=== PATIENT | female | born 1950 | race Two or more races ===

== ENCOUNTER → 2019-12-21 13:40 | Outpatient (CLI) | payer MEDICARE, SELFPAY ==
[2019-11-12 15:22] VITALS: BMI 37.0
--- NOTE | 2019-12-21 13:43 | ECHOCS_ITS ---
Reason For Study: Murmur Procedure This was a 2D Doppler, Color Flow transthoracic echocardiogram. Contrast injection was performed. Exam performed in department. Left Ventricle Normal size and thickness. The estimated ejection fraction is 75 %. No evidence for diastolic dysfunction. No regional wall motion abnormalities noted. Right Ventricle Normal RV size. Normal systolic function. Atria Normal left atrium. Normal right atrium. No doppler evidence for ASD. Mitral Valve There is no mitral valve stenosis. No mitral valve insufficiency. Tricuspid Valve There is no tricuspid stenosis. Trivial tricuspid valve insufficiency. Unable to estimate RV systolic pressure due to insufficient tricuspid regurgitant envelope. Aortic Valve Aortic sclerosis, no stenosis. There is no aortic stenosis. No aortic valve insufficiency. Pulmonic Valve There is no pulmonic valvular stenosis. Trivial pulmonic valve insufficiency identified. Great Vessels Normal aortic root. Pericardium/Pleural No pericardial effusion. Medication Diluted definity 2ml given slow IV push to enhance endocardial definition. MMode/2D Measurements & Calculations LVIDd: 4.5 cm IVSd: 0.91 cm LVOT diam: 1.8 cm LVIDs: 2.0 cm LVPWd: 1.1 cm RVDd: 3.3 cm FS: 54.8 % LVOT area: 2.6 cm2 Ao root diam: 3.0 cm LAV(MOD-bp): 47.9 ml LA A4 area: 18.2 cm2 LAV(MOD-bp) Indexed: 25.9 ml/m2 LAV(MOD-sp2): 40.3 ml LAV(MOD-sp4): 47.8 ml LA dimension(2D): 4.3 cm RA A4 area: 10.4 cm2 Doppler Measurements & Calculations MV E max ritesh: 81.8 cm/sec Lat Peak E' Ritesh: 6.6 cm/sec Med Peak E' Ritesh: 5.6 cm/sec MV A max ritesh: 111.3 cm/sec E/E' lat: 12.3 E/E' med: 14.7 MV E/A: 0.73 Ao V2 max: 205.1 cm/sec LV V1 max: 154.0 cm/sec SV(LVOT): 89.7 ml Ao max P.8 mmHg LV V1 max P.5 mmHg Ao V2 mean: 137.8 cm/sec LV V1 mean P.1 mmHg Ao mean P.5 mmHg LV V1 mean: 106.3 cm/sec Ao V2 VTI: 41.4 cm LV V1 VTI: 34.3 cm MAURA(I,D): 2.2 cm2 MAURA(V,D): 2.0 cm2 PA V2 max: 120.4 cm/sec Interpretation Summary The study was technically difficult. Diluted definity 2ml given slow IV push to enhance endocardial definition. The estimated ejection fraction is 75 %. No evidence for diastolic dysfunction. Trivial tricuspid valve insufficiency. Trivial pulmonic valve insufficiency identified. The study was technically difficult. Ordering Physician: Anmol Mac Referring Physician: Luan Miller Performed By: Whit Ansari, EDDIE, RVT
== END ==
PROVIDERS: Family Provider Family Medicine; PCP Family Medicine; Referring Provider Specialist; Visit Provider Specialist
DX: R07.9 Chest pain, unspecified (principal); R01.1 Cardiac murmur, unspecified; I10 Essential (primary) hypertension
CPT/HCPCS: 93306; Q9957; A4216; C8929

== ENCOUNTER 2021-03-22 16:48 | Emergency (ER) | payer MEDICARE, SELFPAY ==
[2019-11-12 15:22] VITALS: BMI 37.0
[2021-03-22 16:48] VITALS: BP 161/61; PULSE 76; PULSE 79; RESP 18; TEMP 36.9; O2SAT 94; BMI 35.2
--- NOTE | 2021-03-22 17:30 | RAD_ITS ---
STUDY: X-RAY - LEFT SHOULDER REASON FOR EXAM: Female, 71 years old. Injury/Pain TECHNIQUE: 4 view(s) of the shoulder. COMPARISON: None. FINDINGS: There is mild degenerative arthrosis of the glenohumeral articulation. There is hypertrophic osteoarthrosis of the acromioclavicular joint with inferior osseous spur formation. Normal acromion. Normal humeral head and visualized proximal humerus. The soft tissue structures are unremarkable. Normal visualized pulmonary apex. RAD/Shoulder min 2 Views IMPRESSION: No acute abnormalities. 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 Electronically Signed: Waqar Joshua MD at 18:04 EDT Tel , Service support ,
[2021-03-22] MEDS: Morphine 4 MG/ML Syringe IM (17:42)
--- NOTE | 2021-03-22 17:45 | RAD_ITS ---
INDICATION: Injury/Pain EXAMINATION/TECHNIQUE: X-RAY - RIGHT XR Hip Unilateral with Pelvis when performed; 2-3 Views COMPARISON: None. FINDINGS: No acute fracture or malalignment. No blastic or lytic lesions. Mild to moderate degenerative changes of the bilateral hips. The soft tissues are unremarkable. RAD/HIP, UNI W/ Pelvis 2-3 Views IMPRESSION: No acute radiographic abnormalities. 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 Electronically Signed: Waqar Joshua MD at 18:05 EDT Tel , Service support ,
--- NOTE | 2021-03-22 18:45 | EDS_ITS ---
HPI History of Present Illness Chief Complaint: Lower Extremity Injury [facility] Medical History (Updated 03/22/21 @ 18:[address] Ry Thompson, DO) Essential hypertension GERD (gastroesophageal reflux disease) History of stroke Hyperlipidemia Sarcoidosis Type 2 diabetes mellitus without complication Home Medications atorvastatin 40 mg PO DAILY 09/21/17 [History Last Taken Unknown] hydrochlorothiazide 25 mg PO DAILY 09/21/17 [History Last Taken Unknown] lisinopril 10 mg PO DAILY 09/21/17 [History Last Taken Unknown] aspirin 81 mg tablet,delayed release 81 mg PO DAILY 11/01/19 [History Last Taken Unknown] fluticasone propionate 220 mcg/actuation HFA aerosol inhaler 2 puff INHALATION DAILY g 11/01/19 [History Last Taken Unknown] guaifenesin 600 mg tablet, extended release 12 hr 1,200 mg PO BID PRN tab 11/12/19 [History Last Taken Unknown] pantoprazole 20 mg tablet,delayed release 20 mg PO DAILY 11/12/19 [History Last Taken Unknown] hydrocodone-acetaminophen 1 tab PO Q6H PRN PRN 3 Days #10 tablet 03/22/21 [Rx Last Taken Unknown] metformin 500 mg PO DAILY 03/22/21 [History Last Taken Unknown] prednisolone acetate 1 drp OPHTHALMIC (EYE) Q6H 03/22/21 [History Last Taken Unknown] Allergy/AdvReac Type Severity Reaction Status Date / Time pravastatin AdvReac Intermediate joint pain Verified 11/12/19 15:22 simvastatin AdvReac Intermediate joint pain Verified 11/12/19 15:22 Family History Mother CAD (coronary artery disease) CABG X 3 Breast cancer Brother Cancer prostate Myocardial infarction Pacemaker Grandfather Diabetes Surgical History History of foot surgery History of hysterectomy Social History (Updated 11/12/19 @ 16:[address] Anmol Mac MD) Smoking Status: Never smoker alcohol intake: never substance use type: does not use caffeine: Yes Type: tea Number of servings: 2 EXAM Physical Exam Const Vital Signs: 03/22/21 16:48 Temperature 98.5 F Temperature Source Temporal Pulse Rate 79 Respiratory Rate 18 Blood Pressure 161/61 H Blood Pressure Mean 94 Pulse Ox 94 Oxygen Delivery Method Room Air MDM MDM MDM Narrative Medical decision making narrative: Patient was given a dose of morphine here. Patient is feeling better on reevaluation. Patient was given a prescription for a short course of [place]. Patient was advised of her x-ray findings. Patient was instructed to follow-up with her primary care physician in 5 to 7 days. Patient understood and was agreeable with the plan. All questions were answered. Radiography X-Ray: Right Hip, Read by ED Physician, Read by Radiologist and Normal Diagnostic Testing: Radiology Impression Shoulder X-Ray 03/22/21 17:30 IMPRESSION: No acute abnormalities. 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 Electronically Signed: Waqar Joshua MD at 18:04 EDT Tel , Service support , Hip/Pelvis X-Ray 03/22/21 17:45 IMPRESSION: No acute radiographic abnormalities. 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 Electronically Signed: Waqar Joshua MD at 18:05 EDT Tel , Service support , Discharge Plan Triage Chief Complaint: Lower Extremity Injury ED Provider: Ry Thompson Dx/Rx/DC Orders Clinical Impression: Sacroiliitis, Muscle strain of left shoulder region Instructions: ED Sacroiliitis, ED Muscle Strain, Extremity Prescriptions: New hydrocodone-acetaminophen [hydrocodone-acetaminophen] 1 TABLET tablet 1 tab PO Q6H PRN PRN (Reason: Pain) 3 Days Qty: 10 RF: 0 No Action pantoprazole 20 mg tablet,delayed release (DR/EC) 20 mg PO DAILY RF: 0 Flovent HFA 220 mcg/actuation HFA aerosol inhaler 2 puff INHALATION DAILY RF: 0 aspirin [Adult Low Dose Aspirin] 81 mg tablet,delayed release (DR/EC) 81 mg PO DAILY RF: 0 guaifenesin 600 mg tablet extended release 12hr 1,200 mg PO BID PRN (Reason: Congestion) RF: 0 atorvastatin 40 MG tablet 40 mg PO DAILY RF: 0 lisinopril 10 MG tablet 10 mg PO DAILY RF: 0 hydrochlorothiazide 25 MG tablet 25 mg PO DAILY RF: 0 metformin 500 mg Tablet 500 mg PO DAILY RF: 0 prednisolone acetate 1 % Drops,Suspension 1 drp ophthalmic (eye) Q6H RF: 0 Primary Care Provider: Ry Stoddard Referrals: Ry Stoddard MD [Primary Care Provider] - 3-5 Days Disposition Disposition: Home, self care
[2021-03-22 18:53] VITALS: BP 114/55; PULSE 54; RESP 15
== END 2021-03-22 18:58 | disposition home or self-care (01) ==
PROVIDERS: Emergency Provider Emergency Medicine; PCP Family Medicine
DX: M46.1 Sacroiliitis, not elsewhere classified (principal); S46.912A Strain of unspecified muscle, fascia and tendon at shoulder and upper arm level, left arm, initial encounter; X58.XXXA Exposure to other specified factors, initial encounter; Y93.9 Activity, unspecified; Y92.9 Unspecified place or not applicable; I10 Essential (primary) hypertension; E11.9 Type 2 diabetes mellitus without complications; E78.5 Hyperlipidemia, unspecified; D86.9 Sarcoidosis, unspecified; K21.9 Gastro-esophageal reflux disease without esophagitis; Z86.73 Personal history of transient ischemic attack (TIA), and cerebral infarction without residual deficits; Z79.82 Long term (current) use of aspirin; Z79.84 Long term (current) use of oral hypoglycemic drugs; Z79.899 Other long term (current) drug therapy
CPT/HCPCS: 73030; 73502; 96372; 99283

== ENCOUNTER → 2021-04-21 11:43 | Outpatient (CLI) | payer MEDICARE, SELFPAY ==
[2021-03-22 16:48] VITALS: BMI 35.2
[2021-04-21 15:35] LABS: Vitamin B12 499 pg/mL (211-911)
[2021-04-21 15:39] LABS: Hemoglobin A1c 6.4 % (3.8-5.6)
[2021-04-21 15:48] LABS: ALB/GLOB Ratio 0.7 RATIO (0.9-2.4); AST(SGOT) 34 U/L (15-37); Alanine Aminotransfer ALT/SGPT 55 U/L (13-56); Albumin, Serum 3.3 g/dL (3.2-5.0); Alkaline Phosphatase 124 U/L (45-117); Anion Gap 4 (5-15); BUN 20 mg/dL (7-18); BUN/Creat Ratio 24.4 RATIO (10-20); CRP 5.59 mg/L (0.0-3.0); Calcium,Total 9.6 mg/dL (8.5-10.1); Chloride 106 mmol/L (98-107); Creatinine, Serum 0.82 mg/dL (0.55-1.02); EST Glomerular Filtration Rate 73 mL/min (>60); Est Glom Filt Rate - Afr Amer 89 mL/min (>60); Glucose 101 mg/dL (74-106); Lipase 214 U/L (73-393); Potassium 3.9 mmol/L (3.5-5.1); Protein, Total 8.3 g/dL (6.4-8.2); Sodium Level 141 mmol/L (136-145)
[2021-04-21 15:52] LABS: Absolute Lymphocyte Count 1.91 X10^3/uL (0.83-4.51); Basophil# 0.02 X10^3/uL; Basophil% 0.3 % (0-1); Hematocrit 45.9 % (37-47); Hemoglobin 14.6 g/dL (12.0-15.0); Lymphocyte # 1.91 X10^3/ul (0.83-4.51); Lymphocyte % 28.9 % (19-41); Mean Corp Hgb Conc 31.8 g/dL (32-36); Mean Corpuscular Hgb 30.5 pg (27.0-32.0); Mean Corpuscular Volume 95.8 fL (81-99); Monocyte# 0.45 X10^3/uL; Monocyte% 6.8 % (0-10); NRBC Flagged by Analyzer 0 % (0-5); Neutrophil # 4.02 X10^3/uL (2.7-7.7); Neutrophil % 60.8 % (47-70); Platelet Count 171 K/mm3 (150-450); RBC Distribution Width CV 13.7 % (11.6-14.6); RBC Distribution Width SD 48.8 fl (35.1-43.9); Red Blood Count 4.79 M/mm3 (4.2-5.4); White Blood Count 6.6 K/mm3 (4.4-11.0)
[2021-04-21 15:53] LABS: Erythrocyte Sedimentation Rate 24 mm/hr (0-30)
== END ==
PROVIDERS: PCP Family Medicine; Referring Provider Family Medicine; Visit Provider Family Medicine
DX: E11.9 Type 2 diabetes mellitus without complications (principal); R10.13 Epigastric pain; K21.9 Gastro-esophageal reflux disease without esophagitis
CPT/HCPCS: 36415; 80053; 82607; 82746; 83036; 83690; 85025; 85652; 86140

== ENCOUNTER 2021-06-03 16:36 | Outpatient (RCR) | payer MEDICARE, SELFPAY ==
--- NOTE | 2021-06-05 10:20 | HP.PTEVAL_ITS ---
Patient's Visit Information MAREN MANRIQUE is a 71 year old F referred to Physical Therapy by Dr. Ry Stoddard MD with a diagnosis of L shoulder pain. Date of Evaluation: 06/03/21 Physical Therapist: Burak Lambert DPT - Visit Plan Frequency: 2x /Week Duration: 4 Weeks Plan: Start with chetna into flexion and scaption. Add in mid row, shoulder IR and extension strenthening with light resistance. Work on pain free ranges. Progress stability exercises and ROM as tolerated. Pt. has a large copay and desires to work on HEP given today for a week or 2 then follow back up. She is to call me with any questions if symptoms worse prior to coming back. - Subjective Pt. is here today for her initial evaluation with diagnosis of L shoulder pain. Pt. reports having pain for ~2-3 weeks. No mech of injury noted. No N/T in either UE. 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 Pt. has not had any imaging at this point in time. She did receive topical analgesic cream which has helped. She reports using it 2-3 times per day with good results. She reports having having increased pain with lifting her arm, any reaching. Pt. has relief with rest and OTC meds and the analgesic cream. Pt. reports she has been doing better and can now therapist speech her arm a bit better. She still complaints of increased pain with sleeping and lying on her L side. Pt. is hopeful to reduce symptoms in order to get back to all recreational and work activities without limitations. - Pain L shoulder Pain Intensity (Out of 10): 2 Pain Intensity Range: 1, 7 - Objective POSTURE: Pt. has general flexed posture. Pt. has rounded B shoulders and tends to keep her L shoulder in a guarded posture. PALPATION: Pt. has increased tenderness at anterior subacromial space and insertion supraspinatus and along bicipital groove along long head of biceps. NEURO: Pt. has normal sensation of BUEs, normal DTR of bilateral UEs. ROM: L shoulder: AROM: flexion 65deg, abd 55deg, functional ER external auditory meatus with aberrant motions, functional IR L2 no issue. Pt. reports being limited with all overhead motions secondary to pain. PROM: L shoulder: flexion 165deg (increased pain with return), abd 130deg increase NW, ER at 30deg of abd 30deg increased NE, IR 30deg increase NW. MMT: LUE: wrist 5/5 throughout; elbow 4+/5 throughout; shoulder- flexion 3-/5, abd 3- /5, ER 4/5 increase NW, IR 5-/5 NE, ext 5/5 NE. - Goals Goal 1:: LTG: Pt. to be I with HEP. Goal Time Frame: 2-4 Weeks Goal 2:: STG: Pt. to sleep throughout the night with 0-2/10 pain in L shoulder. Goal Time Frame: 2 Weeks Goal 3:: STG: Pt. to have increased AROM of L shoulder into flexion and abduction to at least 90deg allowing for increased tolerance to ADLs and job duties. Goal Time Frame: 2-4 Weeks Goal 4:: LTG: Pt. to have at least 130deg of active shoulder flexion and abduction. Goal Time Frame: 4-6 Weeks Goal 5:: LTG: Pt. to have increased RTC strength and deltoid strength to 4/5 throughout. Goal Time Frame: 4-6 Weeks Goal 6:: LTG: Pt. to complete all work duties and ADLs with 0-2/10 pain in L shoulder. Goal Time Frame: 4-6 Weeks - Rehabilitation Potential Physical Therapy Diagnosis: Pt. has signs and symptoms consistent with L shoulder pain. She has marked active ROM loss, but able to tolerate progressive passive motion. She did have pain with any attempted movement overhead. She has increased symptoms with active shoulder ER as well. She has + speeds, empty can and HK testing. I do think she has a marked RTC/biceps tendonopathy. She has increased pain with any eccentric lowering and marked loss of active mobility above ~65deg of motion. Due to this I do think she most likely has a tear (supraspinatus, biceps possiblyt as well). I suggest she work on ROM and strengthening around the RTC in order to reduce stress in injury site in attempt to stabilize around. Rehabilitation Potential: Fair - Anticipated Interventions Patient/Client Instruction: Educate patient on: Condition, Plan of Care, Risk Factors, Benefits of Fitness Program For the Purpose of:: To improve safety, To improve health and function, To foster healthy habits, To improve decision making, To improve self management, To prevent re-injury, To improve ability to perform tasks related to life management Therapeutic Exercise to Include: Strength training, Power training, Body mechanics, Postural training, Passive ROM, Active ROM, Scapular Strength/Stabilization For the Purpose of:: To decrease pain, To increase ROM, To improve nutrient delivery to tissue, To increase oxygenation perfusion, To improve muscle performance and motor function, To improve health of tissue, To decrease soft tissue restriction, To increase flexibility/ROM Manual Therapy Techniques to Include: Mobilization, Passive ROM For the Purpose of:: To decrease pain, To decrease swelling/inflammation, To increase ROM Ultrasound (thermal/non thermal): Yes For the Purpose of:: To decrease pain, To decrease swelling/inflammation, To increase ROM Thank you for the opportunity to evaluate your patient. For Medicare and Medicare HMO plans, please review the plan of care and approve it. It will need to be FAXED BACK to us at [phone] for Medicare purposes. For Medicare only, by signing this I certify the plan of care. Please let me know if there are questions or concerns regarding this plan of care. Physician Signature: Date:
== END 2021-06-03 19:00 | disposition home or self-care (01) ==
LOC: PT 16:36
PROVIDERS: PCP Family Medicine; Referring Provider Family Medicine; Visit Provider Family Medicine
DX: M75.22 Bicipital tendinitis, left shoulder (principal)
CPT/HCPCS: 97161

== ENCOUNTER → 2021-06-04 09:10 | Outpatient (CLI) | payer MEDICARE, SELFPAY ==
--- NOTE | 2021-06-04 09:11 | US_ITS ---
STUDY: ABDOMINAL ULTRASOUND - RIGHT UPPER QUADRANT REASON FOR VISIT: Female, 71 years old RUQ and epigastric pain TECHNIQUE: Ultrasound evaluation of the right upper quadrant was performed with real-time and static overton-scale imaging. TECHNICAL QUALITY: Adequate. COMPARISON: None. FINDINGS: Liver: The liver measures 15.7 cm. There is normal echogenicity of the liver. The bile ducts are within normal limits. There is hepatic color flow. The direction of portal flow is hepatopetal. There is no demonstrated mass lesion. There is a 3 mm x 3 mm x 3 mm granuloma in the left lobe of the liver. Gallbladder: Normal distended gallbladder. The gallbladder wall measures mm. There is a negative sonographic Boyd''s sign. There is no pericholecystic fluid. There are multiple echogenic structures within the gallbladder, consistent with multiple gallstones. Common Bile Duct (C.B.D.): The common bile duct measures 2.4 mm. Pancreas: Normal size of the head, body and tail of the pancreas. There is increased echogenicity of the pancreas. There is no demonstrated pancreatic mass or cyst. Right Kidney: Normal size of the right kidney. The right kidney measures 10.5 cm x 4.9 cm x 5.9 cm. Normal renal cortex. The right cortex measures 1.8 cm. 2 renal cysts are seen. The larger measures 2.2 cm x 1.9 cm x 2 cm. There is no right hydronephrosis. US/Abdomen Limited IMPRESSION: Multiple gallstones. Right renal cysts. Electronically Signed: Ricardo Rosen MD at 14:21 EDT , Service support ,
== END ==
PROVIDERS: PCP Family Medicine; Referring Provider Family Medicine; Visit Provider Family Medicine
DX: R10.11 Right upper quadrant pain (principal)
CPT/HCPCS: 76705

== ENCOUNTER → 2021-06-16 11:20 | Outpatient (CLI) | payer MEDICARE, SELFPAY ==
--- NOTE | 2021-06-16 11:25 | RAD_ITS ---
STUDY: X-RAY CHEST REASON FOR EXAM: Female, 71 years old. SARCOIDOSIS TECHNIQUE: PA and lateral views of the chest. COMPARISON: Comparison is made with prior study dated 09/16/2015. FINDINGS: The lungs are clear and expanded. Scattered calcified granulomas. There is no demonstrated pleural abnormality. Normal size heart. Normal mediastinum and alecia. Normal visualized pulmonary arteries. Normal visualized aortic arch and descending thoracic aorta. There are diffuse degenerative changes of the visualized thoracic spine. Normal visualized ribs, clavicles, and shoulders. There is no demonstrated abnormality of the visualized soft tissue structures of the upper abdomen. RAD/Chest PA and Lateral IMPRESSION: Scattered calcified granulomas. Electronically Signed: Ricardo Rosen MD at 21:46 EDT , Service support ,
[2021-06-16 15:30] LABS: CRP 5.92 mg/L (0.0-3.0)
[2021-06-16 15:33] LABS: Erythrocyte Sedimentation Rate 13 mm/hr (0-30)
[2021-06-18 16:42] LABS: Angiotensin Convert Enzyme 15 U/L (14-82)
== END ==
PROVIDERS: PCP Family Medicine; Referring Provider Internal Medicine Pulmonary Disease; Visit Provider Internal Medicine Pulmonary Disease
DX: D86.9 Sarcoidosis, unspecified (principal); K57.32 Diverticulitis of large intestine without perforation or abscess without bleeding
CPT/HCPCS: 36415; 71046; 82164; 85652; 86140

== ENCOUNTER → 2021-07-01 16:32 | Outpatient (CLI) | payer MEDICARE, SELFPAY ==
[2021-06-23 13:15] VITALS: BMI 36.5
--- NOTE | 2021-07-01 16:35 | CT_ITS ---
STUDY: CT ABDOMEN AND PELVIS WITH CONTRAST REASON FOR EXAM: Female, 71 years old. Abdominal pain RADIATION DOSAGE (If Supplied By Facility): CTDIvol = ( 14.12 ) mGy, DLP = ( 770.51 ) mGycm TECHNIQUE: Transaxial images were obtained from the dome of the diaphragm to the symphysis pubis with oral contrast. Oral and amp; IV REDICAT and amp; 100ML ISOVUE 300 was administered. Sagittal and coronal images were reconstructed. Individualized dose optimization techniques were used for this CT. COMPARISON: 09/21/2017 FINDINGS: The visualized lung bases are unremarkable. The visualized portions of the heart are within normal limits. Normal liver. Normal gallbladder and extrahepatic biliary system. Normal spleen. Normal pancreas. Normal bilateral adrenal glands. Normal right kidney. 4 cm cyst in the upper pole the left kidney. Normal visualized stomach. Normal small intestine. Normal colon. The appendix is visualized and appears normal. Normal abdominal aorta. Normal inferior vena cava. Normal retroperitoneum. Normal urinary bladder. Normal abdominal wall. Normal osseous structures. CT/Abdomen/Pelvis WITH Contrast IMPRESSION: Normal enhanced CT of the abdomen and pelvis. Electronically Signed: Alton Plaza MD at 17:08 EDT Tel , Service support ,
[2021-07-01 17:01] LABS: CREATININE FINGERSTICK 0.8 mg/dL (0.55-1.02); EGFR FINGERSTICK > 60.0000 mL/min (>60)
== END ==
PROVIDERS: PCP Family Medicine; Referring Provider Surgery; Visit Provider Surgery
DX: R10.9 Unspecified abdominal pain (principal)
CPT/HCPCS: 74177; Q9967

== ENCOUNTER → 2021-07-14 09:36 | Outpatient (CLI) | payer MEDICARE, SELFPAY ==
--- NOTE | 2021-07-14 09:38 | NM_ITS ---
CLINICAL: 71-year-old female with history of right upper quadrant abdominal pain. RADIONUCLIDE HEPATOBILIARY SCINTIGRAPHY COMPARISON: Abdominal ultrasound report 06/04/2021, CT of the abdomen-pelvis report 07/01/2021 FINDINGS: Following the intravenous administration of 5.0 mCi of 99m Tc Mebrofenin, hepatobiliary images reveal:. 1. Relatively prompt and homogeneous radiopharmaceutical concentration is noted by the liver parenchyma. No parenchymal defects are identified. 2. Gallbladder activity is identified at 15-30 minutes post radiopharmaceutical administration. 3. Small intestinal tract is observed at 45 minutes following tracer injection. 4. Washout of the radiopharmaceutical by the hepatic parenchyma appears qualitatively normal. The patient was administered a fatty meal (8 ounces Boost). The post fatty meal ingestion gallbladder ejection fraction calculated at 59 minutes was noted to be 3.0 % (normal greater than 30%). NM/Hepatobilliary Img w/Pharm Int IMPRESSION: 1. ABNORMAL 99m Tc Mebrofenin hepatobiliary imaging examination with fatty meal ingestion. A. A gallbladder ejection fraction calculated to be less than 30% following the administration of an ingested fatty meal is consistent with the presence of functional hepatobiliary disease (gallbladder and/or sphincter of Oddi dyskinesia) and/or organic hepatobiliary disease (chronic acalculous cholecystitis and/or cystic duct syndrome) in patients with intermediate to high pretest probabilities of hepatobiliary illness. (Gloria and Darrin, J Nucl Med 43: 1603, 2002). Electronically Signed: Alton Seaman DO at 22:08 EDT Tel , Service support ,
== END ==
LOC: NM 09:36
PROVIDERS: PCP Family Medicine; Referring Provider Family Medicine; Visit Provider Family Medicine
DX: R10.11 Right upper quadrant pain (principal)
CPT/HCPCS: 78227; A9537

== ENCOUNTER 2021-08-06 20:11 | Emergency (ER) | payer MEDICARE, SELFPAY ==
[2021-08-06 20:12] VITALS: BP 160/75; PULSE 79; RESP 15; TEMP 36.6; O2SAT 97; BMI 36.5
== END 2021-08-06 20:41 | disposition left against medical advice (07) ==
LOC: ED 21:07
PROVIDERS: PCP Family Medicine
DX: J02.9 Acute pharyngitis, unspecified (principal)

== ENCOUNTER → 2021-08-07 | Outpatient (CLI) | payer MEDICARE, SELFPAY | END | disposition home or self-care (01) | LOC: LABSPEC 16:45 | PROVIDERS: PCP Family Medicine; Referring Provider Family Medicine; Visit Provider Family Medicine | DX: Z20.822 Contact with and (suspected) exposure to COVID-19 (principal) | CPT/HCPCS: 87633 ==

== ENCOUNTER → 2021-10-30 12:48 | Outpatient (CLI) | payer MEDICARE, SELFPAY ==
--- NOTE | 2021-10-30 12:56 | CT_ITS ---
STUDY: CT CHEST WITHOUT CONTRAST REASON FOR EXAM: Female, 71 years old. SARCOIDOSIS OF LUNG. Covid. RADIATION DOSAGE (If Supplied By Facility): CTDIvol = ( 16.94 ) mGy, DLP = ( 466.46 ) mGycm TECHNIQUE: Transaxial imaging was performed without the administration of intravenous contrast material. Multiplanar coronal and sagittal images were reformatted. Individualized dose optimization techniques were used for this CT. COMPARISON: None. FINDINGS: There is a 1 cm hypodensity in the right lobe of the thyroid. Small benign-appearing bilateral axillary lymph notes. There is a 6.3 mm partially calcified nodule in the posterior medial aspect of the right upper lobe. There is also evidence of a calcified granuloma in the anterior aspect of the right upper lobe as seen on axial image #52. 5 mm granuloma in the right lower lobe adjacent to the right hemidiaphragm. There is evidence of a 1.2 cm noncalcified nodule in the peripheral lateral aspect of the left lower lobe. There is no demonstrated pleural abnormality. There are calcifications of the coronary arteries. Calcified right paratracheal adenopathy. Calcified right hilar lymph nodes. Normal unenhanced pulmonary arteries. Normal aorta arch and descending thoracic aorta. There are multi-level degenerative changes of the thoracic spine. Multiple calcified splenic granulomas. CT/Chest without Contrast IMPRESSION: Scattered calcified granulomas as well as calcified right hilar lymph nodes. 1.2 cm noncalcified nodule in the peripheral lateral aspect of the left lower lobe. A six-month follow-up examination is suggested. Electronically Signed: Ricardo Rosen MD at 14:15 EST , Service support ,
== END ==
PROVIDERS: PCP Family Medicine; Referring Provider Internal Medicine Pulmonary Disease; Visit Provider Internal Medicine Pulmonary Disease
DX: D86.0 Sarcoidosis of lung (principal)
CPT/HCPCS: 71250

== ENCOUNTER 2021-12-01 12:31 | Outpatient (CLI) | payer MEDICARE, SELFPAY | END 2021-12-01 23:59 | disposition short-term general hospital (02) | LOC: MTLAB 12:33 | PROVIDERS: PCP Family Medicine; Referring Provider Internal Medicine Pulmonary Disease; Visit Provider Internal Medicine Pulmonary Disease | DX: D86.0 Sarcoidosis of lung (principal) | CPT/HCPCS: 36415; 86140 ==

== ENCOUNTER 2021-12-02 11:11 | Outpatient (CLI) | payer MEDICARE, SELFPAY | END 2021-12-02 23:59 | disposition short-term general hospital (02) | LOC: LABSPEC 11:12 | PROVIDERS: PCP Family Medicine; Referring Provider Physician Assistant; Visit Provider Physician Assistant | DX: Z11.52 Encounter for screening for COVID-19 (principal) | CPT/HCPCS: 87635; U0003; U0005 ==

== ENCOUNTER 2021-12-23 08:58 | Outpatient (CLI) | payer MEDICARE, SELFPAY ==
[2021-12-23 10:31] LABS: Hematocrit 48.3 % (37-47); Hemoglobin 15.5 g/dL (12.0-15.0); Mean Corp Hgb Conc 32.1 g/dL (32-36); Mean Corpuscular Hgb 31.1 pg (27.0-32.0); Mean Corpuscular Volume 96.8 fL (81-99); Mean Platelet Vol. 11.8 fl (6.2-12.0); Platelet Count 161 K/mm3 (150-450); RBC Distribution Width SD 50.4 fl (35.1-43.9); Red Blood Count 4.99 M/mm3 (4.2-5.4); White Blood Count 14.4 K/mm3 (4.4-11.0)
[2021-12-23 11:02] LABS: ALB/GLOB Ratio 0.8 RATIO (0.9-2.4); AST(SGOT) 8 U/L (15-37); Alanine Aminotransfer ALT/SGPT 30 U/L (13-56); Albumin, Serum 3.2 g/dL (3.2-5.0); Alkaline Phosphatase 99 U/L (45-117); Anion Gap 5 (5-15); BUN 19 mg/dL (7-18); BUN/Creat Ratio 22.3 RATIO (10-20); Calcium,Total 9.7 mg/dL (8.5-10.1); Chloride 100 mmol/L (98-107); Creatinine, Serum 0.85 mg/dL (0.55-1.02); EST Glomerular Filtration Rate 70 mL/min (>60); Est Glom Filt Rate - Afr Amer 85 mL/min (>60); Globulin 4.1 g/dL (2.2-4.2); Glucose 196 mg/dL (74-106); Potassium 3.5 mmol/L (3.5-5.1); Protein, Total 7.3 g/dL (6.4-8.2); Sodium Level 136 mmol/L (136-145)
== END 2021-12-23 23:59 | disposition short-term general hospital (02) ==
LOC: MTLAB 09:01
PROVIDERS: PCP Family Medicine; Referring Provider Family Medicine; Visit Provider Family Medicine
DX: D86.9 Sarcoidosis, unspecified (principal); E11.65 Type 2 diabetes mellitus with hyperglycemia; Z79.52 Long term (current) use of systemic steroids
CPT/HCPCS: 36415; 80053; 85027

== ENCOUNTER 2022-02-02 12:12 | Outpatient (CLI) | payer MEDICARE, SELFPAY ==
--- NOTE | 2022-02-02 12:20 | RAD_ITS ---
1. INDICATION: SINUSITIS EXAMINATION/TECHNIQUE: X-RAY - XR Sinuses Paranasal Min 3 Views COMPARISON: CT the head dated 04/27/2016 FINDINGS: There is no significant mucosal thickening. There are no air-fluid levels. The regional bones are grossly intact. Current examination is remarkable for a lobulated peripherally calcified abnormality involving the RIGHT frontal cranial vault. This does correspond to coarsely calcified meningiomata which are seen on the previous CT. Size and configuration are consistent with previous CT. RAD/Sinuses min 3 Views IMPRESSION: 1. No evidence of air-fluid levels or claudette sinus opacification involving the visualized paranasal sinuses. 2. Lobulated peripherally calcified structures associated with the RIGHT frontal cranial vault consistent with calcified meningiomata. Electronically Signed: Alton Nieto MD at 17:44 EDT ,
[2022-02-02 15:14] LABS: Hematocrit 46.1 % (37-47); Hemoglobin 14.6 g/dL (12.0-15.0); Mean Corp Hgb Conc 31.7 g/dL (32-36); Mean Corpuscular Hgb 30.8 pg (27.0-32.0); Mean Corpuscular Volume 97.3 fL (81-99); Mean Platelet Vol. 11.1 fl (6.2-12.0); Platelet Count 176 K/mm3 (150-450); RBC Distribution Width CV 13.1 % (11.6-14.6); RBC Distribution Width SD 46.6 fl (35.1-43.9); Red Blood Count 4.74 M/mm3 (4.2-5.4); White Blood Count 6.7 K/mm3 (4.4-11.0)
[2022-02-02 15:35] LABS: AST(SGOT) 17 U/L (15-37); Alanine Aminotransfer ALT/SGPT 40 U/L (13-56); Albumin, Serum 3.5 g/dL (3.2-5.0); Alkaline Phosphatase 117 U/L (45-117); Anion Gap 1 (5-15); BUN 12 mg/dL (7-18); Bilirubin, Direct 0.09 mg/dL (0.00-0.30); Calcium,Total 9.5 mg/dL (8.5-10.1); Chloride 104 mmol/L (98-107); Creatinine, Serum 0.79 mg/dL (0.55-1.02); EST Glomerular Filtration Rate 77 mL/min (>60); Est Glom Filt Rate - Afr Amer 93 mL/min (>60); Globulin 4.5 g/dL (2.2-4.2); Potassium 3.5 mmol/L (3.5-5.1); Sodium Level 137 mmol/L (136-145)
[2022-02-02 16:05] LABS: Hepatitis B Surface Antigen Non-Reactive (Nonreactive); Hepatitis C Antibody Non-Reactive (Nonreactive)
[2022-02-04 08:34] LABS: Hepatitis B Core Ab Total Negative (Negative)
== END 2022-02-02 23:59 | disposition home or self-care (01) ==
LOC: MTLAB 12:12
PROVIDERS: PCP Family Medicine; Referring Provider Internal Medicine Pulmonary Disease; Visit Provider Internal Medicine Pulmonary Disease
DX: J01.00 Acute maxillary sinusitis, unspecified (principal); D86.0 Sarcoidosis of lung
CPT/HCPCS: 36415; 70220; 80051; 80076; 82310; 82565; 84520; 85027; 86704; 86803; 87340

== ENCOUNTER 2022-03-10 08:53 | Outpatient (RCR) | payer MEDICARE, SELFPAY ==
[2022-03-10 10:50] LABS: AST(SGOT) 33 U/L (15-37); Alanine Aminotransfer ALT/SGPT 76 U/L (13-56); Anion Gap 2 (5-15); BUN 12 mg/dL (7-18); Chloride 101 mmol/L (98-107); Creatinine, Serum 0.74 mg/dL (0.55-1.02); EST Glomerular Filtration Rate 83 mL/min (>60); Est Glom Filt Rate - Afr Amer 100 mL/min (>60); Potassium 3.7 mmol/L (3.5-5.1); Sodium Level 137 mmol/L (136-145)
== END 2022-03-10 18:00 | disposition home or self-care (01) ==
LOC: MTLAB 08:53
PROVIDERS: PCP Family Medicine; Referring Provider Internal Medicine Pulmonary Disease; Visit Provider Internal Medicine Pulmonary Disease
DX: D86.0 Sarcoidosis of lung (principal)
CPT/HCPCS: 36415; 80051; 82565; 84450; 84460; 84520

== ENCOUNTER → 2022-03-23 | Outpatient (CLI) | payer MEDICARE, SELFPAY | END | disposition home or self-care (01) | LOC: LABSPEC 12:52 | PROVIDERS: PCP Family Medicine; Visit Provider Family Medicine | DX: J39.9 Disease of upper respiratory tract, unspecified (principal) | CPT/HCPCS: 87635; 87804; U0003; U0005 ==

== ENCOUNTER 2022-04-06 09:23 | Outpatient (RCR) | payer MEDICARE, SELFPAY ==
[2022-04-06 12:25] LABS: AST(SGOT) 13 U/L (15-37); Alanine Aminotransfer ALT/SGPT 41 U/L (13-56); Anion Gap 4 (5-15); BUN 15 mg/dL (7-18); Chloride 105 mmol/L (98-107); Creatinine, Serum 0.89 mg/dL (0.55-1.02); EST Glomerular Filtration Rate 67 mL/min (>60); Est Glom Filt Rate - Afr Amer 81 mL/min (>60); Potassium 3.5 mmol/L (3.5-5.1); Sodium Level 140 mmol/L (136-145)
== END 2022-04-06 18:00 | disposition home or self-care (01) ==
LOC: MTLAB 09:23
PROVIDERS: PCP Family Medicine; Referring Provider Internal Medicine Pulmonary Disease; Visit Provider Internal Medicine Pulmonary Disease
DX: D86.0 Sarcoidosis of lung (principal)
CPT/HCPCS: 36415; 80051; 82565; 84450; 84460; 84520

== ENCOUNTER 2022-05-13 15:11 | Outpatient (RCR) | payer MEDICARE, SELFPAY ==
[2022-05-13 10:14] LABS: Hematocrit 45.4 % (37-47); Hemoglobin 14.9 g/dL (12.0-15.0); Mean Corp Hgb Conc 32.8 g/dL (32-36); Mean Corpuscular Volume 97.6 fL (81-99); Mean Platelet Vol. 11.2 fl (6.2-12.0); Platelet Count 192 K/mm3 (150-450); RBC Distribution Width CV 13.3 % (11.6-14.6); RBC Distribution Width SD 47.8 fl (35.1-43.9); Red Blood Count 4.65 M/mm3 (4.2-5.4); White Blood Count 8.7 K/mm3 (4.4-11.0)
[2022-05-13 10:40] LABS: ALB/GLOB Ratio 0.9 RATIO (0.9-2.4); AST(SGOT) 12 U/L (15-37); Alanine Aminotransfer ALT/SGPT 33 U/L (13-56); Albumin, Serum 3.4 g/dL (3.2-5.0); Alkaline Phosphatase 103 U/L (45-117); Anion Gap 5 (5-15); BUN 19 mg/dL (7-18); BUN/Creat Ratio 19.8 RATIO (10-20); Bilirubin, Direct 0.16 mg/dL (0.00-0.30); Calcium,Total 10.1 mg/dL (8.5-10.1); Chloride 103 mmol/L (98-107); Creatinine, Serum 0.96 mg/dL (0.55-1.02); EST Glomerular Filtration Rate 61 mL/min (>60); Est Glom Filt Rate - Afr Amer 74 mL/min (>60); Globulin 3.8 g/dL (2.2-4.2); Glucose 307 mg/dL (74-106); Potassium 3.9 mmol/L (3.5-5.1); Protein, Total 7.2 g/dL (6.4-8.2); Sodium Level 139 mmol/L (136-145)
== END 2022-05-20 16:00 | disposition home or self-care (01) ==
LOC: MTLAB 15:11
PROVIDERS: PCP Family Medicine; Referring Provider Internal Medicine Pulmonary Disease; Visit Provider Internal Medicine Pulmonary Disease
DX: D86.0 Sarcoidosis of lung (principal); Z79.899 Other long term (current) drug therapy
CPT/HCPCS: 36415; 80053; 82248; 85027

== ENCOUNTER 2022-06-14 11:52 | Emergency (ER) | payer MEDICARE, SELFPAY ==
[2022-06-14 11:53] VITALS: BP 150/103; PULSE 66; RESP 16; TEMP 5391.1; TEMP 9736; O2SAT 97; BMI 34.5
--- NOTE | 2022-06-14 12:30 | RAD_ITS ---
STUDY: X-RAY - RIGHT SHOULDER REASON FOR EXAM: Female, 72 years old. Pain, NO INJURY TECHNIQUE: 4 view(s) of the shoulder. COMPARISON: None. FINDINGS: Normal glenohumeral articulation. Normal acromioclavicular joint. Normal acromion. Normal humeral head and visualized proximal humerus. The soft tissue structures are unremarkable. Normal visualized pulmonary apex. RAD/Shoulder min 2 Views IMPRESSION: Normal x-ray examination of the shoulder. Electronically Signed: Ricardo Rosen MD at 12:58 EDT ,
--- NOTE | 2022-06-14 12:41 | EDS_ITS ---
HPI History of Present Illness Chief Complaint: Upper Extremity Injury Informant: patient Narrative Narrative: [id number] female increasing right shoulder pain since yesterday. Mild symptoms yesterday however this morning pushed her self off a chair having increasing pain in her shoulder. Denies any direct falls. No history of similar she took Tylenol which is helping. Pain is worse with movement. Patient states her glucose is high at 290 she is a diabetic on metformin and glipizide. Edition she is on chronic steroids currently which weaned down to 10 mg daily. She reports had COVID and is placed on this medicine by pulmonology she is also on methotrexate weekly for treatment of this per patient. Denies nausea or vomiting. Denies polyuria polydipsia. Denies fevers. Denies any respiratory symptoms. Prior similar symptoms: No PFSH PFSH Medical History Constipation COPD (chronic obstructive pulmonary disease) Essential hypertension Fatigue GERD (gastroesophageal reflux disease) History of stroke Hyperlipidemia LLQ discomfort Sarcoidosis Sleep apnea SOB (shortness of breath) on exertion Type 2 diabetes mellitus without complication Home Medications atorvastatin 40 mg tablet 40 mg PO DAILY 09/21/17 [History Last Taken Unknown] lisinopril 10 mg tablet 10 mg PO DAILY 09/21/17 [History Last Taken Unknown] aspirin 81 mg tablet,delayed release (Adult Low Dose Aspirin) 81 mg PO DAILY 11/01/19 [History Last Taken Unknown] fluticasone propionate 220 mcg/actuation HFA aerosol inhaler (Flovent HFA) 2 puff inhalation DAILY 11/01/19 [History Last Taken Unknown] pantoprazole 20 mg tablet,delayed release 20 mg PO DAILY 11/12/19 [History Last Taken Unknown] metformin 500 mg tablet 500 mg PO DAILY 03/22/21 [History Last Taken Unknown] hydrochlorothiazide 25 mg tablet 12.5 mg PO DAILY 06/23/21 [History Last Taken Unknown] folic acid 1 tablet DAILY 06/14/22 [History Last Taken Unknown] glipizide 1 tablet DAILY 06/14/22 [History Last Taken Unknown] prednisone 1 tablet DAILY 06/14/22 [History Last Taken Unknown] sulfamethoxazole-trimethoprim 1 tablet QMWF 06/14/22 [History Last Taken Unknown] Allergy/AdvReac Type Severity Reaction Status Date / Time pravastatin AdvReac Intermediate joint pain Verified 06/14/22 13:11 simvastatin AdvReac Intermediate joint pain Verified 06/14/22 13:11 Family History Mother CAD (coronary artery disease) CABG X 3 Breast cancer Heart disease Hypertension CVA (cerebral vascular accident) Brother Cancer prostate Myocardial infarction Pacemaker Grandfather Diabetes Surgical History History of colonoscopy History of foot surgery History of hysterectomy Social History Smoking Status: Never smoker second hand exposure: No alcohol intake: never substance use type: does not use caffeine: Yes Type: tea Number of servings: 2 what type of physical activity do you participate in: none frequency: does not exercise ROS ROS ED Constitutional Constitutional ED: Denies chills, fever(s) or sweats Eyes Eyes: Denies change in vision ENT ENT ED: Denies dysphagia or sore throat Cardiovascular Cardiovascular: Denies chest pain, leg edema, palpitations or racing heartbeat Respiratory/Chest Respiratory/Chest: Denies cough, dyspnea or dyspnea on exertion Gastrointestinal Gastrointestinal: Denies abdominal pain, diarrhea, nausea or vomiting Genitourinary Genitourinary ED: Denies dysuria, hematuria or urinary frequency Musculoskeletal Musculoskeletal: Reports extremity pain and other Details: Right shoulder pain ; Denies back pain or neck pain Integumentary Denies rash or wounds Neurologic Neurologic: Denies headache(s), paresthesias or weakness EXAM Physical Exam Const Vital Signs: 06/14/22 11:53 Temperature 9736 F H Temperature Source Temporal Pulse Rate 66 Respiratory Rate 16 Blood Pressure 150/103 H Blood Pressure Mean 118 Pulse Ox 97 Oxygen Delivery Method Room Air Positive well nourished and well developed General Appearance ED: well developed and NAD HEENT Reports moist mucous membranes normocephalic and atraumatic Eyes PERRL, EOMs intact bilaterally and conjunctivae normal General Eye ED: Yes normal appearance of both eyes Neck no lymphadenopathy and supple General: Negative for tenderness Chest Wall Chest: Negative for tenderness Resp normal respiratory effort and normal air movement Effort and Inspection: symmetric chest movement; Negative for respiratory distress Cardio regular rate, regular rhythm and no murmurs Peripheral Pulses: pulses 2+ throughout GI normal to inspection, nondistended, normoactive bowel sounds and non-tender Palpation: Negative for guarding or rebound tenderness present Back/Spine no CVA tenderness and no thoracic nor lumbar tenderness Extremity Extremity Narrative: Right upper extremity: Passive full range of motion. There is active pain in the shoulder with movement. No deformities. No elbow tenderness. Skin intact. Neuro vas intact distally. General Extremety ED: Yes tenderness; Negative for edema General Extremity: Negative for edema Neuro oriented x3 and no sensory deficits noted Sensorium / Orientation: awake and alert Skin no rashes or lesions noted and no wounds MDM MDM MDM Narrative Medical decision making narrative: Patient has a full range of motion to the right shoulder reviewed by myself and read by radiology shows no acute process. She declined any further medications. She will continue Tylenol. With her reported elevated glucose at home she is a diabetic she is on medicines she is on chronic prednisone. Discussed diet control she has no clinical concerns for DKA. She will follow-up with her PCP for likely physical therapy for her shoulder. She is also given orthopedics if she desires to see them. All questions were answered. Discharge Plan Triage Chief Complaint: Upper Extremity Injury ED Provider: Darrell Díaz Dx/Rx/DC Orders Clinical Impression: Sprain of right shoulder, COPD (chronic obstructive pulmonary disease), History of diabetes mellitus Instructions: ED Shoulder Sprain Prescriptions: No Action pantoprazole 20 mg tablet,delayed release (DR/EC) 20 mg PO DAILY Flovent HFA 220 mcg/actuation HFA aerosol inhaler 2 puff INHALATION DAILY aspirin [Adult Low Dose Aspirin] 81 mg tablet,delayed release (DR/EC) 81 mg PO DAILY atorvastatin 40 MG tablet 40 mg PO DAILY lisinopril 10 MG tablet 10 mg PO DAILY hydrochlorothiazide 25 mg tablet 12.5 mg PO DAILY metformin 500 mg Tablet 500 mg PO DAILY sulfamethoxazole-trimethoprim 1 tablet QMWF prednisone 10 mg 1 tablet DAILY folic acid 1 mg 1 tablet DAILY glipizide 5 mg 1 tablet DAILY Primary Care Provider: Ry Stoddard Referrals: Ry Stoddard MD [Primary Care Provider] - 1 Week Benny Valero MD [STAFF PHYSICIAN] - 1 Week Activity Restrictions/Additional Instructions: Right shoulder x-ray negative. Continue 1 g of Tylenol every 6 hours. Follow- up with your doctor for likely physical therapy. May follow-up with orthopedics. Your elevated glucose you are on chronic steroids. Monitor your diet. Continue your metformin and your glipizide. Disposition Disposition: Home, Self Care Discharge Date/Time: 06/14/22 13:32
== END 2022-06-14 13:32 | disposition home or self-care (01) ==
PROVIDERS: Emergency Provider Emergency Medicine; PCP Family Medicine; Visit Provider Emergency Medicine
DX: S43.401A Unspecified sprain of right shoulder joint, initial encounter (principal); J44.9 Chronic obstructive pulmonary disease, unspecified; E11.9 Type 2 diabetes mellitus without complications; X50.9XXA Other and unspecified overexertion or strenuous movements or postures, initial encounter; Z79.52 Long term (current) use of systemic steroids; I10 Essential (primary) hypertension; K21.9 Gastro-esophageal reflux disease without esophagitis; E78.5 Hyperlipidemia, unspecified; Z86.73 Personal history of transient ischemic attack (TIA), and cerebral infarction without residual deficits; D86.9 Sarcoidosis, unspecified; G47.30 Sleep apnea, unspecified; Z79.82 Long term (current) use of aspirin; Z79.899 Other long term (current) drug therapy; Z79.84 Long term (current) use of oral hypoglycemic drugs
CPT/HCPCS: 73030; 99282

== ENCOUNTER 2022-07-07 08:48 | Outpatient (RCR) | payer MEDICARE, SELFPAY ==
[2022-07-07 10:18] LABS: Hematocrit 44.5 % (37-47); Hemoglobin 14.2 g/dL (12.0-15.0); Mean Corp Hgb Conc 31.9 g/dL (32-36); Mean Corpuscular Hgb 31.8 pg (27.0-32.0); Mean Corpuscular Volume 99.6 fL (81-99); Mean Platelet Vol. 10.7 fl (6.2-12.0); Platelet Count 168 K/mm3 (150-450); RBC Distribution Width CV 12.9 % (11.6-14.6); RBC Distribution Width SD 47.2 fl (35.1-43.9); Red Blood Count 4.47 M/mm3 (4.2-5.4); White Blood Count 6.6 K/mm3 (4.4-11.0)
[2022-07-07 10:46] LABS: ALB/GLOB Ratio 0.9 RATIO (0.9-2.4); AST(SGOT) 46 U/L (15-37); Alanine Aminotransfer ALT/SGPT 85 U/L (13-56); Albumin, Serum 3.2 g/dL (3.2-5.0); Alkaline Phosphatase 119 U/L (45-117); Anion Gap 3 (5-15); BUN 11 mg/dL (7-18); BUN/Creat Ratio 14.5 RATIO (10-20); Bilirubin, Direct 0.19 mg/dL (0.00-0.30); Calcium,Total 9.3 mg/dL (8.5-10.1); Chloride 105 mmol/L (98-107); Creatinine, Serum 0.76 mg/dL (0.55-1.02); EST Glomerular Filtration Rate 80 mL/min (>60); Est Glom Filt Rate - Afr Amer 97 mL/min (>60); Globulin 3.6 g/dL (2.2-4.2); Glucose 201 mg/dL (74-106); Potassium 3.6 mmol/L (3.5-5.1); Protein, Total 6.8 g/dL (6.4-8.2); Sodium Level 139 mmol/L (136-145)
== END 2022-07-07 18:00 | disposition home or self-care (01) ==
LOC: MTLAB 08:48
PROVIDERS: PCP Family Medicine; Referring Provider Internal Medicine Pulmonary Disease; Visit Provider Internal Medicine Pulmonary Disease
DX: D86.0 Sarcoidosis of lung (principal); Z79.899 Other long term (current) drug therapy
CPT/HCPCS: 36415; 80053; 82248; 85027

== ENCOUNTER → 2022-08-17 | Outpatient (CLI) | payer MEDICARE, SELFPAY ==
--- NOTE | 2022-08-17 12:36 | RAD_ITS ---
STUDY: X-RAY CHEST REASON FOR EXAM: Female, 72 years old. Dyspnea. TECHNIQUE: Frontal and lateral views of the chest. COMPARISON: Chest CT dated 10/30/2021. FINDINGS: The lungs are clear and expanded. Scattered healed parenchymal granulomatous calcifications. There is no demonstrated pleural abnormality. Borderline cardiomegaly. Calcified mediastinal and hilar lymph nodes Normal visualized pulmonary arteries. Aortic tortuosity with calcification. Diffuse mild thoracic spondylosis. Normal visualized ribs, clavicles, and shoulders. There is no demonstrated abnormality of the visualized soft tissue structures of the upper abdomen. RAD/Chest PA and Lateral IMPRESSION: Cardiomegaly with no acute or active cardiopulmonary disease. Electronically Signed: Simon Mina, at 9:31 EDT ,
[2022-08-17 15:20] LABS: Hematocrit 46.4 % (37-47); Hemoglobin 15.1 g/dL (12.0-15.0); Mean Corp Hgb Conc 32.5 g/dL (32-36); Mean Corpuscular Hgb 32.5 pg (27.0-32.0); Mean Platelet Vol. 10.9 fl (6.2-12.0); Platelet Count 211 K/mm3 (150-450); RBC Distribution Width CV 12.4 % (11.6-14.6); RBC Distribution Width SD 45.3 fl (35.1-43.9); Red Blood Count 4.64 M/mm3 (4.2-5.4); White Blood Count 8.7 K/mm3 (4.4-11.0)
[2022-08-17 16:11] LABS: AST(SGOT) 40 U/L (15-37); Alanine Aminotransfer ALT/SGPT 74 U/L (13-56); Albumin, Serum 3.4 g/dL (3.2-5.0); Alkaline Phosphatase 184 U/L (45-117); BUN 12 mg/dL (7-18); Bilirubin, Direct 0.11 mg/dL (0.00-0.30); Globulin 4.7 g/dL (2.2-4.2); Protein, Total 8.1 g/dL (6.4-8.2)
== END | disposition home or self-care (01) ==
PROVIDERS: PCP Family Medicine; Referring Provider Internal Medicine Pulmonary Disease; Visit Provider Internal Medicine Pulmonary Disease
DX: D86.0 Sarcoidosis of lung (principal); R06.00 Dyspnea, unspecified
CPT/HCPCS: 36415; 71046; 80076; 84520; 85027

== ENCOUNTER 2022-09-12 10:35 | Emergency (ER) | payer MEDICARE, SELFPAY ==
[2022-09-12 10:36] VITALS: BP 102/70; PULSE 67; RESP 18; TEMP 36.8; O2SAT 95; BMI 33.6
--- NOTE | 2022-09-12 11:01 | EX.ED.VIS.UR ---
HPI HPI - URI History of Present Illness Chief Complaint: Sore Throat Informant: patient Onset/Context/Timing Onset: Days (3) Context: Gradual Onset Timing: Continuous Quality: Burning Location: Mouth, throat Worsened by: Swallowing Relieved by: - (Nothing) Associated Symptoms Associated Symptoms: Negative for Nasal Congestion, Headache, Sinus Pressure, Myalgias, Nausea, Vomiting, Diarrhea, Shortness of Breath, Chest Pain, Nonproductive cough, Hemoptysis or Productive Cough Narrative Narrative: Patient presents with sore throat and mild pain that has been getting worse over the last 3 days. Patient states she went to an urgent care 2 days ago and was diagnosed with thrush. Patient was given prescription for nystatin swish and swallow. Patient states she has been taking this with no improvement. Patient describes her pain as burning. Patient states it is in her mouth and throat. Patient states it is worse with swallowing. Patient states nothing seems to be helping with that. ROS ROS ED Constitutional Constitutional ED: Denies chills or fever(s) Eyes Eyes: Denies blurry vision or change in vision ENT ENT ED: Reports sore throat; Denies rhinorrhea Cardiovascular Cardiovascular: Denies chest pain or palpitations Respiratory/Chest Respiratory/Chest: Denies cough or dyspnea Gastrointestinal Gastrointestinal: Denies nausea or vomiting Genitourinary Genitourinary ED: Reports hematuria; Denies dysuria Musculoskeletal Musculoskeletal: Denies back pain or neck pain Integumentary Denies Abrasions or rash Neurologic Neurologic: Denies headache(s) or weakness Allergic/Immunologic Allergic/Immunologic ED: Denies mouth swelling or urticaria [facility] Medical History Constipation COPD (chronic obstructive pulmonary disease) Essential hypertension Fatigue GERD (gastroesophageal reflux disease) History of stroke Hyperlipidemia LLQ discomfort Sarcoidosis Sleep apnea SOB (shortness of breath) on exertion Type 2 diabetes mellitus without complication Home Medications atorvastatin 40 mg tablet 40 mg PO DAILY 09/21/17 [History Last Taken Unknown] lisinopril 10 mg tablet 10 mg PO DAILY 09/21/17 [History Last Taken Unknown] aspirin 81 mg tablet,delayed release (Adult Low Dose Aspirin) 81 mg PO DAILY 11/01/19 [History Last Taken Unknown] fluticasone propionate 220 mcg/actuation HFA aerosol inhaler (Flovent HFA) 2 puff inhalation DAILY 11/01/19 [History Last Taken Unknown] pantoprazole 20 mg tablet,delayed release 20 mg PO DAILY 11/12/19 [History Last Taken Unknown] metformin 500 mg tablet 500 mg PO DAILY 03/22/21 [History Last Taken Unknown] hydrochlorothiazide 25 mg tablet 12.5 mg PO DAILY 06/23/21 [History Last Taken Unknown] folic acid 1 tablet DAILY 06/14/22 [History Last Taken Unknown] glipizide 1 tablet DAILY 06/14/22 [History Last Taken Unknown] prednisone 1 tablet DAILY 06/14/22 [History Last Taken Unknown] sulfamethoxazole-trimethoprim 1 tablet QMWF 06/14/22 [History Last Taken Unknown] Allergy/AdvReac Type Severity Reaction Status Date / Time pravastatin AdvReac joint pain Verified 09/12/22 10:36 simvastatin AdvReac joint pain Verified 09/12/22 10:36 Family History Mother CAD (coronary artery disease) CABG X 3 Breast cancer Heart disease Hypertension CVA (cerebral vascular accident) Brother Cancer prostate Myocardial infarction Pacemaker Grandfather Diabetes Surgical History History of colonoscopy History of foot surgery History of hysterectomy Social History Smoking Status: Never smoker second hand exposure: No alcohol intake: never substance use type: does not use caffeine: Yes Type: tea Number of servings: 2 what type of physical activity do you participate in: none frequency: does not exercise EXAM Physical Exam Const Vital Signs: 09/12/22 10:36 Temperature 98.2 F Temperature Source Temporal Pulse Rate 67 Respiratory Rate 18 Blood Pressure 102/70 Blood Pressure Mean 80 Pulse Ox 95 Oxygen Delivery Method Room Air Positive well nourished and well developed General Appearance ED: well developed and NAD HEENT Reports moist mucous membranes HEENT Narrative: There is some erythema of the oropharynx. There are no exudates visualized. Neck is supple. Trachea is midline. There is no JVD. There is no lymphadenopathy palpated. normocephalic Throat: posterior oropharynx abnormal Positive for erythema Eyes PERRL and EOMs intact bilaterally Neck no lymphadenopathy, supple, no meningeal signs and no JVD Resp normal respiratory effort and clear to auscultation bilaterally Cardio Rate: regular rate Rhythm: regular rhythm GI non-tender and non-distended Auscultation: normoactive bowel sounds Palpation: soft Extremity normal to inspection and full ROM Neuro oriented x3, CN's II-XII intact bilaterally and no sensory deficits noted Sensorium / Orientation: alert Motor Exam: strength 5/5 throughout Psych mental status grossly normal MDM MDM MDM Narrative Medical decision making narrative: Rapid strep was obtained and was negative. COVID-19 rapid antigen was obtained and was negative. Influenza A and influenza B antigens were obtained and were negative. Urinalysis shows leukocyte esterase of 500 with positive nitrites. There is 1+ bacteria. There are 0-5 white blood cells noted. Occult blood was 25. There are 0 red blood cells seen. Urine culture was ordered. Patient was advised of her findings. The patient was instructed to continue using the nystatin mouthwash. Patient was instructed to take Tylenol or ibuprofen as needed for any fevers or pain. Patient was instructed to drink plenty of fluids. Patient was instructed to follow-up with her primary care physician in 5 to 7 days. Patient understood and was agreeable with the plan. All questions were answered. Lab Data Attestation: I reviewed the patient's lab results. Labs: Laboratory Results - last 24 hr 09/12/22 11:12 Urine Color Yellow Urine Clarity Clear Urine pH 8.0 Ur Specific [place] 1.010 Urine Protein 30 H Urine Glucose (UA) 1000 H Urine Ketones 50 H Urine Occult Blood 25 H Urine Nitrite Positive H Urine Bilirubin Negative Urine Urobilinogen 1 H Ur Leukocyte Esterase 500 H Urine RBC 0 SEEN Urine WBC 0-5 SEEN Ur Squamous Epith Cells 0-5 SEEN Urine Bacteria 1+ Urine Mucus 0 SEEN Discharge Plan Triage Chief Complaint: Sore Throat ED Provider: Ry Thompson Dx/Rx/DC Orders Clinical Impression: Viral pharyngitis Instructions: ED Pharyngitis, Viral Prescriptions: No Action pantoprazole 20 mg tablet,delayed release (DR/EC) 20 mg PO DAILY Flovent HFA 220 mcg/actuation HFA aerosol inhaler 2 puff INHALATION DAILY aspirin [Adult Low Dose Aspirin] 81 mg tablet,delayed release (DR/EC) 81 mg PO DAILY atorvastatin 40 MG tablet 40 mg PO DAILY lisinopril 10 MG tablet 10 mg PO DAILY hydrochlorothiazide 25 mg tablet 12.5 mg PO DAILY metformin 500 mg Tablet 500 mg PO DAILY sulfamethoxazole-trimethoprim 1 tablet QMWF prednisone 10 mg 1 tablet DAILY folic acid 1 mg 1 tablet DAILY glipizide 5 mg 1 tablet DAILY Primary Care Provider: Ry Stoddard Referrals: Ry Stoddard MD [Primary Care Provider] - 3-5 Days Disposition Disposition: Home, Self Care
[2022-09-12 11:20] LABS: Mucous, Urine 0 SEEN /hpf (<or=2+); Red Blood Cells-Urine 0 SEEN /hpf (0-5)
[2022-09-12 11:57] LABS: Color, Urine Yellow (Yellow); Glucose, Dipstick 1000 mg/dl (Normal); Ketone-Dipstick 50 mg/dl (Negative); Leukocyte Esterase-Dipstick 500 /ul (Negative); Nitrite-Dipstick Positive (Negative); Occult Blood-Urine 25 /ul (Negative); Protein-Dipstick 30 mg/dl (Negative); Urine Bilirubin Dipstick Negative (Negative); Urine Clarity Clear (Clear); Urine Urobilinogen 1 mg/dl (Normal)
[2022-09-12 12:09] LABS: Bacteria 1+ /hpf (None Seen); Squamous Epithelial Cells - UA 0-5 SEEN /hpf (5-10); White Blood Cells 0-5 SEEN /hpf (0-5)
== END 2022-09-12 12:57 | disposition home or self-care (01) ==
PROVIDERS: Emergency Provider Emergency Medicine; PCP Family Medicine; Visit Provider Emergency Medicine
DX: J02.9 Acute pharyngitis, unspecified (principal); J44.9 Chronic obstructive pulmonary disease, unspecified; E11.9 Type 2 diabetes mellitus without complications; E78.5 Hyperlipidemia, unspecified; I10 Essential (primary) hypertension; B97.89 Other viral agents as the cause of diseases classified elsewhere; B37.0 Candidal stomatitis; R31.9 Hematuria, unspecified; Z20.822 Contact with and (suspected) exposure to COVID-19
CPT/HCPCS: 99282; 81001; 87086; 87088; 87428; 87880

== ENCOUNTER 2022-09-14 12:36 | Observation (INO) | payer MEDICARE, SELFPAY ==
[2022-09-14 12:37] VITALS: BP 148/51; PULSE 96; RESP 18; TEMP 36.5; O2SAT 100; BMI 33.3
--- OUTSIDE RECORDS SUMMARY | 2022-09-14 12:40 | XMS RPT_ITS ---
:1950 Author Organization [facility] Care Team Providers Name Role Phone DAYANA MARMOLEJO Attending Unavailable TIFFANI CELIS Referring Unavailable TIFFANI CELIS Primary Care Unavailable PROBLEMS PROBLEMS No Problem Records FoundPROCEDURES PROCEDURES No Procedure Records FoundRESULTS RESULTS PROGRESS Observed: 09/09/2022 3:16 PM Status: COMPLETED S ource: [facility] REPO JOSEBIGG HNO ID: [id number] Author: Layo Abernathy PA-C Service: ? Author Type: Physician Parts And Service Manager Type: Progress Notes Filed: 09/09/2022 3:20 PM Note Text: This note was created using [email or web address]. Subjective Holley Malik is a 72 year old female . HPI Patient presents with a chief complaint of sore throat over the past 2 3 days. She states is very painful to tr y to swallow anything. No nasal congestion. No cough. She is on chronic prednisone and uses an inhaled steroid. She has a history of sarcoidos is. Denies any recent antibiotics. No fever. No vomiting or d iarrhea. Denies history of thrush. She states her whole mouth hurt s. Review of Systems Constitutional: Negative. HENT: Positive for mouth sores and sore throat. Negative for congestion, ear pain and rhinorrhea. Respiratory: Negative. Cardiovascular: Negative. Gastrointestinal: Negative. Genitourinary: Negative. Musculoskeletal: Negative. All other systems reviewed and are neg ative. PAST MEDICAL HISTORY Diagnosis Date Abdominal pain, acute, left lower quad rant Cataracts, bilateral possible surgery Gastritis 10/28/2014 GERD (gastroesophageal reflux disease) Kidney stones Mini stroke PMH - PAST MEDICAL HISTORY OF sarcodosis Snoring Stroke (HCC) Unspecified essential hypertension Essential hypertension Current Outpatient Medications Medication Sig Dispense Refill FARXIGA 10 mg tablet glipiZIDE XL (GLUCOTROL XL) 5 mg 24 hr tablet Take 5 mg by mouth once daily. pantoprazole DR (PROTONIX) 20 mg table t Take 1 tablet by mouth once daily. 90 tablet 0 lancets (TRUEPLUS LANCETS) 28 gauge 1 Lancet once daily. Use as instructed to check blood sugars 1 x da kal. DX: E11.9 Insulin: No 100 Each 3 blood sugar diagnostic (TRUE METRIX GL UCOSE TEST STRIP) test strip Use as instructed to check blood sugars 1 x da kal. DX: E11.9 Insulin: No 100 Strip 3 Blood-Glucose Meter (TRUE METRIX AIR GLUCOSE METER) 1 Device once daily. Use as directed to check blood sugars o nce daily 1 Each 0 metFORMIN ER (GLUCOPHAGE XR) 500 mg 24 hr tablet Take 1 tablet by mouth daily with breakfast. 90 tablet 3 Blood Glucose Control High and Low (AC CU-CHEK [place] CONTROL SOLN) soln Test controls as needed. Dx: Type 2 DM - Controlled E11.9 1 Each 3 Lancets (ACCU-CHEK SOFTCLIX LANCETS) l ancets Test blood sugar(s) 1 times daily. Dx: Type 2 DM - Controlled E11.9 Insulin: No 100 Each 3 atorvastatin (LIPITOR) 40 mg tablet Ta ke 1 tablet by mouth once daily. 90 tablet 3 hydroCHLOROthiazide (HYDRODIURIL, ESID ROGE) 25 mg tablet Take 1 tablet by mouth once daily. 90 tablet 3 lisinopril (ZESTRIL, PRINIVIL) 10 mg t ablet Take 1 tablet by mouth once daily. 90 tablet 3 fluticasone (FLOVENT) 220 mcg/actuatio n inhaler Inhale 2 Puffs as instructed twice daily. aspirin, enteric coated (ASPIRIN, ENTE LEIGH ANN COATED) 81 mg EC tablet Take 1 tablet by mouth once daily. 0 acetaminophen (TYLENOL EX STR ARTHRITI S PAIN) 500 mg tablet Take 1 tablet by mouth every 6 hours as needed. FOR P AIN. 0 nystatin (MYCOSTATIN) 100,000 unit/mL suspension Take 5 mL by mouth four times daily for 10 days. 1tsp swish in mouth for several minutes, then swallow 4 times daily until gone. 200 m L 0 guaiFENesin (MUCINEX) 600 mg 12 hr tab let Take 2 tablets by mouth twice daily. (Patient not taking: Reported on 09/09/2022) 28 tablet 0 No current facility-administered medica tions for this visit. PAST SURGICAL HISTORY Procedure Laterality Date COLONOSCOPY FLX DX W/COLLJ SPEC WHEN P FRMD 05/20/03 [facility] Dr. Sosa - normal COLONOSCOPY FLX DX W/COLLJ SPEC WHEN PFRMD 06/01/2013 Colonoscopy COLONOSCOPY FLX DX W/COLLJ SPEC WHEN PFRMD 12/11/2018 Colonoscopy ESOPHAGOGASTRODUODENOSCOPY TRANSORAL D IAGNOSTIC 06/01/2013 EGD ESOPHAGOGASTRODUODENOSCOPY TRANSORAL D IAGNOSTIC 12/11/2018 EGD PAST SURGICAL HISTORY OF scrape calcium off right big toe PAST SURGICAL HISTORY OF right foot calcium build up Dr [address] TOTAL ABDOMINAL HYSTERECT W/WO RMVL TU BE OVARY 1991 Hysterectomy, PETER FAMILY HISTORY Problem Relation Age of Onset Heart Mother triple bypass Breast Cancer Mother Diabetes Maternal Grandfather Diabetes Other dad's family Prostate Cancer Brother Social History Tobacco Use Smoking status: Never Smokeless tobacco: Never Vaping Use Vaping Use: Never used Substance Use Topics Alcohol use: No Drug use: No Objective BP 144/88 Pulse 94 Temp 36.8 ?C (9 8.3 ?F) (Tympanic) Resp 16 Wt 83.6 kg (184 lb 6.4 oz) SpO2 98% BMI 33.63 kg/m? Physical Exam Vitals reviewed. Constitutional: Appearance: Normal appearance. HENT: Head: Normocephalic and atraumatic. Right Ear: Tympanic membrane, ear tu l and external ear normal. Left Ear: Tympanic membrane, ear canal and external ear normal. Nose: Nose normal. Mouth/Throat: Pharynx: Pharyngeal swelling and poste rior oropharyngeal erythema present. No oropharyngeal exudate. Tonsils: No tonsillar exudate or tonsi llar abscesses. Cardiovascular: Rate and Rhythm: Normal rate and regul ar rhythm. Heart sounds: Normal heart sounds. Pulmonary: Effort: Pulmonary effort is normal. Breath sounds: Normal breath sounds. Musculoskeletal: Cervical back: Neck supple. Lymphadenopathy: Cervical: No cervical adenopathy. Skin: General: Skin is warm and dry. Neurological: Mental Status: She is alert. Assessment and Plan ASSESSMENT/PLAN: 1. Sore throat - ICD9: 462, ICD10: J02. 9 (primary diagnosis) - Alere Strep Test strep, no culture pe nding - STREP A MOLECULAR (POC) 2. Thrush - ICD9: 112.0, ICD10: B37.0 Nystatin sent. If not better in one doni k be seen again. Layo Abernathy PA-C CNOV Observed: 09/09/2022 12:30 PM Status: COMPLETED Source: [facility] REPOSITOR Y Office Visit (UCWSTR) HOLLEY AMLIK ([id number]) 1950 F Date Time Provider Department 09/09/22 12:30 PM LAYO ABERNATHY UCWSTR During your visit today, we recorded t he following information about you: Temperature Pulse Respiration Blood pr essure 98.3 degrees 94/minute 16/minute 144/8 8 Weight 83.6 kg Layo Abernathy PA-C 09/09/2022 3:20 PM Si gned This note was created using Prism Microwaveriter. Subjective Holley Malik is a 72 year old female . HPI Patient presents with a chief complaint of sore throat over the past 2 3 days. She states is very painful to try to s wallow anything. No nasal congestion. No cough. She is on chronic prednisone and uses an inhaled steroid. She has a history of sarcoidosis. Denies any rece nt antibiotics. No fever. No vomiting or diarrhea. Denies history of thrush. She states her whole mouth hurts. Review of Systems Constitutional: Negative. HENT: Positive for mouth sores and sore throat. Negative for congestion, ear pain and rhinorrhea. Respiratory: Negative. Cardiovascular: Negative. Gastrointestinal: Negative. Genitourinary: Negative. Musculoskeletal: Negative. All other systems reviewed and are nega tive. PAST MEDICAL HISTORY Diagnosis Date Abdominal pain, acute, left lower yimi drant Cataracts, bilateral possible surgery Gastritis 10/28/2014 GERD (gastroesophageal reflux disease ) Kidney stones Mini stroke PMH - PAST MEDICAL HISTORY OF sarcodosis Snoring Stroke (HCC) Unspecified essential hypertension Essential hypertension Current Outpatient Medications Medication Sig Dispense Refill FARXIGA 10 mg tablet glipiZIDE XL (GLUCOTROL XL) 5 mg 24 hr tablet Take 5 mg by mouth once daily. pantoprazole DR (PROTONIX) 20 mg table t Take 1 tablet by mouth once daily. 90 tablet 0 lancets (TRUEPLUS LANCETS) 28 gauge 1 Lancet once daily. Use as instructed to check blood sugars 1 x daily. DX: E11.9 Insulin: No 100 Each 3 blood sugar diagnostic (TRUE METRIX GL UCOSE TEST STRIP) test strip Use as instructed to check blood sugars 1 x da kal. DX: E11.9 Insulin: No 100 Strip 3 Blood-Glucose Meter (TRUE METRIX AIR G LUCOSE METER) 1 Device once daily. Use as directed to check blood sugars once daily 1 Each 0 metFORMIN ER (GLUCOPHAGE XR) 500 mg 24 hr tablet Take 1 tablet by mouth daily with breakfast. 90 tablet 3 Blood Glucose Control High and Low (AC CU-CHEK [place] CONTROL SOLN) soln Test controls as needed. Dx: Type 2 DM - Con trolled E11.9 1 Each 3 Lancets (ACCU-CHEK SOFTCLIX LANCETS) l ancets Test blood sugar(s) 1 times daily. Dx: Type 2 DM - Controlled E11.9 Insulin: No 100 Each 3 atorvastatin (LIPITOR) 40 mg tablet T patrick 1 tablet by mouth once daily. 90 tablet 3 hydroCHLOROthiazide (HYDRODIURIL, ESID ROGE) 25 mg tablet Take 1 tablet by mouth once daily. 90 tablet 3 lisinopril (ZESTRIL, PRINIVIL) 10 mg t ablet Take 1 tablet by mouth once daily. 90 tablet 3 fluticasone (FLOVENT) 220 mcg/actuatio n inhaler Inhale 2 Puffs as instructed twice daily. aspirin, enteric coated (ASPIRIN, ENTE LEIGH ANN COATED) 81 mg EC tablet Take 1 tablet by mouth once daily. 0 acetaminophen (TYLENOL EX STR ARTHRIT IS PAIN) 500 mg tablet Take 1 tablet by mouth every 6 hours as needed. FOR PAIN . 0 nystatin (MYCOSTATIN) 100,000 unit/mL suspension Take 5 mL by mouth four times daily for 10 days. 1tsp swish in mouth for several minutes, then swallow 4 times daily until gone. 200 mL 0 guaiFENesin (MUCINEX) 600 mg 12 hr tab let Take 2 tablets by mouth twice daily. (Patient not taking: Reported on 2021) 28 tablet 0 No current facility-administered medica tions for this visit. PAST SURGICAL HISTORY Procedure Laterality Date COLONOSCOPY FLX DX W/COLLJ SPEC WHEN P FRMD 05/20/03 [facility] Dr. Sosa - normal COLONOSCOPY FLX DX W/COLLJ SPEC WHEN P FRMD 06/01/2013 Colonoscopy COLONOSCOPY FLX DX W/COLLJ SPEC WHEN P [facility] 12/11/2018 Colonoscopy ESOPHAGOGASTRODUODENOSCOPY TRANSORAL D IAGNOSTIC 06/01/2013 EGD ESOPHAGOGASTRODUODENOSCOPY TRANSORAL D IAGNOSTIC 12/11/2018 EGD PAST SURGICAL HISTORY OF scrape calcium off right big toe PAST SURGICAL HISTORY OF right foot calcium build up Dr [address] TOTAL ABDOMINAL HYSTERECT W/WO RMVL TU BE OVARY 1991 Hysterectomy, PETER FAMILY HISTORY Problem Relation Age of Onset Heart Mother triple bypass Breast Cancer Mother Diabetes Maternal Grandfather Diabetes Other dad's family Prostate Cancer Brother Social History Tobacco Use Smoking status: Never Smokeless tobacco: Never Vaping Use Vaping Use: Never used Substance Use Topics Alcohol use: No Drug use: No Objective BP 144/88 Pulse 94 Temp 36.8 ?C (98 .3 ?F) (Tympanic) Resp 16 Wt 83.6 kg (184 lb 6.4 oz) SpO2 98% BM I 33.63 kg/m? Physical Exam Vitals reviewed. Constitutional: Appearance: Normal appearance. HENT: Head: Normocephalic and atraumatic. Right Ear: Tympanic membrane, ear tu l and external ear normal. Left Ear: Tympanic membrane, ear canal and external ear normal. Nose: Nose normal. Mouth/Throat: Pharynx: Pharyngeal swelling and post erior oropharyngeal erythema present. No oropharyngeal exudate. Tonsils: No tonsillar exudate or tonsi llar abscesses. Cardiovascular: Rate and Rhythm: Normal rate and regul ar rhythm. Heart sounds: Normal heart sounds. Pulmonary: Effort: Pulmonary effort is normal. Breath sounds: Normal breath sounds. Musculoskeletal: Cervical back: Neck supple. Lymphadenopathy: Cervical: No cervical adenopathy. Skin: General: Skin is warm and dry. Neurological: Mental Status: She is alert. Assessment and Plan ASSESSMENT/PLAN: 1. Sore throat - ICD9: 462, ICD10: J02. 9 (primary diagnosis) - Alere Strep Test strep, no culture pe nding - STREP A MOLECULAR (POC) 2. Thrush - ICD9: 112.0, ICD10: B37.0 Nystatin sent. If not better in one doni k be seen again. Layo Abernathy PA-C Allergies As of Date: 09/09/2022 Noted Allergy Reaction PRAVASTATIN 01/23/2010 5 - Intolerance Comments: joint pain ZOCOR (SIMVASTATIN) 10/06/2009 Date Reviewed: 09/09/2022 Reviewed by: Giovana Canela LPN - Full y Assessed Reason for Visit: Sore Throat [200] Cmt: St x 2 days Primary Visit Diagnosis:Sore throat [J0 2.9] Other Visit Diagnosis:Thrush [B37.0] Order(s):STREP A MOLECULAR (POC) [36489 88] Order #: [id number]. #:[id number] nystatin (MYCOSTATIN) 100,000 unit/mL suspensionTake 5 mL by mouth four times daily for 10 days. 1tsp swi sh in mouth for several minutes, then swallow 4 times daily until gone. Disp: 200 mLRfl: 0 Prescriptions as of 09/09/2022 - FARXIGA 10 mg tablet - nystatin (MYCOSTATIN) 100,000 unit/mL suspension Take 5 mL by mouth four times daily fo r 10 days. 1tsp swish in mouth for several minutes, then swallow 4 times daily until gone. - glipiZIDE XL (GLUCOTROL XL) 5 mg 24 h r tablet Take 5 mg by mouth once daily. - pantoprazole DR (PROTONIX) 20 mg tabl et Take 1 tablet by mouth once daily. - lancets (TRUEPLUS LANCETS) 28 gauge 1 Lancet once daily. Use as instructed to check blood sugars 1 x daily. DX: E11.9 Insulin: No - blood sugar diagnostic (TRUE METRIX G LUCOSE TEST STRIP) test strip Use as instructed to check blood suga rs 1 x daily. DX: E11.9 Insulin: No - Blood-Glucose Meter (TRUE METRIX AIR GLUCOSE METER) 1 Device once daily. Use as directed t o check blood sugars once daily - metFORMIN ER (GLUCOPHAGE XR) 500 mg 2 4 hr tablet Take 1 tablet by mouth daily with kaila sears. - Blood Glucose Control High and Low (A CCU-CHEK [place] CONTROL SOLN) soln Test controls as needed. Dx: Type 2 D M - Controlled E11.9 - Lancets (ACCU-CHEK SOFTCLIX LANCETS) lancets Test blood sugar(s) 1 times daily. Dx: Type 2 DM - Controlled E11.9 Insulin: No - atorvastatin (LIPITOR) 40 mg tablet Take 1 tablet by mouth once daily. - hydroCHLOROthiazide (HYDRODIURIL, DENIS DRIX) 25 mg tablet Take 1 tablet by mouth once daily. - lisinopril (ZESTRIL, PRINIVIL) 10 mg tablet Take 1 tablet by mouth once daily. - guaiFENesin (MUCINEX) 600 mg 12 hr ta blet Take 2 tablets by mouth twice daily. - fluticasone (FLOVENT) 220 mcg/actuat ion inhaler Inhale 2 Puffs as instructed twice shania ly. - aspirin, enteric coated (ASPIRIN, ENT STEFAN COATED) 81 mg EC tablet Take 1 tablet by mouth once daily. - acetaminophen (TYLENOL EX STR ARTHRIT IS PAIN) 500 mg tablet Take 1 tablet by mouth every 6 hours a s needed. FOR PAIN. 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 1tsp swish in mouth for several minutes, then swallow 4 times daily until gone. Encounter Status:Closed by LAYO ABERNATHY on 09/09/22 CNPN Observed: 02/22/2022 12:00 AM Status: COMPLETED Source: [facility] REPOSITOR Y Telephone (FAMPWS) HOLLEY MALIK ([id number]) 1950 F Date Time Provider Department 02/22/22 TIFFANI CELIS During your visit today, we recorded t he following information about you: Tiffani Celis MD 02/22/2022 2:03 PM Signed Please do Pt Outreach; overdue for lab s and office visit MD Cata Campuzano LPN 02/22/2022 3:00 PM Signed TC to pt. Updated her on needing labs a nd OV. Pt stated she has changed doctors. She now goes to [facility]. ROSENDA Alejandro MD 02/22/2022 3:52 PM Signed Noted; PCP changed Tiffani Celis MD Allergies As of Date: 02/22/2022 Noted Allergy Reaction PRAVASTATIN 01/23/2010 5 - Intolerance Comments: joint pain ZOCOR (SIMVASTATIN) 10/06/2009 Date Reviewed: 12/28/2021 Reviewed by: ALEX Slade Assessed Reason for Visit: Patient Update [1234] Primary Visit Diagnosis:Essential hyper tension, benign [I10] Other Visit Diagnoses:Mixed hyperlipid emia [E78.2] Impaired fasting blood sugar [R73.01] Order(s):COMP METABOLIC PANEL [SQCMP] O rder #: [id number] FUTURE LIPID PANEL BASIC [SQLIPB] Order #: [id number] FUTURE HGB A1C [WRCYT6A] Order #: [id number] FUTURE ALBUMIN/CREAT RATIO RND UR [SQUACR] Or martina #: [id number] FUTURE CBC [SQCBC] Order #: [id number] FUTURE Prescriptions as of 02/22/2022 - glipiZIDE (GLUCOTROL XL) 5 mg 24 hr t ablet Take 5 mg by mouth once daily. - pantoprazole DR (PROTONIX) 20 mg tabl et Take 1 tablet by mouth once daily. - lancets (TRUEPLUS LANCETS) 28 gauge 1 Lancet once daily. Use as instructed to check blood sugars 1 x daily. DX: E11.9 Insulin: No - blood sugar diagnostic (TRUE METRIX G LUCOSE TEST STRIP) test strip Use as instructed to check blood suga rs 1 x daily. DX: E11.9 Insulin: No - Blood-Glucose Meter (TRUE METRIX AIR GLUCOSE METER) 1 Device once daily. Use as directed t o check blood sugars once daily - metFORMIN ER (GLUCOPHAGE XR) 500 mg 2 4 hr tablet Take 1 tablet by mouth daily with kaila sears. - Blood Glucose Control High and Low (A CCU-CHEK [place] CONTROL SOLN) soln Test controls as needed. Dx: Type 2 DM - Controlled E11.9 - Lancets (ACCU-CHEK SOFTCLIX LANCETS) lancets Test blood sugar(s) 1 times daily. Dx: Type 2 DM - Controlled E11.9 Insulin: No - atorvastatin (LIPITOR) 40 mg tablet Take 1 tablet by mouth once daily. - hydroCHLOROthiazide (HYDRODIURIL, DENIS DRIX) 25 mg tablet Take 1 tablet by mouth once daily. - lisinopril (ZESTRIL, PRINIVIL) 10 mg tablet Take 1 tablet by mouth once daily. - guaiFENesin (MUCINEX) 600 mg 12 hr ta blet Take 2 tablets by mouth twice daily. - fluticasone (FLOVENT HFA) 220 mcg/ac tuation inhaler Inhale 2 Puffs as instructed twice shania ly. - aspirin, enteric coated (ASPIRIN, ENT STEFAN COATED) 81 mg EC tablet Take 1 tablet by mouth once daily. - acetaminophen (TYLENOL EX STR ARTHRIT IS PAIN) 500 mg tablet Take 1 tablet by mouth every 6 hours a s needed. FOR PAIN. 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 REPO JOSEORY HNO ID: [id number] Author: Dayana Marmolejo Service: ? Author Type: Physician Type: Progress Notes Filed: 12/28/2021 9:36 PM Note Text: Last saw PCP: 10/13/[address] Zofia jasso for an opinion regarding dystrophic toenails. My final recommend ations will be communicated back to the requesting physician by way of s [facility] Medical record or letter to requesting physician via US mail. Initial Office Visit Subjective: This 71 year old female pr esents to clinic for diabetic foot check. Patient has the following compla ints: dystrophic toenails. Patient states her nails are thick and hard to cut. In addition, the nails tend to grow long and rub in her shoes causing discomfort. Patient states recently, she noticed some blood under neath the right great toe. She denies any drainage. Patient admits to being diabetic for 1 years now. Patient -B/T/N in feet at this time. Patient -pain in legs whe n walking. No other pedal complaints at this time. No change in medications or medical hi story since last visit. PAIN EVALUATION No data found in the last 1 encounters. Hemoglobin A1C (%) Date Value 09/29/2020 6.6 03/19/2020 7.0 07/14/2019 6.5 02/27/2019 6.6 06/01/2018 6.3 PCP: Tifafni Celis MD PAST MEDICAL HISTORY Diagnosis Date - Abdominal pain, acute, left lower yimi drant - Cataracts, bilateral possible surgery - Gastritis 10/28/2014 - GERD (gastroesophageal reflux disease ) - Kidney stones - Mini stroke - PMH - PAST MEDICAL HISTORY OF sarcodosis - Snoring - Stroke (HCC) - Unspecified essential hypertension Essential hypertension Current Outpatient Medications Medication Sig - glipiZIDE (GLUCOTROL XL) 5 mg 24 hr t ablet Take 5 mg by mouth once daily. - pantoprazole DR (PROTONIX) 20 mg tabl et Take 1 tablet by mouth once daily. - lancets (TRUEPLUS LANCETS) 28 gauge 1 Lancet once daily. Use as instructed to check blood sugars 1 x da kal. DX: E11.9 Insulin: No - blood sugar diagnostic (TRUE METRIX G LUCOSE TEST STRIP) test strip Use as instructed to check blood sugars 1 x daily. DX: E11.9 Insulin: No - Blood-Glucose Meter (TRUE METRIX AIR GLUCOSE METER) 1 Device once daily. Use as directed to check blood sugars o nce daily - metFORMIN ER (GLUCOPHAGE XR) 500 mg 2 4 hr tablet Take 1 tablet by mouth daily with breakfast. - Blood Glucose Control High and Low (A CCU-CHEK [place] CONTROL SOLN) soln Test controls as needed. Dx: Type 2 DM - Controlled E11.9 - Lancets (ACCU-CHEK SOFTCLIX LANCETS) lancets Test blood sugar(s) 1 times daily. Dx: Type 2 DM - Controlled E11. 9 Insulin: No - atorvastatin (LIPITOR) 40 mg tablet T patrick 1 tablet by mouth once daily. - hydroCHLOROthiazide (HYDRODIURIL, DENIS DRIX) 25 mg tablet Take 1 tablet by mouth once daily. - lisinopril (ZESTRIL, PRINIVIL) 10 mg tablet Take 1 tablet by mouth once daily. - guaiFENesin (MUCINEX) 600 mg 12 hr ta blet Take 2 tablets by mouth twice daily. - fluticasone (FLOVENT HFA) 220 mcg/act uation inhaler Inhale 2 Puffs as instructed twice daily. - aspirin, enteric coated (ASPIRIN, EN TERIC COATED) 81 mg EC tablet Take 1 tablet by mouth once daily. - acetaminophen (TYLENOL EX STR ARTHRIT IS PAIN) 500 mg tablet Take 1 tablet by mouth every 6 hours as needed . FOR PAIN. No current facility-administered medica tions for this visit. ALLERGIES Allergen Reactions - Pravastatin Intolerance joint pain - Zocor [Simvastatin] PAST SURGICAL HISTORY Procedure Laterality Date - COLONOSCOPY FLX DX W/COLLJ SPEC WHEN PFRMD 05/20/03 [facility] Dr. Sosa - normal - COLONOSCOPY FLX DX W/COLLJ SPEC WHEN PFRMD 06/01/2013 Colonoscopy - COLONOSCOPY FLX DX W/COLLJ SPEC WHEN PFRMD 12/11/2018 Colonoscopy - ESOPHAGOGASTRODUODENOSCOPY TRANSORAL DIAGNOSTIC 06/01/2013 EGD - ESOPHAGOGASTRODUODENOSCOPY TRANSORAL DIAGNOSTIC 12/11/2018 EGD - PAST SURGICAL HISTORY OF scrape calcium off right big toe - PAST SURGICAL HISTORY OF right foot calcium build up Dr [address] - TOTAL ABDOMINAL HYSTERECT W/WO RMVL T UBE OVARY 1990 Hysterectomy, PETER FAMILY HISTORY Problem Relation Age of Onset - Heart Mother triple bypass - Breast Cancer Mother - Diabetes Maternal Grandfather - Diabetes Other dad's family - Prostate Cancer Brother Social History Tobacco Use - Smoking status: Never Smoker - Smokeless tobacco: Never Used Vaping Use - Vaping Use: Never used Substance Use Topics - Alcohol use: No - Drug use: No REVIEW OF SYSTEMS GENERAL: Negative for Malaise, signific ant weight loss, fever RESPIRATORY: Negative for cough, wheezi ng and shortness of breath CARDIOVASCULAR: Negative for chest pain , leg swelling and palpitations GI: Negative for abdominal discomfort, blood in stools or black stools and change in bowel habits : Negative for dysuria, frequency and incontinence MUSCULOSKELETAL: Negative for joint azam n or swelling, back pain, and muscle pain. SKIN: Negative for lesions, rash, and i tching. HEMATOLOGY/LYMPHOLOGY Negative for prol onged bleeding, bruising easily, and swollen nodes. ENDOCRINE: Negative for cold or heat in tolerance, polyuria, polydipsia and goiter. NEURO: negative The remainder of the review of systems is noncontributory. Objective: Patient presents to clinic a [facility] ([facility] and [facility]) Constitutional: Pt is a well developed 71 year old female who is alert, oriented, cooperative and in no apparen t distress. Eyes: Following during examination. No redness or drainage. Respiratory: RR normal and nonlabored. Even breathing. No evidence of distress. Psychology: Patient is engaged during c onversation. Normal affect and mood. Does not appear depressed or anxi ous. Vasc: DP and PT pulses are palpable levi ateral. CFT is less than 5 seconds bilateral. Skin temperature is warm to warm proximal to distal bilateral. There is no edema or varicosities noted . Hair growth present. Neuro: Protective sensation is intact t o the foot and toes when tested with the 5.07 SWM bilateral. Vibratory sensation is decreased at the hallux bilateral. + Significant neurological defecits. Derm: Inspection and palpation performe d. Nails 1-5 b/l are painful, discolored-yellow, thick, crumbly, dyst rophic and with subungal debris. Skin is dry and scaly b/l. Hyperkeratos is noted to right midfoot and b/l hallux. NO ulcerations, scars, verruca or other lesions noted. Ortho: Ankle joint DF is full with the knee extended and full with knee flexed. No pain or crepitus noted. STJ, MTJ ROM are full and free of pain or crepitus. Muscle strength is 5/ 5 for dorsiflexors, plantarflexors, inverters, everters. Di gital deformities include hallux rigidus b/l. 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 Patient was seen and evaluated. 2. Patient was instructed on the contin ued importance of diabetic foot care along with proper diet and keepin g their blood sugar under control to prevent complications. Instructions given both oral and writte n. 3. We discussed the possible etiologies of discolored, dystrophic, and thickened nails including fungus, yeast , mold as well as in some instances, prior trauma, or mechanical causes such as repetitive microtrauma in shoe gear. We discussed topical medication for discolored toenails which has very low success but no major side effects. We discussed oral medication. Patient will need hepatic testing prior to use. Patient informed of risks associa sophie with Lamisil. We discussed removal of toenails. Patient would like to proceed debridement. Debridement 1-5 b/l performed. 4. Discussed callus of b/l hallux and m idfoot. Light debridement was necessary to relieve callus. Will order diabetic shoesl 5. F/u in 6 months or sooner if problem s arise. Dayana Marmolejo DPM PROGRESS Observed: 12/28/2021 1:06 PM Status: COMPLETED S ource: [facility] ALYCIA CRANE ID: [id number] Author: Amy Rogers MA Service: ? Author Type: Property Condition Assessor Type: Progress Notes Filed: 12/28/2021 9:36 PM Note Text: Patient presents with: Left Foot - Established Patient, diabet ic nail care Right Foot - Established Patient, diabe tic nail care Patient is here for a diabetic nail car e. She states both feet nails are giving her a hard time and her PCP sa id she needed to be seen. CNOV Observed: 12/28/2021 1:00 PM Status: COMPLETED S ource: [facility] REPOSITOR Y Office Visit (PODIWS) HOLLEY MALIK ([id number]) 1950 F Date Time Provider Department 12/28/21 1:00 PM DAYANA MARMOLEJO During your visit today, we recorded t he following information about you: Amy Rogers MA 12/28/2021 9:36 PM Signed Patient presents with: Left Foot - Established Patient, diabet ic nail care Right Foot - Established Patient, diab etic nail care Patient is here for a diabetic nail car e. She states both feet nails are giving her a hard time and her PCP sa id she needed to be seen. Dayana Marmolejo DPM 12/28/2021 9:36 PM Signed Last saw PCP: 10/13/[address] Zofia jasso for an opinion regarding dystrophic toenails. My final recommendations will be communicated back to the requesting physician by way of [facility] [address] or letter to requesting physician via US mail. Initial Office Visit Subjective: This 71 year old female pre sents to clinic for diabetic foot check. Patient has the following complaints: dystrophic toenails. Patient states her nails are thick and hard to cut. In add ition, the nails tend to grow long and rub in her shoes causing discomfort. Matthew francis states recently, she noticed some blood under neath the right great toe. She denies any drainage. Patient admits to being diabetic for 1 years now. Patient -B/T/N in feet at this time. Patient -pain in legs when w alking. No other pedal complaints at this time. No change in medications or medical his tory since last visit. PAIN EVALUATION No data found in the last 1 encounters . Hemoglobin A1C (%) Date Value 09/29/2020 6.6 03/19/2020 7.0 07/14/2019 6.5 02/27/2019 6.6 06/01/2018 6.3 PCP: Tiffani Celis MD PAST MEDICAL HISTORY Diagnosis Date - Abdominal pain, acute, left lower qu adrant - Cataracts, bilateral possible surgery - Gastritis 10/28/2014 - GERD (gastroesophageal reflux diseas e) - Kidney stones - Mini stroke - PMH - PAST MEDICAL HISTORY OF sarcodosis - Snoring - Stroke (HCC) - Unspecified essential hypertension Essential hypertension Current Outpatient Medications Medication Sig - glipiZIDE (GLUCOTROL XL) 5 mg 24 hr t ablet Take 5 mg by mouth once daily. - pantoprazole DR (PROTONIX) 20 mg tabl et Take 1 tablet by mouth once daily. - lancets (TRUEPLUS LANCETS) 28 gauge 1 Lancet once daily. Use as instructed to check blood sugars 1 x daily. DX: E11.9 Insulin: No - blood sugar diagnostic (TRUE METRIX G LUCOSE TEST STRIP) test strip Use as instructed to check blood sugars 1 x da kal. DX: E11.9 Insulin: No - Blood-Glucose Meter (TRUE METRIX AIR GLUCOSE METER) 1 Device once daily. Use as directed to check blood sugars once daily - metFORMIN ER (GLUCOPHAGE XR) 500 mg 2 4 hr tablet Take 1 tablet by mouth daily with breakfast. - Blood Glucose Control High and Low (A CCU-CHEK CHEYENNE CONTROL SOLN) soln Test controls as needed. Dx: Type 2 DM - Con trolled E11.9 - Lancets (ACCU-CHEK SOFTCLIX LANCETS) lancets Test blood sugar(s) 1 times daily. Dx: Type 2 DM - Controlled E11.9 Insulin: No - atorvastatin (LIPITOR) 40 mg tablet T patrick 1 tablet by mouth once daily. - hydroCHLOROthiazide (HYDRODIURIL, DENIS DRIX) 25 mg tablet Take 1 tablet by mouth once daily. - lisinopril (ZESTRIL, PRINIVIL) 10 mg tablet Take 1 tablet by mouth once daily. - guaiFENesin (MUCINEX) 600 mg 12 hr ta blet Take 2 tablets by mouth twice daily. - fluticasone (FLOVENT HFA) 220 mcg/ac tuation inhaler Inhale 2 Puffs as instructed twice daily. - aspirin, enteric coated (ASPIRIN, ENT STEFAN COATED) 81 mg EC tablet Take 1 tablet by mouth once daily. - acetaminophen (TYLENOL EX STR ARTHRIT IS PAIN) 500 mg tablet Take 1 tablet by mouth every 6 hours as needed. FOR PAIN . No current facility-administered medica tions for this visit. ALLERGIES Allergen Reactions - Pravastatin Intolerance joint pain - Zocor [Simvastatin] PAST SURGICAL HISTORY Procedure Laterality Date - COLONOSCOPY FLX DX W/COLLJ SPEC WHEN PFRMD 05/20/03 [facility] Dr. Sosa - normal - COLONOSCOPY FLX DX W/COLLJ SPEC WHEN PFRMD 06/01/2013 Colonoscopy - COLONOSCOPY FLX DX W/COLLJ SPEC WHEN PFRMD 12/11/2018 Colonoscopy - ESOPHAGOGASTRODUODENOSCOPY TRANSORAL DIAGNOSTIC 06/01/2013 EGD - ESOPHAGOGASTRODUODENOSCOPY TRANSORAL DIAGNOSTIC 12/11/2018 EGD - PAST SURGICAL HISTORY OF scrape calcium off right big toe - PAST SURGICAL HISTORY OF right foot calcium build up Dr [address] - TOTAL ABDOMINAL HYSTERECT W/WO RMVL T UBE OVARY 1991 Hysterectomy, PETER FAMILY HISTORY Problem Relation Age of Onset - Heart Mother triple bypass - Breast Cancer Mother - Diabetes Maternal Grandfather - Diabetes Other dad's family - Prostate Cancer Brother Social History Tobacco Use - Smoking status: Never Smoker - Smokeless tobacco: Never Used Vaping Use - Vaping Use: Never used Substance Use Topics - Alcohol use: No - Drug use: No REVIEW OF SYSTEMS GENERAL: Negative for Malaise, signifi cant weight loss, fever RESPIRATORY: Negative for cough, wheezi ng and shortness of breath CARDIOVASCULAR: Negative for chest pain , leg swelling and palpitations GI: Negative for abdominal discomfort, blood in stools or black stools and change in bowel habits : Negative for dysuria, frequency and incontinence MUSCULOSKELETAL: Negative for joint azam n or swelling, back pain, and muscle pain. SKIN: Negative for lesions, rash, and itching. HEMATOLOGY/LYMPHOLOGY Negative for prol onged bleeding, bruising easily, and swollen nodes. ENDOCRINE: Negative for cold or heat in tolerance, polyuria, polydipsia and goiter. NEURO: negative The remainder of the review of systems is noncontributory. Objective: Patient presents to clinic amb[facility] in [facility] Constitutional: Pt is a well developed 71 year old female who is alert, oriented, cooperative and in no apparen t distress. Eyes: Following during examination. No redness or drainage. Respiratory: RR normal and nonlabored. Even breathing. No evidence of distress. Psychology: Patient is engaged during c onversation. Normal affect and mood. Does not appear depressed or anxious. Vasc: DP and PT pulses are palpable levi ateral. CFT is less than 5 seconds bilateral. Skin temperature is warm to warm proximal to distal bilateral. There is no edema or varicosities noted . Hair growth present. Neuro: Protective sensation is intact t o the foot and toes when tested with the 5.07 SWM bilateral. Vibratory sensation is decreased at the hallux bilateral. + Significant neurological defecits. Derm: Inspection and palpation perform ed. Nails 1-5 b/l are painful, discolored-yellow, thick, crumbly, dyst rophic and with subungal debris. Skin is dry and scaly b/l. Hyperkeratosis no sophie to right midfoot and b/l hallux. NO ulcerations, scars, verruca or other lesions noted. Ortho: Ankle joint DF is full with the knee extended and full with knee flexed. No pain or crepitus noted. STJ, MTJ ROM are full and free of pain or crepitus. Muscle strength is 5/5 for do rsiflexors, plantarflexors, inverters, everters. Digital deformities include hallux rigidus b/l. 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 Patient was seen and evaluated. 2. Patient was instructed on the glenis nued importance of diabetic foot care along with proper diet and keeping thei r blood sugar under control to prevent complications. Instructions given both oral and writte n. 3. We discussed the possible etiologies of discolored, dystrophic, and thickened nails including fungus, yeast , mold as well as in some instances, prior trauma, or mechanical causes suc h as repetitive microtrauma in shoe gear. We discussed topical medication for di scolored toenails which has very low success but no major side effects. We d iscussed oral medication. Patient will need hepatic testing prior to use. Stephanie ent informed of risks associated with Lamisil. We discussed removal of toena ils. Patient would like to proceed debridement. Debridement 1-5 b/l perfor med. 4. Discussed callus of b/l hallux and m idfoot. Light debridement was necessary to relieve callus. Will orde r diabetic shoesl 5. F/u in 6 months or sooner if problem s arise. Dayana Frandy, EUGENIALawrence Marmolejo EUGENIALawrence 12/28/2021 1:31 PM Signed Diabetes Foot Care Instructions When you have diabetes, proper foot car e is very important. Poor foot care may lead to amputation of a foot or leg. As a person with diabetes, you are more vulnerable to foot problems, because diabetes can damage your nerves and red uce blood flow to your feet. Here are some diabetes foot care tips t o follow: Wash and Dry Your Feet Daily Use mild soaps Use warm water Pat your skin dry; do not rub. Thorough ly dry your feet. After washing, use lotion on your feet to prevent cracking. Do not put lotion between your toes. - Examine Your Feet Each Day Check the tops and bottoms of your feet . Have someone else look at your feet if you cannot see them. Check for dry, cr acked skin. Look for blisters, cuts, scratches, or other sores. Check for redness, increased warmth, or tenderness when touching any area of your feet. Check for ingrown toenails, corns, and calluses. If you get a blister or sore from your shoes, do not pop it. Apply a bandage and wear a different pair of shoes. Take Care of Your Toenails Cut toenails after bathing, when they a re soft. Cut toenails straight across and smooth with a nail file. Avoid cutting into the corners of toes. Do not cut cuticles. If you have neuropathy (or decreased se nsation in your feet) a technicians and trades workers should always cut your toenails. - Be Careful When Exercising Walk and exercise in comfortable shoes. Do not exercise when you have open sore s on your feet. Protect Your Feet With Shoes and Socks Never go barefoot. Always protect your feet by wearing shoes or hard-soled slippers or footwear. Avoid shoes with high heels and pointed toes. Avoid shoes that expose your toes or h eels (such as open-toed shoes or sandals). These types of shoes increase your risk for injury and potential infections. Try on new footwear with the type of so cks you usually wear. Do not wear new shoes for more than an hour at a time. Change your socks daily. Look and feel inside your shoes before putting them on to make sure there are no foreign objects or rough areas. Avoid tight socks. Wear natural-fiber socks (cotton, wool, or a cotton-wool blend). Wear special shoes if your health care provider recommends them. Wear shoes/boots that will protect your feet from various weather conditions (cold, moisture, etc.). Make sure your shoes fit properly. If you have neuropathy (nerve damage), you may not notice that your shoes are too tight. Perform the footwear test described below. Footwear Test Use this simple test to see if your sh oes fit correctly: Stand on a piece of paper. (Make sure y ou are standing and not sitting, because your foot changes shape when you stand. ) Trace the outline of your foot. Trace the outline of your shoe. Compare the t racings: Is the shoe too narrow? Is your foot crammed into the shoe? The shoe s hould be at least 1/2 inch longer than your longest toe and as wide as your fo ot. Proper Shoe Choices The following types of shoes are best f or people with diabetes Closed toes and heels Leather uppers without a seam inside At least 1/2 inch extra space at the en d of your longest toe Inside of shoe should be soft with no r ough areas Outer sole should be made of stiff mate rial Shoes should be at least as wide as you r feet Tips for Foot Care in Diabetes Don't wait to treat a minor foot proble m if you have diabetes. Follow your health care provider's guidelines and f irst aid guidelines. Report foot injuries and infections to your health care provider immediately. Check water temperature with your elbow , not your foot. Do not use a heating pad on your feet. Do not cross your legs. Do not self-treat your corns, calluses, or other foot problems. Go to your health care provider or technicians and trades workers to t reat these conditions. If you decide on removal of toenail, pl ease let Us know Referring Provider: TIFFANI CELIS [[id number]] Allergies As of Date: 12/28/2021 Noted Allergy Reaction PRAVASTATIN 01/23/2010 5 - Intolerance Comments: joint pain ZOCOR (SIMVASTATIN) 10/06/2009 Date Reviewed: 12/28/2021 Reviewed by: ALEX Slade Fu lly Assessed Reason for Visit: Established Patient [175] diabetic nail care [Other] Established Patient [175] diabetic nail care [Other] Primary Visit Diagnosis:Onychomycosis [ B35.1] Other Visit Diagnoses:Pain in toe of l eft foot [M79.675] Pain in toe of right foot [M79.674] Other diabetic neurological complicati on associated with type 2 diabetes mellitus (HCC) [E 11.49] Hallux rigidus of both feet [M20.21, M 20.22] Callus of foot [L84] Prescriptions as of 12/28/2021 - glipiZIDE (GLUCOTROL XL) 5 mg 24 hr tablet Take 5 mg by mouth once daily. - pantoprazole DR (PROTONIX) 20 mg tabl et Take 1 tablet by mouth once daily. - lancets (TRUEPLUS LANCETS) 28 gauge 1 Lancet once daily. Use as instructed to check blood sugars 1 x daily. DX: E11.9 Insulin: No - blood sugar diagnostic (TRUE METRIX GLUCOSE TEST STRIP) test strip Use as instructed to check blood sugar s 1 x daily. DX: E11.9 Insulin: No - Blood-Glucose Meter (TRUE METRIX AIR GLUCOSE METER) 1 Device once daily. Use as directed t o check blood sugars once daily - metFORMIN ER (GLUCOPHAGE XR) 500 mg 2 4 hr tablet Take 1 tablet by mouth daily with kaila kfast. - Blood Glucose Control High and Low ( ACCU-CHEK [place]YENNE CONTROL SOLN) soln Test controls as needed. Dx: Type 2 DM - Controlled E11.9 - Lancets (ACCU-CHEK SOFTCLIX LANCETS) lancets Test blood sugar(s) 1 times daily. Dx : Type 2 DM - Controlled E11.9 Insulin: No - atorvastatin (LIPITOR) 40 mg tablet Take 1 tablet by mouth once daily. - hydroCHLOROthiazide (HYDRODIURIL, DENIS DRIX) 25 mg tablet Take 1 tablet by mouth once daily. - lisinopril (ZESTRIL, PRINIVIL) 10 mg tablet Take 1 tablet by mouth once daily. - guaiFENesin (MUCINEX) 600 mg 12 hr ta blet Take 2 tablets by mouth twice daily. - fluticasone (FLOVENT HFA) 220 mcg/act uation inhaler Inhale 2 Puffs as instructed twice shania ly. - aspirin, enteric coated (ASPIRIN, ENT STEFAN COATED) 81 mg EC tablet Take 1 tablet by mouth once daily. - acetaminophen (TYLENOL EX STR ARTHRIT IS PAIN) 500 mg tablet Take 1 tablet by mouth every 6 hours a s needed. FOR PAIN. Problem List As Of Date 12/28/2021 Note d Resolved Unspecified Backache [M54.9] 8 10/06/2009 Neck Sprain and Strain [S13.9XXA] 01/2010/06/2009 Sarcoidosis [D86.9] 08/13/2008 BENIGN HYPERTENSION [I10] 08/13/2008 Mixed Hyperlipidemia [E78.2] 06/17/20 09 Impaired Fasting Blood Sugar [R73.01] 10/06/2009 Obesity [E66.9] 10/06/2009 Kidney stone [N20.0] 12/01/2010 Abdominal pain, acute, left lower quad rant [R10* Gastritis [K29.70] 10/28/2014 Uninodular goiter (nontoxic) [E04.1] 0 06/10/2016 Altered bowel habits [R19.4] 8 Upper abdominal pain [R10.10] 11/09/20 18 Chronic superficial gastritis without bleeding *11/09/2018 Gastroesophageal reflux disease [K21.9 ] 11/09/2018 CRICKET (obstructive sleep apnea) [G47.33] 03/05/2020 Other instructions from your clinician : Diabetes Foot Care Instructions When you have diabetes, proper foot c are is very important. Poor foot care may lead to amputation of a foot or le g. As a person with diabetes, you are mor e vulnerable to foot problems, because diabetes can damage your nerve s and reduce blood flow to your feet. Here are some diabetes foot care tips to follow: Wash and Dry Your Feet Daily Use mild soaps Use warm water Pat your skin dry; do not rub. Thoroug hly dry your feet. After washing, use lotion on your fee t to prevent cracking. Do not put lotion between your toes. - Examine Your Feet Each Day Check the tops and bottoms of your fee t. Have someone else look at your feet if you cannot see them. Check for dry, cracked skin. Look for blisters, cuts, scratches, or other sores. Check for redness, increased warmth, o r tenderness when touching any area of your feet. Check for ingrown toenai ls, corns, and calluses. If you get a blister or sore from your shoes, do not pop it. Apply a bandage and wear a different pair of s hoes. Take Care of Your Toenails Cut toenails after bathing, when they are soft. Cut toenails straight across and kobe h with a nail file. Avoid cutting into the corners of toes . Do not cut cuticles. If you have neuropathy (or decreased s ensation in your feet) a technicians and trades workers should always cut your toenails. - Be Careful When Exercising Walk and exercise in comfortable shoe s. Do not exercise when you have open sor es on your feet. Protect Your Feet With Shoes and Socks Never go barefoot. Always protect your feet by wearing shoes or hard-soled slippers or footwear. Avoid shoes with high heels and pointed toes. Avoid shoes that expose your toes or h eels (such as open-toed shoes or sandals). These types of shoes increa se your risk for injury and potential infections. Try on new footwear with the type of s ocks you usually wear. Do not wear new shoes for more than an hour at a time. Change your socks daily. Look and feel inside your shoes before putting them on to make sure there are no foreign objects or rough areas. Avoid tight socks. Wear natural-fiber socks (cotton, wool , or a cotton-wool blend). Wear special shoes if your health care provider recommends them. Wear shoes/boots that will protect you r feet from various weather conditions (cold, moisture, etc.). Ma ke sure your shoes fit properly. If you have neuropathy (nerve damage), yo u may not notice that your shoes are too tight. Perform the footwear test described below. Footwear Test Use this simple test to see if your sh oes fit correctly: Stand on a piece of paper. (Make sure you are standing and not sitting, because your foot changes shape when you stand.) Trace the outline of your foot. Trace the outline of your shoe. Compare the tracings: Is the shoe too narrow? Is your foot crammed into the shoe? The shoe should be at least 1/2 inch longer than your longes t toe and as wide as your foot. Proper Shoe Choices The following types of shoes are best for people with diabetes Closed toes and heels Leather uppers without a seam inside At least 1/2 inch extra space at the e nd of your longest toe Inside of shoe should be soft with no rough areas Outer sole should be made of stiff mat erial Shoes should be at least as wide as yo ur feet Tips for Foot Care in Diabetes Don't wait to treat a minor foot probl em if you have diabetes. Follow your health care provider's guidelines and first aid guidelines. Report foot injuries and infections to your health care provider immediately. Check water temperature with your elbo w, not your foot. Do not use a heating pad on your feet. Do not cross your legs. Do not self-treat your corns, calluses , or other foot problems. Go to your health care provider or technicians and trades workers to treat these conditions. If you decide on removal of toenail, please let Us know Encounter Status:Closed by ALEX MARMOLEJO TTBENW DPLawrence on 12/28/21 ALLERGIES ALLERGIES DATE TYPE / CODE NAME / CODE REACTION SEVERITY SOURCE 01/23/2010 DRUG PRAVASTATIN INTOLERANCE [facility][id number] [place] 03(SNOMED CT) 10/06/2009 DRUG SIMVASTATIN [facility][id number] [place] 03(SNOMED CT) ENCOUNTERS ENCOUNTERS ADMIT/DISCHARGE ACCOUNT NUMBER ADMITTING ENCOUNTER LOCATION [facility] E CLASS 09/09/2022/ [id number] Ambulatory [address] ing:[facility] 12/28/2021/ [id number] Ambulatory [address] ing:[facility] ENCOUNTER [employer]AR[employer] PAYER SUBSCRIBER SOURCE 09/09/2022 Primary [facility] Insurance:[employer] [id number] [facility] [place] Number: [id number] e Date:[id number] Name:Gerardo 12/28/2021 Primary [facility]: [facility] Insurance:[facility] [id number] [facility]se [facility] MEDICARE [place] Number: [id number] e Date:[id number] Name:Gerardo
--- NOTE | 2022-09-14 13:41 | EKG12_ITS ---
Test Reason : Blood Pressure : / mmHG Vent. Rate : 087 BPM Atrial Rate : 087 BPM P-R Int : 122 ms QRS Dur : 090 ms QT Int : 338 ms P-R-T Axes : 035 -24 020 degrees QTc Int : 406 ms Normal sinus rhythm Minimal voltage criteria for LVH, may be normal variant ( R in aVL ) Poor R wave progression Borderline ECG Confirmed by DENAE WOO, NAI ([id number]), supervising editor news reel JAMARCUS ESPARZA ([id number]) on 09/16/2022 10:37:32 AM Referred By: Confirmed By:NAI PHILIPPE MD
--- NOTE | 2022-09-14 13:44 | EDS_ITS ---
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 Patient has been on methotrexate proximately 4 weeks and patient believes she was taking it wrong and was taken to daily when she was not supposed to be. Patient developed sores in her mouth 5 days ago. Patient was seen in the emergency department 3 days ago for same. Patient has had decreased p.o. intake. She is complaining of some right upper quadrant abdominal pain. She said no fever. She denies urinary symptoms. She denies chest pain or shortness of breath. Prior similar symptoms: No PFSH PFSH Medical History Constipation COPD (chronic obstructive pulmonary disease) Essential hypertension Fatigue GERD (gastroesophageal reflux disease) History of stroke Hyperlipidemia LLQ discomfort Sarcoidosis Sleep apnea SOB (shortness of breath) on exertion Type 2 diabetes mellitus without complication Home Medications atorvastatin 40 mg tablet 40 mg PO DAILY 09/21/17 [History Last Taken Unknown] lisinopril 10 mg tablet 10 mg PO DAILY 09/21/17 [History Last Taken Unknown] aspirin 81 mg tablet,delayed release (Adult Low Dose Aspirin) 81 mg PO DAILY 11/01/19 [History Last Taken Unknown] fluticasone propionate 220 mcg/actuation HFA aerosol inhaler (Flovent HFA) 2 puff inhalation DAILY 11/01/19 [History Last Taken Unknown] pantoprazole 20 mg tablet,delayed release 20 mg PO DAILY 11/12/19 [History Last Taken Unknown] metformin 500 mg tablet 500 mg PO DAILY 03/22/21 [History Last Taken Unknown] hydrochlorothiazide 25 mg tablet 12.5 mg PO DAILY 06/23/21 [History Last Taken Unknown] folic acid 1 tablet DAILY 06/14/22 [History Last Taken Unknown] glipizide 1 tablet DAILY 06/14/22 [History Last Taken Unknown] prednisone 1 tablet DAILY 06/14/22 [History Last Taken Unknown] sulfamethoxazole-trimethoprim 1 tablet QMWF 06/14/22 [History Last Taken Unknown] Allergy/AdvReac Type Severity Reaction Status Date / Time pravastatin AdvReac joint pain Verified 09/14/22 12:40 simvastatin AdvReac joint pain Verified 09/14/22 12:40 Family History Mother CAD (coronary artery disease) CABG X 3 Breast cancer Heart disease Hypertension CVA (cerebral vascular accident) Brother Cancer prostate Myocardial infarction Pacemaker Grandfather Diabetes Surgical History History of colonoscopy History of foot surgery History of hysterectomy Social History Smoking Status: Never smoker second hand exposure: No alcohol intake: never substance use type: does not use caffeine: Yes Type: tea Number of servings: 2 what type of physical activity do you participate in: none frequency: does not exercise ROS ROS ED ROS Narrative Decreased p.o. intake Review of Systems ROS Unobtainable: other Constitutional Constitutional ED: Reports lethargy; Denies chills, fever(s), sweats or weight loss Eyes Eyes: Denies blurry vision, change in vision or diplopia ENT ENT ED: Reports other Details: Sores in mouth ; Denies rhinorrhea or sore throat Cardiovascular Cardiovascular: Reports chest pain and racing heartbeat; Denies orthopnea Respiratory/Chest Respiratory/Chest: Reports dyspnea and dyspnea on exertion; Denies cough, orthopnea or sputum Gastrointestinal Gastrointestinal: Denies abdominal pain, diarrhea, nausea or vomiting Genitourinary Genitourinary ED: Denies dysuria, hematuria or urinary frequency Musculoskeletal Musculoskeletal: Denies arthralgias, back pain, myalgias or neck pain Integumentary Denies abscess, Abrasions or rash Neurologic Neurologic: Denies headache(s) or weakness Psychiatric Psychiatric: Denies anxiety, depression or suicidal thoughts Endocrine Endocrinology: Denies polydipsia, polyphagia or polyuria Hematologic/Lymphatic Hematologic/Lymphatic: Denies easy bleeding, easy bruising or lymphadenopathy Allergic/Immunologic Allergic/Immunologic ED: Denies mouth swelling, tongue swelling or urticaria EXAM Physical Exam Const Vital Signs: 09/14/22 12:37 09/14/22 14:04 09/14/22 14:04 Temperature 97.7 F L Temperature Source Temporal Pulse Rate 96 92 Respiratory Rate 18 16 Respiratory Effort Normal Respiratory Pattern Normal Blood Pressure 148/51 H 105/54 L Blood Pressure Mean 83 71 Pulse Ox 100 94 Oxygen Delivery Method Room Air Room Air Positive well nourished and well developed General Appearance ED: well developed and NAD HEENT Reports TM's clear and moist mucous membranes HEENT Narrative: Shallow ulcerations of the lips and oral mucosa normocephalic and atraumatic; Negative for trauma or tenderness Tympanic Membrane ED: Yes TM's clear Eyes PERRL and EOMs intact bilaterally General Eye ED: Negative for pale conjunctiva or scleral icterus Neck no lymphadenopathy, supple and no JVD General: Negative for tenderness Chest Wall inspection of chest normal and palpation of chest normal Chest: Negative for tenderness Resp normal respiratory effort and clear to auscultation bilaterally Effort and Inspection: Negative for respiratory distress or pain with movement Auscultation: Negative for rhonchi, wheezes or diminished lung sounds Cardio regular rate, regular rhythm, S1 normal heart sound, S2 normal heart sound and no murmurs Peripheral Pulses: pulses 2+ throughout GI normal to inspection, nondistended, normoactive bowel sounds, soft to palpation, non-tender, non-distended and no masses Back/Spine no CVA tenderness and no thoracic nor lumbar tenderness Extremity normal to inspection General Extremety ED: Negative for edema General Extremity: Negative for edema Neuro oriented x3, CN's II-XII intact bilaterally, no sensory deficits noted and gait normal Sensorium / Orientation: awake, alert, oriented to person, oriented to place and oriented to time Motor Exam: strength 5/5 throughout and strength abnormal Psych mental status grossly normal Skin no rashes or lesions noted and no wounds MDM MDM MDM Narrative Medical decision making narrative: IV established and patient given normal saline. Patient had a methotrexate level sent which is a send out. Lab work-up shows a thrombocytopenia. Patient has leukopenia. Case discussed with hospitalist will evaluate patient for admission. Lab Data Attestation: I reviewed the patient's lab results. Labs: Laboratory Results - last 24 hr 09/14/22 09/14/22 09/14/22 13:59 13:59 13:59 WBC 3.6 L RBC 4.46 Hgb 14.1 Hct 42.0 MCV 94.2 MCH 31.6 MCHC 33.6 RDW Std Deviation 42.5 RDW Coeff of Christy 12.9 Plt Count 63 L MPV 10.6 Immature Gran % (Auto) 0.300 Neut % (Auto) 70.8 H Lymph % (Auto) 25.3 [place] % (Auto) 1.1 Eos % (Auto) 2.2 Baso % (Auto) 0.3 Absolute Neuts (auto) 2.6 Absolute Lymphs (auto) 0.91 Nucleated RBC % 0 Platelet Estimate MOD DEC RBC Morphology NORM C+C Sodium Cancelled Potassium Cancelled Chloride Cancelled Carbon Dioxide Cancelled Anion Gap Cancelled BUN Cancelled Creatinine Cancelled Estim Creat Clear Calc Cancelled Est GFR (MDRD) Af Amer Cancelled Est GFR (MDRD) Non-Af Cancelled BUN/Creatinine Ratio Cancelled Glucose Cancelled Calcium Cancelled Total Bilirubin Cancelled AST Cancelled ALT Cancelled Alkaline Phosphatase Cancelled Total Protein Cancelled Albumin Cancelled Globulin Cancelled Albumin/Globulin Ratio Cancelled Lipase Cancelled Urine Color Urine Clarity Urine pH Ur Specific [place] Urine Protein Urine Glucose (UA) Urine Ketones Urine Occult Blood Urine Nitrite Urine Bilirubin Urine Urobilinogen Ur Leukocyte Esterase Urine RBC Urine WBC Ur Squamous Epith Cells Urine Bacteria Urine Mucus Miscellaneous Test Cancelled 09/14/22 09/14/22 14:12 14:48 WBC RBC Hgb Hct MCV MCH MCHC RDW Std Deviation RDW Coeff of Christy Plt Count MPV Immature Gran % (Auto) Neut % (Auto) Lymph % (Auto) [place] % (Auto) Eos % (Auto) Baso % (Auto) Absolute Neuts (auto) Absolute Lymphs (auto) Nucleated RBC % Platelet Estimate RBC Morphology Sodium 136 Potassium 3.4 L Chloride 101 Carbon Dioxide 33.0 H Anion Gap 2 L BUN 17 Creatinine 0.67 Estim Creat Clear Calc 38.94 Est GFR (MDRD) Af Amer 111 Est GFR (MDRD) Non-Af 92 BUN/Creatinine Ratio 25.3 H Glucose 140 H Calcium 8.8 Total Bilirubin 0.80 AST 55 H ALT 142 H Alkaline Phosphatase 65 Total Protein 6.2 L Albumin 2.7 L Globulin 3.5 Albumin/Globulin Ratio 0.8 L Lipase 126 Urine Color Yellow Urine Clarity Sl. Cloudy Urine pH 5.0 Ur Specific [place] 1.020 Urine Protein 15 H Urine Glucose (UA) 1000 H Urine Ketones 15 H Urine Occult Blood 25 H Urine Nitrite Negative Urine Bilirubin Negative Urine Urobilinogen Normal Ur Leukocyte Esterase 100 H Urine RBC 0-5 SEEN Urine WBC 10-25 SEEN Ur Squamous Epith Cells 0-5 SEEN Urine Bacteria 0 SEEN Urine Mucus 0 SEEN Miscellaneous Test EKG Initial EKG: Attestation: I personally reviewed and interpreted this EKG as follows: Comments: sinus with rate of 87bpm Discharge Plan Dx/Rx/DC Orders Clinical Impression: Methotrexate toxicity, Leukopenia, Thrombocytopenia, History of diabetes mellitus Disposition Disposition: Acute Care Hospital [facility]
--- OUTSIDE RECORDS SUMMARY | 2022-09-14 13:54 | XMS RPT_ITS ---
:1950 Author Organization [facility] Care Team Providers Name Role Phone DAYANA MARMOLEJO Attending Unavailable TIFFANI CELIS Referring Unavailable TIFFANI CELIS Primary Care Unavailable PROBLEMS PROBLEMS No Problem Records FoundPROCEDURES PROCEDURES No Procedure Records FoundRESULTS RESULTS PROGRESS Observed: 09/09/2022 3:16 PM Status: COMPLETED S ource: [facility] REPO JOSEBIGG HNO ID: [id number] Author: Layo Abernathy PA-C Service: ? Author Type: Physician Poultry Scalder Type: Progress Notes Filed: 09/09/2022 3:20 PM Note Text: This note was created using [employer]. Subjective Holley Malik is a 72 year [...] DX W/COLLJ SPEC WHEN P FRMD 05/20/[address] [facility] [address] Sosa - normal COLONOSCOPY FLX [...] Observed: 09/09/2022 12:30 PM Status: COMPLETED Source: [facility] REPOSITOR Y Office Visit (UCWSTR) HOLLEY MALIK ([id number]) 1950 F Date Time Provider Department 09/09/22 12:30 PM LAYO ABERNATHY UCWSTR During your visit today, we recorded t he following information about you: Temperature Pulse Respiration Blood pr essure 98.3 degrees 94/minute 16/minute 144/8 8 Weight 83.6 kg Layo Abernathy PA-C 09/09/2022 3:20 PM Si gned This note was created using [employer]. Subjective Holley Malik is a 72 year [...] DX W/COLLJ SPEC WHEN P FRMD 05/20/[address] [facility] [address] Sosa - normal COLONOSCOPY FLX DX W/COLLJ SPEC WHEN P FRMD 06/01/2013 Colonoscopy COLONOSCOPY FLX DX W/COLLJ SPEC WHEN P [facility] 12/11/2018 Colonoscopy ESOPHAGOGASTRODUODENOSCOPY TRANSORAL D IAGNOSTIC 06/01/2013 [...] Visit Diagnosis:Thrush [B37.0] Order(s):STREP A MOLECULAR (POC) [05953 88] Order #: [id number]. #:[id number] [id number] (MYCOSTATIN) 100,000 unit/mL suspensionTake 5 mL [...] Observed: 02/22/2022 12:00 AM Status: COMPLETED Source: [facility] REPOSITOR Y Telephone (FAMPWS) HOLLEY MALIK ([id number]) 1950 F Date Time Provider Department 02/22/22 [...] Order(s):COMP METABOLIC PANEL [SQCMP] O rder #: [id number] FUTURE LIPID PANEL BASIC [SQLIPB] Order #: [id number] FUTURE HGB A1C [[id number]] Order #: [id number] FUTURE ALBUMIN/CREAT RATIO RND UR [SQUACR] Or martina #: [id number] FUTURE CBC [SQCBC] Order #: [id number] FUTURE Prescriptions as of 02/22/2022 - glipiZIDE [...] 12/28/2021 1:18 PM Status: COMPLETED S ource: [facility] REPO JOSEORY HNO ID: [id number] Author: Dayana Marmolejo Service: ? Author Type: [...] FLX DX W/COLLJ SPEC WHEN PFRMD 05/20/[address] [facility] [address] Sosa - normal - COLONOSCOPY [...] noncontributory. Objective: Patient presents to clinic [facility] Constitutional: Pt is a well developed 71 [...] 12/28/2021 1:06 PM Status: COMPLETED S ource: [facility] ALYCIA CRANE ID: [id number] Author: Amy Rogers MA Service: ? Author Type: Data Compiler Type: Progress Notes Filed: 12/28/2021 9:36 PM [...] 12/28/2021 1:00 PM Status: COMPLETED S ource: [facility] REPOSITOR Y Office Visit (PODIWS) HOLLEY MALIK ([id number]) 1950 F Date Time Provider Department 12/28/21 [...] FLX DX W/COLLJ SPEC WHEN PFRMD 05/20/[address] [facility] [address] Sosa - normal - COLONOSCOPY [...] Objective: [facility] Constitutional: Pt is a well developed 71 [...] decreased se nsation in your feet) a stores despatch hand should always cut your toenails. - Be [...] Go to your health care provider or stores despatch hand to t reat these conditions. If you decide on removal of toenail, pl ease let Us know Referring Provider: TIFFANI CELIS [[id number]] Allergies As of Date: 12/28/2021 Noted Allergy [...] decreased s ensation in your feet) a stores despatch hand should always cut your toenails. - Be [...] Go to your health care provider or stores despatch hand to treat these conditions. If you decide on removal of toenail, please let Us know Encounter Status:Closed by ALEX MARMOLEJO TTBENW DPM on 12/28/21 ALLERGIES ALLERGIES DATE TYPE / CODE NAME / CODE REACTION SEVERITY SOURCE 01/23/2010 DRUG PRAVASTATIN INTOLERANCE [facility] INGREDI/10202830 [place] d 3(SNOMED CT) 10/06/2009 DRUG SIMVASTATIN [facility] INGREDI/29936044 [place] d 3(SNOMED CT) ENCOUNTERS ENCOUNTERS ADMIT/DISCHARGE ACCOUNT NUMBER ADMITTING ENCOUNTER LOCATION [facility] E CLASS 09/09/2022/ [id number] Ambulatory [address] ing:[facility] 12/28/2021/ [id number] Ambulatory [address] ing:[facility] PAYERS PAYERS ENCOUNTER GUARANTOR PAYER SUBSCRIBER SOURCE 09/09/2022 Primary HOLLEY SALCEDOOB: Ese farrar Clinic Insurance:DUR[place]IMAN [id number] Ese farrar MEDICARE [place] Number: [address] [id number] e Date:[id number] Name:Gerardo 12/28/2021 Primary HOLLEY LOMBARDI: Ese farrar [facility] [id number] Ese farrar MEDICARE [place] Number: [id number] e Date:8381-17-00Uamb Name:Gerardo
[2022-09-14] MEDS: 0.9% Normal Saline 1,000 ML 150 ML IV (14:03)
[2022-09-14 14:04] VITALS: BP 105/54; PULSE 92; RESP 16; O2SAT 94
[2022-09-14 14:20] LABS: Bacteria 0 SEEN /hpf (None Seen); Mucous, Urine 0 SEEN /hpf (<or=2+)
[2022-09-14 14:21] LABS: Color, Urine Yellow (Yellow); Glucose, Dipstick 1000 mg/dl (Normal); Ketone-Dipstick 15 mg/dl (Negative); Leukocyte Esterase-Dipstick 100 /ul (Negative); Nitrite-Dipstick Negative (Negative); Occult Blood-Urine 25 /ul (Negative); Protein-Dipstick 15 mg/dl (Negative); Urine Bilirubin Dipstick Negative (Negative); Urine Clarity Sl. Cloudy (Clear); Urine Urobilinogen Normal (Normal)
[2022-09-14 14:29] LABS: Red Blood Cells-Urine 0-5 SEEN /hpf (0-5); Squamous Epithelial Cells - UA 0-5 SEEN /hpf (5-10); White Blood Cells 10-25 SEEN /hpf (0-5)
[2022-09-14 14:43] LABS: Absolute Lymphocyte Count 0.91 X10^3/uL (0.83-4.51); Absolute Neutrophil Count 2.6 X10^3/uL (2.0-7.7); Basophil# 0.01 X10^3/uL; Basophil% 0.3 % (0-1); Eosinophil# 0.08 X10^3/uL; Eosinophils% 2.2 % (0-5); Hemoglobin 14.1 g/dL (12.0-15.0); Lymphocyte # 0.91 X10^3/ul (0.83-4.51); Lymphocyte % 25.3 % (19-41); Mean Corp Hgb Conc 33.6 g/dL (32-36); Mean Corpuscular Hgb 31.6 pg (27.0-32.0); Mean Corpuscular Volume 94.2 fL (81-99); Mean Platelet Vol. 10.6 fl (6.2-12.0); Monocyte# 0.04 X10^3/uL; Monocyte% 1.1 % (0-10); NRBC Flagged by Analyzer 0 % (0-5); Neutrophil # 2.55 X10^3/uL (2.7-7.7); Neutrophil % 70.8 % (47-70); POSITIVE COUNT YES; Platelet Count 63 K/mm3 (150-450); RBC Distribution Width CV 12.9 % (11.6-14.6); RBC Distribution Width SD 42.5 fl (35.1-43.9); Red Blood Count 4.46 M/mm3 (4.2-5.4); White Blood Count 3.6 K/mm3 (4.4-11.0)
[2022-09-14 14:44] LABS: Differential Indicated SCAN CRITERIA MET; Platelet Estimate MOD DEC (ADEQ); Red Cell Morphology NORM C+C NORMAL (NORM C&C)
[2022-09-14 15:10] LABS: ALB/GLOB Ratio 0.8 RATIO (0.9-2.4); AST(SGOT) 55 U/L (15-37); Alanine Aminotransfer ALT/SGPT 142 U/L (13-56); Albumin, Serum 2.7 g/dL (3.2-5.0); Alkaline Phosphatase 65 U/L (45-117); Anion Gap 2 (5-15); BUN 17 mg/dL (7-18); BUN/Creat Ratio 25.3 RATIO (10-20); Calcium,Total 8.8 mg/dL (8.5-10.1); Chloride 101 mmol/L (98-107); Creatinine, Serum 0.67 mg/dL (0.55-1.02); EST Glomerular Filtration Rate 92 mL/min (>60); Est Glom Filt Rate - Afr Amer 111 mL/min (>60); Estimated Creatinine Clearance 38.94 ml/min; Globulin 3.5 g/dL (2.2-4.2); Glucose 140 mg/dL (74-106); Lipase 126 U/L (73-393); Potassium 3.4 mmol/L (3.5-5.1); Protein, Total 6.2 g/dL (6.4-8.2); Sodium Level 136 mmol/L (136-145)
[2022-09-14 16:19] VITALS: BP 134/45; PULSE 96; RESP 15; TEMP 36.8; O2SAT 98
--- OUTSIDE RECORDS SUMMARY | 2022-09-14 16:19 | XMS RPT_ITS ---
:1950 Author Organization [facility] Care Team Providers Name Role Phone DAYANA MARMOLEJO Attending Unavailable TIFFANI CELIS Referring Unavailable TIFFANI CELIS Primary Care Unavailable PROBLEMS PROBLEMS No Problem Records FoundPROCEDURES PROCEDURES No Procedure Records FoundRESULTS RESULTS PROGRESS Observed: 09/09/2022 3:16 PM Status: COMPLETED S ource: [facility] REPO JOSEBIGG HNO ID: [id number] Author: Layo Abernathy PA-C Service: ? Author Type: Physician Eastern Philosophy Professor Type: Progress Notes Filed: 09/09/2022 3:20 PM Note Text: This note was created using [employer]. Subjective Holley Malik is a 72 year [...] DX W/COLLJ SPEC WHEN P FRMD 05/20/03 [facility] [address]. Sosa - normal COLONOSCOPY FLX [...] Observed: 09/09/2022 12:30 PM Status: COMPLETED Source: [facility] REPOSITOR Y Office Visit (UCWSTR) HOLLEY MALIK ([id number]) 1950 F Date Time Provider Department 09/09/22 12:30 PM LAYO ABERNATHY UCWSTR During your visit today, we recorded t he following information about you: Temperature Pulse Respiration Blood pr essure 98.3 degrees 94/minute 16/minute 144/8 8 Weight 83.6 kg Layo Abernathy PA-C 09/09/2022 3:20 PM Si gned This note was created using [employer]. Subjective Holley Malik is a 72 year [...] DX W/COLLJ SPEC WHEN P FRMD 05/20/03 [facility] [address]. Sosa - normal COLONOSCOPY FLX DX W/COLLJ SPEC WHEN P FRMD 06/01/2013 Colonoscopy COLONOSCOPY FLX DX W/COLLJ SPEC WHEN P [facility] 12/11/2018 Colonoscopy ESOPHAGOGASTRODUODENOSCOPY TRANSORAL D IAGNOSTIC [...] Visit Diagnosis:Thrush [B37.0] Order(s):STREP A MOLECULAR (POC) [88307 88] Order #: [id number]. #:[id number] nystatin (MYCOSTATIN) 100,000 unit/mL suspensionTake 5 mL [...] Observed: 02/22/2022 12:00 AM Status: COMPLETED Source: [facility] REPOSITOR Y Telephone (FAMPWS) HOLLEY MALIK ([id number]) 1950 F Date Time Provider Department 02/22/22 [...] Order(s):COMP METABOLIC PANEL [SQCMP] O rder #: [id number] FUTURE LIPID PANEL BASIC [SQLIPB] Order #: [id number] FUTURE HGB A1C [[id number]] Order #: [id number] FUTURE ALBUMIN/CREAT RATIO RND UR [SQUACR] Or martina #: [id number] FUTURE CBC [SQCBC] Order #: [id number] FUTURE Prescriptions as of 02/22/2022 - glipiZIDE [...] 12/28/2021 1:18 PM Status: COMPLETED S ource: [facility] REPO JOSEORY HNO ID: [id number] Author: Dayana Marmolejo Service: ? Author Type: [...] FLX DX W/COLLJ SPEC WHEN PFRMD 05/20/03 [facility] [address]. Sosa - normal - COLONOSCOPY [...] noncontributory. Objective: Patient presents to clinic [facility] Constitutional: Pt is a well developed 71 [...] 12/28/2021 1:06 PM Status: COMPLETED S ource: [facility] ALYCIA CRANE ID: [id number] Author: Amy Rogers MA Service: ? Author Type: Suit Maker Type: Progress Notes Filed: 12/28/2021 9:36 PM [...] 12/28/2021 1:00 PM Status: COMPLETED S ource: [facility] REPOSITOR Y Office Visit (PODIWS) HOLLEY MALIK ([id number]) 1950 F Date Time Provider Department 12/28/21 [...] FLX DX W/COLLJ SPEC WHEN PFRMD 05/20/03 [facility] [address] Sosa - normal - COLONOSCOPY [...] Objective: Patient presents to clinic ambulating in [facility] Constitutional: Pt is a well developed 71 [...] decreased se nsation in your feet) a speech therapy teacher should always cut your toenails. - Be [...] Go to your health care provider or speech therapy teacher to t reat these conditions. If you decide on removal of toenail, pl ease let Us know Referring Provider: TIFFANI CELIS [[id number]] Allergies As of Date: 12/28/2021 Noted Allergy [...] decreased s ensation in your feet) a speech therapy teacher should always cut your toenails. - Be [...] Go to your health care provider or speech therapy teacher to treat these conditions. If you decide on removal of toenail, please let Us know Encounter Status:Closed by ALEX MARMOLEJO TTBENW DPM on 12/28/21 ALLERGIES ALLERGIES DATE TYPE / CODE NAME / CODE REACTION SEVERITY SOURCE 01/23/2010 DRUG PRAVASTATIN INTOLERANCE [facility] INGREDI/99887756 [place] 3(SNOMED CT) 10/06/2009 DRUG SIMVASTATIN [facility] INGREDI/07140296 [place] d 3(SNOMED CT) ENCOUNTERS ENCOUNTERS ADMIT/DISCHARGE ACCOUNT NUMBER ADMITTING ENCOUNTER LOCATION [facility] E CLASS 09/09/2022/ [id number] Ambulatory [address] ing:[facility] 12/28/2021/ [id number] Ambulatory [address] ing:[place] PAYERS PAYERS ENCOUNTER GUARANTOR PAYER SUBSCRIBER SOURCE 09/09/2022 Primary HOLLEY SALCEDOOB: Ese farrar Clinic Insurance:[employer]IMAN [id number] Ese farrar MEDICARE [place] Number: [id number] e Date:6586-59-71Idok Name:Gerardo 12/28/2021 Primary HOLLEY LOMBARDI: Ese farrar [facility] [id number] Ese farrar MEDICARE [place] Number: [id number] e Date:0083-90-95Osew Name:Gerardo
[2022-09-14 16:57] VITALS: BMI 33.4
--- NOTE | 2022-09-14 17:00 | HP.PCM.HOS_ITS ---
HPI - General General Date of Admission: 09/14/22 HPI Narrative MAREN MANRIQUE, is a 72 F who presents to the hospital with mucositis secondary to an accidental methotrexate overdose. She has multiple oral ulcers and this is because she was recently started on methotrexate 3 weeks ago for her sarcoidosis and started taking it every day instead of once a week. The ER sent off her methotrexate level, however this is a send out so I do not anticipate a rapid result. She is having some oral pain but otherwise denies any shortness of breath or increased work of breathing. [facility] Medical History Constipation COPD (chronic obstructive pulmonary disease) Essential hypertension Fatigue GERD (gastroesophageal reflux disease) History of stroke Hyperlipidemia LLQ discomfort Sarcoidosis Sleep apnea SOB (shortness of breath) on exertion Type 2 diabetes mellitus without complication Home Medications atorvastatin 40 mg tablet 40 mg PO DAILY 09/21/17 [History Last Taken Unknown] lisinopril 10 mg tablet 10 mg PO DAILY 09/21/17 [History Last Taken Unknown] aspirin 81 mg tablet,delayed release (Adult Low Dose Aspirin) 81 mg PO DAILY 11/01/19 [History Last Taken Unknown] fluticasone propionate 220 mcg/actuation HFA aerosol inhaler (Flovent HFA) 2 puff inhalation DAILY 11/01/19 [History Last Taken Unknown] pantoprazole 20 mg tablet,delayed release 20 mg PO DAILY 11/12/19 [History Last Taken Unknown] metformin 500 mg tablet 500 mg PO DAILY 03/22/21 [History Last Taken Unknown] hydrochlorothiazide 25 mg tablet 12.5 mg PO DAILY 06/23/21 [History Last Taken Unknown] folic acid 1 tablet DAILY 06/14/22 [History Last Taken Unknown] glipizide 1 tablet DAILY 06/14/22 [History Last Taken Unknown] prednisone 1 tablet DAILY 06/14/22 [History Last Taken Unknown] sulfamethoxazole-trimethoprim 1 tablet QMWF 06/14/22 [History Last Taken Unknown] Allergy/AdvReac Type Severity Reaction Status Date / Time pravastatin AdvReac joint pain Verified 09/14/22 12:40 simvastatin AdvReac joint pain Verified 09/14/22 12:40 Family History Mother CAD (coronary artery disease) CABG X 3 Breast cancer Heart disease Hypertension CVA (cerebral vascular accident) Brother Cancer prostate Myocardial infarction Pacemaker Grandfather Diabetes Surgical History History of colonoscopy History of foot surgery History of hysterectomy Social History Smoking Status: Never smoker second hand exposure: No alcohol intake: never substance use type: does not use caffeine: Yes Type: tea Number of servings: 2 what type of physical activity do you participate in: none frequency: does not exercise ROS Constitutional Constitutional: Denies chills, fatigue, fever(s) or malaise Eyes Eyes: Denies blurry vision ENT HEENT: Reports mouth pain and mucositis; Denies headache(s) or nasal discharge Cardiovascular Cardiovascular: Denies chest pain, dyspnea on exertion or syncope Respiratory/Chest Respiratory/Chest: Denies cough, shortness of breath at rest or shortness of breath with exertion Gastrointestinal Gastrointestinal: Denies constipation, diarrhea, nausea or vomiting Genitourinary Genitourinary: Denies dysuria Neurologic Neurologic: Denies focal weakness, numbness or tremor(s) Psychiatric Psychiatric: Denies anxiety or depression Vital Signs Vital Signs Vital Signs: 09/14/22 12:37 09/14/22 14:04 09/14/22 14:04 Temperature 97.7 F L Temperature Source Temporal Pulse Rate 96 92 Respiratory Rate 18 16 Respiratory Effort Normal Respiratory Pattern Normal Blood Pressure 148/51 H 105/54 L Blood Pressure Mean 83 71 Pulse Ox 100 94 Oxygen Delivery Method Room Air Room Air 09/14/22 16:19 Temperature 98.3 F Temperature Source Temporal Pulse Rate 96 Respiratory Rate 15 Respiratory Effort Respiratory Pattern Blood Pressure 134/45 H Blood Pressure Mean 74 Pulse Ox 98 Oxygen Delivery Method Room Air Weight Weight: 177 lb 0.499 oz Body Mass Index (BMI) 33.4 Physical Exam Narrative General: Alert, Oriented x3, Cooperative, No apparent distress HEENT: Atraumatic, PERRLA, EOMI, Normocephalic Oral: Moist Mucosa, multiple oral lesions consistent with mucositis, no signs of infection Neck: Supple, No JVD Lungs: Clear to auscultation, Normal air movement, No rhonchi, No wheeze, No rales Cardiovascular: Regular rate, Regular Rhythm, Normal S1, Normal S2, No murmurs Abdomen: Soft, Non Tender, Non-Distended, No Hepato-splenomegaly Extremities: No edema, Capillary Refill Less than 3 Seconds Skin: No rashes, No breakdown Musculoskeletal: No Tenderness to Palpation of Joints or Extremities Neurological: Cranial nerves II-XII grossly intact, Motor Exam 5/5 strength throughout, Sensory exam intact to light touch and pain Psych/Mental Status: Normal Affect, Appropriate Results Lab / Micro Data Result Diagrams: 09/14/22 13:59 09/14/22 14:48 Labs: Laboratory Results - last 24 hr 09/14/22 13:59: WBC 3.6 L, RBC 4.46, Hgb 14.1, Hct 42.0, MCV 94.2, MCH 31.6, MCHC 33.6, RDW Std Deviation 42.5, RDW Coeff of Christy 12.9, Plt Count 63 L, MPV 10.6, Immature Gran % (Auto) 0.300, Neut % (Auto) 70.8 H, Lymph % (Auto) 25.3, [place] % (Auto) 1.1, Eos % (Auto) 2.2, Baso % (Auto) 0.3, Absolute Neuts (auto) 2.6, Absolute Lymphs (auto) 0.91, Nucleated RBC % 0, Platelet Estimate MOD DEC, RBC Morphology NORM C+C 09/14/22 13:59: Sodium Cancelled, Potassium Cancelled, Chloride Cancelled, Carbon Dioxide Cancelled, Anion Gap Cancelled, BUN Cancelled, Creatinine Cancelled, Estim Creat Clear Calc Cancelled, Est GFR (MDRD) Af Amer Cancelled, Est GFR (MDRD) Non-Af Cancelled, BUN/Creatinine Ratio Cancelled, Glucose Cancelled, Calcium Cancelled, Total Bilirubin Cancelled, AST Cancelled, ALT Cancelled, Alkaline Phosphatase Cancelled, Total Protein Cancelled, Albumin Cancelled, Globulin Cancelled, Albumin/Globulin Ratio Cancelled, Lipase Cancelled 09/14/22 13:59: Miscellaneous Test Cancelled 09/14/22 14:12: Urine Color Yellow, Urine Clarity Sl. Cloudy, Urine pH 5.0, Ur Specific [place] 1.020, Urine Protein 15 H, Urine Glucose (UA) 1000 H, Urine Ketones 15 H, Urine Occult Blood 25 H, Urine Nitrite Negative, Urine Bilirubin Negative, Urine Urobilinogen Normal, Ur Leukocyte Esterase 100 H, Urine RBC 0-5 SEEN, Urine WBC 10-25 SEEN, Ur Squamous Epith Cells 0-5 SEEN, Urine Bacteria 0 SEEN, Urine Mucus 0 SEEN 09/14/22 14:48: Sodium 136, Potassium 3.4 L, Chloride 101, Carbon Dioxide 33.0 H , Anion Gap 2 L, BUN 17, Creatinine 0.67, Estim Creat Clear Calc 38.94, Est GFR (MDRD) Af Amer 111, Est GFR (MDRD) Non-Af 92, BUN/Creatinine Ratio 25.3 H, Glucose 140 H, Calcium 8.8, Total Bilirubin 0.80, AST 55 H, ALT 142 H, Alkaline Phosphatase 65, Total Protein 6.2 L, Albumin 2.7 L, Globulin 3.5, Albumin/Globulin Ratio 0.8 L, Lipase 126 Assessment & Plan Assessment/Plan (1) Methotrexate toxicity: (2) Thrombocytopenia: PLAN: Plan 1. Oral mucositis secondary to methotrexate toxicity/sarcoidosis ? This is due to to taking her methotrexate every day instead of once a week ? We will place her on leucovorin IV every 6 hours and then would recommend discharge on oral leucovorin every 6 for about a week and outpatient follow-up with her county records management officer ? Thrombocytopenia is consistent with her methotrexate overdose ? Methotrexate level is pending but it is a send out ? Would recommend continued monitoring for any respiratory distress ? Continue with viscous lidocaine for pain control ? Can continue with her home prednisone for her sarcoid 2. HTN/HLD ? Blood pressures are stable ? Continue with her home blood pressure medications ? Continue with aspirin and Lipitor 3. DM2 ? We will hold her home metformin and glipizide ? Continue with sliding scale insulin Accu-Cheks AC at bedtime ? We will make adjustments as necessary 4. GERD ? Stable ? Continue with PPI DVT: Lovenox Charges/Coding Visit Charges Inpatient E&M: 57409 Init Hosp L2
[2022-09-14 17:09] VITALS: BP 130/44; PULSE 88; RESP 18; TEMP 36.6; O2SAT 94
[2022-09-14] MEDS: 0.9% Normal Saline 1,000 ML 100 ML IV (17:27)
--- OUTSIDE RECORDS SUMMARY | 2022-09-14 17:30 | XMS RPT_ITS ---
:1950 Author Organization [facility] Care Team Providers Name Role Phone DAYANA MARMOLEJO Attending Unavailable TIFFANI CELIS Referring Unavailable TIFFANI CELIS Primary Care Unavailable PROBLEMS PROBLEMS No Problem Records FoundPROCEDURES PROCEDURES No Procedure Records FoundRESULTS RESULTS PROGRESS Observed: 09/09/2022 3:16 PM Status: COMPLETED S ource: [facility] REPO JOSEBIGG HNO ID: [id number] Author: Layo Abernathy PA-C Service: ? Author Type: Physician Crimper Assembler Type: Progress Notes Filed: 09/09/2022 3:20 PM Note Text: This note was created using InstraGrok. Subjective Holley Malik is a 72 year [...] DX W/COLLJ SPEC WHEN P FRMD 05/20/[address] [facility] [address] Sosa - normal COLONOSCOPY FLX [...] Observed: 09/09/2022 12:30 PM Status: COMPLETED Source: [facility] REPOSITOR Y Office Visit (UCWSTR) HOLLEY MALIK ([id number]) 1950 F Date Time Provider Department 09/09/22 12:30 PM LAYO ABERNATHY UCWSTR During your visit today, we recorded t he following information about you: Temperature Pulse Respiration Blood pr essure 98.3 degrees 94/minute 16/minute 144/8 8 Weight 83.6 kg Layo Abernathy PA-C 09/09/2022 3:20 PM Si gned This note was created using Quincusriter. Subjective Holley Malik is a 72 year [...] DX W/COLLJ SPEC WHEN P FRMD 05/20/[address] [facility] [address] Sosa - normal COLONOSCOPY FLX DX W/COLLJ SPEC WHEN P FRMD 06/01/2013 Colonoscopy COLONOSCOPY FLX DX W/COLLJ SPEC WHEN P [facility] 12/11/2018 Colonoscopy ESOPHAGOGASTRODUODENOSCOPY TRANSORAL D IAGNOSTIC 06/01/2013 [...] Visit Diagnosis:Thrush [B37.0] Order(s):STREP A MOLECULAR (POC) [[id number]] Order #: [id number]. #:[id number] nystatin (MYCOSTATIN) 100,000 unit/mL suspensionTake 5 mL [...] Observed: 02/22/2022 12:00 AM Status: COMPLETED Source: [facility] REPOSITOR Y Telephone (FAMPWS) HOLLEY MALIK ([id number]) 1950 F Date Time Provider Department 02/22/22 [...] Order(s):COMP METABOLIC PANEL [SQCMP] O rder #: [id number] FUTURE LIPID PANEL BASIC [SQLIPB] Order #: [id number] FUTURE HGB A1C [YCSYH5B] Order #: [id number] FUTURE ALBUMIN/CREAT RATIO RND UR [SQUACR] Or martina #: [id number] FUTURE CBC [SQCBC] Order #: [id number] FUTURE Prescriptions as of 02/22/2022 - glipiZIDE [...] 12/28/2021 1:18 PM Status: COMPLETED S ource: [facility] REPO JOSEORY HNO ID: [id number] Author: Dayana Marmolejo Service: ? Author Type: [...] FLX DX W/COLLJ SPEC WHEN PFRMD 05/20/[address] [facility] [address] Sosa - normal - COLONOSCOPY [...] noncontributory. Objective: Patient presents to clinic [facility] in [facility] Constitutional: Pt is a well developed [...] 12/28/2021 1:06 PM Status: COMPLETED S ource: [facility] ALYCIA CRANE ID: [id number] Author: Amy Rogers MA Service: ? Author Type: Head Machinist Type: Progress Notes Filed: 12/28/2021 9:36 PM [...] 12/28/2021 1:00 PM Status: COMPLETED S ource: [facility] REPOSITOR Y Office Visit (PODIWS) HOLLEY MALIK ([id number]) 1950 F Date Time Provider Department 12/28/21 [...] FLX DX W/COLLJ SPEC WHEN PFRMD 05/20/[address] [facility] [address] Sosa - normal - COLONOSCOPY [...] Objective: Patient presents to clinic amb[facility] in [facility] Constitutional: Pt is a well developed [...] decreased se nsation in your feet) a sand plant attendant should always cut your toenails. - Be [...] Go to your health care provider or sand plant attendant to t reat these conditions. If you decide on removal of toenail, pl ease let Us know Referring Provider: TIFFANI CELIS [[id number]] Allergies As of Date: 12/28/2021 Noted Allergy [...] decreased s ensation in your feet) a sand plant attendant should always cut your toenails. - Be [...] Go to your health care provider or sand plant attendant to treat these conditions. If you decide on removal of toenail, please let Us know Encounter Status:Closed by ALEX MARMOLEJO TTBENW DPLawrence on 12/28/21 ALLERGIES ALLERGIES DATE TYPE / CODE NAME / CODE REACTION SEVERITY SOURCE 01/23/2010 DRUG PRAVASTATIN INTOLERANCE [facility] INGREDI/[id number] [place] 03(SNOMED CT) 10/06/2009 DRUG SIMVASTATIN [place] [facility] INGREDI/[id number] [place] 03(SNOMED CT) ENCOUNTERS ENCOUNTERS ADMIT/DISCHARGE ACCOUNT NUMBER ADMITTING ENCOUNTER LOCATION [facility] E CLASS 09/09/2022/ [id number] Ambulatory [address] ing:[facility] 12/28/2021/ [id number] Ambulatory [address] ing:[employer] PAYERS ENCOUNTER GUARANTOR PAYER SUBSCRIBER SOURCE 09/09/2022 Primary HOLLEY SALCEDOOB: [facility] Clinic Insurance:[employer] [id number] Ese farrar MEDICARE [place], [place] Number: [id number] e Date:[id number] Name:Gerardo 12/28/2021 Primary HOLLEY SALCEDOOB: Ese farrar [facility] Insurance:FORMERLY [facility] [id number] Ese farrar MEDICARE [place], [place] Number: [id number] e Date:[id number] Name:Gerardo
[2022-09-14 18:15] LABS: Bedside Glucose 117 mg/dL (74-106)
[2022-09-14] MEDS: Atorvastatin Calcium 40 MG Tablet PO (21:20)
[2022-09-14] MEDS: Acetaminophen 325 MG Tablet 650 MG PO (21:22)
[2022-09-14] MEDS: Insulin Lispro 100 UNIT/ML INSULN.PEN SC (21:25)
[2022-09-14 21:48] VITALS: BP 138/45; PULSE 94; RESP 17; TEMP 36.6; O2SAT 97
[2022-09-14 21:55] VITALS: PULSE 68; RESP 20; O2SAT 94
[2022-09-14 21:55] LABS: Bedside Glucose 197 mg/dL (74-106)
[2022-09-15] VITALS (9 sets, daily range): BP systolic 125–145; BP diastolic 49–66; PULSE 70–78; RESP 16–27; TEMP 36.6–37.1; O2SAT 95–98
[2022-09-15] MEDS: 0.9% Normal Saline 1,000 ML 100 ML IV (01:42)
[2022-09-15 06:43] LABS: Absolute Lymphocyte Count 1.01 X10^3/uL (0.83-4.51); Absolute Neutrophil Count 1.8 X10^3/uL (2.0-7.7); Basophil# 0.01 X10^3/uL; Basophil% 0.3 % (0-1); Differential Indicated SCAN CRITERIA MET; Eosinophils% 6.6 % (0-5); Hematocrit 35.1 % (37-47); Hemoglobin 11.7 g/dL (12.0-15.0); Lymphocyte # 1.01 X10^3/ul (0.83-4.51); Lymphocyte % 33.2 % (19-41); Mean Corp Hgb Conc 33.3 g/dL (32-36); Mean Corpuscular Hgb 31.7 pg (27.0-32.0); Mean Corpuscular Volume 95.1 fL (81-99); Mean Platelet Vol. 10.2 fl (6.2-12.0); Monocyte# 0.06 X10^3/uL; NRBC Flagged by Analyzer 0.7 % (0-5); Neutrophil # 1.75 X10^3/uL (2.7-7.7); Neutrophil % 57.6 % (47-70); POSITIVE COUNT YES; RBC Distribution Width CV 12.7 % (11.6-14.6); RBC Distribution Width SD 42.7 fl (35.1-43.9); Red Blood Count 3.69 M/mm3 (4.2-5.4)
[2022-09-15 06:49] LABS: Platelet Count 43 K/mm3 (150-450)
--- NOTE | 2022-09-15 06:52 | NURSING ---
Pts primary rn aware of plt lab level of 43 at this time.
[2022-09-15 06:55] LABS: Bedside Glucose 102 mg/dL (74-106)
[2022-09-15 07:12] LABS: Anion Gap 3 (5-15); BUN 9 mg/dL (7-18); BUN/Creat Ratio 15.5 RATIO (10-20); Calcium,Total 8.6 mg/dL (8.5-10.1); Chloride 103 mmol/L (98-107); Creatinine, Serum 0.58 mg/dL (0.55-1.02); EST Glomerular Filtration Rate 109 mL/min (>60); Est Glom Filt Rate - Afr Amer 132 mL/min (>60); Estimated Creatinine Clearance 38.94 ml/min; Glucose 113 mg/dL (74-106); Potassium 3.5 mmol/L (3.5-5.1); Sodium Level 134 mmol/L (136-145)
[2022-09-15 07:17] LABS: Differential Comment SCANNED; Platelet Estimate MKD DEC (ADEQ)
[2022-09-15] MEDS: predniSONE 10 MG Tablet PO (09:44)
[2022-09-15] MEDS: Aspirin E.C. 81 MG Tablet PO (09:44)
[2022-09-15] MEDS: Pantoprazole Sodium 20 MG Tablet PO (09:45)
[2022-09-15] MEDS: Lisinopril 10 MG Tablet PO (09:45)
[2022-09-15] MEDS: Folic Acid 1 MG Tablet PO (09:45)
[2022-09-15] MEDS: hydroCHLOROthiazide 12.5mg 12.5 MG PO (09:46)
[2022-09-15] MEDS: Smz/Tmp Ds Tablet 1 TABLET PO (09:46)
[2022-09-15] MEDS: FLU VACC QS2022-23(6MOS UP)/PF 60 MCG/0.5 ML SYRINGE IM (09:48)
[2022-09-15] MEDS: Acetaminophen 325 MG Tablet 650 MG PO (11:13)
[2022-09-15 11:30] LABS: Bedside Glucose 106 mg/dL (74-106)
--- NOTE | 2022-09-15 11:50 | CASEMGMT ---
JANA PATRICIO TRANSFER CAR OPERATOR DRIER CM to room to meet with patient for initial transition planning/care coordination assessment. JANA PATRICIO introduced self and role at [facility]. Pt voices understanding and consents to assessment at this time. Pt resting in bed in no distress at this time. Pt is A/O at this time and answers all questions appropriately. Care providers, pharmacy, and demographics verified/updated at this time. PCP: Dr Stoddard Specialists: Dr Watters-pulmonology Preferred Pharmacy: [facility] Insurance: [employer] [facility] Prescription Benefit: Yes Living Will/HPOA: Has LW and HCPOA, who is her niece, Vannessa LNOK: Niece/POA, Vannessa Living Arrangements: Lives alone in one-story home w/3 steps to enter. Independent. Works part-time. Transportation: Pt states drives self and states no transportation concerns at this time. Friends will take her home @ d/c. DME: CPAP. Functioning glucometer w/supplies. Pt states no need for further DME at this time. HHC/SNF: No hx of either. No needs identified. Pt states, I got my meds messed up. I take so many of them and states she could use some assistance w/med administration/set -up @ home. Discussed CCN. Pt states she is interested and agreeable to refer. [address] RN, CM, notified. Pt wishes to return home and states has no other concerns with going home at time of discharge. CM to follow for any further discharge planning/needs. Pt voices no further concerns/needs at this time. Advised pt to ask for CM if any further questions/concerns/needs arise. Voices understanding. PLAN: Home w/CCN referral Nadine DESHPANDE RN, CM
[2022-09-15 12:50] LABS: Pathologist Review Reviewed
[2022-09-15] MEDS: 0.9% Normal Saline 1,000 ML 50 ML IV (14:36)
--- NOTE | 2022-09-15 15:15 | PCM.PN.HOSP ---
Subjective Subjective Patient indicates her mouth is better a bit. The viscous lidocaine does help however p.o. intake has been poor overall. Remains on IV fluids. States her mouth is still fairly sore. Objective Data Objective Data Vital Signs: Vital Signs Temp Pulse Resp BP Pulse Ox O2 Del Method FiO2 98.8 F 78 16 125/60 H 95 Room Air 21 09/15/22 14:30 09/15/22 14:30 09/15/22 14:30 09/15/22 14:30 09/15/22 14:30 09/15/22 14:30 09/15/22 00:23 Oxygen Delivery Method Room Air Weight: 80.3 kg Body Mass Index (BMI) 33.4 Intake & Output: Intake and Output for Last 24 Hours 09/13/22 09/14/22 09/15/22 23:59 23:59 23:59 Intake Total 1371.8 / 1371.8 2725.40 / 2725.40 Balance 1371.8 / 1371.8 2725.40 / 2725.40 Lab / Micro Data Result Diagrams: 09/15/22 06:29 09/15/22 06:29 Labs: Laboratory Results - last 24 hr 09/14/22 17:54: POC Glucose 117 H 09/14/22 21:25: POC Glucose 197 H 09/15/22 06:29: WBC 3.0 L, RBC 3.69 L, Hgb 11.7 L, Hct 35.1 L, MCV 95.1, MCH 31.7, MCHC 33.3, RDW Std Deviation 42.7, RDW Coeff of Christy 12.7, Plt Count 43 L*, MPV 10.2, Immature Gran % (Auto) 0.300, Neut % (Auto) 57.6, Lymph % (Auto) 33.2, [place] % (Auto) 2.0, Eos % (Auto) 6.6 H, Baso % (Auto) 0.3, Absolute Neuts (auto) 1.8 L, Absolute Lymphs (auto) 1.01, Nucleated RBC % 0.7, Differential Comment SCANNED, Diff Path Review Reviewed, Platelet Estimate MKD 09/15/22 06:29: Sodium 134 L, Potassium 3.5, Chloride 103, Carbon Dioxide 28.0, Anion Gap 3 L, BUN 9, Creatinine 0.58, Estim Creat Clear Calc 38.94, Est GFR (MDRD) Af Amer 132, Est GFR (MDRD) Non-Af 109, BUN/Creatinine Ratio 15.5, Glucose 113 H, Calcium 8.6 09/15/22 06:37: POC Glucose 102 09/15/22 11:02: POC Glucose 106 Physical Exam Const alert, oriented x3 and no apparent distress Constitutional Narrative: Obese, -Gambian female, sitting up in bed, affect is flat the patient appears comfortable and nontoxic HEENT head/scalp atraumatic and moist oral mucous membranes; Negative for oropharynx normal HEENT Narrative: Multiple oral ulcerations noted throughout her mouth and on her lips, tongue is clear, Mallampati is 3, no thrush, lips are dry but other mucous membranes appear moist Resp normal respiratory effort, no retractions, no use of accessory muscles and clear to auscultation bilaterally Resp Narrative: Diminished but clear Auscultation: Negative for crackles, rales, rhonchi or wheezes Cardio regular rate, regular rhythm, S1 normal heart sound, S2 normal heart sound, no murmurs, no rub, no gallops, no clicks and no JVD GI normal to inspection, nondistended, normoactive bowel sounds, soft to palpation and non-tender Neuro oriented x3, moves all extremities and no focal motor deficits Speech: speech normal Assessment & Plan Assessment/Plan (1) Methotrexate toxicity: (2) Pancytopenia: (3) Eosinophilia: PLAN: Plan Methotrexate toxicity -Patient was placed on oral methotrexate for her sarcoidosis and unfortunately she took the medication incorrectly and now has symptoms consistent with toxicity -Methotrexate level sent out on admission 09/14/2022--> discussed with lab and it this is a send out that usually takes 2 to 4 days to result--> currently still pending -Case was discussed with hematology by admitting physician and they recommended IV leucovorin every 6 hours with current dose of leucovorin (which is based per body surface area) for 7 days after discharge with outpatient follow-up at her elevating grader operator office -Per this discussion the patient would be okay to discharge once she is able to eat and drink and her mucocutaneous lesions have improved, also lab stability needs to be noted -Remains stable from a respiratory standpoint -Continue viscous lidocaine -Continue to monitor liver functions, creatinine, and CBC -We will continue IV hydration until p.o. intake is adequate to support needs Pancytopenia due to methotrexate toxicity -Continue to monitor counts -Continue leucovorin -Discontinue Lovenox with current platelet count being less than 50,000 -Hold home aspirin until platelet counts improve Eosinophilia -Likely related to history of sarcoidosis and methotrexate toxicity -Continue to monitor Sarcoidosis -Continue home prednisone -Recommend outpatient follow-up with pulmonary medicine--> Dr. Watters after discharge -Dr. Watters would like update with regards to plan at discharge from hospitalist at that time -Continue home Bactrim Tuesday -Continue Alejandre catheter replacement Hypertension -Continue home blood pressure medication Hyperlipidemia -Continue home Lipitor DM-2 -Hold home oral agents -SSI -Accu-Cheks as ordered CRICKET -Continue nocturnal CPAP DVT prophylaxis -SCDs -Lovenox on hold secondary to low platelet count Obesity -Complicates treatment, prognosis, outcomes CODE STATUS -Full code Charges/Coding Visit Charges Inpatient E&M: 52289 Subs Hosp L2
--- NOTE | 2022-09-15 16:09 | CASEMGMT ---
Per Jessica RN CM, pt would benefit from CCN referral and order placed. Cindy RN CM
[2022-09-15 16:15] LABS: Bedside Glucose 153 mg/dL (74-106)
[2022-09-15] MEDS: Glucerna Shake 120 ML LIQUID PO (19:48)
[2022-09-15] MEDS: Atorvastatin Calcium 40 MG Tablet PO (20:52)
[2022-09-15 20:56] LABS: Bedside Glucose 161 mg/dL (74-106)
[2022-09-16] VITALS (9 sets, daily range): BP systolic 105–135; BP diastolic 41–65; PULSE 66–82; RESP 16–19; TEMP 36.2–37; O2SAT 94–100
[2022-09-16 05:35] LABS: Absolute Lymphocyte Count 0.88 X10^3/uL (0.83-4.51); Absolute Neutrophil Count 1.3 X10^3/uL (2.0-7.7); Eosinophil# 0.13 X10^3/uL; Eosinophils% 5.4 % (0-5); Hematocrit 36.1 % (37-47); Hemoglobin 11.8 g/dL (12.0-15.0); Lymphocyte # 0.88 X10^3/ul (0.83-4.51); Lymphocyte % 36.4 % (19-41); Mean Corp Hgb Conc 32.7 g/dL (32-36); Mean Corpuscular Hgb 31.5 pg (27.0-32.0); Mean Corpuscular Volume 96.3 fL (81-99); Monocyte# 0.08 X10^3/uL; Monocyte% 3.3 % (0-10); NRBC Flagged by Analyzer 0 % (0-5); Neutrophil # 1.33 X10^3/uL (2.7-7.7); Neutrophil % 54.9 % (47-70); POSITIVE COUNT YES; RBC Distribution Width CV 12.5 % (11.6-14.6); RBC Distribution Width SD 42.4 fl (35.1-43.9); Red Blood Count 3.75 M/mm3 (4.2-5.4); White Blood Count 2.4 K/mm3 (4.4-11.0)
[2022-09-16 05:42] LABS: Differential Indicated SCAN CRITERIA MET; Platelet Count 40 K/mm3 (150-450)
[2022-09-16 05:52] LABS: ALB/GLOB Ratio 0.7 RATIO (0.9-2.4); AST(SGOT) 28 U/L (15-37); Alanine Aminotransfer ALT/SGPT 112 U/L (13-56); Albumin, Serum 2.3 g/dL (3.2-5.0); Alkaline Phosphatase 61 U/L (45-117); Anion Gap 5 (5-15); BUN 7 mg/dL (7-18); BUN/Creat Ratio 11.8 RATIO (10-20); Calcium,Total 9.1 mg/dL (8.5-10.1); Chloride 103 mmol/L (98-107); Creatinine, Serum 0.59 mg/dL (0.55-1.02); EST Glomerular Filtration Rate 106 mL/min (>60); Est Glom Filt Rate - Afr Amer 129 mL/min (>60); Estimated Creatinine Clearance 38.94 ml/min; Globulin 3.2 g/dL (2.2-4.2); Glucose 102 mg/dL (74-106); Magnesium 1.8 mg/dL (1.6-2.6); Phosphorus 1.7 mg/dL (2.5-4.9); Potassium 4.3 mmol/L (3.5-5.1); Protein, Total 5.5 g/dL (6.4-8.2); Sodium Level 134 mmol/L (136-145)
[2022-09-16 06:19] LABS: Differential Comment SCANNED; Platelet Estimate MKD DEC (ADEQ)
[2022-09-16] MEDS: Acetaminophen 325 MG Tablet 650 MG PO ×2 (06:39→18:06)
[2022-09-16 07:07] LABS: Bedside Glucose 117 mg/dL (74-106)
[2022-09-16] MEDS: predniSONE 10 MG Tablet PO (08:21)
[2022-09-16] MEDS: Pantoprazole Sodium 20 MG Tablet PO (08:21)
[2022-09-16] MEDS: Folic Acid 1 MG Tablet PO (08:21)
[2022-09-16] MEDS: 0.9% Normal Saline 1,000 ML 50 ML IV (10:49)
[2022-09-16 11:10] LABS: Bedside Glucose 175 mg/dL (74-106)
--- NOTE | 2022-09-16 14:06 | PCM.PN.HOSP ---
Subjective Subjective Oral intake is somewhat better. She is tolerating some soft foods. Still with severe mucocutaneous lesions. Platelet count seems to be stabilizing. ALT is improving, AST is normal. Renal function remains normal. No respiratory issues. Objective Data Objective Data Vital Signs: Vital Signs Temp Pulse Resp BP Pulse Ox O2 Del Method O2 Flow Rate 97.1 F L 66 16 114/47 L 95 Room Air 2 09/16/22 14:01 09/16/22 14:01 09/16/22 14:01 09/16/22 14:01 09/16/22 14:01 09/16/22 14:01 09/16/22 14:01 FiO2 21 09/16/22 14:01 Oxygen Flow Rate (L/min) 2 Oxygen Delivery Method Room Air Weight: 80.3 kg Body Mass Index (BMI) 33.4 Intake & Output: Intake and Output for Last 24 Hours 09/14/22 09/15/22 09/16/22 23:59 23:59 23:59 Intake Total 1371.8 / 1371.8 3628.03 / 3628.03 1997.6 Balance 1371.8 / 1371.8 3627. / 3628.1997.6 Medical Nutrition Assessment Dietitian: Malnutrition Criteria Met Start: 09/15/22 15:39 Freq: Status: Active Protocol: Document 09/15/22 15:39 (Rec: 09/15/22 15:39 [id number]) Nutrition Malnutrition Evidence of Malnutrition Exists Yes Malnutrition (severe): Acute Illness/Injury Evidenced By Suboptimal Energy Intake ( Severe),Weight Loss (Severe) Clinical Problem Acute Disease or Injury Related Malnutrition Etiology severe, acute malnutrition r/t inadequate oral intake d/t mouth ulcers Signs/Symptoms as evidenced by estimated PO intake meeting <50% of estimated energy needs >5 days ; 12#/6% wt loss < 1 month Status Active Problem Recommendation Dietitian Recommendations/Changes regular diet (soft foods) given acute malnutrition; glucerna w/ medpass, milkshake /smoothies at meals if pt requests Lab / Micro Data Result Diagrams: 09/16/22 04:37 09/16/22 04:37 Labs: Laboratory Results - last 24 hr 09/15/22 15:51: POC Glucose 153 H 09/15/22 20:31: POC Glucose 161 H 09/16/22 04:37: WBC 2.4 L, RBC 3.75 L, Hgb 11.8 L, Hct 36.1 L, MCV 96.3, MCH 31.5, MCHC 32.7, RDW Std Deviation 42.4, RDW Coeff of Christy 12.5, Plt Count 40 L*, MPV 11.0, Immature Gran % (Auto) 0.000, Neut % (Auto) 54.9, Lymph % (Auto) 36.4, [place]cher % (Auto) 3.3, Eos % (Auto) 5.4 H, Baso % (Auto) 0.0, Absolute Neuts (auto) 1.3 L, Absolute Lymphs (auto) 0.88, Nucleated RBC % 0, Differential Comment SCANNED, Diff Path Review March anette, Platelet Estimate MKD 09/16/22 04:37: Sodium 134 L, Potassium 4.3, Chloride 103, Carbon Dioxide 26.0, Anion Gap 5, BUN 7, Creatinine 0.59, Estim Creat Clear Calc 38.94, Est GFR (MDRD) Af Amer 129, Est GFR (MDRD) Non-Af 106, BUN/Creatinine Ratio 11.8, Glucose 102, Calcium 9.1, Phosphorus 1.7 L, Magnesium 1.8, Total Bilirubin 0.60, AST 28, ALT 112 H, Alkaline Phosphatase 61, Total Protein 5.5 L, Albumin 2.3 L, Globulin 3.2, Albumin/Globulin Ratio 0.7 L 09/16/22 06:36: POC Glucose 117 H 09/16/22 10:51: POC Glucose 175 H Physical Exam Const alert, oriented x3 and no apparent distress Constitutional Narrative: Obese, -[place] female, sitting up in bed, affect is flat the patient appears comfortable and nontoxic HEENT head/scalp atraumatic and moist oral mucous membranes; Negative for oropharynx normal HEENT Narrative: Numerous bilateral buccal and oral mucocutaneous lesions with some signs of oozing but no ongoing noticeable bleeding, mouth remains quite tender, Mallampati is 2 Resp normal respiratory effort, no retractions, no use of accessory muscles and clear to auscultation bilaterally Resp Narrative: Diminished but clear Auscultation: Negative for crackles, rales, rhonchi or wheezes Cardio regular rate, regular rhythm, S1 normal heart sound, S2 normal heart sound, no murmurs, no rub, no gallops, no clicks and no JVD GI normal to inspection, nondistended, normoactive bowel sounds, soft to palpation and non-tender Neuro oriented x3, moves all extremities and no focal motor deficits Speech: speech normal Assessment & Plan Assessment/Plan (1) Methotrexate toxicity: (2) Pancytopenia: (3) Eosinophilia: PLAN: Plan Methotrexate toxicity -Patient was placed on oral methotrexate for her sarcoidosis and unfortunately she took the medication incorrectly and now has symptoms consistent with toxicity -Methotrexate level sent out on admission 09/14/2022--> discussed with lab and it this is a send out that usually takes 2 to 4 days to result--> currently still pending -Case was discussed with hematology by admitting physician and they recommended IV leucovorin every 6 hours with current dose of leucovorin (which is based per body surface area) for 7 days after discharge with 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 intake and stability with follow-up labs -Remains stable from a respiratory standpoint -Continue viscous lidocaine -Continue to monitor liver functions, creatinine, and CBC -We will continue IV hydration until p.o. intake is adequate to support needs Pancytopenia due to methotrexate toxicity -Continue to monitor counts -Continue leucovorin -Discontinue Lovenox with current platelet count being less than 50,000 -Hold home aspirin until platelet counts improve Eosinophilia -Likely related to history of sarcoidosis and methotrexate toxicity--> trending down -Continue to monitor Sarcoidosis -Continue home prednisone -Recommend outpatient follow-up with pulmonary medicine--> Dr. Watters after discharge -I did update Dr. Watters with regards to plans for leucovorin upon discharge he would like to be notified once patient is stable to go home -Continue home Bactrim Tuesday -Continue Alejandre catheter replacement Hypertension -Continue home blood pressure medication Hyperlipidemia -Continue home Lipitor DM-2 -Hold home oral agents -SSI -Accu-Cheks as ordered CRICKET -Continue nocturnal CPAP DVT prophylaxis -SCDs -Lovenox on hold secondary to low platelet count Obesity -Complicates treatment, prognosis, outcomes CODE STATUS -Full code Charges/Coding Visit Charges Inpatient E&M: 44346 Subs Hosp L2
[2022-09-16] MEDS: Insulin Lispro 100 UNIT/ML INSULN.PEN SC ×2 (16:06→21:22)
[2022-09-16 16:26] LABS: Bedside Glucose 214 mg/dL (74-106)
[2022-09-16] MEDS: Glucerna Shake 120 ML LIQUID PO (21:22)
[2022-09-16] MEDS: Atorvastatin Calcium 40 MG Tablet PO (21:22)
[2022-09-16 23:20] LABS: Bedside Glucose 187 mg/dL (74-106)
[2022-09-17 03:15] VITALS: BP 128/63; PULSE 71; PULSE 76; RESP 18; TEMP 36.9; O2SAT 95
[2022-09-17] MEDS: Acetaminophen 325 MG Tablet 650 MG PO (03:16)
[2022-09-17 06:18] LABS: Basophil# 0.01 X10^3/uL; Basophil% 0.4 % (0-1); Eosinophil# 0.16 X10^3/uL; Eosinophils% 7.2 % (0-5); Hematocrit 33.2 % (37-47); Hemoglobin 11.4 g/dL (12.0-15.0); Lymphocyte % 40.4 % (19-41); Mean Corp Hgb Conc 34.3 g/dL (32-36); Mean Corpuscular Hgb 32.7 pg (27.0-32.0); Mean Corpuscular Volume 95.1 fL (81-99); Mean Platelet Vol. 10.5 fl (6.2-12.0); Monocyte# 0.12 X10^3/uL; Monocyte% 5.4 % (0-10); NRBC Flagged by Analyzer 0 % (0-5); Neutrophil # 1.04 X10^3/uL (2.7-7.7); Neutrophil % 46.6 % (47-70); POSITIVE COUNT YES; RBC Distribution Width CV 12.8 % (11.6-14.6); RBC Distribution Width SD 41.8 fl (35.1-43.9); Red Blood Count 3.49 M/mm3 (4.2-5.4); White Blood Count 2.2 K/mm3 (4.4-11.0)
[2022-09-17] MEDS: 0.9% Normal Saline 1,000 ML 50 ML IV (06:20)
[2022-09-17 06:29] LABS: Differential Indicated SCAN CRITERIA MET; Platelet Count 49 K/mm3 (150-450)
[2022-09-17 06:37] LABS: ALB/GLOB Ratio 0.7 RATIO (0.9-2.4); AST(SGOT) 12 U/L (15-37); Alanine Aminotransfer ALT/SGPT 77 U/L (13-56); Albumin, Serum 2.2 g/dL (3.2-5.0); Alkaline Phosphatase 61 U/L (45-117); Anion Gap 2 (5-15); BUN 10 mg/dL (7-18); BUN/Creat Ratio 18.2 RATIO (10-20); Calcium,Total 9.2 mg/dL (8.5-10.1); Chloride 105 mmol/L (98-107); Creatinine, Serum 0.55 mg/dL (0.55-1.02); EST Glomerular Filtration Rate 116 mL/min (>60); Est Glom Filt Rate - Afr Amer 141 mL/min (>60); Estimated Creatinine Clearance 38.94 ml/min; Glucose 107 mg/dL (74-106); Potassium 3.5 mmol/L (3.5-5.1); Protein, Total 5.2 g/dL (6.4-8.2); Sodium Level 137 mmol/L (136-145)
[2022-09-17 07:06] LABS: Bedside Glucose 97 mg/dL (74-106)
[2022-09-17 07:09] LABS: Anisocytosis 1+; Platelet Estimate MKD DEC (ADEQ)
[2022-09-17] MEDS: predniSONE 10 MG Tablet PO (07:48)
[2022-09-17] MEDS: Folic Acid 1 MG Tablet PO (07:48)
[2022-09-17] MEDS: Smz/Tmp Ds Tablet 1 TABLET PO (07:48)
--- NOTE | 2022-09-17 08:37 | DCINST_ITS ---
Discharge Instructions Diet Discharge Diet: Soft diet Activity Discharge Activity: May Not Drive Dressing / Incision Call your doctor if you observe: Fever of 101 or Higher, Coldness, Increased Pain, Numbness or Tingling, Change in Color, Inability to urinate, Inability to have a bowel movement, Shortness of breath, Dizziness, Fainting spells, Swelling in the ankles, Chest pain, Prolonged hiccupping, Increased palpitations ( irregular heartbeat), Calf discomfort and Uncontrolled pain Follow Up Care Test Results: Test results from this visit will be discussed in further detail at your follow- up appointment, if applicable. Discharge Plan Admission Admit Date/Time: 09/14/22 16:55 Primary Reason for Your Visit: Methotrexate toxicity Attending Provider: Bob Hoffman Primary Care Provider: Ry Stoddard Consulting Providers: Mauricio Muro ; Regina Stein Discharge Orders/Prescriptions Prescriptions: New lidocaine HCl [Lidocaine Viscous] 2 % Solution 5 ml PO Q3H PRN (Reason: mucositis) Qty: 100 0RF leucovorin calcium 25 mg tablet 25 mg PO DAILY 7 Days Qty: 21 0RF Continued pantoprazole 20 mg tablet,delayed release (DR/EC) 20 mg PO DAILY Flovent HFA 220 mcg/actuation HFA aerosol inhaler 2 puff INHALATION DAILY aspirin [Adult Low Dose Aspirin] 81 mg tablet,delayed release (DR/EC) 81 mg PO DAILY lisinopril 10 MG tablet 10 mg PO DAILY hydrochlorothiazide 25 mg tablet 12.5 mg PO DAILY sulfamethoxazole-trimethoprim 1 tablet QMWF prednisone 10 mg 1 tablet DAILY folic acid 1 mg 1 tablet DAILY glipizide 5 mg 1 tablet DAILY Held atorvastatin 40 MG tablet 40 mg PO DAILY Hold Instructions: Hold for 5 days metformin 500 mg Tablet 500 mg PO DAILY Hold Instructions: Hold for 5 days Referrals / Follow Up: Ry Stoddard MD [Primary Care Provider] - Gurjit Watters MD [Med Staff - Active Staff] - Within 2 Weeks Vinicius Petersen MD [Med Staff - Active Staff] - Within 2 Weeks (for pancytopenia) Disposition Disposition (needs filled in before D/C Order can be placed): Home, Self Care
[2022-09-17] MEDS: Pantoprazole Sodium 20 MG Tablet PO (08:43)
[2022-09-17] MEDS: hydroCHLOROthiazide 12.5mg 12.5 MG PO (08:43)
[2022-09-17] MEDS: Lisinopril 10 MG Tablet PO (08:43)
[2022-09-17] MEDS: Glucerna Shake 120 ML LIQUID PO (08:44)
[2022-09-17 09:15] VITALS: BP 125/71; PULSE 85; RESP 18; TEMP 37; O2SAT 96
--- NOTE | 2022-09-17 09:40 | CASEMGMT ---
This RN CM to room to discuss discharge with pt. Pt states no need for any further therapy at discharge and is thankful for the referral to [facility]. Pt voices no further questions/concerns/needs. SStaten JANA CM
--- NOTE | 2022-09-17 10:55 | PCM.DC.SUM ---
Providers Date of Admission: 09/14/22 Date of Discharge: 09/17/22 Primary Care Physician: Dr. Ry Stoddard MD Reason For Visit: METHOTREXATE TOXICITY, WEAKNESS, THROMBOCYTOPENIA Diagnosis Discharge Diagnosis (1) Methotrexate toxicity: Status: Acute Code(s): T45.1X1A - Poisoning by antineoplastic and immunosuppressive drugs, accidental (unintentional), initial encounter (2) Pancytopenia: Status: Acute Code(s): D61.818 - Other pancytopenia (3) Eosinophilia: Status: Acute Code(s): D72.10 - Eosinophilia, unspecified Medications at Discharge Home Medications atorvastatin 40 mg tablet 40 mg PO DAILY Check with primary doctor 09/21/17 lisinopril 10 mg tablet 10 mg PO DAILY Check with primary doctor 09/21/17 aspirin 81 mg tablet,delayed release (Adult Low Dose Aspirin) 81 mg PO DAILY Check with primary doctor 11/01/19 fluticasone propionate 220 mcg/actuation HFA aerosol inhaler (Flovent HFA) 2 puff inhalation DAILY Check with primary doctor 11/01/19 pantoprazole 20 mg tablet,delayed release 20 mg PO DAILY Check with primary doctor 11/12/19 metformin 500 mg tablet 500 mg PO DAILY Check with primary doctor 03/22/21 hydrochlorothiazide 25 mg tablet 12.5 mg PO DAILY Check with primary doctor 06/23/21 folic acid 1 tablet DAILY Check with primary doctor 06/14/22 glipizide 1 tablet DAILY Check with primary doctor 06/14/22 prednisone 1 tablet DAILY Check with primary doctor 06/14/22 sulfamethoxazole-trimethoprim 1 tablet QMWF Check with primary doctor 06/14/22 leucovorin calcium 25 mg tablet 25 mg PO DAILY 7 days #21 tabs 09/17/22 lidocaine HCl 2 % mucosal solution (Lidocaine Viscous) 5 ml PO Q3H PRN mucositis #100 mL 09/17/22 Hospital Course Summary of Care Provided Hospital Course: This is 72-year-old female was admitted through ER, 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 Patient has been on methotrexate approximately 3 to 4 weeks for sarcoidosis and developed mild sore 5 days prior to admission. Patient had decreased oral intake, burning pain and right upper quadrant abdominal pain. Methotrexate toxicity with multiple oral ulcer: Patient was admitted in PCU. Methotrexate level was sent on that admission but did not return at time of discharge. Accreditation Coordinator Dr. Petersen was was discussed on phone by admitting hospitalist. Patient was started on IV leucovorin 18 mg every 6 hourly, lidocaine viscous oral gel for symptomatic relief. Patient was treated with IV fluid for hydration. Pancytopenia due to methotrexate toxicity: At time of discharge, WBC 2.2 thousand, hemoglobin 11.4/33.2% and platelet count 49,000. Platelet count gradually increasing. ANC 1000. ALC normal. Discussed with management consultant today on day of discharge and agreed for leucovorin dose 25 mg 3 times daily oral. Advised to follow-up in hematology office in 2 weeks. Hold home dose aspirin until platelet count improves Eosinophilia -Likely related to history of sarcoidosis and methotrexate toxicity. Eosinophilia 7.2%. Monitor outpatient CBC. Sarcoidosis -Continue home prednisone -Recommend outpatient follow-up with pulmonary medicine--> Dr. Watters after discharge -I did update Dr. Watters with regards to plans for leucovorin upon discharge he would like to be notified once patient is stable to go home -Continue home Bactrim Tuesday Hypertension -Continue home blood pressure medication Hyperlipidemia -Continue home Lipitor DM-2 -Hold home oral agents -SSI -Accu-Cheks as ordered CRICKET -Continue nocturnal CPAP DVT prophylaxis -SCDs -Lovenox on hold secondary to low platelet count Obesity -Complicates treatment, prognosis, outcomes CODE STATUS -Full code Medical Records Data Medical Nutrition Assessment Dietitian: Malnutrition Criteria Met Start: 09/15/22 15:39 Freq: Status: Active Protocol: Document 09/15/22 15:39 (Rec: 09/15/22 15:39 AG [id number]) Nutrition Malnutrition Evidence of Malnutrition Exists Yes Malnutrition (severe): Acute Illness/Injury Evidenced By Suboptimal Energy Intake ( Severe),Weight Loss (Severe) Clinical Problem Acute Disease or Injury Related Malnutrition Etiology severe, acute malnutrition r/t inadequate oral intake d/t mouth ulcers Signs/Symptoms as evidenced by estimated PO intake meeting <50% of estimated energy needs >5 days ; 12#/6% wt loss < 1 month Status Active Problem Recommendation Dietitian Recommendations/Changes regular diet (soft foods) given acute malnutrition; glucerna w/ medpass, milkshake /smoothies at meals if pt requests Weight / BMI Weight Weight: 177 lb 0.499 oz Body Mass Index (BMI) 33.4 ABG / Lab / Microbiology Data Result Diagrams: 09/17/22 05:20 09/17/22 05:20 Laboratory: Laboratory Results - last 24 hr 09/16/22 10:51: POC Glucose 175 H 09/16/22 16:05: POC Glucose 214 H 09/16/22 21:17: POC Glucose 187 H 09/17/22 05:20: WBC 2.2 L, RBC 3.49 L, Hgb 11.4 L, Hct 33.2 L, MCV 95.1, MCH 32.7 H, MCHC 34.3, RDW Std Deviation 41.8, RDW Coeff of Christy 12.8, Plt Count 49 L*, MPV 10.5, Immature Gran % (Auto) 0.000, Neut % (Auto) 46.6 L, Lymph % (Auto) 40.4, [place] % (Auto) 5.4, Eos % (Auto) 7.2 H, Baso % (Auto) 0.4, Absolute Neuts (auto) 1.0 L, Absolute Lymphs (auto) 0.90, Nucleated RBC % 0, Diff Path Review March foll, Platelet Estimate MKD DEC, Anisocytosis 1+ 09/17/22 05:20: Sodium 137, Potassium 3.5, Chloride 105, Carbon Dioxide 30.0, Anion Gap 2 L, BUN 10, Creatinine 0.55, Estim Creat Clear Calc 38.94, Est GFR (MDRD) Af Amer 141, Est GFR (MDRD) Non-Af 116, BUN/Creatinine Ratio 18.2, Glucose 107 H, Calcium 9.2, Total Bilirubin 0.30, AST 12 L, ALT 77 H, Alkaline Phosphatase 61, Total Protein 5.2 L, Albumin 2.2 L, Globulin 3.0, Albumin/Globulin Ratio 0.7 L 09/17/22 06:22: POC Glucose 97 D/C Instructions Discharge Diet: Soft diet Call your doctor if you observe: Fever of 101 or Higher, Coldness, Increased Pain, Numbness or Tingling, Change in Color, Inability to urinate, Inability to have a bowel movement, Shortness of breath, Dizziness, Fainting spells, Swelling in the ankles, Chest pain, Prolonged hiccupping, Increased palpitations (irregular heartbeat), Calf discomfort and Uncontrolled pain Meaningful Use Info Meaningful Use Diagnoses (Choose all that apply): None applicable Discharge Plan Admission Admit Date/Time: 09/14/22 16:55 Primary Reason for Your Visit: Methotrexate toxicity Attending Provider: Bob Hoffman Primary Care Provider: Ry Stoddard Consulting Providers: Mauricio Muro ; Regina Stein Discharge Orders/Prescriptions Prescriptions: New lidocaine HCl [Lidocaine Viscous] 2 % Solution 5 ml PO Q3H PRN (Reason: mucositis) Qty: 100 0RF leucovorin calcium 25 mg tablet 25 mg PO DAILY 7 Days Qty: 21 0RF Continued pantoprazole 20 mg tablet,delayed release (DR/EC) 20 mg PO DAILY Flovent HFA 220 mcg/actuation HFA aerosol inhaler 2 puff INHALATION DAILY lisinopril 10 MG tablet 10 mg PO DAILY hydrochlorothiazide 25 mg tablet 12.5 mg PO DAILY sulfamethoxazole-trimethoprim 1 tablet QMWF prednisone 10 mg 1 tablet DAILY folic acid 1 mg 1 tablet DAILY glipizide 5 mg 1 tablet DAILY Held aspirin [Adult Low Dose Aspirin] 81 mg tablet,delayed release (DR/EC) 81 mg PO DAILY Hold Instructions: Hold for 7 days. atorvastatin 40 MG tablet 40 mg PO DAILY Hold Instructions: Hold for 5 days metformin 500 mg Tablet 500 mg PO DAILY Hold Instructions: Hold for 5 days Referrals / Follow Up: Ry Sotddard MD [Primary Care Provider] - 09/24/22 9:40 am Vinicius Petersen MD [Med Staff - Active Staff] - Within 2 Weeks (for pancytopenia) Gurjit Watters MD [Med Staff - Active Staff] - 09/21/22 10:30 am Disposition Disposition (needs filled in before D/C Order can be placed): Home, Self Care Charges/Coding Visit Charges Inpatient E&M: 04636 Disch Hosp
[2022-09-17] MEDS: Insulin Lispro 100 UNIT/ML INSULN.PEN SC (11:01)
[2022-09-17 11:35] LABS: Bedside Glucose 225 mg/dL (74-106)
[2022-09-17 15:43] LABS: Pathologist Review Reviewed
[2022-09-20 11:47] LABS: Pathologist Review Reviewed
--- OUTSIDE RECORDS SUMMARY | 2023-11-30 16:17 | XMS RPT_ITS | CCD ---
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 Name Role Phone Unavailable Primary Care Provider UnavailStefan Loving MD Primary Care Provider DAYANA MARMOLEJO Referring Unavailable DAYANA MARMOLEJO Attending Unavailable STEFAN STODDARD MD Primary Care Physician MASSIMO WOO, STEFAN Plata Primary Care Unavailable DION GRAY MD Attending Unavailable MASSIMO WOO, STEFAN A Primary Care Unavailable CORY AGUILAR MD Attending Unavail dagmar AGUILAR MD, CORY Attending Unavail dagmar STODDARD MD, STEFAN A Primary Care Unavailable STEFAN STODDARD MD Consulting Unavailable CORY AGUILAR MD Admitting Unavail dagmar AGUILAR MD, CORY Consulting Unavail dagmar LICONA MD, ESTUARDO Dane Consulting Unavailable VICENTA CANALES MD Consulting Unavailable CORY AGUILAR MD Attending Unavail dagmar STODDARD MD, STEFAN A Primary Care Unavailable DION GRAY MD Attending Unavailable MASSIMO WOO, STEFAN A Primary Care Unavailable MASSIMO WOO, STEFAN A Primary Care Unavailable DION GRAY MD Attending Unavailable LEW DEY Attending Unavailable MASSIMO WOO, STEFAN A Primary Care Unavailable CORY AGUILAR MD Attending Unavail dagmar STODDARD MD, STEFAN A Primary Care Unavailable CORY AGUILAR MD Attending Unavail dagmar STODDARD MD, STEFAN A Primary Care Unavailable Allergies Allergy Classification Reported Allergen(s) Allergy Type Date of Onset Reaction(s) Facility (3 sources) Pravastatin; 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: [PRAVASTATIN] Drug Allergy 0 Intolerance [facility] Work Phone: (3 sources) Simvastatin; 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: [SIMVASTATIN] Drug Allergy 9 [facility] Work Phone: (3 sources) Penicillin; 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: [penicillins] Drug Allergy Unknown (qualifier value) [facility] Medications Current Medications Medication Drug Class(es) Dates Sig (Normalized) Sig (Original) acetaminophen 325 mg oral capsule (3 sources) Start: 11-26-2023 take 1 capsule by mouth every six hours as needed for pain Tylenol 325 mg oral capsule Dose : 650 mg =, Oral, q6hr, PRN as needed for pain, 0 Refill(s) Start Date: 11/26/23 Status: Ordered Completed/Discontinued Medications Medication Drug Class(es) Dates Sig (Normalized) Sig (Original) Blood Glucose Control High and Low (ACCU-CHEK [place] CONTROL SOLN) soln (2 sources) Start: 06-19-2020 Blood Glucose Control High and Low (ACCU-CHEK [place] CONTROL SOLN) soln Test controls as needed. 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 Chronic kidney disease (2 sources) Chronic kidney disease; 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: [Chronic kidney disease, unspecified] Chronic Chronic obstructive pulmonary disease and bronchiectasis (2 sources) Chronic obstructive pulmonary disease with acute lower respiratory infection 10-03-2023 Chronic Coagulation and hemorrhagic disorders (1 source) Thrombocytopenic disorder; 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: [Thrombocytopenia, unspecified] Chronic Diabetes mellitus with complications (3 sources) Disorder of nervous system due to type 2 diabetes mellitus; 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: [Type 2 diabetes mellitus with other diabetic neurological complication] Chronic Diabetes mellitus without complication (3 sources) Diabetes mellitus 06-09-2023 Chronic Disorders of lipid metabolism (4 sources) Mixed hyperlipidemia; 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: [Mixed hyperlipidemia] Onset: 06-17-2009 10-06-2009 Chronic Esophageal disorders (3 sources) Gastroesophageal reflux disease; 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: [Gastro-esophageal reflux disease without esophagitis] Onset: 11-09-2018 11-09-2018 Chronic Essential hypertension (4 sources) Benign essential hypertension; 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: [Essential (primary) hypertension] Onset: 08-13-2008 08-13-2008 Chronic Gastritis and duodenitis (2 sources) Chronic superficial gastritis; 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: [Chronic superficial gastritis without bleeding] Onset: 11-09-2018 11-09-2018 Chronic Hypertension with complications and secondary hypertension (1 source) Chronic kidney disease due to hypertension; 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: [Hypertensive chronic kidney disease with stage 1 through stage 4 chronic kidney disease, or unspecified chronic kidney disease] Chronic Immunity disorders (3 sources) Sarcoidosis; 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: [Sarcoidosis, unspecified] Onset: 08-13-2008 10-06-2009 Chronic Late effects of cerebrovascular disease (1 source) Hemiplegia of nondominant side as late effect of cerebrovascular disease; 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: [Hemiplegia and hemiparesis following cerebral infarction affecting left non-dominant side] Chronic Mycoses (2 sources) Candidiasis of mouth; 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: [Candidal stomatitis] Episodic Osteoarthritis (1 source) Osteoarthritis; 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: [Unspecified osteoarthritis, unspecified site] Chronic Other and unspecified benign neoplasm (2 sources) Intracranial meningioma 10-03-2023 Chronic Other and unspecified benign neoplasm (1 source) Benign neoplasm of cerebral meninges; 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: [Benign neoplasm of cerebral meninges] Chronic Other circulatory disease (1 source) History of transient ischemic attack; 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: [Personal history of transient ischemic attack (TIA), and cerebral infarction without residual deficits] Episodic Other connective tissue disease (1 source) Pain of toe of left foot; 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: [Pain in left toe(s)] Episodic Other connective tissue disease (1 source) Pain of toe of right foot; 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: [Pain in right toe(s)] Episodic Other nutritional; endocrine; and metabolic disorders (2 sources) Obesity; 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: [Obesity, unspecified] Onset: 10-06-2009 10-06-2009 Chronic Other skin disorders (1 source) Foot callus; 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: [Corns and callosities] Episodic Other upper respiratory infections (1 source) Sore throat symptom; 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: [Acute pharyngitis, unspecified] Episodic Residual codes; unclassified (3 sources) Obstructive sleep apnea syndrome; 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: [Obstructive sleep apnea (adult) (pediatric)] Onset: 03-05-2020 03-05-2020 Chronic Thyroid disorders (2 sources) Non-toxic uninodular goiter; 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: [Nontoxic single thyroid nodule] Onset: 06-10-2016 06-10-2016 Chronic Past or Other Problems Problem Classification Problem Date Documented Da te Episodic/Chronic Calculus of urinary tract (2 sources) Kidney stone; 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: [Calculus of kidney] Onset: 12-01-2010 11-16-2021 Episodic Diabetes mellitus without complication (2 sources) Impaired fasting glycemia; 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: [Impaired fasting glucose] Onset: 10-06-2009 10-06-2009 Episodic Gastritis and duodenitis (2 sources) Gastritis; 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: [Gastritis, unspecified, without bleeding] Onset: 10-28-2014 10-28-2014 Episodic Other gastrointestinal disorders (1 source) Alteration in bowel elimination; 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: [Change in bowel habit] Onset: 11-09-2018 11-09-2018 Episodic Other gastrointestinal disorders (1 source) Altered bowel function; 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: [Change in bowel habit] Onset: 11-09-2018 11-09-2018 Episodic Unclassified (1 source) Long-term current use of drug therapy; 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: [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] Results Test Name Value Interpretation Reference Range Facil ity Vital Signs Date Time Vital Sign Value Performing Clinician Monica dixon 11-26-2023 10:59-0500 Heart rate 59 /min CORY AGUILAR MD [facility] 11-26-2023 10:59-0500 Respiratory rate 16 /min CORY AGUILAR MD [facility] 11-26-2023 08:43-0500 Diastolic Blood Pressure Non-Invasive 57 mm[Hg] CORY AGUILAR MD [facility] 11-26-2023 08:43-0500 Heart rate 68 /min COYR AGUILAR MD [facility] 11-26-2023 08:43-0500 Mean blood pressure 80 mm[Hg] CORY AGUILAR MD [address] [place] [address] 11-26-2023 08:43-0500 Reason For Taking VItal Signs CORY AGUILAR MD [address] [place] [address] 11-26-2023 08:43-0500 Respiratory rate 18 /min CORY AGUILAR MD [address] [place] [address] 11-26-2023 08:43-0500 Systolic Blood Pressure Non-Invasive 137 mm[Hg] CORY AGUILAR MD [address] [place] [address] 11-26-2023 06:57-0500 Heart rate 53 /min CORY AGUILAR MD [address] [place] [address] 11-26-2023 06:57-0500 Respiratory rate 16 /min CORY AGUILAR MD [address] [place] [address] 11-26-2023 04:48-0500 Body temperature 98.24 [degF] CORY AGUILAR MD [address] [place] [address] 11-26-2023 04:48-0500 Diastolic Blood Pressure Non-Invasive 69 mm[Hg] CORY AGUILAR MD [address] [place] [address] 11-26-2023 04:48-0500 Mean blood pressure 87 mm[Hg] CORY AGUILAR MD [address] [place] [address] 11-26-2023 04:48-0500 Reason For Taking VItal Signs CORY AGUILAR MD [address] [place] [address] 11-26-2023 04:48-0500 Systolic Blood Pressure Non-Invasive 136 mm[Hg] CORY AGUILAR MD [address] [place] [address] 11-25-2023 23:33-0500 Body temperature 99.14 [degF] CORY AGUILAR MD [address] [place] [address] 11-25-2023 23:33-0500 Diastolic Blood Pressure Non-Invasive 58 mm[Hg] CORY AGUILAR MD [address] [place] [address] 11-25-2023 23:33-0500 Mean blood pressure 80 mm[Hg] CORY AGUILAR MD [address] 11-25-2023 23:33-0500 Reason For Taking VItal Signs CORY AGUILAR MD [address] [place] [address] 11-25-2023 23:33-0500 Systolic Blood Pressure Non-Invasive 137 mm[Hg] CORY AGUILAR MD [address] [place] [address] 11-25-2023 20:16-0500 Body temperature 98.42 [degF] CORY AGUILAR MD [address] [place] [address] 11-25-2023 11:00-0500 Heart rate 54 /min CORY AGUILAR MD [address] [place] [address] 11-25-2023 07:08-0500 Heart rate 58 /min CORY AGUILAR MD [address] [place] [address] 11-25-2023 05:45-0500 Heart rate 52 /min CORY AGUILAR MD [address] 11-24-2023 13:40-0500 SaO2% (BldA) [Mass fraction] 95.2 % CORY AGUILAR MD [address] 11-24-2023 11:21-0500 Body temperature 97.7 [degF] CORY AGUILAR MD [address] [place] [address] 11-23-2023 19:13-0500 Diastolic blood pressure 99 mm[Hg] CORY AGUILAR MD [address] 11-23-2023 19:13-0500 Mean blood pressure 108 mm[Hg] CORY AGUILAR MD [address] [place] [address] 11-23-2023 19:13-0500 Systolic blood pressure 119 mm[Hg] CORY AGUILAR MD [address] [place] [address] 11-23-2023 18:20-0500 Diastolic blood pressure 66 mm[Hg] CORY AGUILAR MD [address] [place] [address] 11-23-2023 18:20-0500 Mean blood pressure 79 mm[Hg] CORY AGUILAR MD [address] [place] [address] 11-23-2023 18:20-0500 Systolic blood pressure 91 mm[Hg] CORY AGUILAR MD [address] [place] [address] 11-23-2023 17:18-0500 Diastolic blood pressure 56 mm[Hg] CORY AGUILAR MD [address] [place] [address] 11-23-2023 17:18-0500 Mean blood pressure 67 mm[Hg] CORY AGUILAR MD [address] [place] [address] 11-23-2023 17:18-0500 Systolic blood pressure 81 mm[Hg] CORY AGUILAR MD [address] [place] [address] 11-23-2023 15:59-0500 SaO2% (BldA) [Mass fraction] 92.7 % CORY AGUILAR MD [address] [place] [address] 11-23-2023 14:30-0500 Respiratory Rate - Anes 0 br/min CORY AGUILAR MD [address] [place] [address] 11-23-2023 14:25-0500 Respiratory Rate - Anes 0 br/min CORY AGUILAR MD [address] [place] [address] 11-23-2023 14:20-0500 Respiratory Rate - Anes 0 br/min CORY AGUILAR MD [address] [place] [address] 11-23-2023 13:40-0500 Body temperature 98.29 [degF] CORY AGUILAR MD [address] 11-23-2023 13:35-0500 Body temperature 98.65 [degF] CORY AGUILAR MD [address] [place] [address] 11-23-2023 13:30-0500 Body temperature 99.36 [degF] CORY AGUILAR MD [address] 11-23-2023 09:18-0500 SaO2% (BldA) [Mass fraction] 99.6 % CORY AGUILAR MD [address] [place] [address] 11-23-2023 06:51-0500 Body height 154.9 cm CORY AGUILAR MD [address] 11-23-2023 06:51-0500 Body temperature 97.7 [degF] CORY AGUILAR MD [address] 11-23-2023 06:51-0500 Body weight 72.8 kg CORY AGUILAR MD [address] 09-09-2022 12:27-0400 Body temperature 98.29 [degF] Mirtha Athy PA-C Work Phone: [facility] 09-09-2022 12:27-0400 Body weight 83.64 kg Mirtha Athy PA-C Work Phone: [facility] 09-09-2022 12:27-0400 Diastolic blood pressure 88 mm[Hg] Mirtha Athy PA-C Work Phone: [facility] 09-09-2022 12:27-0400 Heart rate 94 /min Mirtha Athy PA-C Work Phone: [facility] 09-09-2022 12:27-0400 Respiratory rate 16 /min Mirtha Silviadariel PA-C Work Phone: [facility] 09-09-2022 12:27-0400 SaO2% (BldA) [Mass fraction] 98 % Mirthajohn Vegadariel PA-C Work Phone: [facility] 09-09-2022 12:27-0400 Systolic blood pressure 144 mm[Hg] Mirthajohn Vegadariel PA-C Work Phone: [facility] Encounters Encounter Date Encounter Type Care Provider Facility Start: 11-23-2023 End: 11-24-2023 ambulatory CORY AGUILAR MD Facility:A Start: 11-23-2023 End: 11-26-2023 Evaluation and management of inpatient CORY AGUILAR MD Facility:A Start: 11-23-2023 End: 11-26-2023 Evaluation and management of inpatient CORY AGUILAR MD [facility] Start: 11-08-2023 End: 11-09-2023 ambulatory CORY AGUILAR MD Facility:A Start: 10-20-2023 End: 10-21-2023 ambulatory CORY AGUILAR MD Facility:A Start: 10-03-2023 End: 10-04-2023 ambulatory STEFAN STODDARD MD Facility:A Start: 10-03-2023 End: 10-03-2023 Patient encounter procedure DION GRAY MD [facility] Start: 09-12-2023 End: 09-13-2023 ambulatory STEFAN STODDARD MD Facility:A Start: 09-12-2023 End: 09-12-2023 Patient encounter procedure DION GRAY MD [facility] Start: 06-10-2023 End: 06-11-2023 ambulatory DION GRAY MD Facility:A Start: 05-03-2023 End: 05-03-2023 Admission to same day surgery center STEFAN STODDARD MD [facility] Start: 04-13-2023 End: 04-14-2023 ambulatory LEW DEY Facility: Start: 02-17-2023 End: 02-17-2023 ambulatory DAYNAA MARMOLEJO Facility:[facility] Start: 02-17-2023 End: 02-17-2023 Patient encounter procedure Dayana Marmolejo Work Phone: Podiatry Procedures Date Procedure Procedure Detail Performing Clinician Start: 09-09-2022 STREP A MOLECULAR (POC) Mirtha Spencer PA-C Work Phone: Start: 04-17-2019 Mammography Mirtha Athdariel PA-C Work Phone: Start: 12-11-2018 Colonoscopy Mirtha Spencer PA-C Work Phone: Esophagogastroduoden oscopic electrohydraulic lithotripsy of bezoar in stomach CORY AGUILAR MD Total hysterectomy DION Broussard MD Plan of Treatment Date Care Activity Detail Author Start: 12-11-2023 Colonoscopy COLONOSCOPY [facility] Start: 12-11-2023 COLORECTAL CANCER SCREENING COLORECTAL CANCER SCREENING [facility] Start: 12-28-2022 3 comp foot exam completed DIABETIC FOOT EXAM [facility] Start: 11-21-2022 ADVANCE DIRECTIVE DISCUSSION ADVANCE DIRECTIVE DISCUSSION [facility] Start: 11-21-2022 DEPRESSION ASSESSMENT DEPRESSION ASS ESSMENT [facility] Start: 07-22-2022 Influenza vaccination INFLUENZA (#1) [facility] Start: 03-06-2022 FECAL OCCULT BLOOD FECAL OCCULT BLOO D [facility] Start: 11-21-2021 ADVANCE DIRECTIVE DISCUSSION ADVANCE DIRECTIVE DISCUSSION [facility] Start: 11-21-2021 DEPRESSION ASSESSMENT DEPRESSION ASS ESSMENT [facility] Start: 10-13-2021 ANNUAL PCP TEAM MERCHANDISE EXAMINER SANDRA DISEASE VISIT ANNUAL PCP TEAM CHRONIC DISEASE VISIT [facility] Start: 06-10-2021 Hepatitis C antibody , confirmatory test DILATED RETINAL EXAM [facility] Start: 04-30-2021 COVID-19 VACCINE (3 - Booster for Moderna series) COVID-19 VACCINE (3 - Booster for Moderna series) [facility] Start: 04-02-2021 COVID-19 VACCINE (3 - Moderna risk series) COVID-19 VACCINE (3 - Moderna risk series) [facility] Start: 03-29-2021 Hemoglobin A1c/Hemoglobin.total in Blood HBA1C [facility] Start: 03-19-2021 Hepatitis B surface antibody level LDL CHOLESTEROL [facility] Start: 04-17-2020 Mammography MAMMOGRAM [facility] Start: 2001 SHINGRIX VACCINE (1 of 2) SHINGRIX V ACCINE (1 of 2) [facility] Start: 02-01-1996 COLOGUARD (FIT-DNA) COLOGUARD (FIT-D NA) [facility] Start: 02-01-[address] COLONOGRAPHY [facility] Start: 02-01-1996 SIGMOIDOSCOPY SIGMOIDOSCOPY [facility] Start: 1970 SHINGRIX VACCINE (1 of 2) SHINGRIX V ACCINE (1 of 2) [facility] Start: 1970 Urine microalbumin profile DTAP,TDAP ,TD (1 - Tdap) [facility] Start: 1969 BP CONTROLLED (<130/80) BP CONTROLLE D (<130/80) [facility] Start: 1961 Hepatitis B screening URINE AL BUMIN:CREATININE RATIO [facility] Immunizations Immunization Date Immunization Notes Care Provider Fa [facility] 10-10-2023 influenza virus vaccine, unspecified formulation CORY AGUILAR MD [facility] 10-10-2023 SARS-CoV-2 (COVID-19 ) [id number] CORY AGUILAR MD [facility] 01-12-2023 tetanus toxoid, redu becca diphtheria toxoid, and acellular pertussis vaccine, adsorbed CORY AGUILAR MD [facility] 09-15-2022 influenza virus vaccine, unspecified formulation CORY AGUILAR MD [facility] 09-29-2021 influenza virus vaccine, unspecified formulation CORY AGUILAR MD [facility] 03-05-2021 SARS-CoV-2 (COVID-19 ) [id number] vaccine CORY AGUILAR MD [facility] Payers Date Payer Category Payer Medicare [id number] 2021 Medicare AETNA MEDICARE A ETNA MEDICARE HMO [id number] 2021-Present [phone] [address] [place] [address] O [id number] 2021 Medicare [id number] 1950 Unknown [id number] 1950 Unknown [id number] 1950 Unknown [id number] 1950 Unknown [id number] 1950 Unknown [id number] 1950 Unknown [id number] 1950 Unknown [id number] 1950 Unknown [id number] 1950 Unknown [id number] Social History Date Type Detail Facility Start: 09-09-2022 End: 06-10-2023 Tobacco smoking status NHIS Never smoked tobacco [facility] Start: 09-09-2022 Tobacco use and exposure Smokeless tobacco non-user [facility] Start: 09-09-2022 End: 02-17-2023 Alcohol intake Current non-drinker of alcohol (finding) [facility] Start: 1950 Sex Assigned At Not on file [facility] Tobacco smoking status No Smoking Status Entered [facility] Sex Assigned At Female [facility] Medical Equipment Procedure Code Equipment Code Equipment Origin al Text Equipment Identifier Dates Start: 06-19-2020 Functional Status Date Assessment Result Facility 11-26-2023 Functional Status Remains up in chair [facility] 11-26-2023 Functional Status Room located n ear nursing station, Door open, Room check performed [facility] 11-26-2023 Functional Status [facility] 11-25-2023 Functional Status [facility] 11-25-2023 Functional Status [facility] 11-25-2023 Functional Status 6 [facility] 11-25-2023 Functional Status [facility] 11-25-2023 Functional Status [facility] 11-24-2023 Functional Status [facility] 11-24-2023 Functional Status Dinner Percent 10 [facility] 11-24-2023 Functional Status Living Situation Lives alone [facility] 11-24-2023 Functional Status [facility] 11-23-2023 Functional Status [facility] 11-23-2023 Functional Status Maintained [facility] Mental Status Date Assessment Result Facility 11-26-2023 Mental Status Orientation Oriented x 4 [facility] 11-26-2023 Mental Status [facility] 11-25-2023 Mental Status [facility] 11-25-2023 Mental Status Orientation Assessment Orie nted x 4 [facility] 11-25-2023 Mental Status [facility] 11-25-2023 Mental Status [facility] Clinical Notes 02-09-2008 to 11-26-2023 Patient InstructionsMatthew Testrake - 02/17/2023 11:34 AM Blu Best RN - 02/17/2023 11:21 AM Diego Spencer PA-C - 09/09/2022 3:16 PM EDT Note Date & Type Note Facility 11-26-2023 Hospital Discharge instructions Patient Education 11/26/2023 11:13:58 Fall Prevention in the Home, Adult, [id number] Fall Prevention in the Home, Adult Falls can cause injuries. They can happen to people of all ages. There are many things you can do to make your home safe and to help prevent falls. Ask for help when making these changes, if needed. What actions can I take to prevent falls? General Instructions Use good lighting in all rooms. Replace any light bulbs that burn out. Turn on the lights when you go into a dark area. Use night-lights. Keep items that you use often in [id number] places. Lower the shelves around your home if necessary. Set up your furniture so you have a clear path. Avoid moving your furniture around. Do not have throw rugs and other things on the floor that can make you trip. Avoid walking on wet floors. If any of your floors are uneven, fix them. Add color or contrast paint or tape to clearly osmel and help you see: ?Any grab bars or handrails. ?First and last steps of stairways. ?Where the edge of each step is. If you use a stepladder: ?Make sure that it is fully opened. Do not climb a closed stepladder. ?Make sure that both sides of the stepladder are locked into place. ?Ask someone to hold the stepladder for you while you use it. If there are any pets around you, be aware of where they are. What can I do in the bathroom? Keep the floor dry. Clean up any water that spills onto the floor as soon as it happens. Remove soap buildup in the tub or shower regularly. Use non-skid mats or decals on the floor of the tub or shower. Attach bath mats securely with double-sided, non-slip rug tape. If you need to sit down in the shower, use a plastic, non-slip stool. Install grab bars by the toilet and in the tub and shower. Do not use towel bars as grab bars. What can I do in the bedroom? Make sure that you have a light by your bed that is easy to reach. Do not use any sheets or blankets that are too big for your bed. They should not hang down onto the floor. Have a firm chair that has side arms. You can use this for support while you get dressed. What can I do in the kitchen? Clean up any spills right away. If you need to reach something above you, use a strong step stool that has a grab bar. Keep electrical cords out of the way. Do not use floor solomon islander or wax that makes floors slippery. If you must use wax, use non-skid floor wax. What can I do with my stairs? Do not leave any items on the stairs. Make sure that you have a light switch at the top of the stairs and the bottom of the stairs. If you do not have them, ask someone to add them for you. Make sure that there are handrails on both sides of the stairs, and use them. Fix handrails that are broken or loose. Make sure that handrails are as long as the stairways. Install non-slip stair treads on all stairs in your home. Avoid having throw rugs at the top or bottom of the stairs. If you do have throw rugs, attach them to the floor with carpet tape. Choose a carpet that does not hide the edge of the steps on the stairway. Check any carpeting to make sure that it is firmly attached to the stairs. Fix any carpet that is loose or worn. What can I do on the outside of my home? Use bright outdoor lighting. Regularly fix the edges of walkways and driveways and fix any cracks. Remove anything that might make you trip as you walk through a door, such as a raised step or threshold. Trim any bushes or trees on the path to your home. Regularly check to see if handrails are loose or broken. Make sure that both sides of any steps have handrails. Install guardrails along the edges of any raised decks and porches. Clear walking paths of anything that might make someone trip, such as tools or rocks. Have any leaves, snow, or ice cleared regularly. Use sand or salt on walking paths during winter. Clean up any spills in your garage right away. This includes grease or oil spills. What other actions can I take? Wear shoes that: ?Have a low heel. Do not wear high heels. ?Have rubber bottoms. ?Are comfortable and fit you well. ?Are closed at the toe. Do not wear open-toe sandals. Use tools that help you move around (mobility aids) if they are needed. These include: ?Canes. ?Walkers. ?Scooters. ?Crutches. Review your medicines with your doctor. Some medicines can make you feel dizzy. This can increase your chance of falling. Ask your doctor what other things you can do to help prevent falls. Where to find more information Centers for Disease Control and Prevention, STEADI: https://cdc.gov [place] on Aging: https://nu4sxya.ivet.nih.gov Contact a doctor if: You are afraid of falling at home. You feel weak, drowsy, or dizzy at home. You fall at home. Summary There are many simple things that you can do to make your home safe and to help prevent falls. Ways to make your home safe include removing tripping hazards and installing grab bars in the bathroom. Ask for help when making these changes in your home. This information is not intended to replace advice given to you by your health care provider. Make sure you discuss any questions you have with your health care provider. Document Released: 09/03/2010 Document Revised: 02/28/2020 Document Reviewed: 06/22/2018 tradeNOW Patient Education 2020 [employer] Follow Up Care 11/02/2023 08:05:18 With:VIRGINIA BELCHER APRN-SAVITA, Neurosurgery Address: [address] [place] [address]- [phone] When:12/06/2023 13:00:00 [facility] 11-26-2023 Note Discharge Instructions Thank you for allowing [facility] to assist you with your healthcare needs. The following is important discharge information regarding your hospital visit. Your Care Team STEFAN STODDARD MD What to do next Instructions From Your Doctor Your follow up appointment will be with Dr. Aguilar's Nurse Practitioner, Virginia Belcher CNP. No aspirin, aspirin products, NSAIDS, until cleared by Neurosurgery. No blowing nose. Do not use a straw to drink. Do not use CPAP machine. No heavy lifting or strenuous activity. No driving for 2 weeks. May shower and wash incision gently with baby shampoo/soap. Do not scrub incision. Pat incision dry. Apply gauze over incision and head wrap to keep gauze in place. Change daily. You are being prescribed a dexamethasone (steroid taper). At the end of the dexamethasone, you will transition back to your normal prednisone dose. Stay off of prednisone until dexamethasone is completed. Remain off of methotrexate until cleared by Neurosurgery. Please call the neurosurgery office if you develop fever, chills, redness around the incision, or drainage from the incision. Scheduled Follow-Up Appointments Appointment Type When Where Contact InformationNS Post Op 12/06/2023 01:00 PM EST Neurosurgery [address] [id number] Follow Up Appointments Follow Up with VIRGINIA BELCHER, Neurosurgery When 12/06/2023 01:00 PM EST Where: [address] [place] [address]- [phone] The Following Activity and Diet Have Been Ordered for You No qualifying data available. No qualifying data available. The Following Equipment Has Been Ordered for You No qualifying data available. The Following Treatments Have Been Ordered for You Discharge Labs No qualifying data available. Discharge Radiology No qualifying data available. Other Therapies No qualifying data available. Post Acute Orders No qualifying data available. Someone Will Contact You Regarding These Home Health Referrals No home referrals have been ordered for you. No one will call you. Allergies penicillin (Unknown) Medications Please ask your primary doctor or pharmacist before taking any other medication not listed, including over the counter drugs, herbal medications, vitamins and or supplements as they may interact with your home medications. What How Much When Instructions Last Dose New acetaminophen (Tylenol 325 mg oral capsule) 650 Milligram by mouth Every 6 hours as needed for as needed for pain New dexAMETHasone (dexAMETHasone 2 mg oral tablet) See instructions Take 2 tabs (4mg) at dinner tonight. Tomorrow start 1 tab TID x 2 days-then 1 tab BID x 2 days Then stop and transition back on Prednisone. Take with food. Pickup at [facility]/pharmacy #[id number] Unchanged atorvastatin (atorvastatin 40 mg oral tablet) 1 tab(s) by mouth Once a day (in the evening) Unchanged dapagliflozin (Farxiga 10 mg oral tablet) 10 Milligram by mouth Once a day (in the morning) Unchanged fluticasone (Flovent HFA 220 mcg/ inh inhalation aerosol) 2 puff(s) by inhalation Two (2) times a day Unchanged gabapentin (gabapentin 100 mg oral capsule) 1 cap by mouth Once a day (in the evening) Unchanged glipiZIDE (glipiZIDE 10 mg oral tablet, extended release) 1 tab(s) by mouth Once a day (in the morning) Unchanged hydroCHLOROthiazide (hydroCHLOROthiazide 25 mg oral tablet) 1 tab(s) by mouth Once a day (in the morning) Unchanged ibandronate (ibandronate 150 mg oral tablet) 1 tab(s) by mouth Once a month Unchanged lactobacillus acidophilus (Acidophilus Probiotic Blend oral capsule) 1 cap by mouth Once a day Unchanged lisinopril (lisinopril 20 mg oral tablet) 1 tab(s) by mouth Once a day (in the morning) Unchanged metFORMIN (metFORMIN 500 mg oral tablet (IR)) 1 tab(s) by mouth Two (2) times a day Unchanged RABEprazole (RABEprazole 20 mg oral delayed release enteric coated tablet) 1 tab(s) by mouth Once a day (in the evening) Pharmacy Information [facility]/pharmacy #[id number]: [address] [place], [place] [phone] What How Much When Comments Stop Taking aspirin (aspirin 81 mg oral delayed release tablet) 1 tab(s) by mouth Once a day LAst Dose Stop Taking cyanocobalamin (Vitamin B12 1000 mcg oral tablet) 1 tab(s) by mouth Once a day Stop Taking diclofenac (diclofenac sodium 50 mg oral delayed release tablet) 1 tab(s) by mouth Once a day (in the evening) as needed for as needed for arthritis Stop Taking methotrexate (methotrexate 2.5 mg oral tablet) 5 tab(s) by mouth Every Tuesday Stop Taking predniSONE (predniSONE 5 mg oral tablet) 0.5 tab(s) by mouth Every other day Please take this list to your next doctor s visit. Bring all medications you take, including over the counter medications, herbals and other supplements with you to your doctor s visit. Patients and families are reminded to discard old lists and to update any records with all medication providers or retail pharmacies. Education Materials Fall Prevention in the Home, Adult Falls can cause injuries. They can happen to people of all ages. There are many things you can do to make your home safe and to help prevent falls. Ask for help when making these changes, if needed. What actions can I take to prevent falls? General Instructions Use good lighting in all rooms. Replace any light bulbs that burn out. Turn on the lights when you go into a dark area. Use night-lights. Keep items that you use often in yzpj-md-chrge places. Lower the shelves around your home if necessary. Set up your furniture so you have a clear path. Avoid moving your furniture around. Do not have throw rugs and other things on the floor that can make you trip. Avoid walking on wet floors. If any of your floors are uneven, fix them. Add color or contrast paint or tape to clearly osmel and help you see: ? Any grab bars or handrails. ? First and last steps of stairways. ? Where the edge of each step is. If you use a stepladder: ? Make sure that it is fully opened. Do not climb a closed stepladder. ? Make sure that both sides of the stepladder are locked into place. ? Ask someone to hold the stepladder for you while you use it. If there are any pets around you, be aware of where they are. What can I do in the bathroom? Keep the floor dry. Clean up any water that spills onto the floor as soon as it happens. Remove soap buildup in the tub or shower regularly. Use non-skid mats or decals on the floor of the tub or shower. Attach bath mats securely with double-sided, non-slip rug tape. If you need to sit down in the shower, use a plastic, non-slip stool. Install grab bars by the toilet and in the tub and shower. Do not use towel bars as grab bars. What can I do in the bedroom? Make sure that you have a light by your bed that is easy to reach. Do not use any sheets or blankets that are too big for your bed. They should not hang down onto the floor. Have a firm chair that has side arms. You can use this for support while you get dressed. What can I do in the kitchen? Clean up any spills right away. If you need to reach something above you, use a strong step stool that has a grab bar. Keep electrical cords out of the way. Do not use floor solomon islander or wax that makes floors slippery. If you must use wax, use non-skid floor wax. What can I do with my stairs? Do not leave any items on the stairs. Make sure that you have a light switch at the top of the stairs and the bottom of the stairs. If you do not have them, ask someone to add them for you. Make sure that there are handrails on both sides of the stairs, and use them. Fix handrails that are broken or loose. Make sure that handrails are as long as the stairways. Install non-slip stair treads on all stairs in your home. Avoid having throw rugs at the top or bottom of the stairs. If you do have throw rugs, attach them to the floor with carpet tape. Choose a carpet that does not hide the edge of the steps on the stairway. Check any carpeting to make sure that it is firmly attached to the stairs. Fix any carpet that is loose or worn. What can I do on the outside of my home? Use bright outdoor lighting. Regularly fix the edges of walkways and driveways and fix any cracks. Remove anything that might make you trip as you walk through a door, such as a raised step or threshold. Trim any bushes or trees on the path to your home. Regularly check to see if handrails are loose or broken. Make sure that both sides of any steps have handrails. Install guardrails along the edges of any raised decks and porches. Clear walking paths of anything that might make someone trip, such as tools or rocks. Have any leaves, snow, or ice cleared regularly. Use sand or salt on walking paths during winter. Clean up any spills in your garage right away. This includes grease or oil spills. What other actions can I take? Wear shoes that: ? Have a low heel. Do not wear high heels. ? Have rubber bottoms. ? Are comfortable and fit you well. ? Are closed at the toe. Do not wear open-toe sandals. Use tools that help you move around (mobility aids) if they are needed. These include: ? Canes. ? Walkers. ? Scooters. ? Crutches. Review your medicines with your doctor. Some medicines can make you feel dizzy. This can increase your chance of falling. Ask your doctor what other things you can do to help prevent falls. Where to find more information Centers for Disease Control and Prevention, MABLE: https://cdc.gov National [place] on Aging: https://mj5hxzs.ivet.nih.gov Contact a doctor if: You are afraid of falling at home. You feel weak, drowsy, or dizzy at home. You fall at home. Summary There are many simple things that you can do to make your home safe and to help prevent falls. Ways to make your home safe include removing tripping hazards and installing grab bars in the bathroom. Ask for help when making these changes in your home. This information is not intended to replace advice given to you by your health care provider. Make sure you discuss any questions you have with your health care provider. Document Released: 09/03/2010 Document Revised: 02/28/2020 Document Reviewed: 06/22/2018 ElseHover 3D Patient Education 2020 [employer]. Additional Information VACCINATE! IT SAVES LIVES! Members of the community who have not yet received the COVID-19 vaccine and would like to receive it can visit one of [facility] vaccine clinics. There are many vaccine clinic locations within the [facility]. For locations and available times, please visit https://gettheshot.coronavirus.[place].gov/. It is important to note that some COVID mobile vaccine clinics are held outdoors and may be canceled in rainy or stormy conditions. To learn more about pediatric vaccinations (ages 5-11), we invite you to visit the [facility] webpage. https://www.[facility].org/pag es/6295-Ftdhx-Xlzrmapsyye-Frequent kj-Gvlar-Hgexrsmln.html To learn more about the COVID-19 vaccine, we invite you to visit the CDC website for a list of frequently asked questions.https://www.cdc.gov/iraj navirus/2019-ncov/vaccines/faq.htm l [facility] Patient Portal Access Instructions: Stay connected with your healthcare team and access your personal medical information anytime with the [facility] Patient Portal. Please follow the directions below to create your [facility] account: 1.Access the email account you provided upon registration to the hospital/physician office.2.Look for an invitation email from [facility].3.Open the email and access the invitation link: [facility]itation to [facility].4.Fill in the required bailon to create your account. To access your account, visit [email or web address]. Click the blue button labeled Access Patient Portal and then log in with the username and password that you created in the steps above. You will be able to view your test results, lab results, a summary of your visits, upcoming appointments and more. There is also a convenient messaging option where you can send secure messages to your provider. In addition, you will have the ability to download any documents or summaries to your computer and/or send the information securely to a physician. Remember that your healthcare information is confidential, so carefully consider who you will allow to register on the [facility] Patient Portal for access to your information. You can also access the [facility] Patient Portal on the [facility] ravi. Simply click on Patient Portal and then log into your account. If you would like to receive a full copy of your medical records, please contact the [facility] Medical Records Department by calling [phone], Tuesday through Tuesday between 8 a.m. and 4:30 p.m. HOW TO SAFELY DISPOSE OF PRESCRIPTION MEDICATIONS Please use one of the following methods to safely dispose of your unused medications. 1.Use a drug disposal kit: the drug disposal pouch allows you to safely discard your old and unused drugs. Ask your nurse to give you one when you are discharged.2.Visit a local take-back location: Many local pharmacies and police departments have programs that collect old and unwanted prescription drugs. Call your local pharmacy or go to http://GitHub.Toushay - It's what's in store/0D2Cf2y to find one close to you.3.Make use of household items: Use cat litter or old coffee grounds to dispose medications if other options are not available. Mix your drugs with these household products, seal them in an airtight container and throw it into the garbage. Call [facility]: [phone] to be sure your drugs can be disposed of in this way. Some medicines may require a different approach.4.Never flush your medications down the toilet. IF YOU HAVE BEEN PRESCRIBED AN OPIOID FOR PAIN If you have been prescribed an opioid (such as hydrocodone, oxycodone or morphine), it is critical to understand the possible side effects and risks of opioid pain medications. Even when taken as directed, opioids can have several side effects including: Tolerance, meaning you might need to take more of a medication for the same pain relief. Nausea, vomiting and/or constipation. Sleepiness, dizziness, dry mouth, confusion, depression or itching. Physical dependence, meaning you have withdrawal symptoms when a medication is stopped, can develop within a few days. KNOW YOUR RESPONSIBILITIES It is important to know exactly how much and how often to take the opioid pain medications you are prescribed. Never take opioids in higher amounts or more often than prescribed. Do not combine opioids with alcohol or other drugs that cause drowsiness, such as benzodiazepines, also known as benzos, including diazepam and alprazolam, muscle relaxants or sleep aids. Never sell or share prescription opioids. This is illegal. Store opioids in a secure place and out of reach of others (including children, family, friends and visitors). The last page of this document has been signed and retained as a CHART COPY. Signatures Patient Education Materials Fall Prevention in the Home, Adult, Niex-od-Wjkv Medication Leaflets My discharge plan and instructions have been reviewed and explained to me and I,HOLLEY MALIK understand my current condition and have read and understand these discharge instructions. I have received a written copy of the plan/instructions. If I have questions, I am aware that I should contact my doctor. 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 (I69.354 - ICD-10-CM) Sarcoidosis, unspecified (D86.9 - ICD-10-CM) Personal history of transient ischemic attack (TIA), and cerebral infarction without residual deficits (Z86.73 - ICD-10-CM) Chronic kidney disease, unspecified (N18.9 - ICD-10-CM) Type 2 diabetes mellitus with diabetic chronic kidney disease (E11.22 - ICD-10-CM) Obstructive sleep apnea (adult) (pediatric) (G47.33 - ICD-10-CM) Gastro-esophageal reflux disease without esophagitis (K21.9 - ICD-10-CM) Unspecified osteoarthritis, unspecified site (M19.90 - ICD-10-CM) Type 2 diabetes mellitus with diabetic autonomic (poly)neuropathy (E11.43 - ICD-10-CM) Hypertensive chronic kidney disease with stage 1 through stage 4 chronic kidney disease, or unspecified chronic kidney disease (I12.9 - ICD-10-CM) 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 Prior to her admission, she was evaluated in the neurosurgery office where her MRI was reviewed and she was noted to have 2 extra-axial lesions in the right frontal region. Prior to surgery, she was having complaints of intractable headaches as well as increased anxiety, as her sister was recently diagnosed with brain cancer. Her MRI of the brain was reviewed with her and her family during her office visit, and they elected to proceed with surgical resection of the lesions. Postoperatively, she did take her quite some time to wake up after anesthesia. After 3 hours, she was still not waking up well. Patient was connected to continuous EEG overnight, and was reviewed by neurology. No seizure activity was noted. CT head was obtained- which demonstrated a small amount of pneumocephalus and SAH, as well a small amount of subdural fluid, which is the expected postop changes. By post op day #2, she was much more awake and alert. She was conversant and mobilize in the hallway with therapy. She tolerated a diet well. She had an MRI of the brain for postop evaluation-Small area of swelling from where the tumor was resected, small amount of blood products and expected postop changes. MRI was reviewed by Dr. Aguilar and she felt it demonstrated the expected changes, and was pleased with the findings. This morning on exam, she is awake, alert, and oriented x 3. She is moving all 4 extremities without difficulty. Following commands. No pronator drift noted. No lateralizing weakness noted. Speech is clear. Facial structures are symmetrical. Head dressing is dry and intact. No drainage noted. Incision is healing well. It is well-approximated. No erythema noted. Blood pressure has been stable 136/69. She has been bradycardic at times when sleeping. Robotype Operator have been monitoring and no intervention is recommended. Initially on postop day 1, her heart rate was in the 40s most of the time when resting. Her heart rate has now been in the 50s 70s. Pulmonology has been following. She does usually use a CPAP at home for sleep apnea. Due to the right frontal sinus exenteration, it was recommended she denied have any negative or positive pressure, therefore she was instructed not to use her CPAP. She was also instructed not to use straws, incentive spirometer, or blow her nose. Since she was unable to use her CPAP, pulmonology recommended continuous pulse ox overnight to ensure her oxygen did not drop. Her pulse ox did remain stable overnight on room air. Pulse ox 93 98. She is tolerating a diet well. Voiding without difficulty. Subgaleal drain was removed yesterday. Overall, she is doing well. She feels ready to be discharged home. She will mobilize in the hallway a couple more times today. Her discharge instructions and restrictions are provided for her. She is instructed to remain off of her methotrexate until cleared by neurosurgery. She is also instructed to resume prednisone once she completes the dexamethasone taper that has been prescribed for her. She will be transition from the dexamethasone to the prednisone. She will follow-up in the neurosurgery office in 2 weeks for suture removal and evaluation of the incision. Path report is still pending, but will be available at her follow-up appointment. She is instructed to call the office with any questions or concerns. Please note her med rec for discharge has not yet been completed and therefore, the medications on this discharge summary are not accurate. She will not be taking aspirin or methotrexate at home, and she will restart prednisone when her dexamethasone is completed. Allergies penicillin (Unknown) Procedures Right frontal craniotomy for tumor resection with MedArt-Exchange Neuronavigation; Right frontal duraplasty and Right frontal sinus exenteration Consults No qualifying data available. Objective Vitals and Measurements T: 36.8 C (Oral) TMIN: 36.7 C (Oral) TMAX: 37.3 C (Oral) HR: 53 RR: 16 BP: 136/69 SpO2: 93% Weight Dosing Weight: 72.8 kg (11/23/23) Code Status Code Status - Ordered -- 11/24/23 11:28:00 EST, Full Code, Constant Order Admission Date 11/23/23 Discharge Date 11/26/23 Patient Instructions Your follow up appointment will be with Dr. Aguilar's Nurse Practitioner, Virginia Belcher, SAVITA. No aspirin, aspirin products, NSAIDS, until cleared by Neurosurgery. No blowing nose. Do not use a straw to drink. Do not use CPAP machine. No heavy lifting or strenuous activity. No driving for 2 weeks. May shower and wash incision gently with baby shampoo/soap. Do not scrub incision. Pat incision dry. Apply gauze over incision and head wrap to keep gauze in place. Change daily. You are being prescribed a dexamethasone (steroid taper). At the end of the dexamethasone, you will transition back to your normal prednisone dose. Stay off of prednisone until dexamethasone is completed. Remain off of methotrexate until cleared by Neurosurgery. Please call the neurosurgery office if you develop fever, chills, redness around the incision, or drainage from the incision. Medications Unchanged aspirin (aspirin 81 mg oral delayed release tablet)1 tab(s) by mouth once a day. LAst Dose 11/12/23. atorvastatin (atorvastatin 40 mg oral tablet)1 tab(s) by mouth once a day (in the evening). cyanocobalamin (Vitamin B12 1000 mcg oral tablet)1 tab(s) by mouth once a day. dapagliflozin (Farxiga 10 mg oral tablet)10 Milligram by mouth once a day (in the morning). diclofenac (diclofenac sodium 50 mg oral delayed release tablet)1 tab(s) by mouth once a day (in the evening) as needed as needed for arthritis. fluticasone (Flovent HFA 220 mcg/inh inhalation aerosol)2 puff(s) by inhalation two (2) times a day. gabapentin (gabapentin 100 mg oral capsule)1 cap by mouth once a day (in the evening). glipiZIDE (glipiZIDE 10 mg oral tablet, extended release)1 tab(s) by mouth once a day (in the morning). hydroCHLOROthiazide (hydroCHLOROthiazide 25 mg oral tablet)1 tab(s) by mouth once a day (in the morning). ibandronate (ibandronate 150 mg oral tablet)1 tab(s) by mouth once a month. lactobacillus acidophilus (Acidophilus Probiotic Blend oral capsule)1 cap by mouth once a day. lisinopril (lisinopril 20 mg oral tablet)1 tab(s) by mouth once a day (in the morning). metFORMIN (metFORMIN 500 mg oral tablet (IR))1 tab(s) by mouth two (2) times a day. methotrexate (methotrexate 2.5 mg oral tablet)5 tab(s) by mouth every Tuesday. predniSONE (predniSONE 5 mg oral tablet)0.5 tab(s) by mouth every other day. RABEprazole (RABEprazole 20 mg oral delayed release enteric coated tablet)1 tab(s) by mouth once a day (in the evening). Follow Up Follow Up with VIRGINIA BELCHER, Neurosurgery When 12/06/2023 01:00 PM EST Where: [address] [place] [address]- [phone] Follow Up Appointments See above Follow Up Labs/Studies Discharge Labs No Follow-up Labs Discharge Studies No Follow-up Studies Discharge Diet Resume home diet Discharge Activity See above Condition on Discharge Stable Readmission Risk/Palliative Score No qualifying data available. Discharge Disposition Home Information Provided To Patient Time Spent 15 min Digitally Signed by MELYSSA BOWDEN on 11/26/2023 09:29 AM Digitally Signed by CORY AGUILAR MD Digitally Signed by DION GRAY MD [facility] 11-25-2023 Neurological surgery Progress note Date of Service 11/24/2023 Chief Complaint S/P Right frontal craniotomy for tumor resection with [employer] Neuronavigation; Right frontal duraplasty and Right frontal sinus exenteration- post-op day #1. This is a 73 year old female, who was admitted for a right frontal craniotomy for tumor resection, right frontal duraplasty, and right frontal sinus exenteration. Prior to her admission, she was evaluated in the neurosurgery office where her MRI was reviewed and she was noted to have 2 extra-axial lesions in the right frontal region. Prior to surgery, she was having complaints of intractable headaches as well as increased anxiety, as her sister was recently diagnosed with brain cancer. Her MRI of the brain was reviewed with her and her family during her office visit, and they elected to proceed with surgical resection of the lesions. Postoperatively, she did take her quite some time to wake up after anesthesia. After 3 hours, she was still not waking up well. Patient was connected to continuous EEG overnight, and was reviewed by neurology. No seizure activity was noted. She did start to wake up more overnight and was little more awake this morning. She has been sleeping intermittently this morning. She does wake up and answered orientation questions appropriately. She is complaining of significant pain in the back of her neck. She also had nausea, but it was after receiving morphine. Currently, she is resting with no distress. She is able to move all 4 extremities without difficulty. Follows commands. Pupils are +2 and reactive, although her right pupil seems to slightly larger than the left. Speech is clear. Facial structures appear symmetrical. Crani dressing is dry and intact. Blood pressure has been stable 120/42. She has been bradycardic. Heart rate in the 40s when she is resting. Subgaleal drain in place. 140 cc drained on afternoon; 110 cc overnight. Objective Vitals and Measurements T: 37.4 C (Oral) TMIN: 36 C TMAX: 37.96 C HR: 65(Monitored) RR: 18 BP: 120/42 BP: 119/99(Line) SpO2: 96% Intake and Output 7AM Yesterday to 7AM Today Intake and Output (Last 24 hours) Intake Administration Information 3909.77 Output Surgical Drain, Tube Output: 300.00 Urinary Catheter Output: 1125.00 Intra-Op EBL 100.00 Intra-Op Urine Catheter 590.00 Stool Count 0.00 Total Summary Total Intake 3909.77 Total Output 2115.00 Fluid Balance 1794.77 Physical Exam General Appearance: This patient is well-developed and well nourished, and appears stated age. No acute distress. Head: Craniotomy incision well approximated. No erythema or drainage. EENT: Mucous membranes moist. No vision or hearing changes Cardiac: S1 and S2 heard without murmur, rub, or gallop. Regular rate and rhythm. Lungs: Lungs clear. Respirations easy. No shortness of breath noted. Abdomen: BSP x 4. Abd soft, nontender, nondistended. Musculoskeletal: Moves all 4 ext without difficulty Extremities: Bilateral pedal pulses palpable. No edema noted Neurological: See HPI Skin: [place], warm, and dry. Psychiatric: Mood stable. Cooperative. Weight Dosing Weight: 72.8 kg (11/23/23) Medications Medications (22) Active Scheduled: (11) acetaminophen 325 mg Tablet 650 mg 2 tab(s), Oral, q6hr albuterol - ipratropium 2.5 mg-0.5 mg/3 mL Inhal Carolyn UD 3 mL, Inhalation, QIDRT atorvastatin 40 mg tablet 40 mg 1 tab(s), Oral, qPM budesonide 0.5 mg/2 mL Susp UD 1 mg 4 mL, Inhalation, BIDRT dexamethasone 4 mg/1 mL solution 4 mg 1 mL, IV Push, q6h gabapentin 100 mg Capsule 100 mg 1 cap(s), Oral, qPM hydrochlorothiazide 25 mg tablet 25 mg 1 tab(s), Oral, qAM HYDROmorphone 0.5 mg/0.5 mL PF syringe 0.25 mg 0.25 mL, IV Push, Once lidocaine 1% (MPF) 2 mL vial pf 2.5 mg 0.25 mL, Intradermal, prep pharm lisinopril 20 mg tablet 20 mg 1 tab(s), Oral, qAM pantoprazole 40 mg VIAL 40 mg, IV Push, qDayAC Continuous: (4) D5/NS 1,000 mL 1,000 mL, Intravenous, 20 mL/hr insulin regular 100 unit(s) + NS Premix Diluent 100 mL 100 mL, Intravenous nicardipine PMX 20 mg [5 mg/hr] + NS Premix Diluent 200 mL 200 mL, Intravenous, 50 mL/hr NS (0.9% nacl) 1,000 mL 1,000 mL, Intravenous, 100 mL/hr PRN: (7) acetaminophen-codeine 300 mg-60 mg Tablet 1 tab(s), Oral, q4h dextrose 50% Solution Disp syringe 50 mL 12.5 gram(s) 25 mL, IV Push, AsDirected dextrose 50% Solution Disp syringe 50 mL 25 g 50 mL, IV Push, AsDirected hydralazine 20 mg/mL (1mL) vial 10 mg 0.5 mL, IV Push, q2h insulin regular human recombinant 100 units/mL (3 mL) Soln sliding scale insulin, Subcutaneous, q4h morphine 2 mg/mL 1 mL syringe 2 mg 1 mL, IV Push, q3h ondansetron 2 mg/ 1 mL 2 mL INJ 4 mg 2 mL, IV Push, q4h Lab Results 11/24 05:08 WBC: 19.3 H Hgb: 12.7 Hct: 38.5 Platelet: 206 Neutrophil %: 89.4 H Glucose Level: 215 H Sodium Level: 140 Potassium Level: 4.1 BUN: 15.0 Creatinine Lvl (s): 0.55 11/23 17:01 WBC: 20.6 H Hgb: 13.4 Hct: 40.8 Platelet: 218 Neutrophil %: 91.9 H Glucose Level: 336 H Sodium Level: 139 Potassium Level: 4.9 BUN: 18.0 Creatinine Lvl (s): 0.64 EKG No qualifying data available. Assessment/Plan S/P Right frontal craniotomy for tumor resection with [employer] Neuronavigation; Right frontal duraplasty and Right frontal sinus exenteration: -Overall, patient is doing fairly well postoperatively. She has been slow to wake up from anesthesia. She has been a little more awake this morning. She is sleeping intermittently. When waking up she does complain of significant posterior neck pain. -Will continue to monitor the neck pain/headache. If pain worsens or does not subside, will consider a CT of the head. -Continuous EEG done connected last night due to patient not waking post-op- Reviewed by Neurology- no seizure activity. Patient more awake today. -MRI of the brain is ordered. Dr. Aguilar is recommending this be done tomorrow instead of today, this patient is still drowsy and does have a history of sleep apnea, but due to the sinus exenteration, no positive or negative pressure recommended at this time, therefore she is not using her CPAP. Do not want to cause any problems with respiratory obstruction during the MRI. -MRI is planned for tomorrow around 9 AM instead of today. -Will attempt to mobilize this afternoon. PT/OT are consulted and plan to see this afternoon. -Bedside swallow eval passed. Will initiate a diet for lunch as long is as she is awake and alert to eat. -Currently on Dexamethasone 4mg h1n-Myhm on this dose at least through tomorrow. -CT head/sinus will be done prior to discharge. -Due to the sinus exenteration-no straws, nasal cannula, incentive spirometer, bipap/cpap. -Subgaleal drain to thumbprint. -She will remain on Vancomycin until drain removed. -Path pending Bradycardia -Heart rate has been maintaining in the 40's when resting in bed. -Robotype Operator following. No intervention at this time. Please see Dr. Aguilar's addendum for further details and recommendations. Time Spent 15 min Digitally Signed by MELYSSA BOWDEN on 11/24/2023 11:26 AM [facility] 11-25-2023 Note Date of Service 11/25/2022 Patient reviewed and assessed with Dr. Aguilar at the bedside Neurosurgical CC: Two extra-axial right frontal brain lesions s/p right frontal craniotomy for tumor resection; right frontal duraplasty and right frontal sinus exenteration, POD #1 Holley is a 73-year-old female who has followed in neurosurgery clinic with Dr. Aguilar. Brain MRI was reviewed and patient was noted to have 2 extra-axial lesions in the right frontal region. Was also noted to have complaints of intractable headaches and increased anxiety. MRI of the brain was reviewed with the patient and her family during her most recent office visit, and they did elect to proceed with surgical resection. Patient came to [facility] same-day surgery unit on 11/23/2023 and underwent a right frontal craniotomy for tumor resection with [employer] neuronavigation; right frontal duraplasty and right frontal sinus exenteration by Dr. Aguilar. Please see her operative note for full details of surgery performed. A subgaleal drain was placed intraoperatively. Postoperatively, patient was transferred to SICU for further recovery and postoperative care. Postoperatively, patient was noted to have difficulty waking up. Because of this, on POD #[address] was obtained which per Dr. Aguilar's review demonstrated expected postoperative changes. Her ABG was stable. There was concern for nonconvulsive status and an EEG was obtained. EEG report available 11/24/2023. Impression: Abnormal vEEG due to a moderate non-specific encephalopathy initially, with improvement to mild-moderate by the end of the record, and structural dysfunction of the anterior right hemisphere (which is usually present in the setting of tumor/resection). No epileptiform discharges or seizures were seen. Yesterday, patient did continue with sleepiness throughout the day. Was noted to be oriented and answering questions, however would drift off to sleep fairly quickly. She was however able to work with PT/OT services and did tolerate p.o. intake. Yesterday afternoon, a neurology consult was placed for continued lethargy/formal evaluation. This morning, patient seen resting in bed. She is much more alert. Bright on exam. Oriented x 4. Her speech is clear and fluent. Facial features are symmetrical. Her left pupil is slightly larger than her right, however both are reactive. She is moving all extremities without difficulty. Strong and equal motor strength throughout BUE. Sensation intact to light touch. No pronator drift. [id number] testing intact without dysmetria. Left/right discretion intact. Subgaleal drain remains intact. 10 mL of light sanguinous drainage over the last 8 hours. 60 mL the shift prior. Patient to remain on prophylactic antibiotic while this remains in place. Cranial incision is well-approximated with sutures. No open areas or drainage noted. Continue dressing with gauze and Kerlix head wrap covering. Objective Vitals and Measurements T: 36.7 C (Oral) TMIN: 36.5 C (Axillary) TMAX: 36.9 C (Oral) HR: 54 RR: 20 BP: 136/55 SpO2: 93% Intake and Output 7AM Yesterday to 7AM Today Intake and Output (Last 24 hours) Intake Administration Information 960.00 Oral Intake 100.00 Output Surgical Drain, Tube Output: 120.00 Urinary Catheter Output: 850.00 Stool Count 0.00 Total Summary Total Intake 1060.00 Total Output 970.00 Fluid Balance 90.00 Physical Exam See HPI. In addition, respirations are easy and unlabored. Lungs are clear throughout. Saturating well on room air. Regular heart rate and rhythm, S1-S2. Patient continues with slight bradycardia. Heart rate in the 50s for most of the night. Abdomen is soft, nondistended. BSP x 4. + Flatus. Urinary catheter intact. Clear yellow urine visualized in collection tubing. Weight Dosing Weight: 72.8 kg (11/23/23) Medications Medications (22) Active Scheduled: (11) acetaminophen 325 mg Tablet 650 mg 2 tab(s), Oral, q6hr albuterol - ipratropium 2.5 mg-0.5 mg/3 mL Inhal Carolyn UD 3 mL, Inhalation, QIDRT atorvastatin 40 mg tablet 40 mg 1 tab(s), Oral, qPM budesonide 0.5 mg/2 mL Susp UD 1 mg 4 mL, Inhalation, BIDRT dexamethasone 4 mg/1 mL solution 4 mg 1 mL, IV Push, q6h gabapentin 100 mg Capsule 100 mg 1 cap(s), Oral, qPM hydrochlorothiazide 25 mg tablet 25 mg 1 tab(s), Oral, qAM lidocaine 1% (MPF) 2 mL vial pf 2.5 mg 0.25 mL, Intradermal, prep pharm lisinopril 20 mg tablet 20 mg 1 tab(s), Oral, qAM pantoprazole 40 mg EC tablet 40 mg 1 tab(s), Oral, qDayAC vancomycin PMX 1,500 mg 300 mL, IV Piggyback, q12h Continuous: (4) D5/NS 1,000 mL 1,000 mL, Intravenous, 20 mL/hr insulin regular 100 unit(s) + NS Premix Diluent 100 mL 100 mL, Intravenous nicardipine PMX 20 mg [5 mg/hr] + NS Premix Diluent 200 mL 200 mL, Intravenous, 50 mL/hr NS (0.9% nacl) 1,000 mL 1,000 mL, Intravenous, 100 mL/hr PRN: (7) acetaminophen-codeine 300 mg-60 mg Tablet 1 tab(s), Oral, q4h dextrose 50% Solution Disp syringe 50 mL 12.5 gram(s) 25 mL, IV Push, AsDirected dextrose 50% Solution Disp syringe 50 mL 25 g 50 mL, IV Push, AsDirected hydralazine 20 mg/mL (1mL) vial 10 mg 0.5 mL, IV Push, q2h insulin regular human recombinant 100 units/mL (3 mL) Soln sliding scale insulin, Subcutaneous, q4h morphine 2 mg/mL 1 mL syringe 2 mg 1 mL, IV Push, q3h ondansetron 2 mg/ 1 mL 2 mL INJ 4 mg 2 mL, IV Push, q4h Lab Results 11/25 04:22 WBC: 18.2 H Hgb: 12.4 Hct: 37.4 Platelet: 138 L Neutrophil %: 91.7 H Glucose Level: 164 H Sodium Level: 140 Potassium Level: 4.6 BUN: 14.0 Creatinine Lvl (s): 0.54 11/24 05:08 WBC: 19.3 H Hgb: 12.7 Hct: 38.5 Platelet: 206 Neutrophil %: 89.4 H Glucose Level: 215 H Sodium Level: 140 Potassium Level: 4.1 BUN: 15.0 Creatinine Lvl (s): 0.55 Imaging Results and Diagnostics CT Head or Brain w/o Contrast Result Date: November 24, 2023 Verified By: ORLANDO HAMMONDS MD CLINICAL STATEMENT: IMPRESSION: 1. Right pterional craniotomy with redemonstration of and inferolateralfrontal lobe resection cavity/edema containing small amounts of subarachnoidand intraparenchymal hemorrhage.2. Left superior cerebellar intraparenchymal hemorrhage measuring 1.5 x 1.1cm without significant change.3. Unchanged small subdural hemorrhage along the left tentorium cerebelli andsubarachnoid hemorrhage involving the left ambient horn of the quadrigeminalcistern, prepontine, and CP angle cisterns.4. Decreased postsurgical pneumocephalus with increased hypodense subduralfluid overlying the right frontal lobe and with surgical drain in place.5. Unchanged 3-4 mm leftward shift.6. Slight decreased subarachnoid hemorrhage within the left sylvian fissure.Communication was initiated for the radiology call center by this radiologistthrough PACS at 2:53 p.m. on 11/24/2023with instructions to provide theresults of this examination to a licensed caregiver. CT Head or Brain w/o Contrast Result Date: November 23, 2023 Verified By: NEY ANDRADE MD CLINICAL STATEMENT: IMPRESSION: There is right frontotemporal craniotomy with resection of the anterior rightfrontal lobe mass noted on prior MRI study. There are expected postsurgicalchanges including small volume of pneumocephalus and subarachnoid hemorrhageas profile above. There is a 4 mm right-left midline shift. There is nohydrocephalus. Assessment/Plan Two extra-axial right frontal brain lesions s/p right frontal craniotomy for tumor resection with [employer] Neuronavigation; Right frontal duraplasty and Right frontal sinus exenteration, POD #2 This morning, patient is much more alert and bright on exam. She is oriented x 4 appropriately. Doing well postoperatively, has no complaints of headache or neck pain this morning. Pathology is pending. EEG completed postoperatively was negative for any seizure activity. Initially, neurology consulted yesterday afternoon given continued lethargy. This was canceled this morning given patient's mental status has improved significantly and Dr. Aguilar feels that she is back to her preoperative state. Did discuss with Dr. Sánchez. No noted/documented seizure activity overnight. Post-op MRI of the brain to be completed this morning for post-op evaluation. Will begin to taper dexamethasone over a 2-week period. Today, will reduce dose to 4 mg TID x48h. Continue GI prophylaxis. Subgaleal drain with decreased output overnight. Only 10 mL of light sanguinous drainage over the last 8 hours. Ordered for removal today per Dr. Aguilar. Will continue prophylactic antibiotics through tomorrow. Due to the sinus exenteration-no straws, nasal cannula, incentive spirometer, bipap/cpap, etc. CT scan of the head/sinuses to be completed prior to discharge from the hospital. Patient evaluated by PT/OT services yesterday on POD #1. She was mobilizing at minimum assist levels. Will ask for reevaluation today given significant improvement in mental status. Encourage mobilization. Out of bed at least 3 times a day with meals. Continue PT/OT. Will await further recommendations. Discontinue indwelling catheter today. ADA diet ordered. Patient tolerating p.o. intake without nausea or vomiting. No difficulty swallowing. From a neurosurgical standpoint, patient has no cleared for transfer out of ICU today to . Will discontinue telemetry. Robotype Operator team following while patient remains in ICU. Appreciate their help in managing the care of this patient. Please see Dr. Aguilar's addendum for further details and recommendations. Digitally Signed by GABRIELLE COLON on 11/25/2023 10:54 AM [facility] 11-25-2023 Neurological surgery Progress note Date of Service 11/25/[address] Aguilar who has ordered for subgaleal drain removal. I discussed the plan with the patient and she was agreeable. Using sterile technique including gloves, mask, and eye protection, I removed the dry sterile dressing around the drain site and cleansed the drain site with ChloraPrep for 3 minutes and appropriate dry time allowed. The retention suture around the subgaleal drain was clipped and the drain was slowly removed. Catheter fully intact upon removal. Pressure held with dry sterile gauze for 5 minutes. Area again cleansed with ChloraPrep, then covered with dry, sterile gauze 4x4s and covered with a gauze head wrap. Patient tolerated procedure well, without complications. Family at bedside. Digitally Signed by GABRIELLE COLON on 11/25/2023 02:49 PM [facility] 11-25-2023 Note Date of Service 11/25/23 Subjective Doing well today. Up in the chair off oxygen. Drain to be removed today. No complaints. Patient has a prior history of obstructive sleep apnea on CPAP. She uses a device 2 to 3 days a week. Given the frontal sinus exenteration, she would not be able to use the device for 6 to 8 weeks I will need that addressed. She also has a history of sarcoidosis on maintenance therapy with methotrexate and oxygen pendant COPD and remote CVA. She has history of diabetes. She presented for stereotactic tumor removal Objective Vitals and Measurements T: 36.7 C (Oral) TMIN: 36.6 C (Oral) TMAX: 36.9 C (Oral) HR: 54 RR: 20 BP: 136/55 SpO2: 93% Physical Exam Lungs clear. Heart is regular. Abdomen nontender. No leg edema. Drain in place. Weight Dosing Weight: 72.8 kg (11/23/23) Medications Medications (22) Active Scheduled: (11) acetaminophen 325 mg Tablet 650 mg 2 tab(s), Oral, q6hr albuterol - ipratropium 2.5 mg-0.5 mg/3 mL Inhal Carolyn UD 3 mL, Inhalation, QIDRT atorvastatin 40 mg tablet 40 mg 1 tab(s), Oral, qPM budesonide 0.5 mg/2 mL Susp UD 1 mg 4 mL, Inhalation, BIDRT dexamethasone 4 mg tablet 4 mg 1 tab(s), Oral, TID gabapentin 100 mg Capsule 100 mg 1 cap(s), Oral, qPM hydrochlorothiazide 25 mg tablet 25 mg 1 tab(s), Oral, qAM lidocaine 1% (MPF) 2 mL vial pf 2.5 mg 0.25 mL, Intradermal, prep pharm lisinopril 20 mg tablet 20 mg 1 tab(s), Oral, qAM pantoprazole 40 mg EC tablet 40 mg 1 tab(s), Oral, qDayAC vancomycin PMX 1,500 mg 300 mL, IV Piggyback, q12h Continuous: (4) D5/NS 1,000 mL 1,000 mL, Intravenous, 20 mL/hr insulin regular 100 unit(s) + NS Premix Diluent 100 mL 100 mL, Intravenous nicardipine PMX 20 mg [5 mg/hr] + NS Premix Diluent 200 mL 200 mL, Intravenous, 50 mL/hr NS (0.9% nacl) 1,000 mL 1,000 mL, Intravenous, 100 mL/hr PRN: (7) acetaminophen-codeine 300 mg-60 mg Tablet 1 tab(s), Oral, q4h dextrose 50% Solution Disp syringe 50 mL 12.5 gram(s) 25 mL, IV Push, AsDirected dextrose 50% Solution Disp syringe 50 mL 25 g 50 mL, IV Push, AsDirected hydralazine 20 mg/mL (1mL) vial 10 mg 0.5 mL, IV Push, q2h insulin regular human recombinant 100 units/mL (3 mL) Soln sliding scale insulin, Subcutaneous, q4h morphine 2 mg/mL 1 mL syringe 2 mg 1 mL, IV Push, q3h ondansetron 2 mg/ 1 mL 2 mL INJ 4 mg 2 mL, IV Push, q4h Lab Results 11/25 04:22 WBC: 18.2 H Hgb: 12.4 Hct: 37.4 Platelet: 138 L Neutrophil %: 91.7 H Glucose Level: 164 H Sodium Level: 140 Potassium Level: 4.6 BUN: 14.0 Creatinine Lvl (s): 0.54 Assessment/Plan 1. Day #2 s/p right frontal craniotomy for stereotactic tumor resection and right frontal duraplasty and right frontal sinus exenteration 2. History of steroid-dependent COPD 3. History of obstructive sleep apnea. Will not be able to use her pressure device for 6 to 8 weeks 4. History of sarcoidosis on maintenance therapy with methotrexate 5. Other history includes CKD and diabetes and prior CVA Plan: 1. Dexamethasone 4 mg IV every 6 hours per neurosurgery 2. Blood pressure medications 3. Vancomycin IV per surgery 4. May discontinue GI prophylaxis and IV fluids 5. As far as her sleep apnea treatment is concerned, we will obtain a nocturnal oximetry on room air here in the hospital. If she is dropping her oxygen at night enough that she could qualify for nocturnal oxygen until she is able to use her CPAP device again. Pulmonary will follow for that. The patient usually follows with Dr. Shah [place] Digitally Signed by VICENTA CANALES MD on 11/25/2023 11:29 AM [facility] 11-25-2023 Note Date of Service 11/25/2022 Patient reviewed and assessed with Dr. Aguilar at the bedside Neurosurgical CC: Two extra-axial right frontal brain lesions s/p right frontal craniotomy for tumor resection; right frontal duraplasty and right frontal sinus exenteration, POD #1 Holley is a 73-year-old female who has followed in neurosurgery clinic with Dr. Aguilar. Brain MRI was reviewed and patient was noted to have 2 extra-axial lesions in the right frontal region. Was also noted to have complaints of intractable headaches and increased anxiety. MRI of the brain was reviewed with the patient and her family during her most recent office visit, and they did elect to proceed with surgical resection. Patient came to [facility] same-day surgery unit on 11/23/2023 and underwent a right frontal craniotomy for tumor resection with [employer] neuronavigation; right frontal duraplasty and right frontal sinus exenteration by Dr. Aguilar. Please see her operative note for full details of surgery performed. A subgaleal drain was placed intraoperatively. Postoperatively, patient was transferred to SICU for further recovery and postoperative care. Postoperatively, patient was noted to have difficulty waking up. Because of this, on POD #[address] was obtained which per Dr. Aguilar's review demonstrated expected postoperative changes. Her ABG was stable. There was concern for nonconvulsive status and an EEG was obtained. EEG report available 11/24/2023. Impression: Abnormal vEEG due to a moderate non-specific encephalopathy initially, with improvement to mild-moderate by the end of the record, and structural dysfunction of the anterior right hemisphere (which is usually present in the setting of tumor/resection). No epileptiform discharges or seizures were seen. Yesterday, patient did continue with sleepiness throughout the day. Was noted to be oriented and answering questions, however would drift off to sleep fairly quickly. She was however able to work with PT/OT services and did tolerate p.o. intake. Yesterday afternoon, a neurology consult was placed for continued lethargy/formal evaluation. This morning, patient seen resting in bed. She is much more alert. Bright on exam. Oriented x 4. Her speech is clear and fluent. Facial features are symmetrical. Her left pupil is slightly larger than her right, however both are reactive. She is moving all extremities without difficulty. Strong and equal motor strength throughout BUE. Sensation intact to light touch. No pronator drift. Zyjyrn-ka-lusr testing intact without dysmetria. Left/right discretion intact. Subgaleal drain remains intact. 10 mL of light sanguinous drainage over the last 8 hours. 60 mL the shift prior. Patient to remain on prophylactic antibiotic while this remains in place. Cranial incision is well-approximated with sutures. No open areas or drainage noted. Continue dressing with gauze and Kerlix head wrap covering. Objective Vitals and Measurements T: 36.7 C (Oral) TMIN: 36.5 C (Axillary) TMAX: 36.9 C (Oral) HR: 54 RR: 20 BP: 136/55 SpO2: 93% Intake and Output 7AM Yesterday to 7AM Today Intake and Output (Last 24 hours) Intake Administration Information 960.00 Oral Intake 100.00 Output Surgical Drain, Tube Output: 120.00 Urinary Catheter Output: 850.00 Stool Count 0.00 Total Summary Total Intake 1060.00 Total Output 970.00 Fluid Balance 90.00 Physical Exam See HPI. In addition, respirations are easy and unlabored. Lungs are clear throughout. Saturating well on room air. Regular heart rate and rhythm, S1-S2. Patient continues with slight bradycardia. Heart rate in the 50s for most of the night. Abdomen is soft, nondistended. BSP x 4. + Flatus. Urinary catheter intact. Clear yellow urine visualized in collection tubing. Weight Dosing Weight: 72.8 kg (11/23/23) Medications Medications (22) Active Scheduled: (11) acetaminophen 325 mg Tablet 650 mg 2 tab(s), Oral, q6hr albuterol - ipratropium 2.5 mg-0.5 mg/3 mL Inhal Carolyn UD 3 mL, Inhalation, QIDRT atorvastatin 40 mg tablet 40 mg 1 tab(s), Oral, qPM budesonide 0.5 mg/2 mL Susp UD 1 mg 4 mL, Inhalation, BIDRT dexamethasone 4 mg/1 mL solution 4 mg 1 mL, IV Push, q6h gabapentin 100 mg Capsule 100 mg 1 cap(s), Oral, qPM hydrochlorothiazide 25 mg tablet 25 mg 1 tab(s), Oral, qAM lidocaine 1% (MPF) 2 mL vial pf 2.5 mg 0.25 mL, Intradermal, prep pharm lisinopril 20 mg tablet 20 mg 1 tab(s), Oral, qAM pantoprazole 40 mg EC tablet 40 mg 1 tab(s), Oral, qDayAC vancomycin PMX 1,500 mg 300 mL, IV Piggyback, q12h Continuous: (4) D5/NS 1,000 mL 1,000 mL, Intravenous, 20 mL/hr insulin regular 100 unit(s) + NS Premix Diluent 100 mL 100 mL, Intravenous nicardipine PMX 20 mg [5 mg/hr] + NS Premix Diluent 200 mL 200 mL, Intravenous, 50 mL/hr NS (0.9% nacl) 1,000 mL 1,000 mL, Intravenous, 100 mL/hr PRN: (7) acetaminophen-codeine 300 mg-60 mg Tablet 1 tab(s), Oral, q4h dextrose 50% Solution Disp syringe 50 mL 12.5 gram(s) 25 mL, IV Push, AsDirected dextrose 50% Solution Disp syringe 50 mL 25 g 50 mL, IV Push, AsDirected hydralazine 20 mg/mL (1mL) vial 10 mg 0.5 mL, IV Push, q2h insulin regular human recombinant 100 units/mL (3 mL) Soln sliding scale insulin, Subcutaneous, q4h morphine 2 mg/mL 1 mL syringe 2 mg 1 mL, IV Push, q3h ondansetron 2 mg/ 1 mL 2 mL INJ 4 mg 2 mL, IV Push, q4h Lab Results 11/25 04:22 WBC: 18.2 H Hgb: 12.4 Hct: 37.4 Platelet: 138 L Neutrophil %: 91.7 H Glucose Level: 164 H Sodium Level: 140 Potassium Level: 4.6 BUN: 14.0 Creatinine Lvl (s): 0.54 11/24 05:08 WBC: 19.3 H Hgb: 12.7 Hct: 38.5 Platelet: 206 Neutrophil %: 89.4 H Glucose Level: 215 H Sodium Level: 140 Potassium Level: 4.1 BUN: 15.0 Creatinine Lvl (s): 0.55 Imaging Results and Diagnostics CT Head or Brain w/o Contrast Result Date: November 24, 2023 Verified By: ORLANDO HAMMONDS MD CLINICAL STATEMENT: IMPRESSION: 1. Right pterional craniotomy with redemonstration of and inferolateralfrontal lobe resection cavity/edema containing small amounts of subarachnoidand intraparenchymal hemorrhage.2. Left superior cerebellar intraparenchymal hemorrhage measuring 1.5 x 1.1cm without significant change.3. Unchanged small subdural hemorrhage along the left tentorium cerebelli andsubarachnoid hemorrhage involving the left ambient horn of the quadrigeminalcistern, prepontine, and CP angle cisterns.4. Decreased postsurgical pneumocephalus with increased hypodense subduralfluid overlying the right frontal lobe and with surgical drain in place.5. Unchanged 3-4 mm leftward shift.6. Slight decreased subarachnoid hemorrhage within the left sylvian fissure.Communication was initiated for the radiology call center by this radiologistthrough PACS at 2:53 p.m. on 11/24/2023with instructions to provide theresults of this examination to a licensed caregiver. CT Head or Brain w/o Contrast Result Date: November 23, 2023 Verified By: NEY ANDRADE MD CLINICAL STATEMENT: IMPRESSION: There is right frontotemporal craniotomy with resection of the anterior rightfrontal lobe mass noted on prior MRI study. There are expected postsurgicalchanges including small volume of pneumocephalus and subarachnoid hemorrhageas profile above. There is a 4 mm right-left midline shift. There is nohydrocephalus. Assessment/Plan Two extra-axial right frontal brain lesions s/p right frontal craniotomy for tumor resection with [employer] Neuronavigation; Right frontal duraplasty and Right frontal sinus exenteration, POD #2 This morning, patient is much more alert and bright on exam. She is oriented x 4 appropriately. Doing well postoperatively, has no complaints of headache or neck pain this morning. Pathology is pending. EEG completed postoperatively was negative for any seizure activity. Initially, neurology consulted yesterday afternoon given continued lethargy. This was canceled this morning given patient's mental status has improved significantly and Dr. Aguilar feels that she is back to her preoperative state. Did discuss with Dr. Sánchez. No noted/documented seizure activity overnight. Post-op MRI of the brain to be completed this morning for post-op evaluation. Will begin to taper dexamethasone over a 2-week period. Today, will reduce dose to 4 mg TID x48h. Continue GI prophylaxis. Subgaleal drain with decreased output overnight. Only 10 mL of light sanguinous drainage over the last 8 hours. Ordered for removal today per Dr. Aguilar. Will continue prophylactic antibiotics through tomorrow. Due to the sinus exenteration-no straws, nasal cannula, incentive spirometer, bipap/cpap, etc. CT scan of the head/sinuses to be completed prior to discharge from the hospital. Patient evaluated by PT/OT services yesterday on POD #1. She was mobilizing at minimum assist levels. Will ask for reevaluation today given significant improvement in mental status. Encourage mobilization. Out of bed at least 3 times a day with meals. Continue PT/OT. Will await further recommendations. Discontinue indwelling catheter today. ADA diet ordered. Patient tolerating p.o. intake without nausea or vomiting. No difficulty swallowing. From a neurosurgical standpoint, patient has no cleared for transfer out of ICU today to . Will discontinue telemetry. Robotype Operator team following while patient remains in ICU. Appreciate their help in managing the care of this patient. Please see Dr. Aguilar's addendum for further details and recommendations. Digitally Signed by RENEE COLONSEJohn SOW on 11/25/2023 10:54 AM [facility] 11-25-2023 Note ORIGINAL EXAMINATION: MR Brain with and without intravenous contrast TECHNIQUE: Multiplanar multi sequential MRI of the brain without and with intravenous contrast per standard protocol. COMPARISON: CT head 11/24/2023, MRI brain 11/23/2023, MRI brain 09/12/2023 HISTORY: ORDERING SYSTEM PROVIDED HISTORY: Reason for Exam: Postop evaluation FINDINGS: Parenchyma: Again seen is a right pterional craniotomy with subjacent subdural fluid along the inferior temporal and frontal lobes extending to overlie the right frontal convexity. Postsurgical pneumocephalus anterior to the bifrontal poles is noted. A right subdural surgical drainage catheter overlying the frontal lobe is noted. This fluid collection measures 12 mm in maximal AP diameter (axial post-contrast image 13 series 8). Right-sided restricted diffusion involves the inferolateral frontal lobe, frontal operculum and middle frontal gyrus favored to reflect an acute/early subacute infarct. Hemorrhagic blood products within this area of restricted diffusion are identified consistent with the CT examination of reference. There is effacement of the adjacent gyri and sulci and right lateral ventricle. A 2 mm leftward shift measured at the frontal horns is present. An area of restricted diffusion with hemorrhagic blood products involves the left superior cerebellum (axial diffusion images 6-8 series 2) also favored to reflect an acute/early subacute hemorrhagic infarct. Again seen is subarachnoid hemorrhage in the right sylvian fissure, near the left ambient horn of the quadrigeminal cistern and in the bilateral frontal and parietal sulci.. Subdural blood layers along the left tentorium and incisura. Ventricles: Effacement of the right lateral ventricle. No evidence of hydrocephalus. Orbits: Normal. Post bilateral lens implant surgery. Major intracranial flow voids: Preserved. Paranasal sinuses: Extensive opacification of the bilateral frontal sinuses with moderate opacification of the bilateral anterior ethmoid sinuses. Minimal opacification of the bilateral maxillary sinuses. Mastoids and middle ears: Trace fluid in the bilateral mastoid air cells. Bones: Right pterional craniotomy. Extracranial soft tissues: Postsurgical changes involving the right frontal and temporal regions. Additional comment: Normal. IMPRESSION: 1. Restricted diffusion in the right frontal lobe favored to reflect an acute/early subacute hemorrhagic infarct. 2. Restricted diffusion of the left superior cerebellum containing hemorrhagic blood products also favored to reflect an acute/early subacute hemorrhagic infarct. 3. Right pterional craniotomy with underlying subdural fluid and drainage catheter in place. 4. 2 mm leftward shift. 5. Redemonstrated small volumes of subarachnoid hemorrhage within the right sylvian fissure, bilateral frontal and parietal sulci. 6. Subdural hemorrhage layering along the left tentorium cerebelli and incisura. 7. Diffuse paranasal sinus disease with complete opacification of the frontal sinuses. Communication was initiated for the radiology call center by this radiologist through PACS at 1:42 p.m. on 11/25/2023with instructions to provide the results of this examination to a licensed caregiver. Interpreted by: Orlando Hammonds MD Preliminary Report By: Orlando Hammonds MD Electronically signed By Orlando Hammonds MD Dictated Date: 11/25/2023 12:33:28 PM Prelim Date: 11/25/2023 1:43:18 PM Sign Date: 11/25/2023 1:43:18 PM Ordering Provider: [facility] 11-24-2023 Note ORIGINAL EXAMINATION: CT HEAD TECHNIQUE: Axial CT images from skull base to vertex without IV contrast. This exam was performed according to our departmental dose optimization program, and includes the following measures where applicable: automated exposure control, adjustment of the mAs and/or kVp according to patient size and/or exam, and an iterative reconstruction algorithm. COMPARISON: CT head 11/23/2023, MRI brain 11/23/2023 HISTORY: ORDERING SYSTEM PROVIDED HISTORY: Reason for Exam: crani yesterday pt is lethargic slow to respond s/p surg 24 hours 2 brain tumors removed lethargy after craniotomy FINDINGS: Redemonstrated is a right pterional craniotomy with an underlying postsurgical resection cavity/edema in the right inferolateral frontal lobe (1.5 x 2.1 x 2.6 cm) and along the pterion (0.9 x 2.1 cm). Small volumes of subarachnoid and intraparenchymal hemorrhage associated with the 1st hypodense area described. There is decreased subarachnoid hemorrhage within the right sylvian fissure. An unchanged 3-4 mm leftward shift is present. There is interval decreased pneumocephalus. Increased predominantly hypodense subdural fluid at the craniotomy site measures 11 mm in transverse dimension (coronal image 8 series 601). A surgical drain within the right frontal subdural space is present. Hyperdensity within the left superior cerebellum measures approximately 1.5 x 1.1 cm (CC x TRV) reflecting parenchymal hemorrhage (sagittal image 22 series 602). Subdural component along the left tentorium is noted. Small volume of subarachnoid hemorrhage is present within the left ambient horn of the quadrigeminal cistern and left prepontine cistern. There is a partially empty sella. Ventricles: Increased mild effacement of the right lateral and 3rd ventricles. Vessels: No significant atherosclerotic calcifications. Orbits: Unremarkable. Calvarium: Right pterional craniotomy. Paranasal sinuses: Clear. Mastoid sinuses: Clear. IMPRESSION: 1. Right pterional craniotomy with redemonstration of and inferolateral frontal lobe resection cavity/edema containing small amounts of subarachnoid and intraparenchymal hemorrhage. 2. Left superior cerebellar intraparenchymal hemorrhage measuring 1.5 x 1.1 cm without significant change. 3. Unchanged small subdural hemorrhage along the left tentorium cerebelli and subarachnoid hemorrhage involving the left ambient horn of the quadrigeminal cistern, prepontine, and CP angle cisterns. 4. Decreased postsurgical pneumocephalus with increased hypodense subdural fluid overlying the right frontal lobe and with surgical drain in place. 5. Unchanged 3-4 mm leftward shift. 6. Slight decreased subarachnoid hemorrhage within the left sylvian fissure. Communication was initiated for the radiology call center by this radiologist through PACS at 2:53 p.m. on 11/24/2023with instructions to provide the results of this examination to a licensed caregiver. Interpreted by: Orlando Hammonds MD Preliminary Report By: Orlando Hammonds MD Electronically signed By Orlando Hammonds MD Dictated Date: 11/24/2023 2:29:50 PM Prelim Date: 11/24/2023 2:55:01 PM Sign Date: 11/24/2023 2:55:01 PM Ordering Provider: MELYSSA BOWDEN [facility] 11-24-2023 Note PROCEDURE TYPE: STAT inpatient vEEG (approximately 10 hours) PROCEDURE DATE: 11/23/2023 through 11/24/2023 REASON FOR EEG: Evaluate for epileptiform activity SUMMARY OF FINDINGS: Initially, the recording consisted of continuous reactive generalized theta-delta slowing without a posterior dominant rhythm. By the end of the recording there was a slow PDR that emerged. There was focal slowing of the anterior right hemisphere. No interictal epileptiform discharges or electrographic seizures were identified. GENERAL IMPRESSION: Abnormal vEEG due to a moderate non-specific encephalopathy initially, with improvement to mild-moderate by the end of the record, and structural dysfunction of the anterior right hemisphere (which is usually present in the setting of tumor/resection). No epileptiform discharges or seizures were seen. Digitally Signed by STEFAN SÁNCHEZ MD on 11/24/2023 12:57 PM [facility] 11-24-2023 Neurological surgery Progress note Date of Service 11/24/2023 Chief Complaint S/P Right frontal craniotomy for tumor resection with [employer] Neuronavigation; Right frontal duraplasty and Right frontal sinus exenteration- post-op day #1. This is a 73 year old female, who was admitted for a right frontal craniotomy for tumor resection, right frontal duraplasty, and right frontal sinus exenteration. Prior to her admission, she was evaluated in the neurosurgery office where her MRI was reviewed and she was noted to have 2 extra-axial lesions in the right frontal region. Prior to surgery, she was having complaints of intractable headaches as well as increased anxiety, as her sister was recently diagnosed with brain cancer. Her MRI of the brain was reviewed with her and her family during her office visit, and they elected to proceed with surgical resection of the lesions. Postoperatively, she did take her quite some time to wake up after anesthesia. After 3 hours, she was still not waking up well. Patient was connected to continuous EEG overnight, and was reviewed by neurology. No seizure activity was noted. She did start to wake up more overnight and was little more awake this morning. She has been sleeping intermittently this morning. She does wake up and answered orientation questions appropriately. She is complaining of significant pain in the back of her neck. She also had nausea, but it was after receiving morphine. Currently, she is resting with no distress. She is able to move all 4 extremities without difficulty. Follows commands. Pupils are +2 and reactive, although her right pupil seems to slightly larger than the left. Speech is clear. Facial structures appear symmetrical. Crani dressing is dry and intact. Blood pressure has been stable 120/42. She has been bradycardic. Heart rate in the 40s when she is resting. Subgaleal drain in place. 140 cc drained on afternoon; 110 cc overnight. Objective Vitals and Measurements T: 37.4 C (Oral) TMIN: 36 C TMAX: 37.96 C HR: 65(Monitored) RR: 18 BP: 120/42 BP: 119/99(Line) SpO2: 96% Intake and Output 7AM Yesterday to 7AM Today Intake and Output (Last 24 hours) Intake Administration Information 3909.77 Output Surgical Drain, Tube Output: 300.00 Urinary Catheter Output: 1125.00 Intra-Op EBL 100.00 Intra-Op Urine Catheter 590.00 Stool Count 0.00 Total Summary Total Intake 3909.77 Total Output 2115.00 Fluid Balance 1794.77 Physical Exam General Appearance: This patient is well-developed and well nourished, and appears stated age. No acute distress. Head: Craniotomy incision well approximated. No erythema or drainage. EENT: Mucous membranes moist. No vision or hearing changes Cardiac: S1 and S2 heard without murmur, rub, or gallop. Regular rate and rhythm. Lungs: Lungs clear. Respirations easy. No shortness of breath noted. Abdomen: BSP x 4. Abd soft, nontender, nondistended. Musculoskeletal: Moves all 4 ext without difficulty Extremities: Bilateral pedal pulses palpable. No edema noted Neurological: See HPI Skin: [place], warm, and dry. Psychiatric: Mood stable. Cooperative. Weight Dosing Weight: 72.8 kg (11/23/23) Medications Medications (22) Active Scheduled: (11) acetaminophen 325 mg Tablet 650 mg 2 tab(s), Oral, q6hr albuterol - ipratropium 2.5 mg-0.5 mg/3 mL Inhal Carolyn UD 3 mL, Inhalation, QIDRT atorvastatin 40 mg tablet 40 mg 1 tab(s), Oral, qPM budesonide 0.5 mg/2 mL Susp UD 1 mg 4 mL, Inhalation, BIDRT dexamethasone 4 mg/1 mL solution 4 mg 1 mL, IV Push, q6h gabapentin 100 mg Capsule 100 mg 1 cap(s), Oral, qPM hydrochlorothiazide 25 mg tablet 25 mg 1 tab(s), Oral, qAM HYDROmorphone 0.5 mg/0.5 mL PF syringe 0.25 mg 0.25 mL, IV Push, Once lidocaine 1% (MPF) 2 mL vial pf 2.5 mg 0.25 mL, Intradermal, prep pharm lisinopril 20 mg tablet 20 mg 1 tab(s), Oral, qAM pantoprazole 40 mg VIAL 40 mg, IV Push, qDayAC Continuous: (4) D5/NS 1,000 mL 1,000 mL, Intravenous, 20 mL/hr insulin regular 100 unit(s) + NS Premix Diluent 100 mL 100 mL, Intravenous nicardipine PMX 20 mg [5 mg/hr] + NS Premix Diluent 200 mL 200 mL, Intravenous, 50 mL/hr NS (0.9% nacl) 1,000 mL 1,000 mL, Intravenous, 100 mL/hr PRN: (7) acetaminophen-codeine 300 mg-60 mg Tablet 1 tab(s), Oral, q4h dextrose 50% Solution Disp syringe 50 mL 12.5 gram(s) 25 mL, IV Push, AsDirected dextrose 50% Solution Disp syringe 50 mL 25 g 50 mL, IV Push, AsDirected hydralazine 20 mg/mL (1mL) vial 10 mg 0.5 mL, IV Push, q2h insulin regular human recombinant 100 units/mL (3 mL) Soln sliding scale insulin, Subcutaneous, q4h morphine 2 mg/mL 1 mL syringe 2 mg 1 mL, IV Push, q3h ondansetron 2 mg/ 1 mL 2 mL INJ 4 mg 2 mL, IV Push, q4h Lab Results 11/24 05:08 WBC: 19.3 H Hgb: 12.7 Hct: 38.5 Platelet: 206 Neutrophil %: 89.4 H Glucose Level: 215 H Sodium Level: 140 Potassium Level: 4.1 BUN: 15.0 Creatinine Lvl (s): 0.55 11/23 17:01 WBC: 20.6 H Hgb: 13.4 Hct: 40.8 Platelet: 218 Neutrophil %: 91.9 H Glucose Level: 336 H Sodium Level: 139 Potassium Level: 4.9 BUN: 18.0 Creatinine Lvl (s): 0.64 EKG No qualifying data available. Assessment/Plan S/P Right frontal craniotomy for tumor resection with [employer] Neuronavigation; Right frontal duraplasty and Right frontal sinus exenteration: -Overall, patient is doing fairly well postoperatively. She has been slow to wake up from anesthesia. She has been a little more awake this morning. She is sleeping intermittently. When waking up she does complain of significant posterior neck pain. -Will continue to monitor the neck pain/headache. If pain worsens or does not subside, will consider a CT of the head. -Continuous EEG done connected last night due to patient not waking post-op- Reviewed by Neurology- no seizure activity. Patient more awake today. -MRI of the brain is ordered. Dr. Aguilar is recommending this be done tomorrow instead of today, this patient is still drowsy and does have a history of sleep apnea, but due to the sinus exenteration, no positive or negative pressure recommended at this time, therefore she is not using her CPAP. Do not want to cause any problems with respiratory obstruction during the MRI. -MRI is planned for tomorrow around 9 AM instead of today. -Will attempt to mobilize this afternoon. PT/OT are consulted and plan to see this afternoon. -Bedside swallow eval passed. Will initiate a diet for lunch as long is as she is awake and alert to eat. -Currently on Dexamethasone 4mg q0p-Kbkh on this dose at least through tomorrow. -CT head/sinus will be done prior to discharge. -Due to the sinus exenteration-no straws, nasal cannula, incentive spirometer, bipap/cpap. -Subgaleal drain to thumbprint. -She will remain on Vancomycin until drain removed. -Path pending Bradycardia -Heart rate has been maintaining in the 40's when resting in bed. -Robotype Operator following. No intervention at this time. Please see Dr. Aguilar's addendum for further details and recommendations. Time Spent 15 min Digitally Signed by MELYSSA BOWDEN on 11/24/2023 11:26 AM [facility] 11-24-2023 Note Date of Service 11/24/2023 Chief Complaint This is a 73-year-old female with a history of diabetes, hypertension, hyperlipidemia, CKD, COPD on Flovent and chronic steroids, sarcoidosis on methotrexate and chronic steroids, CRICKET on CPAP, past CVA with left arm weakness. The patient had intractable headaches and recent finding of 2 right-sided brain masses. She was admitted and went to the OR for right frontal crani for tumor resection, duraplasty, sinus exenteration. She returned to the SICU with a drain in place. The patient has been weaned to room air. She is drowsy, interactive, following commands. She remains bradycardic. Objective Vitals and Measurements T: 37.4 C (Oral) TMIN: 36 C TMAX: 37.96 C HR: 46(Monitored) RR: 18 BP: 128/63 BP: 119/99(Line) SpO2: 94% Intake and Output 7AM Yesterday to 7AM Today Intake and Output (Last 24 hours) Intake Administration Information 3909.91 Output Surgical Drain, Tube Output: 250.00 Urinary Catheter Output: 1125.00 Intra-Op EBL 100.00 Intra-Op Urine Catheter 870.00 Stool Count 0.00 Total Summary Total Intake 3909.91 Total Output 2345.00 Fluid Balance 1564.91 Physical Exam - GENERAL: No acute distress. - HEENT: EOMI. moist mucous membranes. LALY drain at surgical site. - LUNGS: Clear to auscultation bilaterally. No accessory muscle use. - CARDIOVASCULAR: Bradycardic, regular - ABDOMEN: Soft, non-tender and non-distended. - EXTREMITIES: No edema. - SKIN: No rashes or lesions. Warm. - NEUROLOGIC: Alert to voice, oriented to situation. Moving all extremities. - PSYCHIATRIC: Drowsy Weight Dosing Weight: 72.8 kg (11/23/23) Medications Medications (22) Active Scheduled: (10) albuterol - ipratropium 2.5 mg-0.5 mg/3 mL Inhal Carolyn UD 3 mL, Inhalation, QIDRT atorvastatin 40 mg tablet 40 mg 1 tab(s), Oral, qPM budesonide 0.5 mg/2 mL Susp UD 1 mg 4 mL, Inhalation, BIDRT dexamethasone 4 mg/1 mL solution 4 mg 1 mL, IV Push, q6h gabapentin 100 mg Capsule 100 mg 1 cap(s), Oral, qPM hydrochlorothiazide 25 mg tablet 25 mg 1 tab(s), Oral, qAM HYDROmorphone 0.5 mg/0.5 mL PF syringe 0.25 mg 0.25 mL, IV Push, Once lidocaine 1% (MPF) 2 mL vial pf 2.5 mg 0.25 mL, Intradermal, prep pharm lisinopril 20 mg tablet 20 mg 1 tab(s), Oral, qAM pantoprazole 40 mg VIAL 40 mg, IV Push, qDayAC Continuous: (4) D5/NS 1,000 mL 1,000 mL, Intravenous, 20 mL/hr insulin regular 100 unit(s) + NS Premix Diluent 100 mL 100 mL, Intravenous nicardipine PMX 20 mg [5 mg/hr] + NS Premix Diluent 200 mL 200 mL, Intravenous, 50 mL/hr NS (0.9% nacl) 1,000 mL 1,000 mL, Intravenous, 100 mL/hr PRN: (8) acetaminophen 325 mg Tablet 650 mg 2 tab(s), Oral, q4h acetaminophen-codeine 300 mg-60 mg Tablet 1 tab(s), Oral, q4h dextrose 50% Solution Disp syringe 50 mL 12.5 gram(s) 25 mL, IV Push, AsDirected dextrose 50% Solution Disp syringe 50 mL 25 g 50 mL, IV Push, AsDirected hydralazine 20 mg/mL (1mL) vial 10 mg 0.5 mL, IV Push, q2h insulin regular human recombinant 100 units/mL (3 mL) Soln sliding scale insulin, Subcutaneous, q4h morphine 2 mg/mL 1 mL syringe 2 mg 1 mL, IV Push, q3h ondansetron 2 mg/ 1 mL 2 mL INJ 4 mg 2 mL, IV Push, q4h Lab Results 11/24 05:08 WBC: 19.3 H Hgb: 12.7 Hct: 38.5 Platelet: 206 Neutrophil %: 89.4 H Glucose Level: 215 H Sodium Level: 140 Potassium Level: 4.1 BUN: 15.0 Creatinine Lvl (s): 0.55 11/23 17:01 WBC: 20.6 H Hgb: 13.4 Hct: 40.8 Platelet: 218 Neutrophil %: 91.9 H Glucose Level: 336 H Sodium Level: 139 Potassium Level: 4.9 BUN: 18.0 Creatinine Lvl (s): 0.64 EKG No qualifying data available. 1. Day #1 status post right frontal craniotomy for stereotactic tumor resection with right frontal duraplasty and right frontal sinus exenteration 2. Decreased responsiveness postop. No clear metabolic explanation. Concern for seizures. 3. History of CRICEKT. Will not be able to use pressure therapy for 6 to 8 weeks 4. History of steroid-dependent COPD 5. History of methotrexate dependent sarcoidosis 6. Other history includes chronic kidney disease and diabetes and prior CVA Plan: 1. Continue nocturnal oxygen via face tent, avoid hyperoxygenation 2. GI/DVT prophylaxis 3. Started on dexamethasone per neurosurgery 4. For treatment of obstructive sleep apnea we will try to keep the jaw elevated by using a neck collar at night. 5. DuoNeb aerosols every 6 hours 6. EEG pending 7. Scheduled acetaminophen 650 q6 hours. Judicious use of opiates. Discussed with the SICU team Digitally Signed by ESTUARDO LICONA MD on 11/24/2023 08:54 AM [facility] 11-23-2023 Neurological surgery Progress note Date of Service 11/23/2023 Chief Complaint Post op Subjective Not awake Objective Vitals and Measurements T: 36.7 C (Oral) TMIN: 36 C TMAX: 37.96 C HR: 46(Monitored) RR: 17 BP: 130/43 BP: 105/48(Line) SpO2: 99% HT: 154.9 cm WT: 72.8 kg Intake and Output 7AM Yesterday to 7AM Today Intake and Output (Last 24 hours) Intake Administration Information 2250.86 Output Intra-Op EBL 100.00 Intra-Op Urine Catheter 870.00 Total Summary Total Intake 2250.86 Total Output 970.00 Fluid Balance 1280.86 Physical Exam Somnolent Gaze is dysconjugate Anisocoria L greater than right Will open eyes once to voice, does not wake up Other than eye opening to name, no commands On occasion, will spontaneously open eyes and flex at elbow but does not execute purposeful movement Has intermittently flexed all four extremities spontaneously, not to command however Weight Dosing Weight: 72.8 kg (11/23/23) Medications Medications (22) Active Scheduled: (10) albuterol - ipratropium 2.5 mg-0.5 mg/3 mL Inhal Carolyn UD 3 mL, Inhalation, QIDRT atorvastatin 40 mg tablet 40 mg 1 tab(s), Oral, qPM budesonide 0.5 mg/2 mL Susp UD 1 mg 4 mL, Inhalation, BIDRT dexamethasone 4 mg/1 mL solution 4 mg 1 mL, IV Push, q6h gabapentin 100 mg Capsule 100 mg 1 cap(s), Oral, qPM hydrochlorothiazide 25 mg tablet 25 mg 1 tab(s), Oral, qAM lidocaine 1% (MPF) 2 mL vial pf 2.5 mg 0.25 mL, Intradermal, prep pharm lisinopril 20 mg tablet 20 mg 1 tab(s), Oral, qAM pantoprazole 40 mg VIAL 40 mg, IV Push, qDayAC vancomycin PMX 1,250 mg 250 mL, IV Piggyback, q12hr Continuous: (4) insulin regular 100 unit(s) + NS Premix Diluent 100 mL 100 mL, Intravenous nicardipine PMX 20 mg [5 mg/hr] + NS Premix Diluent 200 mL 200 mL, Intravenous, 50 mL/hr NS (0.9% nacl) 1,000 mL 1,000 mL, Intravenous, 20 mL/hr NS (0.9% nacl) 1,000 mL 1,000 mL, Intravenous, 125 mL/hr PRN: (8) acetaminophen 325 mg Tablet 650 mg 2 tab(s), Oral, q4h acetaminophen-codeine 300 mg-60 mg Tablet 1 tab(s), Oral, q4h dextrose 50% Solution Disp syringe 50 mL 12.5 gram(s) 25 mL, IV Push, AsDirected dextrose 50% Solution Disp syringe 50 mL 25 g 50 mL, IV Push, AsDirected hydralazine 20 mg/mL (1mL) vial 10 mg 0.5 mL, IV Push, q2h insulin regular human recombinant 100 units/mL (3 mL) Soln sliding scale insulin, Subcutaneous, q4h morphine 2 mg/mL 1 mL syringe 2 mg 1 mL, IV Push, q3h ondansetron 2 mg/ 1 mL 2 mL INJ 4 mg 2 mL, IV Push, q4h Lab Results No 36 Hour Lab Data EKG No qualifying data available. Assessment/Plan S/P right frontal craniotomy for tumor excision Right frontal sinus exenteration At bedside. Neurologically, she is not waking up. Surgery concluded 3 hours ago, and her exam has made no improvement. STAT CT head obtained, expected post op changes. ABG shows normocapnia and good oxygenation. ICU team also at bedside. Concern for non convulsive status as potential etiology for exam. Called and discussed with Neurology, and will be obtaining EEG. Monitor closely No positive pressure through nasal passages due to sinus work: will have to hold CPAP, BiPAP, no straws, no IS, no nasal cannula On Decadron w GI ppx Spoke with family post op, they remained briefly prior to leaving for the evening and will return in the AM. Digitally Signed by CORY AGUILAR MD on 11/23/2023 05:28 PM [facility] 11-23-2023 Critical care medicine Consult note Date of Service 11/23/2023 Reason for Consultation Critical care management Referring Physician Dr. Aguilar History of Present Illness Patient is 73 years old. She is seen in the ICU today after having a right frontal craniotomy for stereotactic tumor resection, as well as right frontal duraplasty and right frontal sinus exenteration. LALY drain was placed. Postoperatively, the patient still has not waking up yet. Arterial blood gases showed normocapnia. Patient does not appear to be in acute distress. Vital signs are stable. Repeat CAT scan. Does not show any acute findings. Patient is placed on oxygen postoperatively. Due to the reach into the frontal sinus, the patient will not be able to be on CPAP or nasal oxygen. She is on a face oxygen tent at this time. This patient is a 73 years old. She has a vascular history of COPD and sarcoidosis, for which she is treated with prednisone and methotrexate respectively. She has history of chronic kidney disease and diabetes and prior CVA with left arm weakness. In addition, she has history of CRICKET treated with CPAP under the care of Dr. shah in [place]. She has history of thrombocytopenia which is chronic as well. Review of Systems No signs of aspiration. Physical Exam Vitals and Measurements T: 36.7 C (Oral) TMIN: 36 C TMAX: 37.96 C HR: 46(Monitored) RR: 17 BP: 130/43 BP: 105/48(Line) SpO2: 99% HT: 154.9 cm WT: 72.8 kg Weight Dosing Weight: 72.8 kg (11/23/23) Sleeping comfortably. In no acute distress. Lungs are clear and equal bilaterally and heart is regular. Patient appears to some obstructive breath while listening to her. Abdomen soft and nontender. Extremities without edema. She has a LALY drain from her site of surgery. Imaging Results and Diagnostics Brain MRI reviewed. Chest x-ray shows calcified hilar lymph nodes right more than left. Lung parenchyma is clear EKG EKG shows sinus rhythm with poor R wave progression and left axis deviation Assessment/Plan 1. Day #0 status post right frontal craniotomy for stereotactic tumor resection with right frontal duraplasty and right frontal sinus exenteration 2. Decreased responsiveness postop. No clear metabolic explanation. Concern for seizures. 3. History of CRICKET. Will not be able to use pressure therapy for 6 to 8 weeks 4. History of steroid-dependent COPD 5. History of methotrexate dependent sarcoidosis 6. Other history includes chronic kidney disease and diabetes and prior CVA Plan: 1. Continue oxygen via face tent 2. GI/DVT prophylaxis 3. Started on dexamethasone per neurosurgery 4. For treatment of obstructive sleep apnea we will try to keep the jaw elevated by using a neck collar 5. DuoNeb aerosols every 6 hours 6. Consider consult neurology. May need EEG to rule out seizures 7. Current with oral appliance as outpatient for obstructive CRICKET until able to use CPAP again 6 to 8 weeks Discussed in detail with Dr. Aguilar Discussed with the SICU team Problem List/Past Medical History Ongoing COPD (chronic obstructive pulmonary disease) with acute lower respiratory infection Diabetes Hypercholesterolemia Hypertension Meningioma of brain Historical No qualifying data Procedure/Surgical History Total hysterectomy EGD (esophagogastroduodenoscopic) electrohydraulic lithotripsy of bezoar in stomach Medications Inpatient Apresoline, 10 mg= 0.5 mL, IV Push, q2h, PRN atorvastatin, 40 mg= 1 tab(s), Oral, qPM dexAMETHasone, 4 mg= 1 mL, IV Push, q6h Dextrose, 25 gram(s)= 50 mL, IV Push, AsDirected, PRN Dextrose 50% IV Push, 12.5 gram(s)= 25 mL, IV Push, AsDirected, PRN gabapentin, 100 mg= 1 cap(s), Oral, qPM HumuLIN R, sliding scale insulin, Subcutaneous, q4h, PRN hydroCHLOROthiazide, 25 mg= 1 tab(s), Oral, qAM Insulin Regular for IV 100 unit(s) + NS Premix Diluent 100 mL lidocaine 1% preservative-free injectable solution, 2.5 mg= 0.25 mL, Intradermal, prep pharm lisinopril, 20 mg= 1 tab(s), Oral, qAM morphine, 2 mg= 1 mL, IV Push, q3h, PRN niCARdipine for IV 20 mg [5 mg/hr] + NS Premix Diluent 200 mL NS 1,000 mL, 1000 mL, Intravenous NS 1,000 mL, 1000 mL, Intravenous Protonix, 40 mg, IV Push, qDayAC Pulmicort Respules 0.5 mg/2 mL inhalation suspension, 1 mg= 4 mL, Inhalation, BIDRT Tylenol, 650 mg= 2 tab(s), Oral, q4h, PRN Tylenol with Codeine (300/60 mg) #4 oral tablet, 1 tab(s), Oral, q4h, PRN vancomycin IVPB, 1250 mg= 250 mL, 15 mg/kg, IV Piggyback, q12hr Zofran, 4 mg= 2 mL, IV Push, q4h, PRN Home Acidophilus Probiotic Blend oral capsule, 1 cap(s), Oral, qDay, On hold for Surgery aspirin 81 mg oral delayed release tablet, 81 mg= 1 tab(s), Oral, qDay, On hold for Surgery atorvastatin 40 mg oral tablet, 40 mg= 1 tab(s), Oral, qPM diclofenac sodium 50 mg oral delayed release tablet, 50 mg= 1 tab(s), Oral, qPM, PRN, On hold for Surgery Farxiga 10 mg oral tablet, 10 mg, Oral, qAM, Still taking, not as prescribed: has not been taking due to ran out of med Flovent HFA 220 mcg/inh inhalation aerosol, 2 puff(s), Inhalation, BID gabapentin 100 mg oral capsule, 100 mg= 1 cap(s), Oral, qPM glipiZIDE 10 mg oral tablet, extended release, 10 mg= 1 tab(s), Oral, qAM hydroCHLOROthiazide 25 mg oral tablet, 25 mg= 1 tab(s), Oral, qAM ibandronate 150 mg oral tablet, 150 mg= 1 tab(s), Oral, qmonth lisinopril 20 mg oral tablet, 20 mg= 1 tab(s), Oral, qAM metFORMIN 500 mg oral tablet (IR), 500 mg= 1 tab(s), Oral, BID methotrexate 2.5 mg oral tablet, 12.5 mg= 5 tab(s), Oral, Tuesday predniSONE 5 mg oral tablet, 2.5 mg= 0.5 tab(s), Oral, Every other day RABEprazole 20 mg oral delayed release enteric coated tablet, 20 mg= 1 tab(s), Oral, qPM Vitamin B12 1000 mcg oral tablet, 1000 mcg= 1 tab(s), Oral, qDay, On hold for Surgery Allergies penicillin (Unknown) Social History Alcohol Use: Never., 06/10/2023 Home/Environment Living situation: Home/Independent. Safe place to go: Yes. Domestic Concerns: None. Lives In: Single level home., 11/08/2023 Substance Abuse Use: Never., 06/10/2023 Tobacco Nicotine Use: Never (less than 100 in lifetime)., 06/10/2023 Family History Breast cancer: Mother. Cancer: Sister. Father: History is negative Immunizations pneumococcal 13-valent conjugate vaccine: 0 unknown unit (08/27/16) pneumococcal 23-valent vaccine(Pneumovax: 0.5 unknown unit (06/01/18) SARS-CoV-2 (COVID-19) mRNA-1273 vaccine: 0.5 unknown unit (03/05/21) SARS-CoV-2 (COVID-19) mRNA-1273 vaccine: 0.5 unknown unit (02/04/21) tetanus/diphth/pertuss (Tdap) adult/adol: 0.5 unknown unit (01/12/23) Digitally Signed by VICENTA CANALES MD on 11/23/2023 04:38 PM [facility] 11-23-2023 Note ORIGINAL EXAMINATION: CT OF THE HEAD WITHOUT CONTRAST 11/23/2023 4:27 pm TECHNIQUE: CT of the head was performed without the administration of intravenous contrast. Automated exposure control, iterative reconstruction, and/or weight based adjustment of the mA/kV was utilized to reduce the radiation dose to as low as reasonably achievable. COMPARISON: MRI brain 11/23/2023, 09/12/2023 HISTORY: ORDERING SYSTEM PROVIDED HISTORY: Reason for Exam: pt done table top due to drain tubes placements AMS FINDINGS: There is right frontotemporal craniotomy. There is anterior right frontal small surgical cavity with small volume of hemorrhage. Small volume subarachnoid hemorrhage is present at the right frontal and temporal convexities, right lateral fissure, and bilateral tentorium, left greater than right. There is small volume of anterior bifrontal pneumocephalus and mild mass effect. There is a small volume of hyperdense the subdural fluid subjacent to the craniotomy flap. There is a 4 mm right-left midline shift. There is mild compression of ventricles without hydrocephalus. There is no acute cortical infarct of a major arterial vascular territory. IMPRESSION: There is right frontotemporal craniotomy with resection of the anterior right frontal lobe mass noted on prior MRI study. There are expected postsurgical changes including small volume of pneumocephalus and subarachnoid hemorrhage as profile above. There is a 4 mm right-left midline shift. There is no hydrocephalus. Interpreted by: Ney Andrade Preliminary Report By: Ney Andrade Electronically signed By Ney Andrade Dictated Date: 11/23/2023 5:23:39 PM Prelim Date: 11/23/2023 5:37:35 PM Sign Date: 11/23/2023 5:37:35 PM [facility] Anesthesiology Consult note Patient: HOLLEY MALIK Age: 73 years Sex: Female : 1950 Associated Diagnoses: None Author: ALINA BANUELOS MD Preoperative Information NPO > 8 hrs Anesthesia history Patient's history: negative. Family's history: negative. History of Present Illness The patient presents for preanesthesia evaluation with 73-year-old female who presents for a Right frontal craniotomy for tumor resection x 2. Her past medical history includes GERD (symptoms improving, patient recently started on rabeprazole), arthritis, COPD (denies recent exacerbation, patient uses Flovent inhaler twice daily), diabetes mellitus type 2, hypercholesterolemia, hypertension, meningioma of the brain, hard of hearing, headaches, nephrolithiasis, TIA, COVID (June 2023, denies hospitalization), CKD stage II, sarcoidosis (on prednisone and methotrexate), thrombocytopenia, gastroparesis. She denies having a known personal or family history of anesthesia reaction, or difficult intubation. She has diagnosed sleep apnea and uses a CPAP machine at bedtime. She denies a history of smoking. She reports having shortness of breath if required to climb a flight of steps, she denies symptoms when ambulating on level ground and completing ADLs. She denies having chest pain, chest pressure, palpitations, syncopal episodes, or peripheral edema. . Review of Systems Ear/Nose/Mouth/Throat: Negative except as documented in history of present illness. Respiratory: Negative except as documented in history of present illness. Cardiovascular: Negative except as documented in history of present illness. Gastrointestinal: Negative except as documented in history of present illness. Genitourinary: Negative except as documented in history of present illness. Endocrine: Negative except as documented in history of present illness. Musculoskeletal: Negative except as documented in history of present illness. Integumentary: Negative except as documented in history of present illness. Neurologic: Negative except as documented in history of present illness. Health Status Allergies: Allergic Reactions (Selected) Severity Not Documented Penicillin- Unknown., Allergies (1) ActiveReaction penicillinUnknown Current medications: (Selected) Inpatient Medications Ordered NS 1,000 mL: 20 mL/hr, Intravenous atorvastatin: 40 mg, 1 tab(s), Oral, qPM gabapentin: 100 mg, 1 cap(s), Oral, qPM glipiZIDE 5 mg oral tablet, extended release: 10 mg, 2 tab(s), Oral, qAM hydroCHLOROthiazide: 25 mg, 1 tab(s), Oral, qAM lidocaine 1% preservative-free injectable solution: 2.5 mg, 0.25 mL, Intradermal, prep pharm lisinopril: 20 mg, 1 tab(s), Oral, qAM metFORMIN 500 mg oral tablet (IR): 500 mg, 1 tab(s), Oral, BID Incomplete Pulmicort Respules 0.5 mg/2 mL inhalation suspension: pantoprazole: Documented Medications Documented Acidophilus Probiotic Blend oral capsule: 1 cap(s), Oral, qDay, 0 Refill(s) Farxiga 10 mg oral tablet: 10 mg, Oral, qAM, 0 Refill(s) Flovent HFA 220 mcg/inh inhalation aerosol: 2 puff(s), Inhalation, BID, 0 Refill(s) RABEprazole 20 mg oral delayed release enteric coated tablet: 20 mg, 1 tab(s), Oral, qPM, 30 tab(s), 0 Refill(s) Vitamin B12 1000 mcg oral tablet: 1,000 mcg, 1 tab(s), Oral, qDay, 90 tab(s), 0 Refill(s) aspirin 81 mg oral delayed release tablet: 81 mg, 1 tab(s), Oral, qDay, LAst Dose 11/12/23, 0 Refill(s) atorvastatin 40 mg oral tablet: 40 mg, 1 tab(s), Oral, qPM, 0 Refill(s) diclofenac sodium 50 mg oral delayed release tablet: 50 mg, 1 tab(s), Oral, qPM, PRN: as needed for arthritis, 30 tab(s), 0 Refill(s) gabapentin 100 mg oral capsule: 100 mg, 1 cap(s), Oral, qPM, 60 cap(s), 0 Refill(s) glipiZIDE 10 mg oral tablet, extended release: 10 mg, 1 tab(s), Oral, qAM, 30 tab(s), 0 Refill(s) hydroCHLOROthiazide 25 mg oral tablet: 25 mg, 1 tab(s), Oral, qAM, 0 Refill(s) ibandronate 150 mg oral tablet: 150 mg, 1 tab(s), Oral, qmonth, 1 tab(s), 0 Refill(s) lisinopril 20 mg oral tablet: 20 mg, 1 tab(s), Oral, qAM, 30 tab(s), 0 Refill(s) metFORMIN 500 mg oral tablet (IR): 500 mg, 1 tab(s), Oral, BID, 60 tab(s), 0 Refill(s) methotrexate 2.5 mg oral tablet: 12.5 mg, 5 tab(s), Oral, Tuesday, 0 Refill(s) predniSONE 5 mg oral tablet: 2.5 mg, 0.5 tab(s), Oral, Every other day, 30 tab(s), 0 Refill(s), Medications (8) Active Scheduled: (7) atorvastatin 40 mg tablet 40 mg 1 tab(s), Oral, qPM gabapentin 100 mg Capsule 100 mg 1 cap(s), Oral, qPM glipizide 5 mg ER tablet 10 mg 2 tab(s), Oral, qAM hydrochlorothiazide 25 mg tablet 25 mg 1 tab(s), Oral, qAM lidocaine 1% (MPF) 2 mL vial pf 2.5 mg 0.25 mL, Intradermal, prep pharm lisinopril 20 mg tablet 20 mg 1 tab(s), Oral, qAM metformin 500 mg Tablet 500 mg 1 tab(s), Oral, BID Continuous: (1) NS (0.9% nacl) 1,000 mL 1,000 mL, Intravenous, 20 mL/hr PRN: (0) Problem list: Medical COPD (chronic obstructive pulmonary disease) with acute lower respiratory infection / SNOMED CT 4435538286 / Confirmed Diabetes / SNOMED CT 358639971 / Confirmed Hypercholesterolemia / SNOMED CT 64297732 / Confirmed Hypertension / SNOMED CT 85515891 / Confirmed Meningioma of brain / SNOMED CT 317344559 / Confirmed, Active Problems (10) Acid reflux Arthritis Constipation COPD (chronic obstructive pulmonary disease) with acute lower respiratory infection Diabetes Diabetes mellitus type 2 Glasses Hypercholesterolemia Hypertension Meningioma of brain Histories Past Medical History: No active or resolved past medical history items have been selected or recorded. Procedure history: Total hysterectomy (834602942). EGD (esophagogastroduodenoscopic) electrohydraulic lithotripsy of bezoar in stomach (2461274782). Social History Social & Psychosocial Habits Alcohol 11/23/2023 Use: Never Substance Abuse 11/23/2023 Use: Never Tobacco 11/23/2023 Tobacco Use: Never (less than 100 in l Home/Environment 11/23/2023 Living situation: Home/Independent Safe place to go: Yes Domestic Concerns None Lives In Single level home . Physical Examination Vital Signs(last 24 hrs) Last Charted Resp Rate 16 br/min (NOV 23 06:51) HLB701 mmHg (NOV 23 06:51) DBP62 mmHg (NOV 23 06:51) Measurements from flowsheet : Measurements 11/23/2023 6:51 EST Height 154.9 cm Height in inches 61 inch(es) Admission Weight 72.8 kg Weight Lbs 160.2 lb [place] Body Weight 47.76 kg Admission Body Mass Index 30.34 m2 General: Alert and oriented, No acute distress. Airway: Normal temporomandibular joint mobility, Normal mouth, Normal neck range of motion. Mallampati classification: II (soft palate, fauces, uvula visible). Dentition Evaluation: Intact, Own teeth. Respiratory: Lungs are clear to auscultation. Cardiovascular: Normal rate, Regular rhythm. Heart Sounds: Normal. Neurologic: Alert, Oriented, No focal deficits. Review / Management Results review: No qualifying data available . Documentation reviewed: Current records. Assessment and Plan [place] [employer] (ASA) physical status classification: Class III. Anesthetic Preoperative Plan Premedication: intravenous. Anesthetic technique: General. Induction: intravenously. Maintenance airway: Oral endotracheal tube. Postoperative pain management: Per surgeon. Risks discussed: nausea, vomiting, sore throat, dental injury, hypotension, allergic reaction, serious complications. Informed consent: signed by patient. Digitally Signed by ALINA BANUELOS MD on 11/23/2023 08:00 AM [facility] 02-17-2023 Note HNO ID: [id number] Author: Dayana Marmolejo Service: ? Author Type: Physician Type: Progress Notes Filed: 02/17/2023 11:49 AM Note Text: Last saw PCP: 02/04/23 Subjective: This 73 year old female presents to clinic for diabetic foot check. Patient admits to being diabetic for 1 years now. Patient +B/T/N in feet at this time. Patient -pain in legs when walking. No other pedal complaints at this time. No change in medications or medical history since last visit. PAIN EVALUATION No data found in the last 1 encounters. Hemoglobin A1C (%) Date Value 09/29/2020 6.6 03/19/2020 7.0 07/14/2019 6.5 02/27/2019 6.6 06/01/2018 6.3 PCP: Stefan Stoddard MD PAST MEDICAL HISTORY Diagnosis Date Abdominal pain, acute, left lower quadrant Cataracts, bilateral possible surgery Gastritis 10/28/2014 GERD (gastroesophageal reflux disease) Kidney stones Mini stroke PMH - PAST MEDICAL HISTORY OF sarcodosis Snoring Stroke (HCC) Unspecified essential hypertension Essential hypertension Current Outpatient Medications Medication Sig methotrexate 2.5 mg tablet Take 2.5 mg by mouth every Tuesday. 1.5 tablets every Tuesday FARXIGA [address] (PROTONIX) 20 mg tablet Take 1 tablet by mouth once daily. lancets (TRUEPLUS LANCETS) 28 gauge 1 Lancet once daily. Use as instructed to check blood sugars 1 x daily. DX: E11.9 Insulin: No blood sugar diagnostic (TRUE METRIX GLUCOSE TEST STRIP) test strip Use as instructed to check blood sugars 1 x daily. DX: E11.9 Insulin: No Blood-Glucose Meter (TRUE METRIX AIR GLUCOSE METER) 1 Device once daily. Use as directed to check blood sugars once daily metFORMIN ER (GLUCOPHAGE XR) 500 mg 24 hr tablet Take 1 tablet by mouth daily with breakfast. Blood Glucose Control High and Low (ACCU-CHEK [place] CONTROL SOLN) soln Test controls as needed. Dx: Type 2 DM - Controlled E11.9 Lancets (ACCU-CHEK SOFTCLIX LANCETS) lancets Test blood sugar(s) 1 times daily. Dx: Type 2 DM - Controlled E11.9 Insulin: No atorvastatin (LIPITOR) 40 mg tablet Take 1 tablet by mouth once daily. lisinopril (ZESTRIL, PRINIVIL) 10 mg tablet Take 1 tablet by mouth once daily. fluticasone (FLOVENT) 220 mcg/actuation inhaler Inhale 2 Puffs as instructed twice daily. aspirin, enteric coated (ASPIRIN, ENTERIC COATED) 81 mg EC tablet Take 1 tablet by mouth once daily. acetaminophen (TYLENOL EX STR ARTHRITIS PAIN) 500 mg tablet Take 1 tablet by mouth every 6 hours as needed. FOR PAIN. glipiZIDE XL (GLUCOTROL XL) 5 mg 24 hr tablet Take 5 mg by mouth once daily. (Patient not taking: Reported on 02/17/2023) hydroCHLOROthiazide (HYDRODIURIL, ESIDRIX) 25 mg tablet Take 1 tablet by mouth once daily. (Patient not taking: Reported on 02/17/2023) guaiFENesin (MUCINEX) 600 mg 12 hr tablet Take 2 tablets by mouth twice daily. (Patient not taking: Reported on 09/09/2022) No current facility-administered medications for this visit. ALLERGIES Allergen Reactions Pravastatin Intolerance joint pain Zocor [Simvastatin] PAST SURGICAL HISTORY Procedure Laterality Date COLONOSCOPY FLX DX W/COLLJ SPEC WHEN PFRMD 05/20/[address] [facility] [address] Sosa - normal COLONOSCOPY FLX DX W/COLLJ SPEC WHEN PFRMD 06/01/2013 Colonoscopy COLONOSCOPY FLX DX W/COLLJ SPEC WHEN PFRMD 12/11/2018 Colonoscopy ESOPHAGOGASTRODUODENOSCOPY TRANSORAL DIAGNOSTIC 06/01/2013 EGD ESOPHAGOGASTRODUODENOSCOPY TRANSORAL DIAGNOSTIC 12/11/2018 EGD PAST SURGICAL HISTORY OF scrape calcium off right big toe PAST SURGICAL HISTORY OF right foot calcium build up Dr Hagen TOTAL ABDOMINAL HYSTERECT W/WO RMVL TUBE OVARY 1991 Hysterectomy, PETER FAMILY HISTORY Problem Relation Age of Onset Heart Mother triple bypass Breast Cancer Mother Diabetes Maternal Grandfather Diabetes Other dad's family Prostate Cancer Brother Social History Tobacco Use Smoking status: Never Smokeless tobacco: Never Vaping Use Vaping Use: Never used Substance Use Topics Alcohol use: No Drug use: No REVIEW OF SYSTEMS GENERAL: Negative for Malaise, significant weight loss, fever RESPIRATORY: Negative for cough, wheezing and shortness of breath CARDIOVASCULAR: Negative for chest pain, leg swelling and palpitations GI: Negative for abdominal discomfort, blood in stools or black stools and change in bowel habits : Negative for dysuria, frequency and incontinence MUSCULOSKELETAL: Negative for joint pain or swelling, back pain, and muscle pain. SKIN: Negative for lesions, rash, and itching. HEMATOLOGY/LYMPHOLOGY Negative for prolonged bleeding, bruising easily, and swollen nodes. ENDOCRINE: Negative for cold or heat intolerance, polyuria, polydipsia and goiter. NEURO: negative The remainder of the review of systems is noncontributory. Objective: [facility] Constitutional: Pt is a well developed 73 year old female who is alert, oriented, cooperative and in (more content not included)... [facility] 02-17-2023 Note HNO ID: [id number] Author: Mariposa Best RN Service: ? Author Type: ? Type: Progress Notes Filed: 02/17/2023 11:49 AM Note Text: Patient presents with: Left Foot - Established Patient, Diabetic Foot Care Right Foot - Established Patient, Diabetic Foot Care [facility] 02-17-2023 Instructions Dayana Marmolejo - 02/17/2023 11:45 AM EDT Diabetes Foot Care Instructions When you have diabetes, proper foot care is very important. Poor foot care may lead to amputation of a foot or leg. As a person with diabetes, you are more vulnerable to foot problems, because diabetes can damage your nerves and reduce blood flow to your feet. Here are some diabetes foot care tips to follow: Wash and Dry Your Feet Daily Use mild soaps Use warm water Pat your skin dry; do not rub. Thoroughly dry your feet. After washing, use lotion on your feet to prevent cracking. Do not put lotion between your toes. Examine Your Feet Each Day Check the tops and bottoms of your feet. Have someone else look at your feet [...] are soft. Cut toenails straight across and smooth with a nail file. Avoid cutting into the corners of toes. Do not cut cuticles. If you have neuropathy (or decreased sensation in your feet) a watch inspector should always cut your toenails. Be Careful When Exercising Walk and exercise in comfortable shoes. Do not exercise when you have open sores on your feet. Protect Your Feet With Shoes and Socks Never go barefoot. Always protect your feet by wearing shoes or hard-soled slippers or footwear. Avoid shoes with high heels and pointed toes. Avoid shoes that expose your toes or heels (such as open-toed shoes or sandals). These types of shoes increase your risk for injury and potential infections. Try on new footwear with the type of socks you usually wear. Do not wear new [...] this simple test to see if your shoes fit correctly: Stand on a piece of [...] longest toe and as wide as your foot. Proper Shoe Choices The following types of shoes are best for people with diabetes Closed toes and heels Leather uppers without a seam inside At least 1/2 inch extra space at the end of your longest toe Inside of shoe should be soft with no rough areas Outer sole should be made of stiff material Shoes should be at least as wide as your feet Tips for Foot Care in Diabetes Don't wait to treat a minor foot problem if you have diabetes. Follow your health care provider's guidelines and first aid guidelines. Report foot injuries and infections to your health care provider immediately. Check water temperature with your elbow, not your foot. Do not use a heating pad on your feet. Do not cross your legs. Do not self-treat your corns, calluses, or other foot problems. Go to your health care provider or watch inspector to treat these conditions. documented in this encounter [facility] 02-17-2023 History of Present illness Narrative Last saw PCP: 02/04/23 Subjective: This 73 year old female presents to clinic for diabetic foot check. Patient admits to being diabetic for 1 years now. Patient +B/T/N in feet at this time. Patient -pain in legs when walking. No other pedal complaints at this time. No change in medications or medical history since last visit. PAIN EVALUATION No data found in the last 1 encounters. Hemoglobin A1C (%) Date Value 09/29/2020 6.6 03/19/2020 7.0 07/14/2019 6.5 02/27/2019 6.6 06/01/2018 6.3 PCP: Stefan Stoddard MD PAST MEDICAL HISTORY Diagnosis Date Abdominal pain, acute, left lower quadrant Cataracts, bilateral possible surgery Gastritis 10/28/2014 GERD (gastroesophageal reflux disease) Kidney stones Mini stroke PMH - PAST MEDICAL HISTORY OF sarcodosis Snoring Stroke (HCC) Unspecified essential hypertension Essential hypertension Current Outpatient Medications Medication Sig methotrexate 2.5 mg tablet Take 2.5 mg by mouth every Tuesday. 1.5 tablets every Tuesday FARXIGA [address] (PROTONIX) 20 mg tablet Take 1 tablet by mouth once daily. lancets (TRUEPLUS LANCETS) 28 gauge 1 Lancet once daily. Use as instructed to check blood sugars 1 x daily. DX: E11.9 Insulin: No blood sugar diagnostic (TRUE METRIX GLUCOSE TEST STRIP) test strip Use as instructed to check blood sugars 1 x daily. DX: E11.9 Insulin: No Blood-Glucose Meter (TRUE METRIX AIR GLUCOSE METER) 1 Device once daily. Use as directed to check blood sugars once daily metFORMIN ER (GLUCOPHAGE XR) 500 mg 24 hr tablet Take 1 tablet by mouth daily with breakfast. Blood Glucose Control High and Low (ACCU-CHEK [place] CONTROL SOLN) soln Test controls as needed. Dx: Type 2 DM - Controlled E11.9 Lancets (ACCU-CHEK SOFTCLIX LANCETS) lancets Test blood sugar(s) 1 times daily. Dx: Type 2 DM - Controlled E11.9 Insulin: No atorvastatin (LIPITOR) 40 mg tablet Take 1 tablet by mouth once daily. lisinopril (ZESTRIL, PRINIVIL) 10 mg tablet Take 1 tablet by mouth once daily. fluticasone (FLOVENT) 220 mcg/actuation inhaler Inhale 2 Puffs as instructed twice daily. aspirin, enteric coated (ASPIRIN, ENTERIC COATED) 81 mg EC tablet Take 1 tablet by mouth once daily. acetaminophen (TYLENOL EX STR ARTHRITIS PAIN) 500 mg tablet Take 1 tablet by mouth every 6 hours as needed. FOR PAIN. glipiZIDE XL (GLUCOTROL XL) 5 mg 24 hr tablet Take 5 mg by mouth once daily. (Patient not taking: Reported on 02/17/2023) hydroCHLOROthiazide (HYDRODIURIL, ESIDRIX) 25 mg tablet Take 1 tablet by mouth once daily. (Patient not taking: Reported on 02/17/2023) guaiFENesin (MUCINEX) 600 mg 12 hr tablet Take 2 tablets by mouth twice daily. (Patient not taking: Reported on 09/09/2022) No current facility-administered medications for this visit. ALLERGIES Allergen Reactions Pravastatin Intolerance joint pain Zocor [Simvastatin] PAST SURGICAL HISTORY Procedure Laterality Date COLONOSCOPY FLX DX W/COLLJ SPEC WHEN PFRMD 05/20/[address] [facility] [address] Sosa - normal COLONOSCOPY FLX DX W/COLLJ SPEC WHEN PFRMD 06/01/2013 Colonoscopy COLONOSCOPY FLX DX W/COLLJ SPEC WHEN PFRMD 12/11/2018 Colonoscopy ESOPHAGOGASTRODUODENOSCOPY TRANSORAL DIAGNOSTIC 06/01/2013 EGD ESOPHAGOGASTRODUODENOSCOPY TRANSORAL DIAGNOSTIC 12/11/2018 EGD PAST SURGICAL HISTORY OF scrape calcium off right big toe PAST SURGICAL HISTORY OF right foot calcium build up Dr Hagen TOTAL ABDOMINAL HYSTERECT W/WO RMVL TUBE OVARY 1990 Hysterectomy, PETER FAMILY HISTORY Problem Relation Age of Onset Heart Mother triple bypass Breast Cancer Mother Diabetes Maternal Grandfather Diabetes Other dad's family Prostate Cancer Brother Social History Tobacco Use Smoking status: Never Smokeless tobacco: Never Vaping Use Vaping Use: Never used Substance Use Topics Alcohol use: No Drug use: No REVIEW OF SYSTEMS GENERAL: Negative for Malaise, significant weight loss, fever RESPIRATORY: Negative for cough, wheezing and shortness of breath CARDIOVASCULAR: Negative for chest pain, leg swelling and palpitations GI: Negative for abdominal discomfort, blood in stools or black stools and change in bowel habits : Negative for dysuria, frequency and incontinence MUSCULOSKELETAL: Negative for joint pain or swelling, back pain, and muscle pain. SKIN: Negative for lesions, rash, and itching. HEMATOLOGY/LYMPHOLOGY Negative for prolonged bleeding, bruising easily, and swollen nodes. ENDOCRINE: Negative for cold or heat intolerance, polyuria, polydipsia and goiter. NEURO: negative The remainder of the review of systems is noncontributory. Objective: Patient presents to clinic ambulating in [facility] Constitutional: Pt is a well developed 73 year old female who is alert, oriented, cooperative and in no apparent distress. Eyes: Following during examination. No redness or drainage. Respiratory: RR normal and nonlabored. Even breathing. No evidence of distress. Psychology: Patient is engaged during conversation. Normal affect and mood. Does not appear depressed or anxious. Vasc: DP and PT pulses are palpable bilateral. CFT is less than 5 seconds bilateral. Skin temperature is warm to warm proximal to distal bilateral. There is no edema or varicosities noted. Hair growth present. Neuro: Protective sensation is intact to the foot and toes when tested with the 5.07 SWM bilateral. Vibratory sensation is intact at the hallux bilateral. No Significant neurological defecits. Derm: Inspection and palpation performed. Nails 1-5 b/l are painful, discolored-yellow, thick, crumbly, dystrophic and with subungal debris. Skin is of dry. Hyperkeratosis noted to b/l hallux. NO ulcerations, scars, verruca or other lesions noted. Ortho: Ankle joint DF is decreased with the knee extended and decreased with knee flexed. No pain or crepitus noted. STJ, MTJ ROM are full and free of pain or crepitus. Muscle strength is 5/5 for dorsiflexors, plantarflexors, inverters, everters. Digital deformities include hallux rigidus b/l. Assessment: (B35.1) Onychomycosis (primary encounter diagnosis) (M79.675) Pain in toe of left foot (M79.674) Pain in toe of right foot (E11.49) Other diabetic neurological complication associated with type 2 diabetes mellitus (HCC) (L84) Callus of foot (M20.21, M20.22) Hallux rigidus of both feet Plan: 1. Patient was seen and evaluated. 2. Patient was instructed on the continued importance of diabetic foot care along with proper diet and keeping their blood sugar under control to prevent complications. Instructions given both oral and written. 3. We discussed the possible etiologies of discolored, dystrophic, and thickened nails including fungus, yeast, mold as well as in some instances, prior trauma, or mechanical causes such as repetitive microtrauma in shoe gear. We discussed topical medication for discolored toenails which has very low success but no major side effects. We discussed oral medication. Patient will need hepatic testing prior to use. Patient informed of risks associated with Lamisil. We discussed removal of toenails. Patient would like to proceed with debridement. Patient not interested in removal 4. Toenails 1-5 b/l debrided in length and thickness 5. Callus reduced to b/l hallux. Recommend diabetic shoes. Recommend lotion to feet daily and use of pummice stone or periodic debridement 6. Discussed arthritis in b/l 1st mtpj. Diabetic shoes ordered. Dayana Marmolejo DPM Patient presents with: Left Foot - Established Patient, Diabetic Foot Care Right Foot - Established Patient, Diabetic Foot Care documented in this encounter [facility] 09-09-2022 Note HNO ID: [id number] Author: Mirtha Spencer PA-C Service: ? Author Type: Physician Necktie Maker Type: Progress Notes Filed: 09/09/2022 3:20 PM Note Text: This note was created using [employer]. Subjective Holley Malik is a 72 year old female. HPI Patient presents with a chief complaint of sore throat over the past 2 3 days. She states is very painful to try to swallow anything. No nasal congestion. No cough. She is on chronic prednisone and uses an inhaled steroid. She has a history of sarcoidosis. Denies any recent antibiotics. No fever. No vomiting or diarrhea. Denies history of thrush. She states her whole mouth hurts. Review of Systems Constitutional: Negative. HENT: Positive for mouth sores and sore throat. Negative for congestion, ear pain and rhinorrhea. Respiratory: Negative. Cardiovascular: Negative. Gastrointestinal: Negative. Genitourinary: Negative. Musculoskeletal: Negative. All other systems reviewed and are negative. PAST MEDICAL HISTORY Diagnosis Date Abdominal pain, acute, left lower quadrant Cataracts, bilateral possible surgery Gastritis 10/28/2014 GERD (gastroesophageal reflux disease) Kidney stones Mini stroke PMH - PAST MEDICAL HISTORY OF sarcodosis Snoring Stroke (HCC) Unspecified essential hypertension Essential hypertension Current Outpatient Medications Medication Sig Dispense Refill FARXIGA 10 mg tablet glipiZIDE XL (GLUCOTROL XL) 5 mg 24 hr tablet Take 5 mg by mouth once daily. pantoprazole DR (PROTONIX) 20 mg tablet Take 1 tablet by mouth once daily. 90 tablet 0 lancets (TRUEPLUS LANCETS) 28 gauge 1 Lancet once daily. Use as instructed to check blood sugars 1 x daily. DX: E11.9 Insulin: No 100 Each 3 blood sugar diagnostic (TRUE METRIX GLUCOSE TEST STRIP) test strip Use as instructed to check blood sugars 1 x daily. DX: E11.9 Insulin: No 100 Strip 3 Blood-Glucose Meter (TRUE METRIX AIR GLUCOSE METER) 1 Device once daily. Use as directed to check blood sugars once daily 1 Each 0 metFORMIN ER (GLUCOPHAGE XR) 500 mg 24 hr tablet Take 1 tablet by mouth daily with breakfast. 90 tablet 3 Blood Glucose Control High and Low (ACCU-CHEK [place] CONTROL SOLN) soln Test controls as needed. Dx: Type 2 DM - Controlled E11.9 1 Each 3 Lancets (ACCU-CHEK SOFTCLIX LANCETS) lancets Test blood sugar(s) 1 times daily. Dx: Type 2 DM - Controlled E11.9 Insulin: No 100 Each 3 atorvastatin (LIPITOR) 40 mg tablet Take 1 tablet by mouth once daily. 90 tablet 3 hydroCHLOROthiazide (HYDRODIURIL, ESIDRIX) 25 mg tablet Take 1 tablet by mouth once daily. 90 tablet 3 lisinopril (ZESTRIL, PRINIVIL) 10 mg tablet Take 1 tablet by mouth once daily. 90 tablet 3 fluticasone (FLOVENT) 220 mcg/actuation inhaler Inhale 2 Puffs as instructed twice daily. aspirin, enteric coated (ASPIRIN, ENTERIC COATED) 81 mg EC tablet Take 1 tablet by mouth once daily. 0 acetaminophen (TYLENOL EX STR ARTHRITIS PAIN) 500 mg tablet Take 1 tablet by mouth every 6 hours as needed. FOR PAIN. 0 nystatin (MYCOSTATIN) 100,000 unit/mL suspension Take 5 mL by mouth four times daily for 10 days. 1tsp swish in mouth for several minutes, then swallow 4 times daily until gone. 200 mL 0 guaiFENesin (MUCINEX) 600 mg 12 hr tablet Take 2 tablets by mouth twice daily. (Patient not taking: Reported on 09/09/2022) 28 tablet 0 No current facility-administered medications for this visit. PAST SURGICAL HISTORY Procedure Laterality Date COLONOSCOPY FLX DX W/COLLJ SPEC WHEN PFRMD 05/20/[address] [facility] [address] Sosa - normal COLONOSCOPY FLX DX W/COLLJ SPEC WHEN PFRMD 06/01/2013 Colonoscopy COLONOSCOPY FLX DX W/COLLJ SPEC WHEN PFRMD 12/11/2018 Colonoscopy ESOPHAGOGASTRODUODENOSCOPY TRANSORAL DIAGNOSTIC 06/01/2013 EGD ESOPHAGOGASTRODUODENOSCOPY TRANSORAL DIAGNOSTIC 12/11/2018 EGD PAST SURGICAL HISTORY OF scrape calcium off right big toe PAST SURGICAL HISTORY OF right foot calcium build up Dr Hagen TOTAL ABDOMINAL HYSTERECT W/WO RMVL TUBE OVARY 1990 Hysterectomy, PETER FAMILY HISTORY Problem Relation Age of Onset Heart Mother triple bypass Breast Cancer Mother Diabetes Maternal Grandfather Diabetes Other dad's family Prostate Cancer Brother Social History Tobacco Use Smoking status: Never Smokeless tobacco: Never Vaping Use Vaping Use: Never used Substance Use Topics Alcohol use: No Drug use: No Objective BP 144/88 Pulse 94 Temp 36.8 ?C (98.3 ?F) (Tympanic) Resp 16 Wt 83.6 kg (184 lb 6.4 oz) SpO2 98% BMI 33.63 kg/m? Physical Exam Vitals reviewed. Constitutional: Appearance: Normal appearance. HENT: Head: Normocephalic and atraumatic. Right Ear: Tympanic membrane, ear canal and external ear normal. Left Ear: Tympanic membrane, ear canal and external ear normal. Nose: Nose normal. Mouth/Throat: Pharynx: Pharyngeal swelling and posterior oropharyngeal erythema present. No oropharyngeal exudate. Tonsils: No tonsillar e (more content not included)... [facility] 09-09-2022 History of Present illness Narrative This note was created using [employer]. Subjective Holley Malik is a 72 year old female. HPI Patient presents with a chief complaint of sore throat over the past 2 3 days. She states is very painful to try to swallow anything. No nasal congestion. No cough. She is on chronic prednisone and uses an inhaled steroid. She has a history of sarcoidosis. Denies any recent antibiotics. No fever. No vomiting or diarrhea. Denies history of thrush. She states her whole mouth hurts. Review of Systems Constitutional: Negative. HENT: Positive for mouth sores and sore throat. Negative for congestion, ear pain and rhinorrhea. Respiratory: Negative. Cardiovascular: Negative. Gastrointestinal: Negative. Genitourinary: Negative. Musculoskeletal: Negative. All other systems reviewed and are negative. PAST MEDICAL HISTORY Diagnosis Date Abdominal pain, acute, left lower quadrant Cataracts, bilateral possible surgery Gastritis 10/28/2014 GERD (gastroesophageal reflux disease) Kidney stones Mini stroke PMH - PAST MEDICAL HISTORY OF sarcodosis Snoring Stroke (HCC) Unspecified essential hypertension Essential hypertension Current Outpatient Medications Medication Sig Dispense Refill FARXIGA 10 mg tablet glipiZIDE XL (GLUCOTROL XL) 5 mg 24 hr tablet Take 5 mg by mouth once daily. pantoprazole DR (PROTONIX) 20 mg tablet Take 1 tablet by mouth once daily. 90 tablet 0 lancets (TRUEPLUS LANCETS) 28 gauge 1 Lancet once daily. Use as instructed to check blood sugars 1 x daily. DX: E11.9 Insulin: No 100 Each 3 blood sugar diagnostic (TRUE METRIX GLUCOSE TEST STRIP) test strip Use as instructed to check blood sugars 1 x daily. DX: E11.9 Insulin: No 100 Strip 3 Blood-Glucose Meter (TRUE METRIX AIR GLUCOSE METER) 1 Device once daily. Use as directed to check blood sugars once daily 1 Each 0 metFORMIN ER (GLUCOPHAGE XR) 500 mg 24 hr tablet Take 1 tablet by mouth daily with breakfast. 90 tablet 3 Blood Glucose Control High and Low (ACCU-CHEK [place] CONTROL SOLN) soln Test controls as needed. Dx: Type 2 DM - Controlled E11.9 1 Each 3 Lancets (ACCU-CHEK SOFTCLIX LANCETS) lancets Test blood sugar(s) 1 times daily. Dx: Type 2 DM - Controlled E11.9 Insulin: No 100 Each 3 atorvastatin (LIPITOR) 40 mg tablet Take 1 tablet by mouth once daily. 90 tablet 3 hydroCHLOROthiazide (HYDRODIURIL, ESIDRIX) 25 mg tablet Take 1 tablet by mouth once daily. 90 tablet 3 lisinopril (ZESTRIL, PRINIVIL) 10 mg tablet Take 1 tablet by mouth once daily. 90 tablet 3 fluticasone (FLOVENT) 220 mcg/actuation inhaler Inhale 2 Puffs as instructed twice daily. aspirin, enteric coated (ASPIRIN, ENTERIC COATED) 81 mg EC tablet Take 1 tablet by mouth once daily. 0 acetaminophen (TYLENOL EX STR ARTHRITIS PAIN) 500 mg tablet Take 1 tablet by mouth every 6 hours as needed. FOR PAIN. 0 nystatin (MYCOSTATIN) 100,000 unit/mL suspension Take 5 mL by mouth four times daily for 10 days. 1tsp swish in mouth for several minutes, then swallow 4 times daily until gone. 200 mL 0 guaiFENesin (MUCINEX) 600 mg 12 hr tablet Take 2 tablets by mouth twice daily. (Patient not taking: Reported on 09/09/2022) 28 tablet 0 No current facility-administered medications for this visit. PAST SURGICAL HISTORY Procedure Laterality Date COLONOSCOPY FLX DX W/COLLJ SPEC WHEN PFRMD 05/20/[address] [facility] [address] Sosa - normal COLONOSCOPY FLX DX W/COLLJ SPEC WHEN PFRMD 06/01/2013 Colonoscopy COLONOSCOPY FLX DX W/COLLJ SPEC WHEN PFRMD 12/11/2018 Colonoscopy ESOPHAGOGASTRODUODENOSCOPY TRANSORAL DIAGNOSTIC 06/01/2013 EGD ESOPHAGOGASTRODUODENOSCOPY TRANSORAL DIAGNOSTIC 12/11/2018 EGD PAST SURGICAL HISTORY OF scrape calcium off right big toe PAST SURGICAL HISTORY OF right foot calcium build up Dr Hagen TOTAL ABDOMINAL HYSTERECT W/WO RMVL TUBE OVARY 1990 Hysterectomy, PETER FAMILY HISTORY Problem Relation Age of Onset Heart Mother triple bypass Breast Cancer Mother Diabetes Maternal Grandfather Diabetes Other dad's family Prostate Cancer Brother Social History Tobacco Use Smoking status: Never Smokeless tobacco: Never Vaping Use Vaping Use: Never used Substance Use Topics Alcohol use: No Drug use: No Objective BP 144/88 Pulse 94 Temp 36.8 C (98.3 F) (Tympanic) Resp 16 Wt 83.6 kg (184 lb 6.4 oz) SpO2 98% BMI 33.63 kg/m Physical Exam Vitals reviewed. Constitutional: Appearance: Normal appearance. HENT: Head: Normocephalic and atraumatic. Right Ear: Tympanic membrane, ear canal and external ear normal. Left Ear: Tympanic membrane, ear canal and external ear normal. Nose: Nose normal. Mouth/Throat: Pharynx: Pharyngeal swelling and posterior oropharyngeal erythema present. No oropharyngeal exudate. Tonsils: No tonsillar exudate or tonsillar abscesses. Cardiovascular: Rate and Rhythm: Normal rate and regular rhythm. Heart sounds: Normal heart sounds. Pulmonary: Effort: Pulmonary effort is normal. Breath sounds: Normal breath sounds. Musculoskeletal: Cervical back: Neck supple. Lymphadenopathy: Cervical: No cervical adenopathy. Skin: General: Skin is warm and dry. Neurological: Mental Status: She is alert. Assessment and Plan ASSESSMENT/PLAN: 1. Sore throat - ICD9: 462, ICD10: J02.9 (primary diagnosis) - Alere Strep Test strep, no culture pending - STREP A MOLECULAR (POC) 2. Thrush - ICD9: 112.0, ICD10: B37.0 Nystatin sent. If not better in one week be seen again. Mirtha Spencer PA-C documented in this encounter [facility] documented as of this encounter (statuses as of 09/09/2022) [facility]03-21[facility]2008 History of Past illness Narrative* Problem Noted Date Resolved Date Sprain of neck 02/09/2008 10/06/2009 Backache, unspecified 11/27/2007 10/06/2009 documented as of this encounter (statuses as of 02/17/2023) [facility] No data available for this section [facility] Evaluation + Plan note Future Appointments Appointment Date:09/19/2023 01:00:00 PM Scheduled Provider:DION GRAY MD Location:NEUROS Appointment Type:[facility] Evaluation + Plan note Future Appointments Appointment Date:10/20/2023 02:00:00 PM Scheduled Provider:CORY AGUILAR MD Location:NEUROS Appointment Type:[facility] Evaluation + Plan note Future Appointments Appointment Date:12/06/2023 01:00:00 PM Scheduled Provider: Location:NEUROS Appointment Type:NS [facility] Evaluation note* Diagnosis Sore throat- Primary Acute pharyngitis Thrush Candidiasis of mouth [facility] Diagnosis Onychomycosis- Primary Dermatophytosis of nail Pain in toe of left foot Pain in limb Pain in toe of right foot Pain in limb Other diabetic neurological complication associated with type 2 diabetes mellitus (HCC) Callus of foot Corns and callosities Hallux rigidus of both feet documented in this encounter [facility] Discharge instructions No data available for this section [facility] Progress note No data available for this section [facility] Summary Purpose Family History No Family History Records Found No data available for this section No data available for this section No data available for this section No Family History Records Found Advance Directives No Advanced Directives Records FoundNo Advanced Directives Records Found Additional Source Comments Source Comments (unrecognize d section and content) In the event this informatio n is protected by the Federal Confidentiality of Alcohol and Drug Abuse Patient Records regulations: The Federal rules restrict any use of the information to criminally investigate or prosecute any alcohol or drug abuse patient.[facility] the event this information is protected by the Federal Confidentiality of Alcohol and Drug Abuse Patient Records regulations: The Federal rules restrict any use of the information to criminally investigate or prosecute any alcohol or drug abuse patient.[facility] Reason for Visit (unrecogniz ed section and content) Reason Comments Established Patient Diabetic Foot Care Specialty Diagnoses / Procedures Referred By Rose Marie t Referred To Contact Podiatry / PODIATRY Diagnoses Pain in left toe(s) Diabetic foot exam Procedures OFFICE/OUTPATIENT NEW HIGH MDM 60-74 MINUTES OFFICE/OUTPATIENT ESTABLISHED HIGH MDM 40-54 MIN YOHANA EST PODI DIAB Dayana Marmolejo [address] [place] [address] Dayana Marmolejo [address] [place] [address] Referral ID Status Reason Start Date Expiration Date V isits Requested Visits Authorized [id number] Authorized 02/17/2023 11/20/2023 99 99 Care Teams (unrecognized sec tion and content) INFORMATION SOURCE (unrecogn ized section and content) DATE CREATED AUTHOR AUTHOR'S ORGANIZ ATION 11/30/2023 [facility] ([place]) FOR RECORDS PERTAINING TO PATIENTS WHO ARE OR HAVE BEEN ENROLLED IN A CHEMICAL DEPENDENCY/SUBSTANCEABUSE PROGRAM, SOME INFORMATION MAY BE OMITTED. This clinical summary was aggregated from multiple sources. Caution should be exercised in using it in the provision of clinical care. This summary normalizes information from multiple sources, and as a consequence, information in this document may materially change the coding, format and clinical context of patient data. In addition, data may be omitted in some cases. CLINICAL DECISIONS SHOULD BE BASED ON THE PRIMARY CLINICAL RECORDS. [facility]. provides no warranty or guarantee of the accuracy or completeness of information in this document.
== END 2022-09-17 12:13 | disposition home or self-care (01) | DRG 157 ==
LOC: ED 15:56 → PCU 16:18
PROVIDERS: Internal Medicine; Admitting Provider Family Medicine; Emergency Provider Emergency Medicine; PCP Family Medicine; Visit Provider Internal Medicine
DX: K12.31 Oral mucositis (ulcerative) due to antineoplastic therapy (principal); D61.810 Antineoplastic chemotherapy induced pancytopenia; E43 Unspecified severe protein-calorie malnutrition; J44.9 Chronic obstructive pulmonary disease, unspecified; D69.6 Thrombocytopenia, unspecified; E11.9 Type 2 diabetes mellitus without complications; D72.10 Eosinophilia, unspecified; E78.5 Hyperlipidemia, unspecified; D86.9 Sarcoidosis, unspecified; K21.9 Gastro-esophageal reflux disease without esophagitis; I10 Essential (primary) hypertension; G47.33 Obstructive sleep apnea (adult) (pediatric); T45.1X1A Poisoning by antineoplastic and immunosuppressive drugs, accidental (unintentional), initial encounter; R10.11 Right upper quadrant pain; E66.9 Obesity, unspecified; Z68.33 Body mass index [BMI] 33.0-33.9, adult; Z23 Encounter for immunization; Z79.82 Long term (current) use of aspirin; Z79.899 Other long term (current) drug therapy; Z86.73 Personal history of transient ischemic attack (TIA), and cerebral infarction without residual deficits; Z79.84 Long term (current) use of oral hypoglycemic drugs; Z79.52 Long term (current) use of systemic steroids
CPT/HCPCS: 36415; 80048; 80053; 81001; 82962; 83690; 83735; 84100; 85025; 87086; 87088; 87428; 87880; 93005; 94660; 94762; 96361; 96365; 96366; 99221; 99282; 99285; G0008; J7030; J7050; 90686; A4216; G0378; J0640

== ENCOUNTER → 2022-09-27 | Outpatient (CLI) | payer MEDICARE, SELFPAY ==
[2022-09-27 10:00] LABS: Absolute Lymphocyte Count 2.01 X10^3/uL (0.83-4.51); Absolute Neutrophil Count 3.9 X10^3/uL (2.0-7.7); Basophil# 0.07 X10^3/uL; Eosinophil# 0.04 X10^3/uL; Eosinophils% 0.6 % (0-5); Hematocrit 43.2 % (37-47); Hemoglobin 13.4 g/dL (12.0-15.0); Lymphocyte # 2.01 X10^3/ul (0.83-4.51); Lymphocyte % 28.1 % (19-41); Mean Corpuscular Hgb 31.5 pg (27.0-32.0); Mean Corpuscular Volume 101.4 fL (81-99); Mean Platelet Vol. 9.9 fl (6.2-12.0); Monocyte# 0.88 X10^3/uL; Monocyte% 12.3 % (0-10); NRBC Flagged by Analyzer 0.3 % (0-5); Neutrophil % 54.4 % (47-70); Platelet Count 570 K/mm3 (150-450); RBC Distribution Width CV 15.9 % (11.6-14.6); RBC Distribution Width SD 54.3 fl (35.1-43.9); Red Blood Count 4.26 M/mm3 (4.2-5.4); White Blood Count 7.2 K/mm3 (4.4-11.0)
[2022-09-27 10:32] LABS: AST(SGOT) 14 U/L (15-37); Alanine Aminotransfer ALT/SGPT 34 U/L (13-56); Albumin, Serum 3.1 g/dL (3.2-5.0); Alkaline Phosphatase 91 U/L (45-117); Anion Gap 6 (5-15); BUN 17 mg/dL (7-18); Bilirubin, Direct 0.09 mg/dL (0.00-0.30); CPK Total, Creatine Kinase 61 U/L (26-192); Chloride 109 mmol/L (98-107); Globulin 3.8 g/dL (2.2-4.2); Potassium 3.6 mmol/L (3.5-5.1); Protein, Total 6.9 g/dL (6.4-8.2); Sodium Level 143 mmol/L (136-145)
== END | disposition home or self-care (01) ==
PROVIDERS: PCP Family Medicine; Referring Provider Internal Medicine Pulmonary Disease; Visit Provider Internal Medicine Pulmonary Disease
DX: D86.0 Sarcoidosis of lung (principal)
CPT/HCPCS: 36415; 80051; 80076; 82550; 84520; 85025

== ENCOUNTER → 2022-09-29 | Outpatient (CLI) | payer MEDICARE, SELFPAY ==
[2022-09-29 12:25] LABS: Hemoglobin A1c 8.6 % (3.8-5.6)
[2022-09-29 12:35] LABS: ALB/GLOB Ratio 0.8 RATIO (0.9-2.4); AST(SGOT) 18 U/L (15-37); Alanine Aminotransfer ALT/SGPT 35 U/L (13-56); Albumin, Serum 3.2 g/dL (3.2-5.0); Alkaline Phosphatase 99 U/L (45-117); Anion Gap 4 (5-15); BUN 14 mg/dL (7-18); BUN/Creat Ratio 19.8 RATIO (10-20); Calcium,Total 10.2 mg/dL (8.5-10.1); Chloride 109 mmol/L (98-107); Creatinine, Serum 0.71 mg/dL (0.55-1.02); EST Glomerular Filtration Rate 87 mL/min (>60); Est Glom Filt Rate - Afr Amer 105 mL/min (>60); Glucose 156 mg/dL (74-106); Potassium 3.5 mmol/L (3.5-5.1); Protein, Total 7.2 g/dL (6.4-8.2); Sodium Level 143 mmol/L (136-145)
[2022-09-29 12:37] LABS: Vitamin B12 829 pg/mL (211-911)
[2022-09-29 13:39] LABS: Microalbumin,Random Urine 14.4 mg/L (NO RANGE EST.); Microalbumin:Creatinine Ratio 10.6 mg/g CRE (<30 mg/g CRE)
== END | disposition home or self-care (01) ==
LOC: MFPLAB 11:08
PROVIDERS: Family Medicine; PCP Family Medicine; Referring Provider Family Medicine; Visit Provider Family Medicine
DX: E11.65 Type 2 diabetes mellitus with hyperglycemia (principal); E53.8 Deficiency of other specified B group vitamins
CPT/HCPCS: 36415; 80053; 82043; 82570; 82607; 83036

== ENCOUNTER 2022-10-12 08:58 | Outpatient (CLI) | payer MEDICARE, SELFPAY ==
--- NOTE | 2022-10-12 09:01 | RAD_ITS ---
EXAM: XR CERVICAL SPINE, 6 OR MORE VIEWS CLINICAL INDICATION: atypical facial pain TECHNIQUE: Frontal, lateral, oblique and flexion/extension views of the cervical spine. This report was created using [employer] report generation technology. COMPARISON: None. FINDINGS: VERTEBRAE: No fracture or subluxation. No spondylolisthesis. Preservation of the normal cervical lordosis. No significant facet arthropathy. No evidence of instability with flexion and extension. Limited range of motion. DISC SPACES: Mild multilevel disc space narrowing noted with moderate vertebral body osteophytosis. SOFT TISSUES: Normal. No prevertebral soft tissue widening. LUNG APICES: Clear. RAD/Cerv Spine Obl/Flex/Ext Comp IMPRESSION: No acute abnormality. Diffuse spondylosis. Electronically Signed: August Londono MD at 11:45 EST ,
--- NOTE | 2022-10-12 09:01 | RAD_ITS ---
STUDY: X-RAY - PARANASAL SINUSES REASON FOR EXAM: Female, 72 years old. Atypical facial pain. TECHNIQUE: 3 view(s) of the paranasal sinuses were obtained. COMPARISON: None. FINDINGS: Marked osteopenia. Normal visualized frontal, maxillary, ethmoidal and sphenoid sinuses. Normal visualized facial bones. Stable calcifications in the left frontal and parietal regions unchanged from prior CT. The soft tissue structures are unremarkable. RAD/Sinuses min 3 Views IMPRESSION: Marked osteopenia with stable calcifications in the left frontal and parietal regions. No acute abnormality. Electronically Signed: Simon Mina, at 10:15 EST ,
[2022-10-12 11:08] LABS: Syphilis Antibodies Non-reactive
[2022-10-18 17:07] LABS: Methylmalonic Acid Bld 144 nmol/L (0-378)
[2022-10-19 15:08] LABS: ANTINUCLEAR ANTIBODIES DIRECT Negative (Negative)
== END 2022-10-12 23:59 | disposition home or self-care (01) ==
LOC: MTLAB 08:59
PROVIDERS: PCP Family Medicine; Referring Provider Family Medicine; Visit Provider Family Medicine
DX: G50.1 Atypical facial pain (principal); F09 Unspecified mental disorder due to known physiological condition
CPT/HCPCS: 36415; 70220; 72052; 83921; 86038; 86225; 86235; 86780

== ENCOUNTER → 2022-11-30 | Outpatient (CLI) | payer MEDICARE, SELFPAY ==
[2022-11-30 10:25] LABS: Erythrocyte Sedimentation Rate 10 mm/hr (0-30)
[2022-11-30 10:57] LABS: CRP < 2.90 mg/L (0.0-3.0)
[2022-12-01 16:10] LABS: Angiotensin Convert Enzyme 21 U/L (14-82)
== END | disposition home or self-care (01) ==
PROVIDERS: PCP Family Medicine; Referring Provider Internal Medicine Pulmonary Disease; Visit Provider Internal Medicine Pulmonary Disease
DX: D86.0 Sarcoidosis of lung (principal)
CPT/HCPCS: 36415; 82164; 85652; 86140

== ENCOUNTER 2023-02-04 11:31 | Outpatient (RCR) | payer MEDICARE, SELFPAY ==
[2023-01-21 15:02] LABS: Hematocrit 46.8 % (37-47); Hemoglobin 16.3 g/dL (12.0-15.0); Mean Corp Hgb Conc 34.8 g/dL (32-36); Mean Corpuscular Hgb 35.4 pg (27.0-32.0); Mean Corpuscular Volume 101.7 fL (81-99); Platelet Count 189 K/mm3 (150-450); RBC Distribution Width SD 47.2 fl (35.1-43.9); White Blood Count 9.2 K/mm3 (4.4-11.0)
[2023-01-21 15:51] LABS: AST(SGOT) 15 U/L (15-37); Alanine Aminotransfer ALT/SGPT 31 U/L (13-56); Albumin, Serum 3.6 g/dL (3.2-5.0); Alkaline Phosphatase 91 U/L (45-117); Bilirubin, Direct 0.14 mg/dL (0.00-0.30); Globulin 4.1 g/dL (2.2-4.2); Protein, Total 7.7 g/dL (6.4-8.2)
[2023-02-04 14:58] LABS: Absolute Lymphocyte Count 1.91 X10^3/uL (0.83-4.51); Absolute Neutrophil Count 5.3 X10^3/uL (2.0-7.7); Basophil# 0.02 X10^3/uL; Basophil% 0.2 % (0-1); Eosinophil# 0.04 X10^3/uL; Eosinophils% 0.5 % (0-5); Hematocrit 46.7 % (37-47); Hemoglobin 16.3 g/dL (12.0-15.0); Lymphocyte # 1.91 X10^3/ul (0.83-4.51); Lymphocyte % 23.7 % (19-41); Mean Corp Hgb Conc 34.9 g/dL (32-36); Mean Corpuscular Hgb 35.5 pg (27.0-32.0); Mean Corpuscular Volume 101.7 fL (81-99); Mean Platelet Vol. 10.2 fl (6.2-12.0); Monocyte# 0.76 X10^3/uL; Monocyte% 9.4 % (0-10); NRBC Flagged by Analyzer 0 % (0-5); Neutrophil # 5.32 X10^3/uL (2.7-7.7); Platelet Count 163 K/mm3 (150-450); RBC Distribution Width CV 15.1 % (11.6-14.6); RBC Distribution Width SD 47.1 fl (35.1-43.9); Red Blood Count 4.59 M/mm3 (4.2-5.4); White Blood Count 8.1 K/mm3 (4.4-11.0)
[2023-02-04 15:25] LABS: ALB/GLOB Ratio 0.9 RATIO (0.9-2.4); AST(SGOT) 16 U/L (15-37); Alanine Aminotransfer ALT/SGPT 30 U/L (13-56); Albumin, Serum 3.6 g/dL (3.2-5.0); Alkaline Phosphatase 92 U/L (45-117); Anion Gap 8 (5-15); BUN 20 mg/dL (7-18); BUN/Creat Ratio 24.2 RATIO (10-20); Bilirubin, Direct 0.15 mg/dL (0.00-0.30); Calcium,Total 10.2 mg/dL (8.5-10.1); Chloride 100 mmol/L (98-107); Creatinine, Serum 0.83 mg/dL (0.55-1.02); EST Glomerular Filtration Rate 72 mL/min (>60); Est Glom Filt Rate - Afr Amer 87 mL/min (>60); Globulin 4.1 g/dL (2.2-4.2); Glucose 127 mg/dL (74-106); Potassium 3.1 mmol/L (3.5-5.1); Protein, Total 7.7 g/dL (6.4-8.2); Sodium Level 137 mmol/L (136-145)
== END 2023-02-18 21:08 | disposition home or self-care (01) ==
LOC: MTLAB 11:31
PROVIDERS: PCP Family Medicine; Referring Provider Internal Medicine Pulmonary Disease; Visit Provider Internal Medicine Pulmonary Disease
DX: D86.0 Sarcoidosis of lung (principal); R06.02 Shortness of breath
CPT/HCPCS: 36415; 80053; 80076; 82248; 82746; 85025; 85027

== ENCOUNTER → 2023-04-12 | Outpatient (CLI) | payer MEDICARE, SELFPAY ==
[2023-04-12 10:12] LABS: Absolute Lymphocyte Count 1.33 X10^3/uL (0.83-4.51); Absolute Neutrophil Count 6.3 X10^3/uL (2.0-7.7); Basophil# 0.02 X10^3/uL; Basophil% 0.2 % (0-1); Eosinophil# 0.07 X10^3/uL; Eosinophils% 0.8 % (0-5); Hematocrit 45.9 % (37-47); Hemoglobin 15.2 g/dL (12.0-15.0); Lymphocyte # 1.33 X10^3/ul (0.83-4.51); Lymphocyte % 15.9 % (19-41); Mean Corp Hgb Conc 33.1 g/dL (32-36); Mean Corpuscular Hgb 33.2 pg (27.0-32.0); Mean Corpuscular Volume 100.2 fL (81-99); Mean Platelet Vol. 10.4 fl (6.2-12.0); Monocyte# 0.63 X10^3/uL; Monocyte% 7.5 % (0-10); NRBC Flagged by Analyzer 0 % (0-5); Neutrophil # 6.27 X10^3/uL (2.7-7.7); Neutrophil % 75.1 % (47-70); Platelet Count 168 K/mm3 (150-450); RBC Distribution Width CV 14.6 % (11.6-14.6); RBC Distribution Width SD 53.3 fl (35.1-43.9); Red Blood Count 4.58 M/mm3 (4.2-5.4); White Blood Count 8.4 K/mm3 (4.4-11.0)
[2023-04-12 10:15] LABS: Erythrocyte Sedimentation Rate 4 mm/hr (0-30)
[2023-04-12 10:44] LABS: ALB/GLOB Ratio 0.9 RATIO (0.9-2.4); AST(SGOT) 15 U/L (15-37); Alanine Aminotransfer ALT/SGPT 28 U/L (13-56); Albumin, Serum 3.4 g/dL (3.2-5.0); Alkaline Phosphatase 97 U/L (45-117); Anion Gap 3 (5-15); BUN 19 mg/dL (7-18); BUN/Creat Ratio 28.7 RATIO (10-20); Bilirubin, Direct 0.17 mg/dL (0.00-0.30); CRP < 2.90 mg/L (0.0-3.0); Calcium,Total 9.2 mg/dL (8.5-10.1); Chloride 107 mmol/L (98-107); Creatinine, Serum 0.66 mg/dL (0.55-1.02); EST Glomerular Filtration Rate 93 mL/min (>60); Est Glom Filt Rate - Afr Amer 113 mL/min (>60); Globulin 3.8 g/dL (2.2-4.2); Glucose 128 mg/dL (74-106); Potassium 3.6 mmol/L (3.5-5.1); Protein, Total 7.2 g/dL (6.4-8.2); Sodium Level 139 mmol/L (136-145)
== END | disposition home or self-care (01) ==
LOC: MTLAB 08:53
PROVIDERS: PCP Family Medicine; Referring Provider Internal Medicine Pulmonary Disease; Visit Provider Internal Medicine Pulmonary Disease
DX: D86.0 Sarcoidosis of lung (principal)
CPT/HCPCS: 36415; 80053; 82248; 85025; 85652; 86140

== ENCOUNTER → 2023-04-20 | Outpatient (CLI) | payer MEDICARE, SELFPAY ==
--- NOTE | 2023-04-20 11:23 | BI_ITS ---
MAMMOGRAPHY - BILATERAL SCREENING REASON FOR EXAM: Female, 73 years old. Routine annual screening examination. PERTINENT HISTORY: Mother with breast cancer. TECHNIQUE: Digital bilateral breast roxie (3D mammographic acquisition) in the CC and MLO projections. 2-D mediolateral oblique (MLO) and craniocaudad (CC) views of both breasts were obtained. CAD: Full Field Digital Mammography with Computer Added Detection was performed. COMPARISON: None. Baseline examination. FINDINGS: Breast Composition: The breasts are extremely dense, which lowers the sensitivity of mammography. There are no dominant masses or suspicious calcifications. Small benign-appearing bilateral axillary lymph nodes. No other significant abnormalities are identified. BI/SCRN MAMM (CAD)W/ROXIE BILAT IMPRESSION: Negative screening mammogram. Yearly followup mammogram recommended. (A) ASSESSMENT CATEGORY: BIRADS Category 2: Benign. A letter regarding these results will be sent to the patient by the facility within 30 days. Approximately 10% of breast cancers are not detected by mammography. A normal mammogram should not delay biopsy of a clinically suspicious abnormality. [id number] Electronically Signed: Ricardo Rosen MD at 12:34 EDT ,
--- NOTE | 2023-04-20 11:29 | BD_ITS ---
STUDY: DUAL ENERGY X-RAY ABSORPTIOMETRY / DXA REASON FOR EXAM: Female, 73 years old. 733.00OsteoporosisBONE DENSITY REASON FOR EXAM TECHNIQUE: Bone Mineral Density (BMD) measurements of lumbar spine and bilateral hips were obtained. COMPARISON: None. FINDINGS: Lumbar Spine (L1-L4): g/cm2 (0.936) / T-score (-1.9) / Z-score (0.5) Findings are suggestive of osteopenia with a moderate fracture risk. Left Femur Total: g/cm2 (0.748) / T-score (-1.8) / Z-score (-0.6) Left Femoral Neck: g/cm2 (0.525) / T-score (-3.0) / Z-score (-1.5) Right Femur Total: g/cm2 (0.755) / T-score (-1.8) / Z-score (-0.6) Right Femoral Neck: g/cm2 (0.573) / T-score (-2.7) / Z-score (-1.2) BD/Dexa Bone Density Study IMPRESSION: The patient is considered osteoporotic as outlined below according to World Ivan Organization (WHO) criteria with a high fracture risk. Reference Information: The T-score is the number of standard deviations above or below the standard which is normal for young adults at their peak bone mineral density. The World Health Organization (WHO) interprets the T-scores as follows: Above -1 Normal bone density Between -1 and -2.5 Osteopenia Equal to / or below -2.5 Osteoporosis As a practical clinical guideline, osteopenia may be graded as follows: Mild -1 through -1.5 Moderate -1.6 through -2.0 Severe -2.1 through -2.4 The Z-score is the number of standard deviations above or below age-matched controls. A Z-score of less than -1.5 would be considered abnormal. References: 1. NIH Osteoporosis and Related Bone Diseases www osteo.org 2. International Society for Clinical Densitometry www iscd.org 3. National Osteoporosis Foundation www nof.org Electronically Signed: Ricardo Rosen MD at 9:47 EDT ,
== END | disposition home or self-care (01) ==
LOC: OPBI 11:21
PROVIDERS: PCP Family Medicine; Referring Provider Nurse Practitioner Family; Visit Provider Nurse Practitioner Family
DX: Z12.31 Encounter for screening mammogram for malignant neoplasm of breast (principal); Z13.820 Encounter for screening for osteoporosis; M81.0 Age-related osteoporosis without current pathological fracture
CPT/HCPCS: 77063; 77067; 77080

== ENCOUNTER 2023-05-13 16:17 | Outpatient (CLI) | payer MEDICARE, SELFPAY ==
[2023-05-13 18:08] LABS: ALB/GLOB Ratio 0.9 RATIO (0.9-2.4); AST(SGOT) 13 U/L (15-37); Alanine Aminotransfer ALT/SGPT 25 U/L (13-56); Albumin, Serum 3.5 g/dL (3.2-5.0); Alkaline Phosphatase 102 U/L (45-117); Anion Gap 5 (5-15); BUN 15 mg/dL (7-18); BUN/Creat Ratio 22.6 RATIO (10-20); Calcium,Total 9.7 mg/dL (8.5-10.1); Chloride 110 mmol/L (98-107); Creatinine, Serum 0.66 mg/dL (0.55-1.02); EST Glomerular Filtration Rate 93 mL/min (>60); Est Glom Filt Rate - Afr Amer 112 mL/min (>60); Globulin 3.9 g/dL (2.2-4.2); Glucose 130 mg/dL (74-106); Protein, Total 7.4 g/dL (6.4-8.2); Sodium Level 143 mmol/L (136-145)
[2023-05-13 18:16] LABS: Hemoglobin A1c 6.9 % (3.8-5.6)
== END 2023-05-13 23:59 | disposition home or self-care (01) ==
PROVIDERS: PCP Family Medicine; Referring Provider Family Medicine; Visit Provider Family Medicine
DX: E11.22 Type 2 diabetes mellitus with diabetic chronic kidney disease (principal); D86.0 Sarcoidosis of lung; Z79.899 Other long term (current) drug therapy; R06.02 Shortness of breath
CPT/HCPCS: 36415; 80053; 80076; 83036; 85027

== ENCOUNTER 2023-05-13 16:20 | Outpatient (RCR) | payer MEDICARE, SELFPAY ==
[2023-05-13 17:45] LABS: Hematocrit 48.6 % (37-47); Hemoglobin 15.8 g/dL (12.0-15.0); Mean Corp Hgb Conc 32.5 g/dL (32-36); Mean Corpuscular Hgb 33.4 pg (27.0-32.0); Mean Corpuscular Volume 102.7 fL (81-99); Mean Platelet Vol. 10.1 fl (6.2-12.0); Platelet Count 174 K/mm3 (150-450); RBC Distribution Width CV 13.8 % (11.6-14.6); RBC Distribution Width SD 52.3 fl (35.1-43.9); Red Blood Count 4.73 M/mm3 (4.2-5.4); White Blood Count 8.5 K/mm3 (4.4-11.0)
[2023-05-13 18:27] LABS: AST(SGOT) 16 U/L (15-37); Alanine Aminotransfer ALT/SGPT 28 U/L (13-56); Albumin, Serum 3.6 g/dL (3.2-5.0); Alkaline Phosphatase 101 U/L (45-117); Bilirubin, Direct 0.12 mg/dL (0.00-0.30); Globulin 3.9 g/dL (2.2-4.2); Protein, Total 7.5 g/dL (6.4-8.2)
== END 2023-05-13 18:00 | disposition home or self-care (01) ==
LOC: MTLAB 16:20
PROVIDERS: PCP Family Medicine; Referring Provider Internal Medicine Pulmonary Disease; Visit Provider Internal Medicine Pulmonary Disease
DX: D86.0 Sarcoidosis of lung (principal); R06.02 Shortness of breath
CPT/HCPCS: 80076; 85027

== ENCOUNTER 2023-07-29 11:23 | Outpatient (RCR) | payer MEDICARE, SELFPAY ==
[2023-07-29 14:57] LABS: Hematocrit 48.6 % (37-47); Hemoglobin 15.7 g/dL (12.0-15.0); Mean Corp Hgb Conc 32.3 g/dL (32-36); Mean Corpuscular Hgb 32.6 pg (27.0-32.0); Mean Corpuscular Volume 100.8 fL (81-99); Mean Platelet Vol. 10.3 fl (6.2-12.0); Platelet Count 154 K/mm3 (150-450); RBC Distribution Width CV 13.9 % (11.6-14.6); RBC Distribution Width SD 51.2 fl (35.1-43.9); Red Blood Count 4.82 M/mm3 (4.2-5.4); White Blood Count 6.9 K/mm3 (4.4-11.0)
[2023-07-29 15:40] LABS: AST(SGOT) 10 U/L (15-37); Alanine Aminotransfer ALT/SGPT 28 U/L (13-56); Albumin, Serum 3.6 g/dL (3.2-5.0); Alkaline Phosphatase 84 U/L (45-117); Bilirubin, Direct 0.21 mg/dL (0.00-0.30); Globulin 3.8 g/dL (2.2-4.2); Protein, Total 7.4 g/dL (6.4-8.2)
== END 2023-07-29 18:00 | disposition home or self-care (01) ==
LOC: MTLAB 11:23
PROVIDERS: PCP Family Medicine; Referring Provider Internal Medicine Pulmonary Disease; Visit Provider Internal Medicine Pulmonary Disease
DX: D86.0 Sarcoidosis of lung (principal); R06.02 Shortness of breath
CPT/HCPCS: 36415; 80076; 85027

== ENCOUNTER → 2023-10-04 | Outpatient (CLI) | payer MEDICARE, SELFPAY ==
[2023-10-04 17:40] LABS: Absolute Lymphocyte Count 2.17 X10^3/uL (0.83-4.51); Basophil# 0.04 X10^3/uL; Basophil% 0.4 % (0-1); Eosinophil# 0.14 X10^3/uL; Eosinophils% 1.4 % (0-5); Hematocrit 47.5 % (37-47); Hemoglobin 15.2 g/dL (12.0-15.0); Lymphocyte # 2.17 X10^3/ul (0.83-4.51); Lymphocyte % 21.5 % (19-41); Mean Corpuscular Hgb 33.2 pg (27.0-32.0); Mean Corpuscular Volume 103.7 fL (81-99); Mean Platelet Vol. 9.8 fl (6.2-12.0); Monocyte# 0.71 X10^3/uL; NRBC Flagged by Analyzer 0 % (0-5); Neutrophil # 7.02 X10^3/uL (2.7-7.7); Neutrophil % 69.4 % (47-70); Platelet Count 215 K/mm3 (150-450); RBC Distribution Width CV 14.1 % (11.6-14.6); RBC Distribution Width SD 53.1 fl (35.1-43.9); Red Blood Count 4.58 M/mm3 (4.2-5.4); White Blood Count 10.1 K/mm3 (4.4-11.0)
[2023-10-04 17:44] LABS: International Normalized Ratio 0.9; Prothrombin Time (Protime)PT. 12.5 SECONDS (11.7-14.9)
[2023-10-04 17:45] LABS: Partial Thromboplast Time 23.7 Seconds (24.1-36.2)
[2023-10-04 18:08] LABS: ALB/GLOB Ratio 0.9 RATIO (0.9-2.4); AST(SGOT) 20 U/L (15-37); Alanine Aminotransfer ALT/SGPT 44 U/L (13-56); Albumin, Serum 3.6 g/dL (3.2-5.0); Alkaline Phosphatase 83 U/L (45-117); Anion Gap 5 (5-15); BUN 15 mg/dL (7-18); BUN/Creat Ratio 18.6 RATIO (10-20); Calcium,Total 10.2 mg/dL (8.5-10.1); Chloride 103 mmol/L (98-107); Creatinine, Serum 0.81 mg/dL (0.55-1.02); EST Glomerular Filtration Rate 74 mL/min (>60); Est Glom Filt Rate - Afr Amer 90 mL/min (>60); Globulin 4.1 g/dL (2.2-4.2); Glucose 114 mg/dL (74-106); Hemoglobin A1c 6.3 % (3.8-5.6); Potassium 3.5 mmol/L (3.5-5.1); Protein, Total 7.7 g/dL (6.4-8.2); Sodium Level 140 mmol/L (136-145)
== END | disposition home or self-care (01) ==
LOC: MTLAB 15:58
PROVIDERS: PCP Family Medicine; Referring Provider Family Medicine; Visit Provider Family Medicine
DX: D18.02 Hemangioma of intracranial structures (principal); E11.22 Type 2 diabetes mellitus with diabetic chronic kidney disease
CPT/HCPCS: 80053; 83036; 85025; 85610; 85730

== ENCOUNTER 2023-10-28 11:22 | Outpatient (RCR) | payer MEDICARE, SELFPAY ==
[2023-10-28 15:52] LABS: Hematocrit 46.5 % (37-47); Hemoglobin 14.8 g/dL (12.0-15.0); Mean Corp Hgb Conc 31.8 g/dL (32-36); Mean Corpuscular Hgb 32.6 pg (27.0-32.0); Mean Corpuscular Volume 102.4 fL (81-99); Mean Platelet Vol. 10.4 fl (6.2-12.0); Platelet Count 192 K/mm3 (150-450); RBC Distribution Width CV 13.8 % (11.6-14.6); Red Blood Count 4.54 M/mm3 (4.2-5.4); White Blood Count 9.5 K/mm3 (4.4-11.0)
[2023-10-28 16:32] LABS: AST(SGOT) 14 U/L (15-37); Alanine Aminotransfer ALT/SGPT 32 U/L (13-56); Albumin, Serum 3.4 g/dL (3.2-5.0); Alkaline Phosphatase 85 U/L (45-117); Bilirubin, Direct 0.13 mg/dL (0.00-0.30); Globulin 4.2 g/dL (2.2-4.2); Protein, Total 7.6 g/dL (6.4-8.2)
== END 2023-11-20 18:00 | disposition home or self-care (01) ==
LOC: MTLAB 11:22
PROVIDERS: PCP Family Medicine; Referring Provider Internal Medicine Pulmonary Disease; Visit Provider Internal Medicine Pulmonary Disease
DX: D86.9 Sarcoidosis, unspecified (principal)
CPT/HCPCS: 36415; 80076; 85027

== ENCOUNTER → 2024-03-01 | Outpatient (CLI) | payer MEDICARE, SELFPAY ==
[2024-03-01 15:19] LABS: Absolute Lymphocyte Count 1.61 X10^3/uL (0.83-4.51); Absolute Neutrophil Count 4.8 X10^3/uL (2.0-7.7); Basophil# 0.02 X10^3/uL; Basophil% 0.3 % (0-1); Eosinophil# 0.12 X10^3/uL; Eosinophils% 1.7 % (0-5); Hematocrit 47.6 % (37-47); Lymphocyte # 1.61 X10^3/ul (0.83-4.51); Lymphocyte % 22.7 % (19-41); Mean Corp Hgb Conc 31.5 g/dL (32-36); Mean Corpuscular Hgb 30.2 pg (27.0-32.0); Mean Corpuscular Volume 95.8 fL (81-99); Mean Platelet Vol. 10.5 fl (6.2-12.0); Monocyte# 0.53 X10^3/uL; Monocyte% 7.5 % (0-10); NRBC Flagged by Analyzer 0 % (0-5); Neutrophil # 4.78 X10^3/uL (2.7-7.7); Neutrophil % 67.5 % (47-70); Platelet Count 224 K/mm3 (150-450); RBC Distribution Width CV 12.8 % (11.6-14.6); RBC Distribution Width SD 45.1 fl (35.1-43.9); Red Blood Count 4.97 M/mm3 (4.2-5.4); White Blood Count 7.1 K/mm3 (4.4-11.0)
[2024-03-01 16:21] LABS: Microalbumin,Random Urine 5.2 mg/L (NO RANGE EST.); Microalbumin:Creatinine Ratio 10.4 mg/g CRE (<30 mg/g CRE)
[2024-03-01 16:42] LABS: ALB/GLOB Ratio 0.7 RATIO (0.9-2.4); AST(SGOT) 56 U/L (15-37); Alanine Aminotransfer ALT/SGPT 94 U/L (13-56); Albumin, Serum 3.4 g/dL (3.2-5.0); Alkaline Phosphatase 167 U/L (45-117); Anion Gap 3 (5-15); BUN 22 mg/dL (7-18); Calcium,Total 10.8 mg/dL (8.5-10.1); Chloride 101 mmol/L (98-107); EST Glomerular Filtration Rate 58 mL/min (>60); Est Glom Filt Rate - Afr Amer 70 mL/min (>60); Globulin 4.6 g/dL (2.2-4.2); Glucose 145 mg/dL (74-106); Potassium 3.7 mmol/L (3.5-5.1); Sodium Level 137 mmol/L (136-145)
[2024-03-01 17:55] LABS: Hemoglobin A1c 6.6 % (3.8-5.6)
[2024-03-05 09:22] LABS: PTHIN 127.2 pg/mL (18.4-80.1)
== END | disposition home or self-care (01) ==
LOC: MFPLAB 12:23
PROVIDERS: PCP Family Medicine; Visit Provider Family Medicine
DX: R35.0 Frequency of micturition (principal); E11.22 Type 2 diabetes mellitus with diabetic chronic kidney disease; E83.52 Hypercalcemia; D86.9 Sarcoidosis, unspecified
CPT/HCPCS: 36415; 80053; 82043; 82570; 83036; 83970; 85025

== ENCOUNTER → 2024-07-06 | Outpatient (CLI) | payer MEDICARE, SELFPAY ==
[2024-07-06 12:15] LABS: Mucous, Urine 0 SEEN /hpf (<or=2+); Red Blood Cells-Urine 0 SEEN /hpf (0-5); Squamous Epithelial Cells - UA 0 SEEN /hpf (5-10); White Blood Cells 0 SEEN /hpf (0-5)
[2024-07-06 15:22] LABS: Absolute Neutrophil Count 4.2 X10^3/uL (2.0-7.7); Basophil# 0.02 X10^3/uL; Basophil% 0.3 % (0-1); Eosinophil# 0.11 X10^3/uL; Eosinophils% 1.8 % (0-5); Hematocrit 44.5 % (37-47); Hemoglobin 14.2 g/dL (12.0-15.0); Mean Corp Hgb Conc 31.9 g/dL (32-36); Mean Corpuscular Hgb 30.9 pg (27.0-32.0); Mean Corpuscular Volume 96.9 fL (81-99); Mean Platelet Vol. 10.4 fl (6.2-12.0); Monocyte# 0.52 X10^3/uL; Monocyte% 8.4 % (0-10); NRBC Flagged by Analyzer 0 % (0-5); Neutrophil # 4.22 X10^3/uL (2.7-7.7); Platelet Count 206 K/mm3 (150-450); RBC Distribution Width CV 15.2 % (11.6-14.6); RBC Distribution Width SD 53.9 fl (35.1-43.9); Red Blood Count 4.59 M/mm3 (4.2-5.4); White Blood Count 6.2 K/mm3 (4.4-11.0)
[2024-07-06 15:43] LABS: ALB/GLOB Ratio 0.7 RATIO (0.9-2.4); AST(SGOT) 47 U/L (15-37); Alanine Aminotransfer ALT/SGPT 114 U/L (13-56); Albumin, Serum 3.2 g/dL (3.2-5.0); Alkaline Phosphatase 165 U/L (45-117); Anion Gap 6 (5-15); BUN 10 mg/dL (7-18); BUN/Creat Ratio 17.6 RATIO (10-20); Calcium,Total 10.1 mg/dL (8.5-10.1); Chloride 105 mmol/L (98-107); Creatinine, Serum 0.57 mg/dL (0.55-1.02); EST Glomerular Filtration Rate 111 mL/min (>60); Est Glom Filt Rate - Afr Amer 134 mL/min (>60); Globulin 4.3 g/dL (2.2-4.2); Glucose 123 mg/dL (74-106); Potassium 3.6 mmol/L (3.5-5.1); Protein, Total 7.5 g/dL (6.4-8.2); Sodium Level 138 mmol/L (136-145); Vitamin D,25 Hydroxy 23.4 ng/mL
[2024-07-06 15:55] LABS: Color, Urine Yellow (Yellow); Glucose, Dipstick Normal (Normal); Ketone-Dipstick Negative (Negative); Leukocyte Esterase-Dipstick Negative /ul (Negative); Nitrite-Dipstick Negative (Negative); Occult Blood-Urine Negative /ul (Negative); Protein-Dipstick Negative (Negative); Specific Gravity, Urine 1.015 (1.002-1.030); Urine Bilirubin Dipstick Negative (Negative); Urine Clarity Clear (Clear); Urine Urobilinogen 1 mg/dl (Normal)
[2024-07-06 16:13] LABS: Microalbumin,Random Urine 5.8 mg/L (NO RANGE EST.); Microalbumin:Creatinine Ratio 9.4 mg/g CRE (<30 mg/g CRE)
[2024-07-06 16:37] LABS: Bacteria RARE /hpf (None Seen)
== END | disposition home or self-care (01) ==
LOC: MFPLAB 12:12
PROVIDERS: PCP Family Medicine; Visit Provider Family Medicine
DX: D86.9 Sarcoidosis, unspecified (principal); E11.22 Type 2 diabetes mellitus with diabetic chronic kidney disease; R10.9 Unspecified abdominal pain; Z79.631 Long term (current) use of antimetabolite agent
CPT/HCPCS: 36415; 80053; 81001; 82043; 82306; 82570; 85025; 87086; 87088

== ENCOUNTER 2024-07-07 16:40 | Emergency (ER) | payer MEDICARE, SELFPAY ==
[2024-07-07 16:41] VITALS: BP 118/52; PULSE 67; RESP 18; TEMP 36.4; O2SAT 95
--- NOTE | 2024-07-07 17:14 | CT_ITS ---
EXAM: CT ABDOMEN AND PELVIS WITHOUT INTRAVENOUS CONTRAST CLINICAL INDICATION: Right flank pain. TECHNIQUE: Helically acquired images were obtained of the abdomen and pelvis without intravenous contrast. This CT exam was performed using one or more of the following dose reduction techniques: automated exposure control, adjustment of the mA and/or kV according to patient size, and/or use of iterative reconstruction technique. COMPARISON: 07/01/2021 FINDINGS: LOWER THORAX: Unremarkable. Lung bases are clear. No cardiomegaly. No significant pericardial effusion. ABDOMEN: LIVER: Unremarkable. Homogeneous. GALLBLADDER AND BILE DUCTS: Unremarkable. No calcified gallstones. No gallbladder distention or wall edema. No intra- or extrahepatic biliary ductal dilation. PANCREAS: Unremarkable. No focal cystic mass. SPLEEN: There are splenic granulomas present. ADRENALS: Unremarkable. No nodules. KIDNEYS AND URETERS: There are low-density masses in both kidneys compatible with simple cysts. No follow-up imaging is necessary. There are bilateral nonobstructing calyceal stones. There is no ureteral obstruction. STOMACH AND BOWEL: Unremarkable. No stomach or bowel distention. No focal inflammatory change. PELVIS: APPENDIX: No evidence of acute appendicitis. BLADDER: Unremarkable. REPRODUCTIVE: Unremarkable as visualized. No mass. ABDOMEN and PELVIS: INTRAPERITONEAL SPACE: Unremarkable. No ascites or other fluid collection. No free air. BONES/JOINTS: Unremarkable. No suspicious lytic or blastic abnormality. SOFT TISSUES: Unremarkable. No discrete abdominal or pelvic wall hernia. VASCULATURE: Unremarkable. Abdominal aorta is non-dilated. LYMPH NODES: Calcified lymph nodes in the right hilum. There are also calcified granulomas in the right middle lobe. CT/Abdomen/Pelvis without Cont IMPRESSION: 1. Bilateral nonobstructing calyceal stones. There is no ureteral obstruction. There are no acute abnormalities in the abdomen or pelvis. 2. Evidence of prior granulomatous disease. Electronically Signed: Sonny Simmons MD at 18:09 EDT ,
--- NOTE | 2024-07-07 17:15 | ED.VIS.GI ---
HPI HPI - GI History of Present Illness Chief Complaint: Flank Pain Informant: patient Abdominal Pain/Flank Pain Onset: Days Context: Gradual Onset Timing: Continuous Quality: Aching Current Severity: Mild Maximum Severity: Mild Worsened by: Movement Relieved by: Nothing Nausea/Vomiting/Emesis GI Symptom: Negative for Nausea or Vomiting Diarrhea/Melena/Hematochezia GI Symptom: Negative for Diarrhea, Melena or Hematochezia Associated Symptoms Associated Symptoms: Negative for Dysuria, Frequency, Hematuria or Urgency Narrative Narrative: 74-year-old female history of diabetes, pancytopenia and prior kidney stones. Never needed in the surgery to have any of the stones removed. States on she got right flank pain right lower back pain. Saw her primary care physician Dr. Ry Stoddard on Tuesday. He did outpatient labs and UA which were negative. She is having continued pain. Worse with movement. No fall or trauma. No radiation to her legs. No weakness or numbness in her lower extremities. No fever. No dysuria or hematuria. Prior similar symptoms: Yes Recent Illness/Hospitalization: No PFSH PFSH Medical History COVID-19 Eosinophilia Pancytopenia History of diabetes mellitus Thrombocytopenia Leukopenia Methotrexate toxicity Fatigue COPD (chronic obstructive pulmonary disease) Sleep apnea SOB (shortness of breath) on exertion Constipation LLQ discomfort Hyperlipidemia Type 2 diabetes mellitus without complication Essential hypertension History of stroke Sarcoidosis GERD (gastroesophageal reflux disease) Home Medications ?Medication ?Instructions ?Recorded ?Last Taken ?Type atorvastatin 40 mg tablet 40 mg PO DAILY Check with primary 09/21/17 09/13/22 History doctor lisinopril 10 mg tablet 20 mg PO DAILY Check with primary 09/21/17 09/13/22 History doctor aspirin 81 mg tablet,delayed 81 mg PO DAILY Check with primary 11/01/19 09/13/22 History release (Adult Low Dose Aspirin) doctor fluticasone propionate 220 2 puff inhalation DAILY Check with 11/01/19 09/13/22 History mcg/actuation HFA aerosol inhaler primary doctor (Flovent HFA) pantoprazole 20 mg tablet,delayed 20 mg PO DAILY Check with primary 11/12/19 09/13/22 History release doctor metformin 500 mg tablet 500 mg PO BID Check with primary 03/22/21 09/13/22 History doctor prednisone 1.5 tablet DAILY Check with 06/14/22 09/13/22 History primary doctor methotrexate sodium 2.5 mg tablet 12.5 mg PO QWEEK 03/01/23 Unknown History dapagliflozin propanediol 10 mg 10 mg PO DAILY 04/13/23 Unknown History tablet (Farxiga) gabapentin 100 mg PO/SL DAILY 04/13/23 Unknown History vitamin B complex 1 cap PO DAILY 04/13/23 Unknown History dexamethasone 6 mg tablet 6 mg PO DAILY #5 tabs 07/04/23 Unknown Rx hydrochlorothiazide 25 mg tablet 25 mg PO DAILY 07/04/23 Unknown History hydrocodone-acetaminophen 5-325mg 1 tab PO Q6H PRN PRN Pain 5 days 07/07/24 Unknown Rx 5mg-325mg #12 TABLETS Allergy/AdvReac Type Severity Reaction Status Date / Time Penicillins Allergy Mild Other Verified 07/07/24 16:41 pravastatin AdvReac joint pain Verified 07/07/24 16:41 simvastatin AdvReac joint pain Verified 07/07/24 16:41 Family History Mother CAD (coronary artery disease) CABG X 3 Breast cancer Heart disease Hypertension CVA (cerebral vascular accident) Brother Cancer prostate Myocardial infarction Pacemaker Grandfather Diabetes Surgical History History of colonoscopy History of hysterectomy History of foot surgery Social History Smoking Status: Never smoker second hand exposure: No alcohol intake: never substance use type: does not use caffeine: Yes Type: tea Number of servings: 2 what type of physical activity do you participate in: none frequency: does not exercise ROS ROS ED ROS Narrative Right flank pain. No vomiting. No fever. No dysuria. Worse with movement. Constitutional Constitutional ED: Denies chills or fever(s) ENT ENT ED: Denies ear pain Cardiovascular Cardiovascular: Denies chest pain Respiratory/Chest Respiratory/Chest: Denies cough or dyspnea Gastrointestinal Gastrointestinal: Denies abdominal pain, constipation, diarrhea, melena, nausea or vomiting Genitourinary Genitourinary ED: Denies dysuria, hematuria or urinary frequency Musculoskeletal Musculoskeletal: Reports back pain; Denies arthralgias, myalgias or neck pain Integumentary Denies abscess or Abrasions Neurologic Neurologic: Denies headache(s) Psychiatric Psychiatric: Denies anxiety Endocrine Endocrinology: Denies polydipsia Hematologic/Lymphatic Hematologic/Lymphatic: Denies easy bleeding, easy bruising or lymphadenopathy Allergic/Immunologic Allergic/Immunologic ED: Denies mouth swelling, tongue swelling or urticaria EXAM Physical Exam Narrative Exam Narrative: 74-year-old female vital signs stable afebrile. H EENT exam unremarkable. Neck nontender. Lungs clear to auscultation. Heart regular rhythm rate about 65 no murmur. Chest wall ribs nontender. Abdomen soft, nontender, nondistended normal bowel sounds without peritoneal signs. Moving all 4 extremities. 5 out of 5 showcase trimmer strength. Dorsi plantarflexion intact. She can flex and extend both her legs difficulty. Negative straight leg raise bilaterally. Normal strength and sensation. Back there is reproducible pain along the paraspinal soft tissue. There is no spine or bony tenderness. No signs of trauma. It is worse with movement. This very well may be musculoskeletal. There is no rash. Neurologically she is awake and alert no focal motor deficits. Patient is sitting upright in bed. Does not want a thing for pain. Does not want an IV. I believe there is 2 other female present that may be friends or sisters. Const Vital Signs: 07/07/24 16:41 07/07/24 18:40 Temperature 97.6 F L Temperature Source Temporal Pulse Rate 67 74 Respiratory Rate 18 18 Blood Pressure 118/52 L 150/68 H Blood Pressure Mean 74 95 Pulse Ox 95 97 Oxygen Delivery Method Room Air Positive well nourished and well developed; Negative for cachectic, contractures or unkempt General Appearance ED: well developed and NAD; Negative for unkempt, cachectic, contractures or pallor Nutritional Appearance: Negative for cachectic HEENT Reports moist mucous membranes normocephalic and atraumatic; Negative for trauma or tenderness Eyes PERRL General Eye ED: Negative for pale conjunctiva or scleral icterus Neck no lymphadenopathy, supple and no JVD General: Negative for tenderness Carotids: Negative for other Resp normal respiratory effort and clear to auscultation bilaterally Effort and Inspection: Negative for respiratory distress Auscultation: Negative for rales, rhonchi, wheezes or diminished lung sounds Cardio regular rate, regular rhythm, S1 normal heart sound, S2 normal heart sound and no murmurs Rate: Negative for bradycardia or tachycardic Rhythm: Negative for abnormal rhythm GI non-tender, non-distended and no masses Inspection: Negative for abdominal distention Palpation: soft; Negative for tender, guarding, hernia, mass, pulsatile mass or rebound tenderness present Back/Spine no CVA tenderness Back/Spine Narrative: kidney is not CVA tenderness. Lower than her soft tissue tenderness. No bony tenderness. No rash. right flank reproducible paraspinal no signs of trauma. Worse with movement. This may be reproducible musculoskeletal pain. General Back: Negative for CVA tenderness Cervical Spine: Negative for cervical spine tenderness Thoracic Spine / Upper Back: Negative for thoracic spinal tenderness Lumbar Spine / Lower Back: Negative for lumbar spinal tenderness Coccyx: Negative for other Extremity full ROM General Extremety ED: Negative for edema or tenderness General Extremity: Negative for edema Neuro CN's II-XII intact bilaterally and moves all extremities Sensorium / Orientation: alert, oriented to person, oriented to place and oriented to time; Negative for orientation impaired, confused, lethargic or stuporous Motor Exam: strength 5/5 throughout Psych mental status grossly normal and thought process normal Appearance: Negative for unkempt Attitude: No agitated Mood & Affect: Negative for depressed, anxious or tearful Skin no wounds General Skin Exam: Negative for jaundice or pallor Lesions: no lesions Rashes: no rashes Trauma: Negative for abrasion Nails: Negative for discolored MDM MDM MDM Narrative Medical decision making narrative: 74-year-old female complaining of atraumatic right flank pain. Appears to be reproducible muscle skeletal pain. She has concerns of kidney stone. CAT scan of the obtained. She had outpatient workup yesterday including urine which was unremarkable. She did not want an IV. She does not want pain medication at this time. So we will obtain a CT flank without contrast. I reviewed her test from yesterday. Repeat exam patient doing well at 7:40 PM. She has reproducible paraspinal soft tissue tenderness on her back. Her CAT scan showed stones in her kidneys but no acute ureteral stone. I discussed that all with the patient plus her test that were done yesterday as an outpatient which were unremarkable. She will be given a [place] here for pain. Written for [place] at home for pain I suspect this is musculoskeletal back pain. She will follow-up with her primary care physician to ensure she was improving. I spoke to her and 2 friends that were with her about pain medications. Lab Data Attestation: I reviewed the patient's lab results. Lab results narrative: I reviewed her outpatient labs from yesterday. Her CBC and chemistry were unremarkable. UA was negative. Without signs of infection or blood. Radiography Diagnostic Testing: Clinical Impression(s) from Imaging Studies Abdomen/Pelvis CT 07/07/24 17:14 IMPRESSION: 1. Bilateral nonobstructing calyceal stones. There is no ureteral obstruction. There are no acute abnormalities in the abdomen or pelvis. 2. Evidence of prior granulomatous disease. Electronically Signed: Sonny Simmons MD at 18:09 EDT , Discharge Plan Triage Chief Complaint: Flank Pain ED Provider: Alejo Dunn Dx/Rx/DC Orders Clinical Impression: Low back pain, History of kidney stones, History of diabetes mellitus Instructions: ED Back Pain (Acute or Chronic) Prescriptions: New hydrocodone-acetaminophen 5-325 mg tablet 1 tab PO Q6H PRN PRN (Reason: Pain) 5 Days Qty: 12 0RF No Action pantoprazole 20 mg tablet,delayed release (DR/EC) 20 mg PO DAILY Flovent HFA 220 mcg/actuation HFA aerosol inhaler 2 puff INHALATION DAILY aspirin [Adult Low Dose Aspirin] 81 mg tablet,delayed release (DR/EC) 81 mg PO DAILY hydrochlorothiazide 25 mg tablet 25 mg PO DAILY dexamethasone 6 mg tablet 6 mg PO DAILY Qty: 5 0RF atorvastatin 40 MG tablet 40 mg PO DAILY lisinopril 10 MG tablet 20 mg PO DAILY metformin 500 mg Tablet 500 mg PO BID prednisone 5 MG 1.5 tablet DAILY Rx Instructions: 7.5 MG QD methotrexate sodium 2.5 mg tablet 12.5 mg PO QWEEK Farxiga 10 mg Tablet 10 mg PO DAILY gabapentin 100 mg capsule 100 mg PO/SL DAILY vitamin B complex Capsule 1 cap PO DAILY Primary Care Provider: Ry Stoddard Referrals: Ry Stoddard MD [Primary Care Provider] - 3-5 Days Activity Restrictions/Additional Instructions: Your labs from yesterday were normal. There was no signs of any urinary tract infection. Your CAT scan today did not show any acute kidney stones. I believe the pain is musculoskeletal pain. [place] for pain. Plenty of fluids. Fruits that she will's and fiber along with a stool softener to prevent constipation. Follow-up with your doctor if not improving and return if worse. Hot shower. Warm bath. Massage. Heating pad. Print Language: Spanish Disposition Disposition: Home, Self Care
[2024-07-07 17:59] VITALS: BMI 30.6
[2024-07-07 18:40] VITALS: BP 150/68; PULSE 74; RESP 18; O2SAT 97
[2024-07-07] MEDS: HYDROcodone Bitartrate/Apap 5/325 Tablet PO (20:09)
== END 2024-07-07 20:11 | disposition home or self-care (01) ==
PROVIDERS: Emergency Provider Emergency Medicine; PCP Family Medicine; Visit Provider Emergency Medicine
DX: M54.50 Low back pain, unspecified (principal); J44.9 Chronic obstructive pulmonary disease, unspecified; E11.9 Type 2 diabetes mellitus without complications; I10 Essential (primary) hypertension; E78.5 Hyperlipidemia, unspecified; Z86.73 Personal history of transient ischemic attack (TIA), and cerebral infarction without residual deficits; Z79.899 Other long term (current) drug therapy; Z79.82 Long term (current) use of aspirin; Z79.51 Long term (current) use of inhaled steroids; K21.9 Gastro-esophageal reflux disease without esophagitis; Z79.84 Long term (current) use of oral hypoglycemic drugs; Z90.710 Acquired absence of both cervix and uterus; Z87.442 Personal history of urinary calculi
CPT/HCPCS: 74176; 99282

== ENCOUNTER → 2024-07-19 | Outpatient (CLI) | payer MEDICARE, SELFPAY ==
--- NOTE | 2024-07-19 09:00 | RAD_ITS ---
EXAM: XR LUMBOSACRAL SPINE COMPLETE WITH FLEXION/EXTENSION, 6 OR MORE VIEWS CLINICAL INDICATION: back pain TECHNIQUE: Lateral, frontal, oblique and lateral flexion/extension views of the lumbar spine and sacrum. COMPARISON: CT abdomen and pelvis 07/07/2024 FINDINGS: VERTEBRAE: Moderate vertebral body osteophytosis. Mild levoscoliosis centered at the thoracolumbar junction. Compression deformity of the T12 vertebral body noted of uncertain age. DISC SPACES: Moderate multilevel disc degeneration spine. Mild multilevel disc space narrowing. Multilevel facet arthropathy. GASTROINTESTINAL TRACT: Normal bowel gas pattern. OTHER FINDINGS: Left renal stones again noted. Calcified splenic granulomata. RAD/L/S Spine w Bend Min 6 Vw IMPRESSION: 1. Compression deformity of T12 of uncertain age. 2. Moderate spondylosis. 3. Left nephrolithiasis. Electronically Signed: August Londono MD at 8:54 EDT ,
== END | disposition home or self-care (01) ==
PROVIDERS: PCP Family Medicine; Referring Provider Family Medicine; Visit Provider Family Medicine
DX: M54.9 Dorsalgia, unspecified (principal)
CPT/HCPCS: 72114

== ENCOUNTER → 2024-08-11 | Outpatient (CLI) | payer MEDICARE, SELFPAY ==
--- NOTE | 2024-08-11 11:19 | MRI_ITS ---
STUDY: MRI THORACIC SPINE WITHOUT CONTRAST REASON FOR EXAM: Female, 74 years old. COMPRESSION FRACTURE TECHNIQUE: Standardized fat and water weighted pulse sequences were obtained in the sagittal and axial planes. COMPARISON: CT abdomen and pelvis without contrast 07/07/2024 and 07/09/2016. FINDINGS: Normal kyphosis of the thoracic spine. There is no substantial scoliosis. T1-2, T2-3, T3-4, T4-5, T5-6, T6-7, T7-8, T8-9, T9-10, T10-11, T11-12: Minimal linear vertebral marrow edema across the fracture line underneath the anterior wedge compression fracture of the T12 superior endplate. This is separate from the prominent central Schmorl''s node of the T12 superior endplate. There is no bone edema or extension of fracture into both T12 pedicles. No other suspicious fractures of the thoracic spine. No thoracic extruded disc fragment or spinal stenosis. Normal visualized thoracic cord. Normal conus medullaris that terminates at the T12-L1 disc space level.. The soft tissue structures are unremarkable. MRI/Spine Thoracic (Routine) IMPRESSION: 1. Mild recent anterior wedge compression fracture across the upper T12 vertebral body with sparing of the pedicles and posterior osseous elements. If patient has debilitating back pain referrable to this site, this is feasible for kyphoplasty. 2. No MRI evidence of thoracic extruded disc fragment or spinal stenosis. 3. Normal thoracic spinal cord. Electronically Signed: Pedro Hollingsworth MD at 12:40 EDT ,
== END | disposition home or self-care (01) ==
LOC: MRI 10:48
PROVIDERS: PCP Family Medicine; Referring Provider Anesthesiology Pain Medicine; Visit Provider Anesthesiology Pain Medicine
DX: M48.50XA Collapsed vertebra, not elsewhere classified, site unspecified, initial encounter for fracture (principal)
CPT/HCPCS: 72146

== ENCOUNTER 2025-02-04 14:30 | Outpatient (CLI) | payer MEDICARE, SELFPAY ==
[2025-02-04 18:10] LABS: AST(SGOT) 49 U/L (<=31); Alanine Aminotransfer ALT/SGPT 63 U/L (<=34); Alkaline Phosphatase 176 U/L (35-104); Anion Gap 8 (5-15); BUN 21 mg/dL (4-19); BUN/Creat Ratio 26.9 RATIO (10-20); Calcium,Total 10.7 mg/dL (7.6-11.0); Carbon Dioxide 29.4 mmol/L (21.0-32.0); Chloride 102 mmol/L (98-108); Creatinine, Serum 0.79 mg/dL (0.70-1.20); EST Glomerular Filtration Rate 78 (>60); Glucose 86 mg/dL (70-99); Protein, Total 7.9 g/dL (5.9-8.4); Sodium Level 139 mmol/L (133-145); Total Bilirubin 0.46 mg/dL (0.00-1.30)
[2025-02-04 18:12] LABS: Absolute Lymphocyte Count 1.77 X10^3/uL (0.83-4.51); Absolute Neutrophil Count 5.3 X10^3/uL (2.0-7.7); Basophil# 0.02 X10^3/uL; Basophil% 0.3 % (0-1); Eosinophil# 0.19 X10^3/uL; Eosinophils% 2.4 % (0-5); Hematocrit 48.7 % (37-47); Lymphocyte # 1.77 X10^3/ul (0.83-4.51); Lymphocyte % 22.1 % (19-41); Mean Corp Hgb Conc 32.9 g/dL (32-36); Mean Corpuscular Volume 97.4 fL (81-99); Mean Platelet Vol. 10.5 fl (6.2-12.0); Monocyte# 0.69 X10^3/uL; Monocyte% 8.6 % (0-10); NRBC Flagged by Analyzer 0 % (0-5); Neutrophil # 5.31 X10^3/uL (2.7-7.7); Neutrophil % 66.3 % (47-70); Platelet Count 222 K/mm3 (150-450); RBC Distribution Width CV 16.5 % (11.6-14.6); RBC Distribution Width SD 58.7 fl (35.1-43.9)
[2025-02-04 18:18] LABS: PTHIN 118 pg/mL (11-61)
[2025-02-04 18:28] LABS: Hemoglobin A1c 6.4 % (<=5.6)
[2025-02-04 19:05] LABS: Erythrocyte Sedimentation Rate 4 mm/hr (0-30)
[2025-02-04 19:34] LABS: Microalbumin,Random Urine < 12.0 mg/L (NO RANGE EST.); Microalbumin:Creatinine Ratio UNABLE TO CALCULATE mg/g CRE
== END 2025-02-04 23:59 | disposition home or self-care (01) ==
LOC: MTLAB 14:31
PROVIDERS: PCP Family Medicine; Referring Provider Family Medicine; Visit Provider Family Medicine
DX: E11.22 Type 2 diabetes mellitus with diabetic chronic kidney disease (principal); N18.9 Chronic kidney disease, unspecified; D86.9 Sarcoidosis, unspecified; K31.84 Gastroparesis; E83.52 Hypercalcemia
CPT/HCPCS: 36415; 80053; 82043; 82306; 82570; 83036; 83970; 85025; 85652

== ENCOUNTER → 2025-02-07 | Outpatient (CLI) | payer MEDICARE, SELFPAY ==
--- NOTE | 2025-02-07 12:32 | BI_ITS ---
EXAM: SCRN MAMM (CAD)W/ROXIE BILAT 02/07/2025 CLINICAL HISTORY: F, Age 75 y/o , SCREENING. Mother with breast cancer. TECHNIQUE: Bilateral Diagnostic digital breast tomosynthesis with 2D and 3D images. Computer aided detection. COMPARISON: Prior exam(s) dated there are no new policies being made 2022. And. FINDINGS: TISSUE DENSITY: The breast tissue is heterogenously dense, which may obscure small masses. Bilateral Breast Mammographic Findings: No significant masses, calcifications or other abnormalities are identified. No suspicious masses, areas of developing architectural distortion, or suspicious calcifications. There has been no significant interval change. Stable fatty rare bilateral axillary lymph nodes. BI/SCRN MAMM (CAD)W/ROXIE BILAT IMPRESSION: Right Breast: BIRADS 2 BENIGN FINDING. Left Breast: BIRADS 2 BENIGN FINDING. OVERALL FINAL ASSESSMENT: BIRADS 2 BENIGN FINDING. RECOMMENDATION: Routine annual follow-up in 1 Year A letter with findings and recommendations will be mailed to the patient. Reading Location: [place] [address]
== END | disposition home or self-care (01) ==
LOC: OPBI 12:32
PROVIDERS: PCP Family Medicine; Referring Provider Family Medicine; Visit Provider Family Medicine
DX: Z12.31 Encounter for screening mammogram for malignant neoplasm of breast (principal); Z80.3 Family history of malignant neoplasm of breast
CPT/HCPCS: 77063; 77067

== ENCOUNTER → 2025-02-26 | Outpatient (CLI) | payer MEDICARE, SELFPAY | END | disposition home or self-care (01) | LOC: LABSPEC 16:04 | PROVIDERS: PCP Family Medicine; Visit Provider Surgery Plastic and Reconstructive Surgery | DX: L02.91 Cutaneous abscess, unspecified (principal) | CPT/HCPCS: 87070; 87205 ==

== ENCOUNTER 2025-03-18 09:45 | Outpatient (RCR) | payer MEDICARE, SELFPAY ==
[2025-03-04 14:58] VITALS: BP 156/68; PULSE 64; RESP 14
[2025-03-04 15:10] VITALS: BP 156/68; PULSE 64; RESP 15
--- NOTE | 2025-03-04 16:26 | PCM.PN.SRG ---
Subjective Subjective Doing well. Gram-positive rods and coag negative staph on the cultures. Lab did not speciate in lab did not perform sensitivities. Patient has been improving with current treatment and has not had any fevers chills or pain. Objective Data Objective Data Vital Signs: Vital Signs Pulse Resp BP 64 15 156/68 H 03/04/25 15:10 03/04/25 15:10 03/04/25 15:10 Physical Exam Narrative Right axilla: Healing well no fevers chills or drainage. Wound is approximately 1 x 1 cm and 1 cm deep. No signs of residual fluid. Abscess is gone Assessment & Plan Assessment/Plan (1) Cutaneous abscess of right axilla: PLAN: Resolving Repacked with iodoform gauze (to be removed little by little over the next couple of days until she pulls it out on Tuesday, 06 March 2025,then she can place a Band-Aid over the wound. Patient happy with the plan She will finish her course of doxycycline through Tuesday Follow-up in 1 week for wound check Charges/Coding Procedures Integumentary [id number]: [id number] Global Visit
--- NOTE | 2025-03-05 14:59 | WC ---
PHOTO 03/04/25 RIGHT AXILLA
[2025-03-11 09:53] VITALS: BP 147/68; PULSE 57; RESP 16; TEMP 36.6
--- NOTE | 2025-03-11 13:29 | WC ---
PHOTO 03/11/25 RIGHT AXILLA
--- NOTE | 2025-03-12 10:45 | PCM.WC.PN ---
History of Present Illness Date of Service: 03/11/25 Subjective Subjective 26 February 2025: Holley Malik is a delightful 75-year-old female who presents today for a right axillary abscess of approximately 9 days duration. She reports that it started a couple of Sundays ago as a small bump while she was shaving her armpits and turned into a a large hot swollen area. She has been on prednisone for hand pain per her primary care physician for the past 2 weeks. No new lumps or bumps on her breasts. She had a mammogram 2 weeks ago without any concerning areas for cancer and was told to follow-up in 1 year for regular screening mammography. No drainage from the right breast No systemic symptoms today. No fevers or chills She denied a history of breast cancer. Her mother had a history of breast cancer. Her sister had a history of brain cancer. Denies history of blood clots or bleeding. 04 March 2025: Doing well. Gram-positive rods and coag negative staph on the cultures. Lab did not speciate in lab did not perform sensitivities. Patient has been improving with current treatment and has not had any fevers chills or pain. Current encounter, 12 March 2025: Doing well overall and has finished her antibiotics. Barely able to get any packing in the wound. No fevers or chills Objective Data Objective Data Vital Signs: Vital Signs Temp Pulse Resp BP 97.8 F 57 L 16 147/68 H 03/11/25 09:53 03/11/25 09:53 03/11/25 09:53 03/11/25 09:53 Charges/Coding Visit Charges Office Visits / Consults: 69309 OV L2 Est 10min Physical Exam Narrative Right axilla: Healing well no fevers chills or drainage. Wound is approximately 0.5 x 0.5 cm and 0.5 cm deep. No signs of residual fluid. Abscess is gone Const Constitutional Narrative: Debridement Note Debridement Note No debridement was completed: No debridement was completed today Post-Debridement Measurements and Additional Note: Post-Debridement Measurements/Treatment HUI - Nurse 1 - General Ulcer Assessment Start: 03/04/25 14:51 Freq: Status: Active Protocol: JUAN F Activity Type Activity Date Activity User E-sign Co-sign Detail Recorded Client Recorded Date Recorded By Document 03/04/25 14:58 DL [id number] 03/04/25 15:04 DL Document 03/04/25 15:10 ML [id number] 03/04/25 15:13 ML Document 03/11/25 09:53 JF [id number] 03/11/25 10:01 JF 03/04/25 03/04/25 03/11/25 14:58 15:10 09:53 - Today's Visit Information Type of service Initial Visit Follow-up Visit Follow-up Visit (Physician/[employer]N (Physician/[employer]N ) ) Arrival Mode Ambulatory Ambulatory Ambulatory Transfer Assistance None None Patient Identification Verified (Name & Yes Yes Yes ) Patient Requires Transmission-Based No No No Precautions Vital Signs Temperature (97.8 F-99.1 F) 97.8 F Temperature Source Temporal Pulse Rate (60-100) 64 64 57 L Pulse Location Monitor Monitor Monitor Respiratory Rate (12-18) 14 15 16 Respiratory rate source Observation Observation Blood Pressure (90/60-120/80) 156/68 H 156/68 H 147/68 H Blood Pressure Mean (mm Hg) 97 97 94 Source Monitor Monitor Manual Position Sitting Sitting Semi-Fowlers Blood Pressure Location Left Arm Left Arm Left Arm History Since Last Visit- (Skip if this is Patient's initial visit) Have you changed medications since your No last visit? Any new allergies or adverse reactions No Had a fall/change in ADL's that may No increase risk of falls Signs or symptoms of abuse and/or No neglect since last visit Have you been in the hospital since your No last visit? Has dressing in place as prescribed Yes Has compression in place as prescribed N/A Has offloadiing in place as prescribed N/A Experienced any changes in pain level or No management Left Footwear Regular Shoe Right Footwear Regular Shoe Pain Scale: 0-10 Numeric Is Patient Pain Free? Yes Yes Yes - Nurse 1 - General Ulcer Measurement Start: 03/04/25 14:51 Freq: Status: Active Protocol: Activity Type Activity Date Activity User E-sign Co-sign Detail Recorded Client Recorded Date Recorded By Document 03/04/25 14:58 DL [id number] 03/04/25 15:04 DL Document 03/04/25 15:10 ML [id number] 03/04/25 15:13 ML Document 03/11/25 09:53 JF [id number] 03/11/25 10:01 JF 03/04/25 03/04/25 03/11/25 14:58 15:10 09:53 Wound Center Nurse 1 #1 Right axilla -Combined with other wound No -Current Size (cm) - Length 0.3 0.3 0.1 -Current Size (cm) - Width 0.5 0.5 0.4 -Current Size (cm) - Depth 1.3 1.2 0.6 -Total Square Cm 0.15 0.15 0.04 -Photo Taken Yes -Epithelialization Large 67-100% -Tunneling No -Undermining/Tunneling No -Circular Undermining No -Exudate Amt Small None Present Small -Exudate Type Serosanguineous Serosanguineous -Wound Margin Distinct, Flat & Intact Outline Attached -Granulation Amt Small (1-33%) Large (67-100%) -Granulation Quality Red -Slough/Fibrin No Yes -Necrosis Amt Small (1-33%) Small (1-33%) Small (1-33%) -Necrotic Tissue Type Adherent Slough -Structure Exposed N/A -Texture (Krystle-wound Skin Appearance) Assessed Assessed Assessed -Moisture (Krystle-wound Skin Appearance) Assessed Assessed Assessed,Dry/ Scaly -Color (Krystle-wound Skin Appearance) Assessed Assessed Assessed -Temperature (Krystle-wound Skin No Abnormality No Abnormality No Abnormality Appearance) (Pt Warm) (Pt Warm) (Pt Warm) -Tenderness on Palpation (Krystle-wound No No No Skin Appearance) -Ulcer Cleansing Rinsed/ Rinsed/ Rinsed/ Irrigated with Irrigated with Irrigated with Saline Saline Saline -Foul Odor after Cleansing No No No -Anesthetic Used 5% Lidocaine 5% Lidocaine 5% Lidocaine Gel Gel Gel Lower Limb Edema Present NA - Nurse 2 - General Ulcer CM Notes Start: 03/04/25 14:51 Freq: Status: Active Protocol: Activity Type Activity Date Activity User E-sign Co-sign Detail Recorded Client Recorded Date Recorded By Document 03/04/25 15:26 JF [id number] 03/04/25 15:29 JF Document 03/11/25 10:17 DS [id number] 03/11/25 10:19 DS 03/04/25 03/11/25 15:26 10:17 Wound Center Nurse 2 #1 Right axilla -Time 10:19 -Correct Patient No Yes -Correct Side, Site, Position No Yes -Correct Procedure No -Procedure Performed No No -Post Debridement (cm) - Length 1 0.2 -Post Debridement (cm) - Width 1 0.8 -Post Debridement (cm) - Depth 1 0.1 -Total Square (Post) (cm) 1 0.16 -Area of Debridement (cm) - Length 1 0.2 -Area of Debridement (cm) - Width 1 0.8 -Total Square (Area) (cm) 1 0.16 -Tunneling No -Undermining/Tunneling No -Circular Undermining No -Wound/Ulcer Outcome Not Healed Not Healed -Ulcer Cleansing Rinsed/ Irrigated with Saline -Foul Odor after Cleansing No -Bioengineered Tissue No -Bleeding Controlled with Pressure -Treatment Response Procedure Tolerated Well -Offloading No -Debridement - Subq, 1st 20sq cm No Pain Scale: 0-10 Numeric Is Patient Pain Free? Yes Yes - Nurse 3 - General Ulcer D/C NN Start: 03/04/25 14:51 Freq: Status: Active Protocol: Activity Type Activity Date Activity User E-sign Co-sign Detail Recorded Client Recorded Date Recorded By Document 03/04/25 15:29 [id number] 03/04/25 15:29 03/04/25 15:29 Wound Care Center Nurse 3 #1 Right axilla -Other Dressing 1/4 IODOFORM PACKING FROM PERSONAL SUPPLIES -Primary Dressing Covered/Secured with Dry Gauze, Secured with Tape Pain Scale: 0-10 Numeric Is Patient Pain Free? Yes - Visit Discharge Discharge Condition Stable Ambulatory Status Ambulatory Transportation Private Auto Medication Reconcilliation completed & Yes provided to patient/care provider Clinical Summary of Care Provided Yes Assessment/Plan Assessment/Plan (1) Open wound of right axillary region: CODE(S): S41.101A - Unspecified open wound of right upper arm, initial encounter PLAN: Significant improvement Plan for Neosporin and Band-Aid daily Follow-up in 1 week
[2025-03-18 09:43] VITALS: BP 131/60; PULSE 63; RESP 18; TEMP 36.4
--- NOTE | 2025-03-19 08:48 | WC ---
PHOTO 03/18/25 RIGHT AXILLA
--- NOTE | 2025-03-19 21:23 | PCM.WC.PN ---
History of Present Illness Date of Service: 03/18/25 Subjective Subjective 26 February 2025: Holley Mlaik is a delightful 75-year-old female who presents today for a right axillary abscess of approximately 9 days duration. She reports that it started a couple of Sundays ago as a small bump while she was shaving her armpits and turned into a a large hot swollen area. She has been on prednisone for hand pain per her primary care physician for the past 2 weeks. No new lumps or bumps on her breasts. She had a mammogram 2 weeks ago without any concerning areas for cancer and was told to follow-up in 1 year for regular screening mammography. No drainage from the right breast No systemic symptoms today. No fevers or chills She denied a history of breast cancer. Her mother had a history of breast cancer. Her sister had a history of brain cancer. Denies history of blood clots or bleeding. 04 March 2025: Doing well. Gram-positive rods and coag negative staph on the cultures. Lab did not speciate in lab did not perform sensitivities. Patient has been improving with current treatment and has not had any fevers chills or pain. 12 March 2025: Doing well overall and has finished her antibiotics. Barely able to get any packing in the wound. No fevers or chills CURRENT ENCOUNTER, 18 March 2025: Doing well. Wound is healed is not causing her any more problems. Asking specifically about left index finger triggering that happens in the morning. She has to pop the left index finger out from a flexed position. Objective Data Objective Data Vital Signs: Vital Signs Temp Pulse Resp BP O2 Del Method 97.6 F L 63 18 131/60 H Room Air 03/18/25 09:43 03/18/25 09:43 03/18/25 09:43 03/18/25 09:43 03/18/25 09:43 Oxygen Delivery Method Room Air Charges/Coding Visit Charges Office Visits / Consults: [id number] OV L2 Est 10min Physical Exam Narrative Right axilla: Healed. No signs of residual fluid. Abscess is gone Debridement Note Debridement Note Post-Debridement Measurements and Additional Note: Post-Debridement Measurements/Treatment HUI - Nurse 1 - General Ulcer Assessment Start: 03/04/25 14:51 Freq: Status: Active Protocol: JUAN F Activity Type Activity Date Activity User E-sign Co-sign Detail Recorded Client Recorded Date Recorded By Document 03/04/25 14:58 DL [id number] 03/04/25 15:04 DL Document 03/04/25 15:10 ML [id number] 03/04/25 15:13 ML Document 03/11/25 09:53 JF [id number] 03/11/25 10:01 JF Document 03/18/25 09:43 KW [id number] 03/18/25 09:47 KW 03/04/25 03/04/25 03/11/25 14:58 15:10 09:53 WC - Today's Visit Information Type of service Initial Visit Follow-up Visit Follow-up Visit (Physician/[employer]BER [employer] (Physician/[employer]BER [employer] ) ) Arrival Mode Ambulatory Ambulatory Ambulatory Transfer Assistance None None Patient Identification Verified (Name & Yes Yes Yes ) Patient Requires Transmission-Based No No No Precautions Vital Signs Temperature (97.8 F-99.1 F) 97.8 F Temperature Source Temporal Pulse Rate (60-100) 64 64 57 L Pulse Location Monitor Monitor Monitor Respiratory Rate (12-18) 14 15 16 Respiratory rate source Observation Observation Oxygen Delivery Method Blood Pressure (90/60-120/80) 156/68 H 156/68 H 147/68 H Blood Pressure Mean (mm Hg) 97 97 94 Source Monitor Monitor Manual Position Sitting Sitting Semi-Fowlers Blood Pressure Location Left Arm Left Arm Left Arm History Since Last Visit- (Skip if this is Patient's initial visit) Have you changed medications since your No last visit? Any new allergies or adverse reactions No Had a fall/change in ADL's that may No increase risk of falls Signs or symptoms of abuse and/or No neglect since last visit Have you been in the hospital since your No last visit? Has dressing in place as prescribed Yes Has compression in place as prescribed N/A Has offloadiing in place as prescribed N/A Experienced any changes in pain level or No management Left Footwear Regular Shoe Right Footwear Regular Shoe Pain Scale: 0-10 Numeric Is Patient Pain Free? Yes Yes Yes 03/18/25 09:43 WC - Today's Visit Information Type of service Follow-up Visit (Physician/MEMBER [employer] ) Arrival Mode Ambulatory Transfer Assistance Patient Identification Verified (Name & Yes ) Patient Requires Transmission-Based No Precautions Vital Signs Temperature (97.8 F-99.1 F) 97.6 F L Temperature Source Temporal Pulse Rate (60-100) 63 Pulse Location Monitor Respiratory Rate (12-18) 18 Respiratory rate source Observation Oxygen Delivery Method Room Air Blood Pressure (90/60-120/80) 131/60 H Blood Pressure Mean (mm Hg) 83 Source Monitor Position Semi-Fowlers Blood Pressure Location Right Arm History Since Last Visit- (Skip if this is Patient's initial visit) Have you changed medications since your No last visit? Any new allergies or adverse reactions No Had a fall/change in ADL's that may No increase risk of falls Signs or symptoms of abuse and/or No neglect since last visit Have you been in the hospital since your No last visit? Has dressing in place as prescribed Yes Has compression in place as prescribed N/A Has offloadiing in place as prescribed N/A Experienced any changes in pain level or No management Left Footwear Regular Shoe Right Footwear Regular Shoe Pain Scale: 0-10 Numeric Is Patient Pain Free? Yes WC - Nurse 1 - General Ulcer Measurement Start: 03/04/25 14:51 Freq: Status: Active Protocol: Activity Type Activity Date Activity User E-sign Co-sign Detail Recorded Client Recorded Date Recorded By Document 03/04/25 14:58 DL [id number] 03/04/25 15:04 DL Document 03/04/25 15:10 ML [id number] 03/04/25 15:13 ML Document 03/11/25 09:53 JF [id number] 03/11/25 10:01 JF Document 03/18/25 09:43 KW [id number] 03/18/25 09:47 KW 03/04/25 03/04/25 03/11/25 14:58 15:10 09:53 Wound Center Nurse 1 #1 Right axilla -Combined with other wound No -Current Size (cm) - Length 0.3 0.3 0.1 -Current Size (cm) - Width 0.5 0.5 0.4 -Current Size (cm) - Depth 1.3 1.2 0.6 -Total Square Cm 0.15 0.15 0.04 -Date of Last Picture (Recall this field) -Photo Taken Yes -Epithelialization Large 67-100% -Tunneling No -Undermining/Tunneling No -Circular Undermining No -Exudate Amt Small None Present Small -Exudate Type Serosanguineous Serosanguineous -Wound Margin Distinct, Flat & Intact Outline Attached -Granulation Amt Small (1-33%) Large (67-100%) -Granulation Quality Red -Slough/Fibrin No Yes -Necrosis Amt Small (1-33%) Small (1-33%) Small (1-33%) -Necrotic Tissue Type Adherent Slough -Structure Exposed N/A -Texture (Krystle-wound Skin Appearance) Assessed Assessed Assessed -Moisture (Krystle-wound Skin Appearance) Assessed Assessed Assessed,Dry/ Scaly -Color (Krystle-wound Skin Appearance) Assessed Assessed Assessed -Temperature (Krystle-wound Skin No Abnormality No Abnormality No Abnormality Appearance) (Pt Warm) (Pt Warm) (Pt Warm) -Tenderness on Palpation (Krystle-wound No No No Skin Appearance) -Ulcer Cleansing Rinsed/ Rinsed/ Rinsed/ Irrigated with Irrigated with Irrigated with Saline Saline Saline -Foul Odor after Cleansing No No No -Anesthetic Used 5% Lidocaine 5% Lidocaine 5% Lidocaine Gel Gel Gel Lower Limb Edema Present 03/18/25 09:43 Wound Center Nurse 1 #1 Right axilla -Combined with other wound -Current Size (cm) - Length 0.1 -Current Size (cm) - Width 0.1 -Current Size (cm) - Depth 0 -Total Square Cm 0.01 -Date of Last Picture (Recall this 03/18/25 field) -Photo Taken -Epithelialization -Tunneling -Undermining/Tunneling -Circular Undermining -Exudate Amt -Exudate Type -Wound Margin -Granulation Amt -Granulation Quality -Slough/Fibrin -Necrosis Amt -Necrotic Tissue Type -Structure Exposed -Texture (Krystle-wound Skin Appearance) Assessed -Moisture (Krystle-wound Skin Appearance) Assessed -Color (Krystle-wound Skin Appearance) Assessed -Temperature (Krystle-wound Skin No Abnormality Appearance) (Pt Warm) -Tenderness on Palpation (Krystle-wound No Skin Appearance) -Ulcer Cleansing Rinsed/ Irrigated with Saline -Foul Odor after Cleansing No -Anesthetic Used Lower Limb Edema Present WC - Nurse 2 - General Ulcer CM Notes Start: 03/04/25 14:51 Freq: Status: Active Protocol: Activity Type Activity Date Activity User E-sign Co-sign Detail Recorded Client Recorded Date Recorded By Document 03/04/25 15:26 [id number] 03/04/25 15:29 Document 03/11/25 10:17 DS [id number] 03/11/25 10:19 DS Document 03/18/25 09:57 DS [id number] 03/18/25 09:57 DS 03/04/25 03/11/25 03/18/25 15:26 10:17 09:57 Wound Center Nurse 2 #1 Right axilla -Time 10:19 09:57 -Correct Patient No Yes Yes -Correct Side, Site, Position No Yes Yes -Correct Procedure No -Procedure Performed No No No -Post Debridement (cm) - Length 1 0.2 -Post Debridement (cm) - Width 1 0.8 -Post Debridement (cm) - Depth 1 0.1 -Total Square (Post) (cm) 1 0.16 -Area of Debridement (cm) - Length 1 0.2 -Area of Debridement (cm) - Width 1 0.8 -Total Square (Area) (cm) 1 0.16 -Tunneling No -Undermining/Tunneling No -Circular Undermining No -Wound/Ulcer Outcome Not Healed Not Healed Healed- Epithelialized -Ulcer Cleansing Rinsed/ Irrigated with Saline -Foul Odor after Cleansing No -Bioengineered Tissue No -Bleeding Controlled with Pressure -Treatment Response Procedure Tolerated Well -Offloading No -Debridement - Subq, 1st 20sq cm No Pain Scale: 0-10 Numeric Is Patient Pain Free? Yes Yes Yes - Nurse 3 - General Ulcer D/C NN Start: 03/04/25 14:51 Freq: Status: Active Protocol: Activity Type Activity Date Activity User E-sign Co-sign Detail Recorded Client Recorded Date Recorded By Document 03/04/25 15:29 [id number] 03/04/25 15:29 Document 03/15/25 14:31 DS [id number] 03/15/25 14:31 DS 03/04/25 03/15/25 15:29 14:31 Wound Care Center Nurse 3 #1 Right axilla -Other Dressing 1/4 IODOFORM triple abx PACKING FROM ointment, PERSONAL bandaid SUPPLIES -Primary Dressing Covered/Secured with Dry Gauze, Secured with Tape Pain Scale: 0-10 Numeric Is Patient Pain Free? Yes Yes - Visit Discharge Discharge Condition Stable Stable Ambulatory Status Ambulatory Transportation Private Auto Medication Reconcilliation completed & Yes provided to patient/care provider Clinical Summary of Care Provided Yes Assessment/Plan Assessment/Plan (1) Open wound of right axillary region: CODE(S): S41.101A - Unspecified open wound of right upper arm, initial encounter PLAN: Healed PLAN: Plan Follow-up in 1 week for left index finger possible steroid injection for trigger finger
== END 2025-03-20 23:59 | disposition home or self-care (01) ==
LOC: WC 09:45
PROVIDERS: PCP Family Medicine; Referring Provider Family Medicine; Visit Provider Surgery Plastic and Reconstructive Surgery
DX: S41.101A Unspecified open wound of right upper arm, initial encounter (principal); M65.322 Trigger finger, left index finger; Z79.82 Long term (current) use of aspirin; Z79.84 Long term (current) use of oral hypoglycemic drugs; Z79.899 Other long term (current) drug therapy
CPT/HCPCS: 99212; 99213; G0463

== ENCOUNTER → 2025-05-10 | Outpatient (CLI) | payer MEDICARE, SELFPAY ==
--- NOTE | 2025-05-10 11:18 | RAD_ITS ---
PROCEDURE: HAND MIN 3 VIEWS 05/10/2025 REASON FOR EXAM: ARTHRALGIA TECHNIQUE: HAND MIN 3 VIEWS COMPARISON: None. FINDINGS: Mild osteopenia of the visualized bones. Degenerative joint disease. No fracture or dislocation is seen. No lytic or blastic bone lesion is noted. RAD/Hand Min 3 Views IMPRESSION: Degenerative joint disease, more prominent in the 1st carpometacarpal joint. Reading Location: [facility]
[2025-05-10 12:39] LABS: Absolute Lymphocyte Count 1.51 X10^3/uL (0.83-4.51); Absolute Neutrophil Count 3.8 X10^3/uL (2.0-7.7); Basophil# 0.02 X10^3/uL; Basophil% 0.3 % (0-1); Eosinophil# 0.33 X10^3/uL; Eosinophils% 5.2 % (0-5); Hematocrit 46.6 % (37-47); Hemoglobin 15.6 g/dL (12.0-15.0); Lymphocyte # 1.51 X10^3/ul (0.83-4.51); Lymphocyte % 23.9 % (19-41); Mean Corp Hgb Conc 33.5 g/dL (32-36); Mean Corpuscular Hgb 32.6 pg (27.0-32.0); Mean Corpuscular Volume 97.5 fL (81-99); Mean Platelet Vol. 10.4 fl (6.2-12.0); Monocyte# 0.65 X10^3/uL; Monocyte% 10.3 % (0-10); NRBC Flagged by Analyzer 0 % (0-5); Neutrophil # 3.79 X10^3/uL (2.7-7.7); Platelet Count 185 K/mm3 (150-450); RBC Distribution Width CV 14.6 % (11.6-14.6); RBC Distribution Width SD 52.3 fl (35.1-43.9); Red Blood Count 4.78 M/mm3 (4.2-5.4); White Blood Count 6.3 K/mm3 (4.4-11.0)
[2025-05-10 13:48] LABS: Microalbumin,Random Urine < 12.0 mg/L (NO RANGE EST.); Microalbumin:Creatinine Ratio UNABLE TO CALCULATE mg/g CRE
[2025-05-10 15:58] LABS: BUN 17 mg/dL (4-19); Creatinine, Serum 0.73 mg/dL (0.70-1.20); EST Glomerular Filtration Rate 86 (>60); Glucose 119 mg/dL (70-99)
[2025-05-10 15:59] LABS: ALB/GLOB Ratio 0.9 RATIO (0.9-2.4); AST(SGOT) 20 U/L (<=31); Alanine Aminotransfer ALT/SGPT 26 U/L (<=34); Albumin, Serum 3.8 g/dL (3.4-4.8); Alkaline Phosphatase 136 U/L (35-104); Anion Gap 10 (5-15); Calcium,Total 10.5 mg/dL (7.6-11.0); Carbon Dioxide 26.3 mmol/L (21.0-32.0); Chloride 103 mmol/L (98-108); Potassium 3.7 mmol/L (3.3-5.1); Protein, Total 7.8 g/dL (5.9-8.4); Sodium Level 140 mmol/L (133-145); Total Bilirubin 0.37 mg/dL (0.00-1.30)
[2025-05-10 16:22] LABS: Rheumatoid Factor < 10.0 IU/mL (<15); Uric Acid 5.9 mg/dL (2.6-6.0)
[2025-05-14 13:08] LABS: ANTINUCLEAR ANTIBODIES DIRECT Negative (Negative)
== END | disposition home or self-care (01) ==
LOC: MTLAB 11:04
PROVIDERS: PCP Family Medicine; Referring Provider Family Medicine; Visit Provider Family Medicine
DX: M25.50 Pain in unspecified joint (principal); E11.22 Type 2 diabetes mellitus with diabetic chronic kidney disease; D86.9 Sarcoidosis, unspecified; E55.9 Vitamin D deficiency, unspecified
CPT/HCPCS: 36415; 73130; 80053; 82043; 82306; 82570; 83036; 84550; 85025; 86038; 86431

== ENCOUNTER → 2025-10-28 | Outpatient (CLI) | payer MEDICARE, SELFPAY ==
[2025-10-28 18:33] LABS: AST(SGOT) 30 U/L (<=31); Alanine Aminotransfer ALT/SGPT 46 U/L (<=34); Albumin, Serum 3.8 g/dL (3.4-4.8); Alkaline Phosphatase 122 U/L (35-104); Anion Gap 6 (5-15); BUN 16 mg/dL (4-19); BUN/Creat Ratio 23.1 RATIO (10-20); Calcium,Total 10.3 mg/dL (7.6-11.0); Carbon Dioxide 28.6 mmol/L (21.0-32.0); Chloride 105 mmol/L (98-108); Globulin 3.9 g/dL (2.2-4.2); Glucose 102 mg/dL (70-99); Potassium 4.2 mmol/L (3.3-5.1)
== END | disposition home or self-care (01) ==
LOC: MTLAB 14:00
PROVIDERS: PCP Family Medicine; Referring Provider Family Medicine; Visit Provider Family Medicine
DX: B35.1 Tinea unguium (principal)
CPT/HCPCS: 36415; 80053

== ENCOUNTER → 2025-11-19 | Outpatient (CLI) | payer MEDICARE, SELFPAY ==
[2025-11-19 12:25] LABS: Hematocrit 46.9 % (37-47); Hemoglobin 15.5 g/dL (12.0-15.0); Immature Granulocytes Count 0.030 X10^3/uL (0.0-0.0); Mean Corp Hgb Conc 33.0 g/dL (32-36); Mean Corpuscular Volume 97.7 fL (81-99); Mean Platelet Vol. 10.6 fl (6.2-12.0); NRBC Flagged by Analyzer 0 % (0-5); Platelet Count 180 K/mm3 (150-450); RBC Distribution Width CV 15.1 % (11.6-14.6); RBC Distribution Width SD 54.0 fl (35.1-43.9); Red Blood Count 4.80 M/mm3 (4.2-5.4); White Blood Count 6.5 K/mm3 (4.4-11.0)
[2025-11-19 12:36] LABS: Creatinine, Urine (random) 73.50 mg/dL (28.00-217.00); Microalbumin,Random Urine < 12.0 mg/L (<20 mg/L)
[2025-11-19 12:47] LABS: FOLATES,SERUM (FOLIC ACID) 12.40 ng/mL (4.60-34.80)
[2025-11-19 12:49] LABS: Ferritin 269 ng/mL (22-378); Vitamin B12 1805 pg/mL (180-914); Vitamin D,25 Hydroxy 28.0 ng/mL (30-100)
== END | disposition home or self-care (01) ==
LOC: MFPLAB 09:57
PROVIDERS: PCP Family Medicine; Visit Provider Family Medicine
DX: E11.22 Type 2 diabetes mellitus with diabetic chronic kidney disease (principal); D86.9 Sarcoidosis, unspecified; E55.9 Vitamin D deficiency, unspecified
CPT/HCPCS: 36415; 82043; 82306; 82570; 82607; 82728; 82746; 84443; 85025